=== PATIENT | female | born 1940 | race Caucasian/White ===

== ENCOUNTER 2018-09-18 10:16 | Emergency (ER) | payer MEDICARE, OTHER, SELFPAY ==
[2018-09-18 10:34] VITALS: BP 167/93; PULSE 95; RESP 14; TEMP 36.6; O2SAT 95
[2018-09-18 11:17] LABS: Add Manual Diff / Slide Review NO; Basophils Absolute Auto 0 /uL (0-100); Basophils Percent Auto 0.8 % (0-2); Eosinophils Absolute Auto 100 /uL (0-450); Eosinophils Percent Auto 1.8 % (2-4); Hematocrit 42.4 % (36-46); Lymphocytes Absolute Auto 1700 /uL (1100-4500); Lymphocytes Percent Auto 31.7 % (25-40); Mean Corpuscular Hemoglobin 29.6 PG (26-34); Mean Corpuscular Volume 89.7 fL (80-100); Monocytes Absolute Auto 600 /uL (0-900); Monocytes Percent Auto 11.7 % (3-14); Neutrophils Absolute Auto 2900 /uL (1500-7000); Platelet Count 263 X10^3/uL (150-400); Red Blood Cell Count 4.73 X10^6/uL (4.0-5.2); Red Cell Distribution Width 13.5 % (11.6-14.8); White Blood Cell Count 5.3 X10^3/uL (4.5-11.0)
[2018-09-18 11:23] LABS: Prothrombin Time 11.7 SECONDS (10.1-12.7)
[2018-09-18 11:27] LABS: Alanine Aminotransferase 21 IU/L (9-52); Albumin 4.4 g/dL (3.5-5.0); Albumin Globulin Ratio 1.1 (1.0-2.8); Alkaline Phosphatase 93 U/L (38-126); Aspartate Aminotransferase 23 IU/L (14-36); Bilirubin Total 0.4 mg/dL (0.2-1.3); Blood Urea Nitrogen 21 mg/dL (7-17); Calcium 9.6 mg/dL (8.4-10.2); Carbon Dioxide 25 mmol/L (22-32); Chloride 103 mmol/L (98-107); Estimated Glomerular Filt Rate 53.3 mL/min (>60); Glucose 93 mg/dL (80-110); HEMOLYSIS < 15 (0-50); Potassium 3.9 mmol/L (3.4-5.1); Sodium 138 mmol/L (137-145); Total Protein 8.4 g/dL (6.3-8.2)
[2018-09-18 11:30] VITALS: BP 151/86; PULSE 90; RESP 18; O2SAT 97
--- NOTE | 2018-09-18 12:49 | ED_ITS ---
HPI - GI Bleed General Chief complaint: GI Bleed Stated complaint: Rectal bleeding Time Seen by Provider: 09/18/18 12:02 Source: patient Mode of arrival: ambulatory Limitations: no limitations History of Present Illness HPI Narrative: This an 78-year-old female comes to emergency department with complaint of bright red blood with a bowel movement at 3:00 a.m. today patient states she got up to have a bowel movement, when she wiped she noticed there was blood on the toilet paper and she also noticed it in the toilet itself. She states there was enough she could see the stool she only had the 1 episode she has not had any further today. She has not had any further bowel movements today either. She states it was a little bit of dried blood on the depends that she wears afterwards, she noted this when she went to urinate later today. She denies any lightheadedness, no chest pain, shortness of breath. She states that sometimes she has a little bit of abdominal discomfort nothing new or different. No nausea, no vomiting no other diarrhea or constipation. She had a normal bowel movement today. She does have a known prolapsed rectum she is supposed to see 1 of the surgeons on the 27 of September for this. She thought they were hemorrhoids but when she saw his physician they told her it was a prolapsed rectum. Related Data Home Medications Medication Instructions Recorded Confirmed CHOLECALCIFEROL (VITAMIN D3) 2,000 units Q DAY #0 06/24/10 (Vitamin D3) Previous Rx's Medication Instructions Recorded tamsulosin [Flomax] 0.4 mg PO QDAY 7 Days #0 cap 06/06/16 Allergies Allergy/AdvReac Type Severity Reaction Status Date / Time azithromycin Allergy Mild RASH Unverified 08/19/17 13:09 levofloxacin Allergy Mild RASH Unverified 08/19/17 13:09 Sulfa (Sulfonamide Allergy Mild RASH Unverified 08/19/17 13:09 Antibiotics) adhesive AdvReac Mild RASH FROM Unverified 08/19/17 13:09 CLOTH TAPE Review of Systems Review of Systems ROS Unobtainable: All systems reviewed & are unremarkable except as noted in HPI and below Constitutional Denies chills, Denies fever(s), Denies lethargy and Denies weakness Cardiovascular Denies chest pain, Denies chest pain at rest, Denies rapid heart rate, Denies dyspnea, Denies dyspnea on exertion and Denies orthopnea Respiratory Denies chest congestion, Denies dyspnea and Denies dyspnea on exertion Gastrointestinal Gastrointestinal: Denies abdominal pain, Denies melena, Reports hematochezia, Denies change in bowel habits, Denies tenesmus, Denies change in stool character, Denies constipation, Denies diarrhea, Denies nausea, Denies vomiting and Reports other (known rectal prolapse) Genitourinary Denies hematuria, Denies urinary frequency, Denies flank pain, Denies urinary incontinence and Denies urinary urgency Neurologic Denies weakness [facility] Medical History (Updated 09/18/18 @ 12:49 by Monika Mosley DO) Hypertension (Chronic) Social History Smoking Status: Former smoker Social History Smoking Status: Former smoker Exam Narrative Exam Narrative: GENERAL: Alert and oriented x three, well-nourished, well- appearing elderly female in no acute distress. HEENT: Head normocephalic, atraumatic, EOMI, pupils reactive, face symmetric, moist mucous membranes NECK: Supple, full range of motion CARDIOVASCULAR: Regular rate and rhythm without murmurs, rubs or gallops. RESPIRATORY: Breath sounds equal bilaterally, no wheezes rales or rhonchi. ABDOMEN: Soft, nontender. Normoactive bowel sounds all 4 quadrants. No guarding or rebound, rigidity, no mass, on rectal exam patient does have a slightly prolapsed rectum. I am also able to palpate some internal hemorrhoids. Patient has some dried blood on her depends as well as in the rectal area. Stool occult is positive. There is small amount of bright red blood on my finger, there is no melanotic blood. : No CVA tenderness EXTREMITIES No edema. Neurovascularly intact. Patient has decreased use of her lower extremities and requires assistance for rolling. She normally spends her time in a wheelchair. NEUROLOGICAL: Cranial nerves II through XII grossly intact. Moving all extremities SKIN: Warm, dry, no petechiae, no rashes or lesions. Initial Vital Signs Initial Vital Signs: Vital Signs Temperature 97.9 F 09/18/18 10:34 Pulse Rate 95 H 09/18/18 10:34 Respiratory Rate 14 09/18/18 10:34 Blood Pressure 167/93 H 05/11/19 10:34 Pulse Oximetry 95 05/11/19 10:34 Course Orders Ordered: ED Orders 09/18/18 10:50 CBC [Complete Blood Count AUTO DIFF] Stat CMP [Comprehensive Metabolic Panel] Stat PT [Prothrombin Time INR] Stat Vital Signs - 8 hr 09/18/18 11:30 09/18/18 13:00 Pulse Rate 90 89 Respiratory Rate 18 20 Blood Pressure [Left Arm] 151/86 H 157/83 H Pulse Oximetry 97 96 MDM - GI Bleed Lab Data Result diagrams: 09/18/18 10:50 09/18/18 10:50 Lab Results 09/18/18 09/18/18 09/18/18 Range/Units 10:50 10:50 10:50 WBC 5.3 (4.5-11.0) X10^3/uL RBC 4.73 (4.0-5.2) X10^6/uL Hgb 14.0 (12.0-16.0) g/dL Hct 42.4 (36-46) % MCV 89.7 (80-100) fL MCH 29.6 (26-34) PG MCHC 33.0 (30-36) % RDW 13.5 (11.6-14.8) % Plt Count 263 (150-400) X10^3/uL Neut % (Auto) 54.0 (50-75) % Lymph % (Auto) 31.7 (25-40) % [place] % (Auto) 11.7 (3-14) % Eos % (Auto) 1.8 L (2-4) % Baso % (Auto) 0.8 (0-2) % Neut # (Auto) 2900 (8349-2243) /uL Lymph # (Auto) 1700 (2011-4209) /uL [place] # (Auto) 600 (0-900) /uL Eos # (Auto) 100 (0-450) /uL Baso # (Auto) 0 (0-100) /uL PT 11.7 (10.1-12.7) SECONDS INR 1.0 (0.9-1.3) Sodium 138 (137-145) mmol/L Potassium 3.9 (3.4-5.1) mmol/L Chloride 103 (98-107) mmol/L Carbon Dioxide 25 (22-32) mmol/L BUN 21 H (7-17) mg/dL Creatinine 1.00 (0.52-1.04) mg/dL Estimated GFR 53.3 L (>60) mL/min BUN/Creatinine Ratio 21.0 (6-22) Glucose 93 (80-110) mg/dL Calcium 9.6 (8.4-10.2) mg/dL Total Bilirubin 0.4 (0.2-1.3) mg/dL AST 23 (14-36) IU/L ALT 21 (9-52) IU/L Alkaline Phosphatase 93 (38-126) U/L Total Protein 8.4 H (6.3-8.2) g/dL Albumin 4.4 (3.5-5.0) g/dL Globulin 4.0 (1.7-4.1) g/dL Albumin/Globulin Ratio 1.1 (1.0-2.8) MDM Narrative Medical decision making narrative: Discussed with patient vitals, labs do not show any acute changes she has had 1 episode of bright red blood in her stool. She has follow-up on the with General surgery for prolapsed rectum and discussed having them evaluate her for colonoscopy as well. We did discuss that if she has worsening or recurrent symptoms she needs sooner followup warnings to return immediately to the ER. She feels comfortable with this plan she does not have any other generalized symptoms at this time. Discharge Plan Departure Patient Disposition: Home Clinical Impression: Rectal bleeding Discharge Date/Time: 09/18/18 13:10 Interventions: ED Discharge Assessment Last Done: 09/18/18 13:10 Instructions: DI for Rectal Bleeding Activity Restrictions/Additional Instructions: Call Thursday morning to notify the surgeons on about his rectal bleeding to see if they can move up your appointment or schedule a colonoscopy for further chaim luation. May continue her medications as prescribed. Do not start or add any blood thinners until you are seen. Return to the emergency department for new or worsening symptoms, if your having increasing frequency of rectal bleeding having large clots, have lightheadedness, passing out, new chest pain, shortness of breath, no abdominal pain, black stools or other new or concerning symptoms. Prescriptions: No Action CHOLECALCIFEROL (VITAMIN D3) (Vitamin D3) 2,000 units Q DAY Qty: 0 RF: 0 tamsulosin [Flomax] 0.4 MG capsule,extended release 24hr 0.4 mg PO QDAY 7 Days Qty: 0 RF: 0 Referrals: Titus Carcamo DO [Primary Care Provider] -
[2018-09-18 13:00] VITALS: BP 157/83; PULSE 89; RESP 20; O2SAT 96
== END 2018-09-18 13:10 | disposition home or self-care (01) ==
PROVIDERS: Emergency Provider Emergency Medicine; PCP Family Medicine
DX: K62.5 Hemorrhage of anus and rectum (principal)
CPT/HCPCS: 36591; 80053; 85025; 85610; 99282; 99283

== ENCOUNTER 2019-03-13 01:19 | Emergency (ER) | payer MEDICARE, OTHER, SELFPAY ==
--- NOTE | 2019-03-13 01:20 | ED.LOWEXIN ---
HPI - Extremity Injury (Lower) General Chief Complaint: Extremity Injury, Lower Stated Complaint: Rolled ankle Time Seen by Provider: 03/13/19 01:20 PST Source: patient Mode of arrival: EMS Limitations: no limitations History of Present Illness HPI Narrative: 78-year-old female with a history of MS. Was standing at her sink earlier this evening when she twisted and fell twisting her right ankle. She was unable to move afterwards. Has deformity of the right ankle. Was brought in by EMS. Reports minimal pain. Does have some swelling to right lower extremity this is not new for her. She does have a wheelchair at home that she uses most of the time. No other injuries reported from the event. Related Data Home Medications Medication Instructions Recorded Confirmed cholecalciferol (vitamin D3) 1,000 1,000 unit PO DAILY 10/25/18 10/25/18 unit capsule lisinopril 5 mg tablet 5 mg PO DAILY 10/25/18 10/25/18 omeprazole 10 mg capsule,delayed 10 mg PO DAILY 10/25/18 10/25/18 release oxybutynin chloride 5 mg tablet 5 mg PO DAILY 10/25/18 10/25/18 Allergies Allergy/AdvReac Type Severity Reaction Status Date / Time azithromycin Allergy Mild RASH Unverified 10/25/18 15:33 levofloxacin Allergy Mild RASH Unverified 10/25/18 15:33 Sulfa (Sulfonamide Allergy Mild RASH Unverified 10/25/18 15:33 Antibiotics) adhesive AdvReac Mild RASH FROM Unverified 10/25/18 15:33 CLOTH TAPE Review of Systems Constitutional Constitutional: Denies fever(s) and Denies headache(s) ENT Ears, Nose, Mouth, and Throat: Denies headache(s) Musculoskeletal Comments: Right ankle deformity Integumentary/Breasts Skin/Breast: Denies lesions and Denies rash Neurologic Neurologic: Denies headache(s) Comments: No change in neurologic status Hematologic/Lymphatic Hematologic/Lymphatic: Denies easy bleeding and Denies easy bruising Patient History Medical History Hypertension (Chronic) Multiple sclerosis (Chronic) Social History occupational status: previously employed Smoking Status: Former smoker alcohol intake frequency: 0-2 drinks per day Substance Use Type: does not use Exam Initial Vital Signs Initial Vital Signs: Vital Signs Temperature 98.1 F 03/13/19 01:24 PST Pulse Rate 122 H 03/13/19 01:24 PST Respiratory Rate 22 03/13/19 01:24 PST Blood Pressure 151/92 H 03/13/19 01:24 PST Pulse Oximetry 99 03/13/19 01:24 PST Const General: cooperative and comfortable Orientation: alert, awake and oriented x3 HENMT Head: normal to inspection and normocephalic Cardio Pulses: dorsalis pedis present on the right Skin Lesions: no lesions Rashes: no rashes Wounds: no wounds Neuro General: alert, awake and oriented x3 Cognition: normal cognition Speech: speech normal Extrem Other: No proximal fibular tenderness. Does have deformity to the right ankle. Psych Appearance: grossly normal and well kempt Procedures Orthopedic Joint Reduction Joint #1: Time Out Performed: Yes Side: right Joint Reduction Location: ankle Analgesia: none Post-reduction neuro exam: intact and no change Post-reduction vascular: intact and no change Post Reduction X-Ray Obtained: Yes Post Reduction X-Ray Results: reduced Splint Applied: Yes Patient Tolerated Procedure: Well and No complications Orthopedic Splinting/Casting Injury #1: Side: right Lower Extremity Injury Location: ankle Lower Extremity Immobilizer: posterior splint and stirrup splint Other Orthopedic Equipment: other (Home wheelchair) Post splinting neuro exam: intact Post splinting vascular exam: intact Placed by: Provider Course Orders Ordered: ED Orders 03/13/19 01:24 XR ankle RT min 3V Stat 03/13/19 02:14 XR ankle RT 2V Stat Vital Signs Vital signs: Vital Signs - 8 hr 03/13/19 01:24 PST 03/13/19 02:30 Temperature 98.1 F Pulse Rate 122 H 114 H Respiratory Rate 22 16 Blood Pressure 151/92 H Blood Pressure [Left Arm] 135/102 H Pulse Oximetry 99 96 MDM - Extremity Injury (Lower) Imaging Data Ankle x-ray: Attestation: I personally reviewed and interpreted this imaging study as follows: My impression: Fracture dislocation of distal fibula and medial malleolus MDM Narrative Medical decision making narrative: Patient is at baseline neurologic status. Patient does have a distal fibula and tibia fracture with dislocation. Has good dorsalis pedis pulses and brisk capillary refill. She does have swelling to her right foot but this is not new. She does have MS. Initial attempt a reduction was not sufficient. Subsequent attempts were able to put the ankle back into an acceptable reduction. I did discuss the case with with Orthopedics who viewed the x-rays and agreed that it was an acceptable position. Patient was able to tolerate this reduction without any sedation. I do suspect this is secondary to her MS and neurologic issues. She was given care instructions and return precautions with regard to the splint. She does have a wheelchair at home. Informed her that she needs to be nonweightbearing. She is going to be unable to use crutches. She was given follow-up instructions Orthopedics. She expressed understanding and agreement plan. Discharge Plan Departure Patient Disposition: Home Clinical Impression: Ankle fracture, bimalleolar, closed Qualifiers: Encounter type: initial encounter Laterality: right Qualified Code(s): S82.841A - Displaced bimalleolar fracture of right lower leg, initial encounter for closed fracture Instructions: DI for Ankle Fracture, How to Take Care of Your Splint Activity Restrictions/Additional Instructions: The splint needs to stay on in stay clean and stay dry. No weight-bearing on her right leg. You need to be in your wheelchair. On Thursday contact your primary provider. Also contact the [facility] group at [phone]. I did discuss the case with Dr Quinones who is the orthopedic doctor and whose clinical be expecting your call. Return to the emergency department for any new or worsening symptoms Prescriptions: No Action lisinopril 5 mg tablet 5 mg PO DAILY RF: 0 oxybutynin chloride 5 mg tablet 5 mg PO DAILY RF: 0 cholecalciferol (vitamin D3) 1,000 unit capsule 1,000 unit PO DAILY RF: 0 omeprazole 10 mg capsule,delayed release(DR/EC) 10 mg PO DAILY RF: 0 Referrals: Titus Carcamo DO [Primary Care Provider] -
[2019-03-13 01:24] VITALS: BP 151/92; PULSE 122; RESP 22; TEMP 36.7; O2SAT 99; BMI 27.1
--- NOTE | 2019-03-13 01:24 | DI.RAD.S_ITS ---
PROCEDURE: XR ANKLE RT MIN 3V INDICATIONS: fall with deformity TECHNIQUE: 4 views of the ankle were acquired. COMPARISON: [facility], , XR ANKLE RT 2V, 03/13/2019, 2:30. FINDINGS: Bones: A complex trimalleolar right ankle fracture is identified with prominent lateral displacement of the distal fracture fragments. An obliquely oriented and mildly comminuted distal fibula fracture is identified with intra-articular extension. There is lateral displacement and angulation of the distal fracture fragments by at least 1.5 cm. There also is a oblique fracture are evident involving the medial malleolus with 2.5 cm of lateral displacement of the smaller fracture fragment. There appears to be a vertically oriented fracture involving the posterior aspect of the lateral malleolus. Widening of the distal tibiofibular syndesmosis is evident with disruption of the ankle mortise. No suspicious osseous lesions or additional fractures are identified. Soft tissues: There likely is a tibiotalar joint effusion. Soft tissue swelling about the ankle is present. IMPRESSION: Trimalleolar right ankle fracture with disruption of the ankle mortise and syndesmosis. Dictated by: Brendan Fabian M.D. on 03/13/2019 at 7:51 Approved by: Brendan Fabian M.D. on 03/13/2019 at 7:53
--- NOTE | 2019-03-13 02:14 | DI.RAD.S_ITS ---
PROCEDURE: XR ANKLE RT 2V INDICATIONS: post reduction TECHNIQUE: 3 views of the ankle were acquired. COMPARISON: [facility], , XR ANKLE RT MIN 3V, 03/13/2019, 1:35. FINDINGS: Bones: There is been significant interval improvement in the alignment of the complex trimaleolar right ankle fracture. The fracture fragments are near-anatomic. There continues to be widening of the distal tibiofibular syndesmosis. No fractures are identified. An overlying cast/splint results in suboptimal evaluation of the underlying structures. Soft tissues: Joint effusion probably is present. There is soft tissue swelling about the ankle. IMPRESSION: Improved alignment of the trimaleolar right ankle fracture, status post closed reduction. Dictated by: Brendan Fabian M.D. on 03/13/2019 at 7:36 Approved by: Brendan Fabian M.D. on 03/13/2019 at 7:38
--- NOTE | 2019-03-13 02:21 | PC.NURSE ---
4 inch posterior and 4 inch stirrup orthoglass splint applied by Dr Abdullahi with the assistance of this nurse. patient reported tolerable pain during reduction.
[2019-03-13 02:30] VITALS: BP 135/102; PULSE 114; RESP 16; O2SAT 96
--- NOTE | 2019-03-13 03:26 | PC.NURSE ---
assisted provider in reducing right ankle in the xray room.
[2019-03-13 04:43] VITALS: BP 165/96; PULSE 108; RESP 18; O2SAT 99
== END 2019-03-13 04:46 | disposition home or self-care (01) ==
PROVIDERS: Emergency Provider Emergency Medicine; PCP Family Medicine
DX: S82.841A Displaced bimalleolar fracture of right lower leg, initial encounter for closed fracture (principal); W18.30XA Fall on same level, unspecified, initial encounter
CPT/HCPCS: 27818; 73600; 73610; 99282; 99283

== ENCOUNTER 2019-04-07 15:50 | Emergency (ER) | payer MEDICARE, OTHER, SELFPAY ==
[2019-04-07 16:16] VITALS: BP 158/83; PULSE 106; RESP 18; TEMP 35.6; O2SAT 98
[2019-04-07 16:24] LABS: Bilirubin Urine UA NEGATIVE (NEGATIVE); Color Urine UA YELLOW; Glucose Urine UA NEGATIVE (Negative); Ketones Urine UA NEGATIVE (NEGATIVE); Leukocyte Esterase Urine UA 1+ (NEGATIVE); Nitrite Urine UA NEGATIVE (Negative); Occult Blood Urine UA 1+ (Negative); Protein Urine UA NEGATIVE (Negative); Specific Gravity Urine UA <=1.005 (1.000-1.035); Urobilinogen Urine UA 0.2 E.U./dL (0.2)
[2019-04-07 16:30] LABS: Appearance Urine UA Slightly Cloudy
[2019-04-07 16:31] LABS: Amorphous Sediment Urine 1+; Bacteria Urine Moderate (10-30); Culture Indicated Urine Specimen Cultured; Mucus Urine 1+ (Negative); RBC Urine 0-1/HPF (0-5/HPF); Squamous Epithelial Cell Urine 1-5 /HPF (0-5/HPF); WBC Urine 10-30/HPF (0-5/HPF)
--- NOTE | 2019-04-07 16:31 | ED_ITS ---
HPI - Female Genitourinary General Chief complaint: Urogenital-Female Stated complaint: possible UTI Time Seen by Provider: 04/07/19 15:55 Source: patient Mode of arrival: Wheelchair Limitations: no limitations History of Present Illness HPI Narrative: Patient comes emergency department complaining of dysuria for the last 3 days. She states that she has not had any nausea or vomiting, but has had little bit of right-sided back pain. She states that she has not had any fevers or chills. She has a history of urinary tract infections previously. Patient denies any chest symptoms. No hematuria. No lightheadedness. She states the dysuria has beginning progressively worse. No other complaints at this time. Related Data Home Medications Medication Instructions Recorded Confirmed cholecalciferol (vitamin D3) 1,000 1,000 unit PO DAILY 10/25/18 10/25/18 unit capsule lisinopril 5 mg tablet 5 mg PO DAILY 10/25/18 10/25/18 omeprazole 10 mg capsule,delayed 10 mg PO DAILY 10/25/18 10/25/18 release oxybutynin chloride 5 mg tablet 5 mg PO DAILY 10/25/18 10/25/18 Previous Rx's Medication Instructions Recorded nitrofurantoin monohyd/m-cryst 100 mg PO Q12H 7 Days #14 cap 04/07/19 [Macrobid] Allergies Allergy/AdvReac Type Severity Reaction Status Date / Time azithromycin Allergy Mild RASH Verified 04/07/19 17:09 levofloxacin Allergy Mild RASH Verified 04/07/19 17:10 Sulfa (Sulfonamide Allergy Mild RASH Verified 04/07/19 17:10 Antibiotics) adhesive AdvReac Mild RASH FROM Verified 04/07/19 17:10 CLOTH TAPE Review of Systems Constitutional Constitutional: Denies chills, Denies fatigue, Denies fever(s), Denies frequent falls, Denies lethargy and Denies weakness Eyes Eyes: Denies change in vision, Denies eye discharge, Denies irritation and Denies loss of vision ENT Ears, Nose, Mouth, and Throat: Denies change in voice, Denies dizziness, Denies neck pain, Denies sore throat and Denies throat swelling Cardiovascular Cardiovascular: Denies chest pain, Denies irregular heart rhythm, Denies lightheadedness, Denies palpitations, Denies dyspnea, Denies dyspnea on exertion and Denies orthopnea Respiratory Respiratory: Denies cough, Denies dyspnea, Denies dyspnea on exertion and Denies wheezing Gastrointestinal Gastrointestinal: Denies abdominal pain, Denies change in bowel habits, Denies diarrhea, Denies nausea and Denies vomiting Genitourinary Genitourinary: Denies hematuria, Reports dysuria, Denies flank pain, Denies urinary incontinence and Denies urinary urgency Comments: Dysuria Musculoskeletal Musculoskeletal: Denies back pain, Denies muscle weakness, Denies neck pain, Denies numbness and Denies tingling Integumentary/Breasts Skin/Breast: Denies pruritus, Denies erythema, Denies rash and Denies wounds Neurologic Neurologic: Denies behavioral changes, Denies confusion, Denies dizziness, Denies frequent falls, Denies loss of vision, Denies numbness, Denies tingling and Denies weakness Psychiatric Psychiatric: Denies anxiety, Denies behavioral changes, Denies confusion, Denies depression, Denies homicidal ideation and Denies suicidal ideation Endocrine Endocrine: Denies fatigue, Denies flushing and Denies palpitations Hematologic/Lymphatic Hematologic/Lymphatic: Denies easy bruising Allergic/Immunologic Allergic/Immunologic: Denies urticaria, Denies throat swelling and Denies wheezing Patient History Medical History Hypertension (Chronic) Multiple sclerosis (Chronic) Surgical History H/O: hysterectomy (Resolved) Hx of appendectomy (Resolved) alcohol intake frequency: 0-2 drinks per day Substance Use Type: does not use Exam Initial Vital Signs Initial Vital Signs: Vital Signs Temperature 96.1 F L 04/07/19 16:16 Pulse Rate 106 H 04/07/19 16:16 Respiratory Rate 18 04/07/19 16:16 Blood Pressure 158/83 H 04/07/19 16:16 Pulse Oximetry 98 04/07/19 16:16 Const General: cooperative and well developed Nutritional Appearance: well nourished Orientation: alert, awake, oriented x3 and not confused [facility] Head: normocephalic and atraumatic Ears: external ears normal Nose: external nose normal and No nasal discharge Face and sinus: face symmetric and No dry mucous membranes Mouth: oral mucosae normal and moist mucous membranes Teeth and gingiva: dentition normal Eyes General: appearance normal, both eyes and all related structures Eyelids: eyelids normal Conjunctivae: conjunctivae normal Sclera: sclerae normal Pupils: PERRL EOM: EOM intact bilaterally Neck Neck: normal visual inspection, trachea midline, No lymphadenopathy, No midline deformity and No JVD Lymphatic: No lymphedema Chest Chest: normal inspection of the chest Resp Effort & Inspection: normal respiratory effort, able to speak in complete sentences, no respiratory distress and no use of accessory muscles Auscultation: clear to auscultation bilaterally, no rales, no rhonchi and no wheezes Cardio Rate: regular rate Rhythm: regular rhythm Heart Sounds: no click, no gallops, no murmurs and no rubs Pulses: normal peripheral pulses GI Inspection: non-distended Palpation: soft, no hepatosplenomegaly, No guarding, No pulsatile mass and No tender Auscultation: normal bowel sounds Back/Spine/Pelvis Back: No CVA tenderness Cervical Spine: cervical ROM normal and No pain with cervical ROM Thoracic/Lumbar Spine: thoracic and lumbar spine normal to inspection Skin General: no rashes or lesions noted, No jaundice and No petechiae Neuro General: alert, oriented x3, gait normal and no focal motor deficits Speech: speech normal Extrem General: full ROM, no clubbing, cyanosis or edema, no pedal edema and no calf tenderness Psych Appearance: well kempt Mental Status: mental status grossly normal Attitude: cooperative Thought Content: normal and suicidality Judgment: judgment good Course Course Course Narrative: Patient was worked up with urinalysis in the emergency department, and found to have a urinary tract infection. She was treated with antibiotics for this. She was otherwise stable and well-appearing, and I did not feel her symptoms were consistent with sepsis. As such, further workup was not indicated. We have discussed home management the symptoms, as well as the usual indications for return. Orders Ordered: Discontinued Medications Nitrofurantoin Macrocrystals (Macrobid 100 Mg Capsule) 100 mg PO NOW ONE Stop: 04/07/19 17:01 Last Admin: 04/07/19 17:11 Dose: 100 mg Documented by: CVANCE Vital Signs Vital signs: Vital Signs - 8 hr 04/07/19 16:16 Temperature 96.1 F L Pulse Rate 106 H Respiratory Rate 18 Blood Pressure 158/83 H Pulse Oximetry 98 MDM - Female Genitourinary Medical Records Attestation: I reviewed the patient's medical records. Lab Data Attestation: I reviewed the patient's lab results. Labs: Lab Results 04/07/19 Range/Units 16:10 Urine Color Yellow Urine Appearance Slightly cloudy Urine pH 5.0 (4.5-8.0) Ur Specific [place] <=1.005 (1.000-1.035) Urine Protein Negative (Negative) Urine Glucose (UA) Negative (Negative) g/dL Urine Ketones Negative (NEGATIVE) Urine Occult Blood 1+ H (Negative) Urine Nitrate Negative (Negative) Urine Bilirubin Negative (NEGATIVE) Urine Urobilinogen 0.2 (0.2) E.U./dL Ur Leukocyte Esterase 1+ H (NEGATIVE) Urine RBC 0-1/hpf (0-5/HPF) Urine WBC 10-30/hpf H (0-5/HPF) Ur Squamous Epith Cells 1-5 /hpf (0-5/HPF) Amorphous Sediment 1+ Urine Bacteria Moderate (10-30) H (None) Urine Mucus 1+ H (Negative) Ur Culture Indicated? Specimen cultured Discharge Plan Departure Patient Disposition: Home Clinical Impression: UTI (urinary tract infection) Qualifiers: Urinary tract infection type: acute cystitis Hematuria presence: without hematuria Qualified Code(s): N30.00 - Acute cystitis without hematuria Discharge Date/Time: 04/07/19 17:35 Instructions: DI for Urinary Tract Infection (UTI) Activity Restrictions/Additional Instructions: Your urinalysis, not surprisingly, is positive for infection. You have been started on antibiotics for this in the emergency department tonight. As such, your next dose will be due tomorrow morning. Please take the course of antibiotics every day, as directed, until finished. If you develop fever at any time, or if you develop worsening symptoms despite having been on antibiotics for 2-3 days, please return to the emergency department for further evaluation. Prescriptions: New nitrofurantoin monohyd/m-cryst [Macrobid] 100 mg capsule 100 mg PO Q12H 7 Days Qty: 14 RF: 0 No Action lisinopril 5 mg tablet 5 mg PO DAILY RF: 0 oxybutynin chloride 5 mg tablet 5 mg PO DAILY RF: 0 cholecalciferol (vitamin D3) 1,000 unit capsule 1,000 unit PO DAILY RF: 0 omeprazole 10 mg capsule,delayed release(DR/EC) 10 mg PO DAILY RF: 0 Referrals: Titus Carcamo DO [Primary Care Provider] -
[2019-04-07] MEDS: NITROFURANTOIN ER 100 MG CAPSULE PO (17:11)
[2019-04-07 17:18] VITALS: BP 136/85; PULSE 92; RESP 23; O2SAT 96
== END 2019-04-07 17:35 | disposition home or self-care (01) ==
PROVIDERS: Emergency Provider Emergency Medicine; PCP Family Medicine
DX: N30.00 Acute cystitis without hematuria (principal)
CPT/HCPCS: 81001; 87077; 87086; 87186; 99283

== ENCOUNTER 2019-06-01 20:49 | Emergency (ER) | payer OTHER, SELFPAY ==
[2019-06-01 20:57] VITALS: BP 177/96; PULSE 118; RESP 22; TEMP 36.6; O2SAT 96
[2019-06-01 21:23] LABS: Add Manual Diff / Slide Review NO; Basophils Absolute Auto 100 /uL (0-100); Basophils Percent Auto 0.8 % (0-2); Eosinophils Absolute Auto 0 /uL (0-450); Eosinophils Percent Auto 0.2 % (2-4); Hematocrit 38.8 % (36-46); Hemoglobin 12.8 g/dL (12.0-16.0); Lymphocytes Absolute Auto 1300 /uL (1100-4500); Lymphocytes Percent Auto 10.2 % (25-40); Mean Corpuscular HGB Conc 33.1 % (30-36); Mean Corpuscular Hemoglobin 28.5 PG (26-34); Mean Corpuscular Volume 86.1 fL (80-100); Monocytes Absolute Auto 900 /uL (0-900); Monocytes Percent Auto 7.3 % (3-14); Neutrophils Absolute Auto 10600 /uL (1500-7000); Neutrophils Percent Auto 81.5 % (50-75); Platelet Count 304 X10^3/uL (150-400); Red Blood Cell Count 4.51 X10^6/uL (4.0-5.2); Red Cell Distribution Width 15.1 % (11.6-14.8)
[2019-06-01 21:29] LABS: INR 1.1 (0.9-1.3); Prothrombin Time 12.9 SECONDS (10.1-12.7)
[2019-06-01 21:32] LABS: PTT Partial Thromboplastin Tim 26 SECONDS (26.4-36.2)
[2019-06-01 21:35] LABS: Alanine Aminotransferase 11 IU/L (<35); Albumin 4.4 g/dL (3.5-5.0); Albumin Globulin Ratio 1.1 (1.0-2.8); Alkaline Phosphatase 110 U/L (38-126); Aspartate Aminotransferase 25 IU/L (14-36); BUN Creatinine Ratio 18.2 (6-22); Bilirubin Total 0.5 mg/dL (0.2-1.3); Blood Urea Nitrogen 20 mg/dL (7-17); Calcium 9.6 mg/dL (8.4-10.2); Carbon Dioxide 26 mmol/L (22-32); Chloride 102 mmol/L (98-107); Estimated Glomerular Filt Rate 47.8 mL/min (>60); Globulin 4.1 g/dL (1.7-4.1); Glucose 110 mg/dL (80-110); HEMOLYSIS < 15 (0-50); Lipase 114 U/L (23-300); Potassium 3.8 mmol/L (3.4-5.1); Sodium 139 mmol/L (137-145); Total Protein 8.5 g/dL (6.3-8.2)
--- NOTE | 2019-06-01 22:48 | ED.ABDPAIN ---
HPI - Abdominal Pain General Chief Complaint: Abdominal Pain Stated Complaint: something wrong with stomach Time Seen by Provider: 06/01/19 22:08 Source: patient Mode of arrival: Wheelchair Limitations: no limitations History of Present Illness HPI narrative: 78-year-old woman with a history of multiple sclerosis hypertension and previous kidney stones presents with abdominal pain. It began acutely in the middle of the afternoon today. Is not associated with nausea, vomiting, diarrhea, fever, hematuria. There is nothing that makes it worse and nothing makes it better. She describes it as moderate, deep and achy, and worse in the right lower quadrant. She had a bowel movement yesterday and does continue to pass flatus today. Related Data Home Medications Medication Instructions Recorded Confirmed cholecalciferol (vitamin D3) 1,000 1,000 unit PO DAILY 10/25/18 10/25/18 unit capsule lisinopril 5 mg tablet 5 mg PO DAILY 10/25/18 10/25/18 omeprazole 10 mg capsule,delayed 10 mg PO DAILY 10/25/18 10/25/18 release oxybutynin chloride 5 mg tablet 5 mg PO DAILY 10/25/18 10/25/18 Previous Rx's Medication Instructions Recorded hydrocodone-acetaminophen 1 tab PO Q6H PRN #10 tab 06/02/19 tamsulosin 0.4 mg PO DAILY #30 cap 06/02/19 Allergies Allergy/AdvReac Type Severity Reaction Status Date / Time azithromycin Allergy Mild RASH Verified 04/07/19 17:09 levofloxacin Allergy Mild RASH Verified 04/07/19 17:10 Sulfa (Sulfonamide Allergy Mild RASH Verified 04/07/19 17:10 Antibiotics) adhesive AdvReac Mild RASH FROM Verified 04/07/19 17:10 CLOTH TAPE Review of Systems Review of Systems Narrative: All systems reviewed and are unremarkable except as noted in HPI and below Patient History Medical History Hypertension (Chronic) Multiple sclerosis (Chronic) Surgical History H/O: hysterectomy (Resolved) Hx of appendectomy (Resolved) Social History occupational status: previously employed Smoking Status: Former smoker Smoking Status: Former smoker alcohol intake frequency: 0-2 drinks per day Substance Use Type: does not use Exam Narrative Exam Narrative: General: Healthy appearing, in mild distress distress. Able to give a complete and coherent history. Well-nourished well-developed HEENT: Moist mucous membranes, normal sclera with reactive pupils, Neck: No JVD, supple Respiratory: Lungs are clear to auscultation, no wheezing no rales no rhonchi. Full and symmetrical air movement Cardiac: Regular rate and rhythm no murmurs no bruits Abdomen: Soft, mildly distended, tender in the right lower quadrant without rebound or guarding good bowel tones, no flank pain Skin: Warm and dry, no rashes Neurologic: Grossly neurologically intact with no obvious asymmetries or abnormalities Extremities: No trauma, well perfused Psych: Cooperative, appropriate insight and affect Initial Vital Signs Initial Vital Signs: Vital Signs Temperature 97.8 F 06/01/19 20:57 Pulse Rate 118 H 06/01/19 20:57 Respiratory Rate 22 06/01/19 20:57 Blood Pressure 177/96 H 06/01/19 20:57 Pulse Oximetry 96 06/01/19 20:57 Course Orders Ordered: ED Orders 06/01/19 21:10 Complete Blood Count AUTO DIFF Stat Comprehensive Metabolic Panel Stat Lipase Stat Partial Thromboplastin Time Stat Prothrombin Time INR Stat 06/01/19 21:14 EKG-12 Lead Stat 06/01/19 22:57 CT abdomen pelvis w con Stat Discontinued Medications Sodium Chloride (Normal Saline 0.9%) 1,000 mls @ 1,000 mls/hr IV BOLUS ONE Stop: 06/01/19 23:57 Last Infusion: 06/02/19 01:17 Dose: 0 mls/hr Documented by: Admin: 06/01/19 23:30 Dose: 1,000 mls/hr Documented by: SHAWN Ketorolac Tromethamine (Toradol) 15 mg IV NOW ONE Stop: 06/02/19 02:06 Ondansetron HCl (Zofran) 4 mg IV NOW ONE Stop: 06/01/19 23:46 Last Admin: 06/01/19 23:50 Dose: 4 mg Documented by: SHAWN Tamsulosin HCl (Flomax) 0.4 mg PO NOW ONE Stop: 06/02/19 02:06 Vital Signs Vital signs: Vital Signs - 8 hr 06/01/19 20:57 06/02/19 01:00 06/02/19 01:30 Temperature 97.8 F Pulse Rate 118 H 98 H 100 H Respiratory Rate 22 18 18 Blood Pressure 177/96 H Blood Pressure [Right Arm] 167/111 H 160/79 H Pulse Oximetry 96 94 95 MDM - Abdominal Pain Differential Diagnosis Differential diagnosis: Likely abdominal pain, acute appendicitis, calculus of kidney, constipation, diverticulitis and small bowel obstruction Medical Records Attestation: I reviewed the patient's medical records. Lab Data Attestation: I reviewed the patient's lab results. Result diagrams: 06/01/19 21:10 06/01/19 21:10 Labs: Lab Results 06/01/19 06/01/19 06/01/19 Range/Units 21:10 21:10 21:10 WBC 13.0 H (4.5-11.0) X10^3/uL RBC 4.51 (4.0-5.2) X10^6/uL Hgb 12.8 (12.0-16.0) g/dL Hct 38.8 (36-46) % MCV 86.1 (80-100) fL MCH 28.5 (26-34) PG MCHC 33.1 (30-36) % RDW 15.1 H (11.6-14.8) % Plt Count 304 (150-400) X10^3/uL Neut % (Auto) 81.5 H (50-75) % Lymph % (Auto) 10.2 L (25-40) % Hunt % (Auto) 7.3 (3-14) % Eos % (Auto) 0.2 L (2-4) % Baso % (Auto) 0.8 (0-2) % Neut # (Auto) 60564 H (6006-1508) /uL Lymph # (Auto) 1300 (1359-0209) /uL Hunt # (Auto) 900 (0-900) /uL Eos # (Auto) 0 (0-450) /uL Baso # (Auto) 100 (0-100) /uL PT 12.9 H (10.1-12.7) SECONDS INR 1.1 (0.9-1.3) APTT 26 L (26.4-36.2) SECONDS Sodium 139 (137-145) mmol/L Potassium 3.8 (3.4-5.1) mmol/L Chloride 102 (98-107) mmol/L Carbon Dioxide 26 (22-32) mmol/L BUN 20 H (7-17) mg/dL Creatinine 1.10 H (0.52-1.04) mg/dL Estimated GFR 47.8 L (>60) mL/min BUN/Creatinine Ratio 18.2 (6-22) Glucose 110 (80-110) mg/dL Calcium 9.6 (8.4-10.2) mg/dL Total Bilirubin 0.5 (0.2-1.3) mg/dL AST 25 (14-36) IU/L ALT 11 (<35) IU/L Alkaline Phosphatase 110 (38-126) U/L Total Protein 8.5 H (6.3-8.2) g/dL Albumin 4.4 (3.5-5.0) g/dL Globulin 4.1 (1.7-4.1) g/dL Albumin/Globulin Ratio 1.1 (1.0-2.8) Lipase 114 (23-300) U/L ECG Data Attestation: I personally reviewed and interpreted this ECG as follows: Interpretation: Normal sinus rhythm at a rate of 102. Normal axis, no acute ST T-wave changes, no ischemia MDM Narrative Medical decision making narrative: 78-year-old woman presents with acute onset of abdominal pain. Mildly elevated white count. CT scan reveals obstructing right ureteral stone. She has required no pain medication and only a single dose of nausea medication. There is no evidence of other surgical abdomen concerns or sepsis. Renal function is appropriate and she is able to void without difficulty. She is safe for home discharge. She has seen Dr. Wiley previously for chronic UTIs and renal stones. Will refer her back to him in his [place] office. Will provide a small prescription of narcotics along with instructions to avoid constipation for the pain and start her on Flomax. All questions are answered. Discharge Plan Departure Patient Disposition: Home Clinical Impression: Ureterolithiasis Instructions: DI for Kidney Stones Activity Restrictions/Additional Instructions: Thank you for coming in today Your pain is caused by a kidney stone on the right side. It is rather large. 1.1 x 0.3 x 0.3 cm in size. He is blocking your right kidney however your kidney function remains normal at this time. You are safe for home discharge. You will need to take Flomax/tamsulosin 0.4 mg daily until directed to stop by the urologist or you pass the stone. I am also going to give you some Vicodin, a narcotic pain pill, to help with the pain. This will cause constipation. When you pick up man this prescription I would also recommend picking up some dried Tums and having a handful of dried fruit every time you take a narcotic pain medication I do need you to follow-up with your urologist. You had mentioned that you had previously seen Dr. Wiley. Please call his office and let them know that you have a kidney stone, were seen in the emergency department and need to be further treated. Please return to the emergency room for increasing pain that is not controlled with pain medication, fever or inability to urinate. I hope you feel better soon Prescriptions: New hydrocodone-acetaminophen 5-300 mg tablet 1 tab PO Q6H PRN (Reason: pain) Qty: 10 RF: 0 tamsulosin 0.4 mg capsule 0.4 mg PO DAILY Qty: 30 RF: 0 No Action lisinopril 5 mg tablet 5 mg PO DAILY RF: 0 oxybutynin chloride 5 mg tablet 5 mg PO DAILY RF: 0 cholecalciferol (vitamin D3) 1,000 unit capsule 1,000 unit PO DAILY RF: 0 omeprazole 10 mg capsule,delayed release(DR/EC) 10 mg PO DAILY RF: 0 Referrals: Chicho Wiley MD [Non-Staff] - Titus Carcamo DO [Primary Care Provider] -
--- NOTE | 2019-06-01 22:57 | DI.CT.S_ITS ---
PROCEDURE: CT ABDOMEN PELVIS W CON INDICATIONS: acute abdominal pain, mild leukocytosis TECHNIQUE: After the administration of intravenous contrast, 5 mm thick sections acquired from the diaphragm to the symphysis. 5 mm coronal and sagittal reformats were acquired. For radiation dose reduction, the following was used: automated exposure control, adjustment of mA and/or kV according to patient size. COMPARISON: [facility], CT, ABDOMEN/PELVIS WITH CONTRAST, 07/22/2014, 15:37. FINDINGS: Image quality: Excellent. ABDOMEN: Lung bases: Coarse interstitial markings at the lung bases. 2 partially imaged groundglass right middle lobe lung nodules, stable. Heart size is normal. Large lateral hernia. There is fluid in visible distal esophagus. Solid organs: Liver is normal in size and enhancement. Gallbladder is normal. Biliary system is non dilated. Pancreas enhances normally. Spleen is normal in size and enhancement. No adrenal nodules. There is mild enlargement of the left kidney with moderate left hydronephrosis and dteb-tc-lowsnpin perinephric inflammation. There is left hydroureter to the level of the distal ureter where a large coarse calcification is causing obstruction and measures approximately 1.0 x 0.5 cm. There are coarse bilateral lower pole intrarenal calcifications, the largest in the left lower pole measures about 1.2 x 0.6 cm. The largest in the right kidney is in the lower pole measuring about 7 mm. Peritoneum and bowel: Bowel loops demonstrate normal wall thickness and caliber. Surgical changes of prior appendectomy. No free fluid or air. Nodes and vessels: No retroperitoneal or mesenteric adenopathy by size criteria. Aorta and inferior vena cava are normal in size. The moderate aortic calcification. Miscellaneous: There is thickening of the right lower rectus muscle with heterogeneous internal attenuation and mild underlying fat stranding. PELVIS: Genitourinary: The urinary bladder contour is irregular without focal wall thickening the uterus is surgically absent. Miscellaneous: No inguinal hernias or adenopathy. Bones: Bones are diffusely demineralized. No suspicious bony lesions. No vertebral body compression fractures. IMPRESSION: 1. There is an obstructing left distal ureteral stone causing hydroureteronephrosis and perinephric inflammation. 2. Bilateral nonobstructing lower pole intrarenal calcifications. 3. There is thickening of the lower right rectus muscle with internal attenuation suggestive of an organizing hematoma. Infection may also be present. Correlate with any recent trauma or site of abdominal pain. 4. Irregular urinary bladder contour suggestive of chronic bladder distention. 5. Large hiatal hernia which is increased since the prior study. There is also fluid in the esophagus suggesting reflux. 6. Acute findings mentioned on preliminary report. Additional findings called to the office of the patient's primary care physician at 8:30 AM. Dictated by: Rosemary Munoz M.D. on 06/02/2019 at 8:14 Approved by: Rosemary Munoz M.D. on 06/02/2019 at 8:36
[2019-06-01] MEDS: SODIUM CHLORIDE 0.9% 1,000 ML 1000 ML IV (23:30)
[2019-06-01] MEDS: ONDANSETRON 4 MG/2 ML INJ IV (23:50)
[2019-06-02 01:00] VITALS: BP 167/111; PULSE 98; RESP 18; O2SAT 94
[2019-06-02 01:30] VITALS: BP 160/79; PULSE 100; RESP 18; O2SAT 95
[2019-06-02] MEDS: TAMSULOSIN 0.4 MG CAPSULE PO (02:05)
[2019-06-02] MEDS: KETOROLAC 60 MG/2 ML VIAL 15 MG IV (02:05)
--- NOTE | 2019-06-02 02:35 | PC.NURSE ---
PT awaiting DC until to returns to transport her home. RN and BUSINESS SUPPORT MANAGER in room to reposition pt and provide incontinent care.
--- NOTE | 2019-06-02 04:15 | PC.NURSE ---
Pt became nauseated and tachycardic HR 140 while awaiting to sample room supervisor for DC, Dr notified and pt received Zofran and Dilaudid.
[2019-06-02] MEDS: HYDROMORPHONE 0.5 MG INJ IV (04:23)
[2019-06-02] MEDS: ONDANSETRON 4 MG/2 ML INJ IV (04:26)
[2019-06-02 05:15] VITALS: BP 103/41; PULSE 111; RESP 14; O2SAT 92
--- NOTE | 2019-06-02 06:20 | PC.NURSE ---
PT states feeling better and is ready to go home. Dr. james.
== END 2019-06-02 06:35 | disposition home or self-care (01) ==
PROVIDERS: Emergency Provider Emergency Medicine; PCP Family Medicine
DX: N20.1 Calculus of ureter (principal); Z87.442 Personal history of urinary calculi; I10 Essential (primary) hypertension; D72.829 Elevated white blood cell count, unspecified; R10.9 Unspecified abdominal pain
CPT/HCPCS: 36415; 74177; 80053; 83690; 85025; 85610; 85730; 93005; 93010; 96361; 96374; 96375; 96376; 99285; J1170; J1885; J2405; Q9967

== ENCOUNTER 2019-06-03 21:26 | Inpatient (IN) | payer OTHER, SELFPAY ==
[2019-06-03 21:10] VITALS: BP 110/81; PULSE 111; RESP 19; TEMP 37.4; O2SAT 100; BMI 35.2
[2019-06-03 22:21] VITALS: BP 97/65; PULSE 92; RESP 23; O2SAT 97
[2019-06-03 22:29] LABS: Add Manual Diff / Slide Review NO; Basophils Absolute Auto 0 /uL (0-100); Basophils Percent Auto 0.3 % (0-2); Eosinophils Absolute Auto 0 /uL (0-450); Hematocrit 31.7 % (36-46); Hemoglobin 10.6 g/dL (12.0-16.0); Lymphocytes Absolute Auto 300 /uL (1100-4500); Lymphocytes Percent Auto 2.2 % (25-40); Mean Corpuscular HGB Conc 33.5 % (30-36); Mean Corpuscular Hemoglobin 28.5 PG (26-34); Mean Corpuscular Volume 84.9 fL (80-100); Monocytes Absolute Auto 1200 /uL (0-900); Monocytes Percent Auto 7.9 % (3-14); Neutrophils Absolute Auto 13900 /uL (1500-7000); Neutrophils Percent Auto 89.6 % (50-75); Platelet Count 181 X10^3/uL (150-400); Red Blood Cell Count 3.73 X10^6/uL (4.0-5.2); Red Cell Distribution Width 15.1 % (11.6-14.8); White Blood Cell Count 15.6 X10^3/uL (4.5-11.0)
[2019-06-03 22:30] VITALS: BP 113/67; PULSE 98; RESP 25; O2SAT 99
--- NOTE | 2019-06-03 22:31 | ED_ITS ---
HPI - Weakness General Chief complaint: Weakness Stated complaint: weakness x4days Time Seen by Provider: 06/03/19 21:32 Source: patient and EMS Mode of arrival: EMS Limitations: no limitations History of Present Illness HPI Narrative: 78-year-old female who was seen here in the emergency department 2-3 days ago with abdominal pain. Was sent home with a diagnosis of a left- sided ureteral calculus. She has had kidney stones in the past. There was no signs of kidney failure. Her symptoms were tolerated. She was not vomiting. Was sent home with symptomatic treatment instructed to follow up with her primary doctor and also her urologist. She states that the day after she was discharged she started to not feel very well. She states that she was no longer having any abdominal pain so she did not take any of the pain medication. She states she felt very weak and fatigued. She does have a history of MS. Spends most of her time sitting in a wheelchair. She does have a neighbor who provides much of her care. Initially was reported that earlier today EMS was called to the house for a lift assist. Was reported that she refused to be transported to the ER. This evening she started to feel weak again. She called her daughter who told her to call 911 to bring her to the emergency department. Related Data Home Medications Medication Instructions Recorded Confirmed cholecalciferol (vitamin D3) 1,000 1,000 unit PO DAILY 10/25/18 10/25/18 unit capsule lisinopril 5 mg tablet 5 mg PO DAILY 10/25/18 10/25/18 omeprazole 10 mg capsule,delayed 10 mg PO DAILY 10/25/18 10/25/18 release oxybutynin chloride 5 mg tablet 5 mg PO DAILY 10/25/18 10/25/18 Previous Rx's Medication Instructions Recorded hydrocodone-acetaminophen 1 tab PO Q6H PRN #10 tab 06/02/19 tamsulosin 0.4 mg PO DAILY #30 cap 06/02/19 Allergies Allergy/AdvReac Type Severity Reaction Status Date / Time azithromycin Allergy Mild RASH Verified 04/07/19 17:09 levofloxacin Allergy Mild RASH Verified 04/07/19 17:10 Sulfa (Sulfonamide Allergy Mild RASH Verified 04/07/19 17:10 Antibiotics) adhesive AdvReac Mild RASH FROM Verified 04/07/19 17:10 CLOTH TAPE Review of Systems Constitutional Constitutional: Reports fatigue, Reports frequent falls and Reports weakness Cardiovascular Cardiovascular: Denies chest pain, Denies palpitations and Denies dyspnea Respiratory Respiratory: Denies dyspnea Gastrointestinal Gastrointestinal: Denies abdominal pain, Denies nausea and Denies vomiting Genitourinary Comments: She states she did not think that she urinated after she was discharged from the hospital. She states that this evening she had a very large urination. Musculoskeletal Musculoskeletal: Denies myalgias and Denies arthralgias Integumentary/Breasts Skin/Breast: Denies rash Neurologic Neurologic: Reports frequent falls and Reports weakness Comments: No change from baseline lower extremity weakness secondary to MS Endocrine Endocrine: Reports fatigue and Denies palpitations Hematologic/Lymphatic Hematologic/Lymphatic: Denies easy bleeding and Denies easy bruising Patient History Medical History Hypertension (Chronic) Multiple sclerosis (Chronic) Social History occupational status: previously employed Smoking Status: Former smoker Smoking Status: Former smoker alcohol intake frequency: 0-2 drinks per day Substance Use Type: does not use Exam Initial Vital Signs Initial Vital Signs: Vital Signs Temperature 99.3 F 06/03/19 21:10 Pulse Rate 111 H 06/03/19 21:10 Respiratory Rate 19 06/03/19 21:10 Blood Pressure 110/81 06/03/19 21:10 Pulse Oximetry 100 06/03/19 21:10 Const General: cooperative and comfortable Limitations: mental status not altered HENME Head: normal to inspection and normocephalic Resp Effort & Inspection: normal respiratory effort Auscultation: clear to auscultation bilaterally Cardio Rate: tachycardic Rhythm: regular rhythm Pulses: radial pulses present GI Inspection: non-distended Palpation: soft, No firm and No tender Back/Spine/Pelvis Cervical Spine: No cervical spinal tenderness Thoracic/Lumbar Spine: No thoracic spinal tenderness Other: Patient has a linear abrasion on her right flank/posterior axillary line most likely from the fall earlier today. No crepitus over this area. No pain with palpation. Skin Other: Multiple bruises. Abrasion right posterior axillary line. Patient has a 3 cm x 3 cm decubitus ulcer on the right upper buttocks. Non blanchable. Does have blackening of the center. Also has other areas of bruising the buttocks consistent with prolonged sitting. Neuro General: alert, awake and oriented x3 Cognition: normal cognition Speech: speech normal Extrem General: normal to inspection, capillary refill normal and edema Other: Bilateral lower extremity edema. Patient states this is not new Psych Appearance: grossly normal and well kempt Scores GCS [place] coma scale eye opening: Spontaneous [place] coma scale verbal response: Orientated [place] coma scale motor response: Obey commands [place] coma scale total score: 15 Course Orders Ordered: ED Orders 06/03/19 21:54 EKG-12 Lead Stat 06/03/19 22:20 Complete Blood Count AUTO DIFF Stat Comprehensive Metabolic Panel Stat Lactate (Lactic Acid) Stat Lipase Stat Procalcitonin Stat Troponin I Stat 06/03/19 23:05 CT kidney ureter bladder (KUB) Stat 06/04/19 00:12 Urinalysis and Microscopic Stat Urine Culture Stat 06/04/19 01:13 Partial Thromboplastin Time Stat Prothrombin Time INR Stat Troponin & CK Cardiac Panel Stat 06/04/19 02:35 Blood Culture Stat Sodium Chloride (Normal Saline 0.9%) 1,000 mls @ 150 mls/hr IV CONT IKER Last Infusion: 06/04/19 02:23 Dose: 0 mls/hr Documented by: Infusion: 06/04/19 01:00 Dose: 1,000 mls/hr Documented by: Admin: 06/04/19 00:14 Dose: 150 mls/hr Documented by: MENDEZ Sodium Chloride (Normal Saline 0.9%) 2,449.41 mls @ 816.47 mls/hr 30 ml/kg infuse over 3 hr (2449.41 ml) IV NOW ONE Stop: 06/04/19 05:21 Vancomycin HCl (Vancomycin) 1,000 mg in 200 mls @ 200 mls/hr IV NOW ONE Stop: 06/04/19 03:22 Discontinued Medications Aspirin (Aspirin Chew) 324 mg PO NOW ONE Stop: 06/03/19 23:09 Last Admin: 06/03/19 23:31 Dose: 324 mg Documented by: MENDEZ Ceftriaxone Sodium/Dextrose (Rocephin) 1 gm in 50 mls @ 100 mls/hr IV NOW ONE Stop: 06/03/19 23:37 Last Infusion: 06/04/19 00:14 Dose: 0 mls/hr Documented by: Admin: 06/03/19 23:30 Dose: 100 mls/hr Documented by: MENDEZ Sodium Chloride (Normal Saline 0.9%) 1,000 mls @ 1,000 mls/hr IV BOLUS ONE Stop: 06/04/19 03:10 Last Admin: 06/04/19 02:14 Dose: 1,000 mls/hr Documented by: MENDEZ Vital Signs Vital signs: Vital Signs - 8 hr 06/03/19 21:10 06/03/19 22:21 06/03/19 22:30 Temperature 99.3 F Pulse Rate 111 H 92 H 98 H Respiratory Rate 19 23 25 H Blood Pressure 110/81 Blood Pressure [Right Arm] 97/65 113/67 Pulse Oximetry 100 97 99 06/03/19 23:00 06/03/19 23:30 06/04/19 00:00 Temperature Pulse Rate 89 86 86 Respiratory Rate 19 22 23 Blood Pressure Blood Pressure [Right Arm] 111/64 108/55 L 112/57 L Pulse Oximetry 97 95 96 06/04/19 01:00 06/04/19 01:05 06/04/19 01:10 Temperature Pulse Rate 70 70 76 Respiratory Rate 20 20 21 Blood Pressure Blood Pressure [Right Arm] 79/41 L 78/46 L 88/47 L Pulse Oximetry 06/04/19 01:15 06/04/19 01:20 06/04/19 01:30 Temperature Pulse Rate 81 75 79 Respiratory Rate 23 20 20 Blood Pressure Blood Pressure [Right Arm] 101/48 L 88/55 L 95/50 L Pulse Oximetry 06/04/19 01:40 06/04/19 01:50 06/04/19 02:09 Temperature Pulse Rate 83 74 66 Respiratory Rate 20 18 17 Blood Pressure Blood Pressure [Right Arm] 100/47 L 91/49 L 79/35 L Pulse Oximetry 96 97 06/04/19 02:21 Temperature Pulse Rate 63 Respiratory Rate 18 Blood Pressure Blood Pressure [Right Arm] 78/39 L Pulse Oximetry 95 MDM - Weakness Medical Records Attestation: I reviewed the patient's medical records. Lab Data Attestation: I reviewed the patient's lab results. Result diagrams: 06/03/19 22:20 06/03/19 22:20 Labs: Lab Results 06/03/19 06/03/19 06/03/19 Range/Units 22:20 22:20 22:20 WBC 15.6 H (4.5-11.0) X10^3/uL RBC 3.73 L (4.0-5.2) X10^6/uL Hgb 10.6 L (12.0-16.0) g/dL Hct 31.7 L (36-46) % MCV 84.9 (80-100) fL MCH 28.5 (26-34) PG MCHC 33.5 (30-36) % RDW 15.1 H (11.6-14.8) % Plt Count 181 (150-400) X10^3/uL Neut % (Auto) 89.6 H (50-75) % Lymph % (Auto) 2.2 L (25-40) % [place] % (Auto) 7.9 (3-14) % Eos % (Auto) 0.0 L (2-4) % Baso % (Auto) 0.3 (0-2) % Neut # (Auto) 95154 H (4886-9238) /uL Lymph # (Auto) 300 L (0172-6595) /uL [place] # (Auto) 1200 H (0-900) /uL Eos # (Auto) 0 (0-450) /uL Baso # (Auto) 0 (0-100) /uL PT (10.1-12.7) SECONDS INR (0.9-1.3) APTT (26.4-36.2) SECONDS Sodium 129 L D (137-145) mmol/L Potassium 3.8 (3.4-5.1) mmol/L Chloride 94 L (98-107) mmol/L Carbon Dioxide 22 (22-32) mmol/L BUN 29 H (7-17) mg/dL Creatinine 1.50 H (0.52-1.04) mg/dL Estimated GFR 33.4 L (>60) mL/min BUN/Creatinine Ratio 19.3 (6-22) Glucose 92 (80-110) mg/dL Lactate (0.7-2.1) mmol/L Calcium 8.7 (8.4-10.2) mg/dL Total Bilirubin 0.7 (0.2-1.3) mg/dL AST 56 H (14-36) IU/L ALT 16 (<35) IU/L Alkaline Phosphatase 79 (38-126) U/L Total Creatine Kinase (30-135) U/L CK-MB (CK-2) (<2.37) ng/mL CK-MB (CK-2) Rel Index (1.5-5.0) % Troponin I 0.043 H (0.01-0.034) ng/mL Total Protein 7.0 (6.3-8.2) g/dL Albumin 3.5 (3.5-5.0) g/dL Globulin 3.5 (1.7-4.1) g/dL Albumin/Globulin Ratio 1.0 (1.0-2.8) Lipase 17 L D (23-300) U/L Procalcitonin (<0.5) ng/mL Urine Color Urine Appearance Urine pH (4.5-8.0) Ur Specific [place] (1.000-1.035) Urine Protein (Negative) Urine Glucose (UA) (Negative) g/dL Urine Ketones (NEGATIVE) Urine Occult Blood (Negative) Urine Nitrate (Negative) Urine Bilirubin (NEGATIVE) Urine Urobilinogen (0.2) E.U./dL Ur Leukocyte Esterase (NEGATIVE) Urine RBC (0-5/HPF) Urine WBC (0-5/HPF) Urine Bacteria (None) Ur Culture Indicated? 06/03/19 06/03/19 06/04/19 Range/Units 22:20 22:20 00:12 WBC (4.5-11.0) X10^3/uL RBC (4.0-5.2) X10^6/uL Hgb (12.0-16.0) g/dL Hct (36-46) % MCV (80-100) fL MCH (26-34) PG MCHC (30-36) % RDW (11.6-14.8) % Plt Count (150-400) X10^3/uL Neut % (Auto) (50-75) % Lymph % (Auto) (25-40) % [place] % (Auto) (3-14) % Eos % (Auto) (2-4) % Baso % (Auto) (0-2) % Neut # (Auto) (8561-8205) /uL Lymph # (Auto) (0708-0092) /uL [place] # (Auto) (0-900) /uL Eos # (Auto) (0-450) /uL Baso # (Auto) (0-100) /uL PT (10.1-12.7) SECONDS INR (0.9-1.3) APTT (26.4-36.2) SECONDS Sodium (137-145) mmol/L Potassium (3.4-5.1) mmol/L Chloride (98-107) mmol/L Carbon Dioxide (22-32) mmol/L BUN (7-17) mg/dL Creatinine (0.52-1.04) mg/dL Estimated GFR (>60) mL/min BUN/Creatinine Ratio (6-22) Glucose (80-110) mg/dL Lactate 1.2 (0.7-2.1) mmol/L Calcium (8.4-10.2) mg/dL Total Bilirubin (0.2-1.3) mg/dL AST (14-36) IU/L ALT (<35) IU/L Alkaline Phosphatase (38-126) U/L Total Creatine Kinase (30-135) U/L CK-MB (CK-2) (<2.37) ng/mL CK-MB (CK-2) Rel Index (1.5-5.0) % Troponin I (0.01-0.034) ng/mL Total Protein (6.3-8.2) g/dL Albumin (3.5-5.0) g/dL Globulin (1.7-4.1) g/dL Albumin/Globulin Ratio (1.0-2.8) Lipase (23-300) U/L Procalcitonin 38.81 H (<0.5) ng/mL Urine Color Yellow Urine Appearance Slightly cloudy Urine pH 5.0 (4.5-8.0) Ur Specific [place] 1.015 (1.000-1.035) Urine Protein Trace H (Negative) Urine Glucose (UA) Negative (Negative) g/dL Urine Ketones Negative (NEGATIVE) Urine Occult Blood 3+ H (Negative) Urine Nitrate Negative (Negative) Urine Bilirubin Negative (NEGATIVE) Urine Urobilinogen 0.2 (0.2) E.U./dL Ur Leukocyte Esterase 2+ H (NEGATIVE) Urine RBC None seen (0-5/HPF) Urine WBC 5-10/hpf H (0-5/HPF) Urine Bacteria Many (>30) H (None) Ur Culture Indicated? Specimen cultured 06/04/19 06/04/19 Range/Units 01:13 01:13 WBC (4.5-11.0) X10^3/uL RBC (4.0-5.2) X10^6/uL Hgb (12.0-16.0) g/dL Hct (36-46) % MCV (80-100) fL MCH (26-34) PG MCHC (30-36) % RDW (11.6-14.8) % Plt Count (150-400) X10^3/uL Neut % (Auto) (50-75) % Lymph % (Auto) (25-40) % [place] % (Auto) (3-14) % Eos % (Auto) (2-4) % Baso % (Auto) (0-2) % Neut # (Auto) (5848-8640) /uL Lymph # (Auto) (6021-2070) /uL [place] # (Auto) (0-900) /uL Eos # (Auto) (0-450) /uL Baso # (Auto) (0-100) /uL PT 14.6 H (10.1-12.7) SECONDS INR 1.3 (0.9-1.3) APTT 25 L (26.4-36.2) SECONDS Sodium (137-145) mmol/L Potassium (3.4-5.1) mmol/L Chloride (98-107) mmol/L Carbon Dioxide (22-32) mmol/L BUN (7-17) mg/dL Creatinine (0.52-1.04) mg/dL Estimated GFR (>60) mL/min BUN/Creatinine Ratio (6-22) Glucose (80-110) mg/dL Lactate (0.7-2.1) mmol/L Calcium (8.4-10.2) mg/dL Total Bilirubin (0.2-1.3) mg/dL AST (14-36) IU/L ALT (<35) IU/L Alkaline Phosphatase (38-126) U/L Total Creatine Kinase 847 H (30-135) U/L CK-MB (CK-2) 9.18 H (<2.37) ng/mL CK-MB (CK-2) Rel Index 1.1 L (1.5-5.0) % Troponin I 0.035 H (0.01-0.034) ng/mL Total Protein (6.3-8.2) g/dL Albumin (3.5-5.0) g/dL Globulin (1.7-4.1) g/dL Albumin/Globulin Ratio (1.0-2.8) Lipase (23-300) U/L Procalcitonin (<0.5) ng/mL Urine Color Urine Appearance Urine pH (4.5-8.0) Ur Specific [place] (1.000-1.035) Urine Protein (Negative) Urine Glucose (UA) (Negative) g/dL Urine Ketones (NEGATIVE) Urine Occult Blood (Negative) Urine Nitrate (Negative) Urine Bilirubin (NEGATIVE) Urine Urobilinogen (0.2) E.U./dL Ur Leukocyte Esterase (NEGATIVE) Urine RBC (0-5/HPF) Urine WBC (0-5/HPF) Urine Bacteria (None) Ur Culture Indicated? Imaging Data CT scan - abdomen/pelvis: Radiologist Impression: Mild to moderate left hydro nephrosis and hydroureter. Etiology for this is not visualized. No definite stone within the course of the left ureter. Mild right hydronephrosis and hydroureter. Trabecular 80 urinary bladder. ECG Data Attestation: I personally reviewed and interpreted this ECG as follows: Prior ECG tracings: not available for review Interpretation: Sinus rhythm Ventricular rate 97 Left axis deviation Normal QRS Normal QTC Nonspecific ST T wave changes MDM Narrative Medical decision making narrative: Patient has a higher leukocytosis today with a left shift. Lactate unremarkable. Elevated procalcitonin. Urinalysis concern for a urinary tract infection. She was given antibiotics. CT scan does not show any left-sided ureteral stone. She does have urine with contrast in her bladder most likely from CT scan a couple days ago. Bladder scan shows gre ater than 800 cc of urine in her bladder. I do suspect that she is having overflow incontinence. A Shukla catheter was placed with return of greater than 800 cc of urine. Patient was afebrile. Was fluid resuscitated with 30 cc/kilos. Has had blood pressure MAP of 60-70's. Patient was also given vancomycin secondary to the decubitus ulcers. Eighty have low suspicion that these of the source of her infection however because of her blood pressures I felt the need for coverage for any Gram-positive. Patient is alert and oriented. initial troponin was slightly elevated however repeat was less. Low suspicion for ACS. Does appear the patient did fall today. She does have abrasions on her right flank. They are not tender to palpation. she is not on anticoagulation. Discussed the case with night nurse practitioner who will admit for further evaluation treatment. Discussed the need for admission with the patient for continued IV antibiotics. She expressed understanding and agreement. Discharge Plan Departure Patient Disposition: Admitted As Inpatient Clinical Impression: Acute UTI, Urinary retention, Abrasion of skin Decubitus skin ulcer Qualifiers: Pressure injury location: buttock Pressure injury stage: unstageable Laterality: right Qualified Code(s): L89.310 - Pressure ulcer of right buttock, unstageable Admit Date/Time: 06/04/19 02:41 Admit Provider: Richard David
[2019-06-03 22:38] LABS: Lactate (Lactic Acid) 1.2 mmol/L (0.7-2.1)
[2019-06-03 22:39] LABS: Alanine Aminotransferase 16 IU/L (<35); Albumin 3.5 g/dL (3.5-5.0); Alkaline Phosphatase 79 U/L (38-126); Aspartate Aminotransferase 56 IU/L (14-36); BUN Creatinine Ratio 19.3 (6-22); Bilirubin Total 0.7 mg/dL (0.2-1.3); Blood Urea Nitrogen 29 mg/dL (7-17); Calcium 8.7 mg/dL (8.4-10.2); Carbon Dioxide 22 mmol/L (22-32); Chloride 94 mmol/L (98-107); Estimated Glomerular Filt Rate 33.4 mL/min (>60); Globulin 3.5 g/dL (1.7-4.1); Glucose 92 mg/dL (80-110); HEMOLYSIS < 15 (0-50); Potassium 3.8 mmol/L (3.4-5.1); Sodium 129 mmol/L (137-145)
[2019-06-03 22:43] LABS: Lipase 17 U/L (23-300)
[2019-06-03 22:56] LABS: Troponin I 0.043 ng/mL (0.01-0.034)
[2019-06-03 23:00] VITALS: BP 111/64; PULSE 89; RESP 19; O2SAT 97
[2019-06-03 23:03] LABS: Procalcitonin 38.81 ng/mL (<0.5)
--- NOTE | 2019-06-03 23:05 | DI.CT.S_ITS ---
PROCEDURE: CT KIDNEY URETER BLADDER (KUB) INDICATIONS: known L ureteral stone now with no pain but signs of pyelo TECHNIQUE: Noncontrast 5 mm thick sections acquired from the diaphragms to the symphysis. 5 mm thick coronal and sagittal reformats were then performed. For radiation dose reduction, the following was used: automated exposure control, adjustment of mA and/or kV according to patient size. COMPARISON: [facility], CT, CT ABDOMEN PELVIS W CON, 06/01/2019, 22:57. [facility], CT, ABDOMEN/PELVIS WITH CONTRAST, 07/22/2014, 15:37. [facility], CT, ABDOMEN/PELVIS WITH CONTRAST, 07/09/2009, 12:02. FINDINGS: Image quality: Diagnostic. Lung bases: Lung bases are clear. Heart size is normal. Coronary atherosclerosis is incidentally noted. Urinary system: Persistent bilateral nephrograms (left greater than right) are present, suggestive of renal failure, which may be acute on chronic. A focal area of decreased enhancement involving the cortex and medullary portion of the superior left kidney is identified (image 34, series 5). The previously noted distal left ureteral calculi appear to have passed in the interim and are now located within the urinary bladder. There is persistent moderate left-sided hydronephrosis and severe left-sided hydroureter with perinephric edema present bilaterally. Multiple bilateral nonobstructing renal calculi are evident. No definite right ureteral calculi are appreciated. The urinary bladder is distended. There is extensive heterogeneity of the wall of the urinary bladder without definite thickening. Multiple bladder diverticuli are probably present. The urinary bladder calculi are noted (image 66, series 3). Other solid organs: Layering high attenuation material within the gallbladder is evident, which was not appreciated on the previous examination, which is suggestive of millicuries excretion of contrast through the gallbladder, particularly given the persistent nephrograms of both kidneys. No definite liver lesions are evident. The spleen is unremarkable. The adrenals and pancreas are unchanged. Peritoneum and bowel: There is a moderate-sized hiatal hernia. The small bowel loops are nondilated. A normal amount of stool seen throughout the colon. Scattered colonic diverticulosis is evident without surrounding inflammation. No free fluid or loculated fluid collections are evident within the abdomen. There is no free air. Nodes and vessels: No retroperitoneal or mesenteric adenopathy by size criteria. Aorta and inferior vena cava are normal in caliber. Prominent aortic atherosclerosis is present. Other pelvic soft tissues: No free pelvic fluid. No inguinal hernias or adenopathy. Scattered phleboliths are seen within the pelvis. The uterus is surgically absent. The ovaries are not seen and may have also been surgically excised. Bones: No suspicious bony lesions. No vertebral body compression fractures. Levoconvex curvature of the lumbar spine is present. The bone mineralization is decreased. Moderate degenerative changes of the lumbar spine are age appropriate. IMPRESSION: 1. Previously seen distal left ureteral calculi have passed in the interim and are now located within the urinary bladder. 2. Moderate to severe left sided hydronephrosis and hydroureter may be less prominent on the current study. 3. Persistent nephrograms (left more than right) with associated vicarious excretion of contrast into the gallbladder is suggestive of acute renal failure. Clinical correlation is recommended. Decreased enhancement involving the superior aspect of the left kidney may represent focal infection versus infarction. 4. Prominent distention of the urinary bladder most likely is related to a neurogenic bladder or chronic bladder outlet obstruction. Please correlate clinically. Additional findings: -Nonobstructing bilateral renal calculi. -Distal colonic diverticulosis. -Moderate-sized hiatal hernia. Note: Discrepant findings from [facility] preliminary report and the final report were discussed with Dr. Diana at 0904 hours (PST) on 06/04/19. Dictated by: Brendan Fabian M.D. on 06/04/2019 at 7:50 Approved by: Brendan Fabian M.D. on 06/04/2019 at 8:05
[2019-06-03 23:30] VITALS: BP 108/55; PULSE 86; RESP 22; O2SAT 95
[2019-06-03] MEDS: CEFTRIAXONE 1 GM/50 ML FROZ.PIGGY IV (23:30)
[2019-06-03] MEDS: ASPIRIN 81 MG CHEW TAB 324 MG PO (23:31)
[2019-06-04] VITALS (24 sets, daily range): BP systolic 78–131; BP diastolic 35–80; PULSE 63–86; RESP 15–28; TEMP 36.2–36.9; O2SAT 93–98; BMI 27.3
[2019-06-04] MEDS: SODIUM CHLORIDE 0.9% 1,000 ML 150 ML IV (00:14)
[2019-06-04 00:25] LABS: RBC Urine None Seen (0-5/HPF)
[2019-06-04 00:27] LABS: Bilirubin Urine UA NEGATIVE (NEGATIVE); Color Urine UA YELLOW; Glucose Urine UA NEGATIVE (Negative); Ketones Urine UA NEGATIVE (NEGATIVE); Leukocyte Esterase Urine UA 2+ (NEGATIVE); Nitrite Urine UA NEGATIVE (Negative); Occult Blood Urine UA 3+ (Negative); Protein Urine UA TRACE (Negative); Specific Gravity Urine UA 1.015 (1.000-1.035); Urobilinogen Urine UA 0.2 E.U./dL (0.2)
[2019-06-04 00:38] LABS: Appearance Urine UA Slightly Cloudy; Bacteria Urine Many (>30); Culture Indicated Urine Specimen Cultured; WBC Urine 5-10/HPF (0-5/HPF)
[2019-06-04 01:33] LABS: INR 1.3 (0.9-1.3); Prothrombin Time 14.6 SECONDS (10.1-12.7)
[2019-06-04 01:36] LABS: PTT Partial Thromboplastin Tim 25 SECONDS (26.4-36.2)
[2019-06-04 01:37] LABS: Creatine Kinase 847 U/L (30-135)
[2019-06-04 01:50] LABS: Troponin I 0.035 ng/mL (0.01-0.034)
[2019-06-04 01:52] LABS: CKMB % Relative Index 1.1 % (1.5-5.0); Creatine Kinase MB 9.18 ng/mL (<2.37)
[2019-06-04] MEDS: SODIUM CHLORIDE 0.9% 1,000 ML 1000 ML IV (02:14)
--- NOTE | 2019-06-04 02:42 | PC.NURSE ---
cultures x 2 drawn by juan stanford
--- NOTE | 2019-06-04 03:13 | PC.NURSE ---
pts neighbor Hitesh called stating that he will be the pt's ride home. Cellphone #: [phone]
[2019-06-04] MEDS: VANCOMYCIN 1,000 MG/200 ML PIGGYBACK 200 MG IV (03:23)
[2019-06-04] MEDS: SODIUM CHLORIDE 0.9% 2,449.41 ML 816.47 ML IV (03:23)
--- NOTE | 2019-06-04 05:17 | PC.ADMIT ---
[id number] Admission Note: The patient,Olivia Castillo,78 y/o, was given written information regarding hospital policies, unit procedures and contact persons. Patient's smoking status: Former smoker. Vital Signs - 8 hr 06/03/19 22:21 06/03/19 22:30 06/03/19 23:00 Temperature Pulse Rate 92 H 98 H 89 Respiratory Rate 23 25 H 19 Blood Pressure Blood Pressure [Right Arm] 97/65 113/67 111/64 Pulse Oximetry 97 99 97 06/03/19 23:30 06/04/19 00:00 06/04/19 01:00 Temperature Pulse Rate 86 86 70 Respiratory Rate 22 23 20 Blood Pressure Blood Pressure [Right Arm] 108/55 L 112/57 L 79/41 L Pulse Oximetry 95 96 06/04/19 01:05 06/04/19 01:10 06/04/19 01:15 Temperature Pulse Rate 70 76 81 Respiratory Rate 20 21 23 Blood Pressure Blood Pressure [Right Arm] 78/46 L 88/47 L 101/48 L Pulse Oximetry 06/04/19 01:20 06/04/19 01:30 06/04/19 01:40 Temperature Pulse Rate 75 79 83 Respiratory Rate 20 20 20 Blood Pressure Blood Pressure [Right Arm] 88/55 L 95/50 L 100/47 L Pulse Oximetry 06/04/19 01:50 06/04/19 02:09 06/04/19 02:21 Temperature Pulse Rate 74 66 63 Respiratory Rate 18 17 18 Blood Pressure Blood Pressure [Right Arm] 91/49 L 79/35 L 78/39 L Pulse Oximetry 96 97 95 06/04/19 02:53 06/04/19 03:38 06/04/19 03:50 Temperature 97.2 F L Pulse Rate 64 65 85 Respiratory Rate 17 18 22 Blood Pressure 131/77 Blood Pressure [Right Arm] 87/41 L 90/46 L Pulse Oximetry 96 98 06/04/19 04:15 06/04/19 04:45 06/04/19 05:13 Temperature Pulse Rate 80 80 73 Respiratory Rate 20 20 20 Blood Pressure 125/59 L 118/64 123/63 Blood Pressure [Right Arm] Pulse Oximetry 97 96 97 Patient arrived to ICU room 228 via stretcher. Slider board used to transfer to bed. Patient with history of MS, wheelchair bound at baseline. A/O X 3 in NAD. BP stable upon admission 131/77, HR 70-80's SR, afebrile. Denies pain. Per report patient called EMS to her home X 2 during the day for weakness and a fall. Patient does not remember falling but has abrasions and bruising to right flank/axilla and left axilla. She also has a chronic wound to her upper right buttocks (unstageable) as well as dark purple discoloration to her buttocks (suspected deep tissue injury) and a black skin ulcer to her right ankle. Shukla patent with 500 mL output thus far. Oriented to room, call light and plan of care. Awaiting provider to assess and input orders.
--- NOTE | 2019-06-04 08:12 | P.HP_ITS ---
History of Present Illness History of Present Illness Date Patient Seen: 06/04/19 Time Patient Seen: 07:30 Chief complaint: weakness x4days Narrative: Patient is 78-year-old female with history of multiple sclerosis, hypertension, recurrent urolithiasis presents to ED with complaints of weakness and abdominal pain. She was last seen in ED on June 01, 2019 with complaints of abdominal pain and found to have a large 1 cm distal left ureteral obstructing stone. Her pain was managed in ED and patient discharged home to follow-up with her urologist Dr. Chicho Wiley. In interim she has felt weaker and has worsening abdominal pain. Initially normotensive but became hypotensive in ED with blood pressure dropping to 78/39. EKG sinus rhythm without ischemia. Labs showed elevated WBC 15 K with left shift, elevated procalcitonin 38, elevated creatinine 1.5 versus previous 1.1, low sodium 129, abnormal urinalysis consistent with sepsis due to urinary source. Repeat CT mild to moderate left hydronephrosis and hydroureter, previous stone not seen in ureter, also mild right hydronephrosis and hydroureter, trabecular urinary bladder. Patient was fluid resuscitated with total 2500 cc normal saline and started on Rocephin and vancomycin. She was noted to have a right buttock decubitus ulcer not obviously infected but vancomycin given due to patient's sepsis. Also she had urinary retention and Shukla catheter placed with 800 cc urine output from catheter. Patient's vitals improved in ED and she was admitted to inpatient service for further management of sepsis. Patient History Family & Social History Social History: household members none Prior Living Arrangements House Safety & Behavioral: Feels Safe in Current Yes Environment Suicidal Ideation Description None Tobacco & Substance use: Smoking Status Former smoker alcohol intake frequency holiday/special occasion Substance Use Type does not use Meds Home Medications and Allergies Home Medications Medication Instructions Recorded Confirmed Type cholecalciferol (vitamin D3) 1,000 1,000 unit PO DAILY 10/25/18 06/04/19 History unit capsule lisinopril 5 mg tablet 5 mg PO DAILY 10/25/18 06/04/19 History omeprazole 10 mg capsule,delayed 10 mg PO DAILY 10/25/18 06/04/19 History release oxybutynin chloride 5 mg tablet 5 mg PO DAILY 10/25/18 06/04/19 History citalopram 20 mg PO DAILY 06/04/19 06/04/19 History Allergies Allergy/AdvReac Type Severity Reaction Status Date / Time azithromycin Allergy Mild RASH Verified 04/07/19 17:09 levofloxacin Allergy Mild RASH Verified 04/07/19 17:10 Sulfa (Sulfonamide Allergy Mild RASH Verified 04/07/19 17:10 Antibiotics) adhesive AdvReac Mild RASH FROM Verified 04/07/19 17:10 CLOTH TAPE Review of Systems Review of Systems ROS Unobtainable: All systems reviewed & are unremarkable except as noted in HPI and below Exam Vital Signs (past 8 hours): - 06/04/19 01:00 06/04/19 01:05 06/04/19 01:10 Temperature Pulse Rate 70 70 76 Respiratory Rate 20 20 21 Blood Pressure Blood Pressure [Right Arm] 79/41 L 78/46 L 88/47 L Pulse Oximetry 06/04/19 01:15 06/04/19 01:20 06/04/19 01:30 Temperature Pulse Rate 81 75 79 Respiratory Rate 23 20 20 Blood Pressure Blood Pressure [Right Arm] 101/48 L 88/55 L 95/50 L Pulse Oximetry 06/04/19 01:40 06/04/19 01:50 06/04/19 02:09 Temperature Pulse Rate 83 74 66 Respiratory Rate 20 18 17 Blood Pressure Blood Pressure [Right Arm] 100/47 L 91/49 L 79/35 L Pulse Oximetry 96 97 06/04/19 02:21 06/04/19 02:53 06/04/19 03:38 Temperature Pulse Rate 63 64 65 Respiratory Rate 18 17 18 Blood Pressure Blood Pressure [Right Arm] 78/39 L 87/41 L 90/46 L Pulse Oximetry 95 96 06/04/19 03:50 06/04/19 04:15 06/04/19 04:45 Temperature 97.2 F L Pulse Rate 85 80 80 Respiratory Rate 22 20 20 Blood Pressure 131/77 125/59 L 118/64 Blood Pressure [Right Arm] Pulse Oximetry 98 97 96 06/04/19 05:13 06/04/19 06:28 06/04/19 06:45 Temperature Pulse Rate 73 74 Respiratory Rate 20 Blood Pressure 123/63 115/58 L Blood Pressure [Right Arm] Pulse Oximetry 97 97 06/04/19 08:00 Temperature 97.3 F L Pulse Rate 83 Respiratory Rate 28 H Blood Pressure 124/74 Blood Pressure [Right Arm] Pulse Oximetry Oxygen Delivery Method Room Air Oxygen Flow Rate 97 Narrative Exam Narrative: GENERAL: Patient is seen after fluid resuscitation and IV antibiotic in the ED. She is alert, oriented and in no acute distress. HEAD: Atraumatic. Normocephalic. EYES: Pupils equal, round and reactive. Extraocular motions intact. No scleral icterus. OROPHARYNX: moist mucosa NECK: Trachea midline. No JVD or lymphadenopathy. CARDIOVASCULAR: Regular rate and rhythm without murmurs, gallops, or rubs. RESPIRATORY: Clear to auscultation bilaterally. GASTROINTESTINAL: Abdomen nondistended, soft, non-tender. No hepato- splenomegaly, or palpable masses. EXTREMITIES: No pitting edema. NEUROLOGICAL: No dysarthria, bilateral lower extremity paresis SKIN: There is bruising on the right flank up to the axilla, there is a decubitus ulcer on the inner right buttock cheek, likely stage II, with ov erlying white eschar, no significant surrounding erythema, not malodorous Objective Labs Result Diagrams: 06/03/19 22:20 06/03/19 22:20 Labs: Laboratory Results - last 24 hr 06/03/19 06/03/19 06/03/19 22:20 22:20 22:20 WBC 15.6 H RBC 3.73 L Hgb 10.6 L Hct 31.7 L MCV 84.9 MCH 28.5 MCHC 33.5 RDW 15.1 H Plt Count 181 Neut % (Auto) 89.6 H Lymph % (Auto) 2.2 L [place] % (Auto) 7.9 Eos % (Auto) 0.0 L Baso % (Auto) 0.3 Neut # (Auto) 10144 H Lymph # (Auto) 300 L [place] # (Auto) 1200 H Eos # (Auto) 0 Baso # (Auto) 0 PT INR APTT Sodium 129 L D Potassium 3.8 Chloride 94 L Carbon Dioxide 22 BUN 29 H Creatinine 1.50 H Estimated GFR 33.4 L BUN/Creatinine Ratio 19.3 Glucose 92 Lactate Calcium 8.7 Total Bilirubin 0.7 AST 56 H ALT 16 Alkaline Phosphatase 79 Total Creatine Kinase CK-MB (CK-2) CK-MB (CK-2) Rel Index Troponin I 0.043 H Total Protein 7.0 Albumin 3.5 Globulin 3.5 Albumin/Globulin Ratio 1.0 Lipase 17 L D Procalcitonin Urine Color Urine Appearance Urine pH Ur Specific [place] Urine Protein Urine Glucose (UA) Urine Ketones Urine Occult Blood Urine Nitrate Urine Bilirubin Urine Urobilinogen Ur Leukocyte Esterase Urine RBC Urine WBC Urine Bacteria Ur Culture Indicated? Nasal Screen MRSA (PCR) 06/03/19 06/03/19 06/04/19 22:20 22:20 00:12 WBC RBC Hgb Hct MCV MCH MCHC RDW Plt Count Neut % (Auto) Lymph % (Auto) [place] % (Auto) Eos % (Auto) Baso % (Auto) Neut # (Auto) Lymph # (Auto) [place] # (Auto) Eos # (Auto) Baso # (Auto) PT INR APTT Sodium Potassium Chloride Carbon Dioxide BUN Creatinine Estimated GFR BUN/Creatinine Ratio Glucose Lactate 1.2 Calcium Total Bilirubin AST ALT Alkaline Phosphatase Total Creatine Kinase CK-MB (CK-2) CK-MB (CK-2) Rel Index Troponin I Total Protein Albumin Globulin Albumin/Globulin Ratio Lipase Procalcitonin 38.81 H Urine Color Yellow Urine Appearance Slightly cloudy Urine pH 5.0 Ur Specific [place] 1.015 Urine Protein Trace H Urine Glucose (UA) Negative Urine Ketones Negative Urine Occult Blood 3+ H Urine Nitrate Negative Urine Bilirubin Negative Urine Urobilinogen 0.2 Ur Leukocyte Esterase 2+ H Urine RBC None seen Urine WBC 5-10/hpf H Urine Bacteria Many (>30) H Ur Culture Indicated? Specimen cultured Nasal Screen MRSA (PCR) 06/04/19 06/04/19 06/04/19 01:13 01:13 04:30 WBC RBC Hgb Hct MCV MCH MCHC RDW Plt Count Neut % (Auto) Lymph % (Auto) [place] % (Auto) Eos % (Auto) Baso % (Auto) Neut # (Auto) Lymph # (Auto) [place] # (Auto) Eos # (Auto) Baso # (Auto) PT 14.6 H INR 1.3 APTT 25 L Sodium Potassium Chloride Carbon Dioxide BUN Creatinine Estimated GFR BUN/Creatinine Ratio Glucose Lactate Calcium Total Bilirubin AST ALT Alkaline Phosphatase Total Creatine Kinase 847 H CK-MB (CK-2) 9.18 H CK-MB (CK-2) Rel Index 1.1 L Troponin I 0.035 H Total Protein Albumin Globulin Albumin/Globulin Ratio Lipase Procalcitonin Urine Color Urine Appearance Urine pH Ur Specific [place] Urine Protein Urine Glucose (UA) Urine Ketones Urine Occult Blood Urine Nitrate Urine Bilirubin Urine Urobilinogen Ur Leukocyte Esterase Urine RBC Urine WBC Urine Bacteria Ur Culture Indicated? Nasal Screen MRSA (PCR) Negative for mrsa Assessment & Plan Assessment & Plan narrative: This is an 78-year-old female with history of multiple sclerosis, kidney stones presents with sepsis due to urinary retention and obstructive uropathy secondary to left urolithiasis. 1. Sepsis, present on admission -patient with severe hypertension, elevated WBC and procalcitonin consistent with sepsis, lactic acid was normal -patient has obvious source of infection due to obstructive uropathy, acute urinary retention, urinalysis consistent with UTI; her decubitus ulcer does not appear infected, no clinical signs of pneumonia -stabilized with IV fluid resuscitation and antibiotics in the ED -continue Rocephin 1 g IV q.day -follow-up on urine and blood cultures -recheck CBC in a.m. 2. Left urolithiasis with obstructive uropathy and acute urinary retention, present on admission -CT on ER visit 06/01/2019 showed a 1 cm distal left ureteral stone, on current CT 06/03/2019 there is no appearance of stone suggesting it has passed into the bladder -Shukla catheter placed in the ED due to 800 cc urinary retention suggesting stone obstructing the bladder outlet -maintain Shukla catheter until patient sees her urologist, Dr. Chicho Wiley, at outpatient follow-up 3. Acute kidney injury, present on admission -etiology pre renal due to sepsis -admit creatinine 1.5 versus 1.1 on 06/01/2019 -should correct with volume resuscitation already provided in the ED -holding lisinopril given for BP control -recheck labs in a.m. 4. Acute hyponatremia, present on admission -admit sodium 129, likely pre renal due to sepsis -volume resuscitated -follow-up on labs in a.m. 5. Elevated CPK, present on admission -CK 847 with low MB percentage consistent with sepsis and immobility -addressed with fluid resuscitation -initial troponin 0.043 and trending down does not appear due to cardiac etiology 6. Multiple sclerosis -patient is wheelchair-bound, neighbor checks in on her daily, but patient states able to manage own ADLs, has daughter in [place] and son in [place] 7. Decubitus ulcer, unstageable, right buttock -ulcer is mainly healed over and does not appear obviously infected -apply adhesive dressing, shift position in bed q.2 hours Patient admitted to inpatient service for treatment of sepsis secondary to u rinary obstruction. Quality VTE Deep Vein Thrombosis/Pulmonary Embolism Present on Admission: No
[2019-06-04] MEDS: CHOLECALCIFEROL (VITAMIN D3) 1,000 UNIT TABLET 1000 UNIT PO (09:57)
[2019-06-04] MEDS: CITALOPRAM 20 MG TABLET PO (09:57)
[2019-06-04] MEDS: CEFTRIAXONE 1 GM/50 ML FROZ.PIGGY IV (19:50)
[2019-06-04 20:28] LABS: Add Manual Diff / Slide Review NO; Basophils Absolute Auto 0 /uL (0-100); Basophils Percent Auto 0.5 % (0-2); Eosinophils Absolute Auto 100 /uL (0-450); Hemoglobin 9.4 g/dL (12.0-16.0); Lymphocytes Absolute Auto 800 /uL (1100-4500); Lymphocytes Percent Auto 11.3 % (25-40); Mean Corpuscular HGB Conc 33.6 % (30-36); Mean Corpuscular Hemoglobin 28.7 PG (26-34); Mean Corpuscular Volume 85.4 fL (80-100); Monocytes Absolute Auto 700 /uL (0-900); Monocytes Percent Auto 9.7 % (3-14); Neutrophils Absolute Auto 5700 /uL (1500-7000); Neutrophils Percent Auto 77.5 % (50-75); Platelet Count 162 X10^3/uL (150-400); Red Blood Cell Count 3.28 X10^6/uL (4.0-5.2); Red Cell Distribution Width 15.1 % (11.6-14.8); White Blood Cell Count 7.4 X10^3/uL (4.5-11.0)
[2019-06-04 20:39] LABS: Alanine Aminotransferase 17 IU/L (<35); Albumin 2.9 g/dL (3.5-5.0); Albumin Globulin Ratio 0.9 (1.0-2.8); Alkaline Phosphatase 85 U/L (38-126); Aspartate Aminotransferase 47 IU/L (14-36); BUN Creatinine Ratio 24.5 (6-22); Bilirubin Total 0.2 mg/dL (0.2-1.3); Blood Urea Nitrogen 27 mg/dL (7-17); Calcium 8.7 mg/dL (8.4-10.2); Carbon Dioxide 24 mmol/L (22-32); Chloride 102 mmol/L (98-107); Estimated Glomerular Filt Rate 47.8 mL/min (>60); Globulin 3.4 g/dL (1.7-4.1); Glucose 99 mg/dL (80-110); HEMOLYSIS < 15 (0-50); Potassium 3.9 mmol/L (3.4-5.1); Sodium 134 mmol/L (137-145); Total Protein 6.3 g/dL (6.3-8.2)
--- NOTE | 2019-06-04 22:01 | PC.NURSE ---
2200- Patient blood culture result called to Jose CARMONA No order rec.
[2019-06-04 22:25] LABS: Enterococcus species Detected (Not Detect); Listeria monocytogenes Not Detected (Not Detect); Staphylococcus species Not Detected (Not Detect); Vancomycin-rest genes A/B Not Detected (Not Detect)
[2019-06-04 22:26] LABS: Acinetobacter baumannii Not Detected (Not Detect); Candida albicans Not Detected (Not Detect); Candida glabrata Not Detected (Not Detect); Candida krusei Not Detected (Not Detect); Candida parapsilosis Not Detected (Not Detect); Candida tropicalis Not Detected (Not Detect); E. coli Not Detected (Not Detect); Enterobacter cloacae complex Not Detected (Not Detect); Enterobacteriaceae species Not Detected (Not Detect); Haemophilus influenzae Not Detected (Not Detect); Neisseria meningitidis Not Detected (Not Detect); Proteus species Not Detected (Not Detect); Pseudomonas aeruginosa Not Detected (Not Detect); Serratia marcescens Not Detected (Not Detect); Streptococcus agalactiae (Gr B Not Detected (Not Detect); Streptococcus pneumonia Not Detected (Not Detect); Streptococcus pyogenes (Gr A) Not Detected (Not Detect); Streptococcus species Not Detected (Not Detect)
[2019-06-05] VITALS (7 sets, daily range): BP systolic 119–156; BP diastolic 58–80; PULSE 69–90; RESP 16–23; TEMP 36.4–36.9; O2SAT 95–98
[2019-06-05] MEDS: VANCOMYCIN 750 MG/150 ML FROZ.PIGGY 150 MG IV (04:18)
[2019-06-05 05:02] LABS: Add Manual Diff / Slide Review NO; Basophils Absolute Auto 0 /uL (0-100); Basophils Percent Auto 0.4 % (0-2); Eosinophils Absolute Auto 100 /uL (0-450); Eosinophils Percent Auto 1.1 % (2-4); Hematocrit 28.6 % (36-46); Hemoglobin 9.6 g/dL (12.0-16.0); Lymphocytes Absolute Auto 1200 /uL (1100-4500); Lymphocytes Percent Auto 15.2 % (25-40); Mean Corpuscular HGB Conc 33.7 % (30-36); Mean Corpuscular Hemoglobin 28.6 PG (26-34); Mean Corpuscular Volume 84.9 fL (80-100); Monocytes Absolute Auto 900 /uL (0-900); Neutrophils Absolute Auto 5700 /uL (1500-7000); Neutrophils Percent Auto 72.3 % (50-75); Platelet Count 181 X10^3/uL (150-400); Red Blood Cell Count 3.36 X10^6/uL (4.0-5.2); Red Cell Distribution Width 15.2 % (11.6-14.8); White Blood Cell Count 7.9 X10^3/uL (4.5-11.0)
[2019-06-05 05:12] LABS: Blood Urea Nitrogen 27 mg/dL (7-17); Carbon Dioxide 26 mmol/L (22-32); Chloride 103 mmol/L (98-107); Estimated Glomerular Filt Rate 53.3 mL/min (>60); Glucose 113 mg/dL (80-110); HEMOLYSIS < 15 (0-50); Potassium 3.7 mmol/L (3.4-5.1); Sodium 135 mmol/L (137-145)
[2019-06-05] MEDS: ENOXAPARIN 30 MG/0.3 ML SYRINGE SUBCUT (08:45)
[2019-06-05] MEDS: CITALOPRAM 20 MG TABLET PO (08:45)
[2019-06-05] MEDS: CHOLECALCIFEROL (VITAMIN D3) 1,000 UNIT TABLET 1000 UNIT PO (08:45)
--- NOTE | 2019-06-05 08:48 | P.PN_ITS ---
Subjective Subjective Date Patient Seen: 06/05/19 Interval history: This is an 78-year-old female with history of multiple sclerosis, kidney stones presents with sepsis due to urinary retention and obstructive uropathy secondary to left urolithiasis. She is feeling much better overall with correction of hypotension and appropriate IV antibiotics. Blood culture growing Gram-positive cocci and serology PCR positive for Enterococcus. She is on vancomycin and Rocephin pending final identification and sensitivities. She denies abdominal pain at this time. Exam Vital Signs (past 8 hours): - 06/05/19 05:01 06/05/19 08:00 Temperature 98.2 F 98.0 F Pulse Rate 83 75 Respiratory Rate 18 23 Blood Pressure 119/58 L 139/68 Pulse Oximetry 96 95 Oxygen Delivery Method Room Air Oxygen Flow Rate 0 Narrative Exam Narrative: GENERAL: Patient is in no acute distress HEENT: Head normocephalic, atraumatic. Mucous membranes moist. CHEST: Clear to auscultation bilaterally. CARDIAC: Regular rate and rhythm. ABDOMEN: Nondistended, soft, nontender. Shukla catheter in place. EXTREMITIES: no edema. NEUROLOGICAL: Alert, appears well oriented, pleasant, no focal findings SKIN: Warm, dry, no petechiae, no rash Objective Labs Result Diagrams: 06/05/19 04:44 06/05/19 04:44 Labs: Laboratory Results - last 24 hr 06/04/19 06/04/19 06/04/19 02:35 20:20 20:20 WBC 7.4 D RBC 3.28 L Hgb 9.4 L Hct 28.0 L MCV 85.4 MCH 28.7 MCHC 33.6 RDW 15.1 H Plt Count 162 Neut % (Auto) 77.5 H Lymph % (Auto) 11.3 L [place] % (Auto) 9.7 Eos % (Auto) 1.0 L Baso % (Auto) 0.5 Neut # (Auto) 5700 Lymph # (Auto) 800 L [place] # (Auto) 700 Eos # (Auto) 100 Baso # (Auto) 0 Sodium 134 L Potassium 3.9 Chloride 102 Carbon Dioxide 24 BUN 27 H Creatinine 1.10 H Estimated GFR 47.8 L BUN/Creatinine Ratio 24.5 H Glucose 99 Calcium 8.7 Total Bilirubin 0.2 AST 47 H ALT 17 Alkaline Phosphatase 85 Total Protein 6.3 Albumin 2.9 L Globulin 3.4 Albumin/Globulin Ratio 0.9 L A. baumannii (PCR) Not detected Sherrill albicans (PCR) Not detected C. glabrata (PCR) Not detected C. krusei (PCR) Not detected C. parapsilosis (PCR) Not detected C. tropicalis (PCR) Not detected Enterobacteriac sp PCR Not detected E. cloacae complex PCR Not detected Enterococcus sp PCR Detected H E. coli (PCR) Not detected H. influenzae (PCR) Not detected Klebsiella oxytoca PCR Not detected Klebsiella pneumoniae Not detected List. monocytogenes PCR Not detected N. meningitidis (PCR) Not detected Proteus species (PCR) Not detected Serratia marcescens PCR Not detected Staphylococcus sp PCR Not detected Staph aureus (PCR) Not detected mecA-Methicil Res Gene Not Reportable Streptococcus sp PCR Not detected Group A Strep (PCR) Not detected Strep agalactiae (PCR) Not detected Strep pneumoniae (PCR) Not detected P. aeruginosa (PCR) Not detected Jennifer/B-Vanco Res Genes Not detected KPC-Carbap Res Gene PCR Not Reportable 06/05/19 06/05/19 04:44 04:44 WBC 7.9 RBC 3.36 L Hgb 9.6 L Hct 28.6 L MCV 84.9 MCH 28.6 MCHC 33.7 RDW 15.2 H Plt Count 181 Neut % (Auto) 72.3 Lymph % (Auto) 15.2 L [place] % (Auto) 11.0 Eos % (Auto) 1.1 L Baso % (Auto) 0.4 Neut # (Auto) 5700 Lymph # (Auto) 1200 [place] # (Auto) 900 Eos # (Auto) 100 Baso # (Auto) 0 Sodium 135 L Potassium 3.7 Chloride 103 Carbon Dioxide 26 BUN 27 H Creatinine 1.00 Estimated GFR 53.3 L BUN/Creatinine Ratio 27.0 H Glucose 113 H Calcium 9.0 Total Bilirubin AST ALT Alkaline Phosphatase Total Protein Albumin Globulin Albumin/Globulin Ratio A. baumannii (PCR) Sherrill albicans (PCR) C. glabrata (PCR) C. krusei (PCR) C. parapsilosis (PCR) C. tropicalis (PCR) Enterobacteriac sp PCR E. cloacae complex PCR Enterococcus sp PCR E. coli (PCR) H. influenzae (PCR) Klebsiella oxytoca PCR Klebsiella pneumoniae List. monocytogenes PCR N. meningitidis (PCR) Proteus species (PCR) Serratia marcescens PCR Staphylococcus sp PCR Staph aureus (PCR) mecA-Methicil Res Gene Streptococcus sp PCR Group A Strep (PCR) Strep agalactiae (PCR) Strep pneumoniae (PCR) P. aeruginosa (PCR) Jennifer/B-Vanco Res Genes KPC-Carbap Res Gene PCR Assessment & Plan Assessment & Plan narrative: This is an 78-year-old female with history of multiple sclerosis, kidney stones presents with sepsis due to urinary retention and obstructive uropathy secondary to left urolithiasis. 1. Sepsis, Enterococcus bacteremia, likely urinary source, present on admission -improving course with BP normalizing and WBC trending down -patient admitted with severe hypotension, elevated WBC and procalcitonin consistent with sepsis, lactic acid was normal -patient has obvious source of infection due to obstructive uropathy, acute urinary retention, urinalysis consistent with UTI; her decubitus ulcer does not appear infected, no clinical signs of pneumonia -blood culture positive for GPC, serology positive for Enterococcus -urine culture negative -continue vancomycin and Rocephin 1 g IV q.day, can switch antibiotics to IV ampicillin or oral Augmentin if Enterococcus species has favorable sensitivity 2. Left urolithiasis with obstructive uropathy and acute urinary retention, present on admission -CT on ER visit 06/01/2019 showed a 1 cm distal left ureteral stone, on current CT 06/03/2019 there is no appearance of stone suggesting it has passed into the bladder -Shukla catheter placed in the ED due to 800 cc urinary retention suggesting stone obstructing the bladder outlet -maintain Shukla catheter until patient sees her urologist, Dr. Chicho Wiley, at outpatient follow-up -patient may need outpatient cystoscopy to assess for retained stone in her bladder 3. Acute kidney injury, present on admission -etiology pre renal due to sepsis -admit creatinine 1.5 versus improving to 1.00 on 06/05/2019 -holding lisinopril given for BP control 4. Acute hyponatremia, present on admission -resolve, last sodium 135 -admit sodium 129, likely pre renal due to sepsis -volume resuscitated, now off IV fluids 5. Elevated CPK, present on admission -CK 847 with low MB percentage consistent with sepsis and immobility -addressed with fluid resuscitation -initial troponin 0.043 and trending down does not appear due to cardiac etiology 6. Multiple sclerosis -patient is wheelchair-bound, neighbor checks in on her daily, but patient states able to manage own ADLs, has daughter in [place] and son in [place] 7. Decubitus ulcer, unstageable, right buttock -ulcer is mainly healed over and does not appear obviously infected -apply adhesive dressing, shift position in bed q.2 hours Patient with improving course and likely can be discharged on oral antibiotic in next 24 hours once blood cultures sensitivities are back. She will need to go home with Shukla catheter until sees her urologist, Dr. Chicho Wiley. Quality VTE Deep Vein Thrombosis/Pulmonary Embolism Present on Admission: No
--- NOTE | 2019-06-05 12:37 | PC.NURSE ---
Addendum entered by Radha Juárez R.N. 06/05/19 15:47: Pt tolerated being up in chair well. No pain reported. Original Note: AM shift Pt is A/o x4, cooperative with all care. Able to use lift to assist Pt OOB to chair for meal. PT/OT ordered. Pt denies Pain, and we are offloading pressure to protect healing skin to coccyx . RA 96% CTA
--- NOTE | 2019-06-05 15:37 | PT.IIE ---
Current Diagnoses Sepsis, unspecified organism (06/04/19) Surgical History (Last Reviewed 06/02/19 @ 02:13 by Bambi Fontana MD) H/O: hysterectomy (Resolved) Hx of appendectomy (Resolved) Medical History (Last Reviewed 06/04/19 @ 08:13 by Ramin Rosas MD) Acute UTI (Acute) Hypertension (Chronic) Multiple sclerosis (Chronic) Ureterolithiasis (Acute) Physical Therapy Inpatient Evaluation/Re-Eval M1 PT/OT-IP Prior Functional Status Start: 06/05/19 13:48 Freq: NEEDED Status: Active Protocol: Document 06/05/19 14:59 AW (Rec: 06/05/19 15:37 AW [id number]) Medical Review Prior Functional Status Medical History Reviewed Yes Communication WNL Mobility and Gait Pt has MS and uses a manual wheelchair for mobility at baseline which she propels with B UE's. She reports limited standing tolerance with ability to pull herself up to standing at a sink for short periods of time. She describes transferring using a 180 degree squat pivot technique. She has two left recliners and she sleeps in one of them. Activities of Daily Living and IADL's Pt reports independence with dressing and toileting. She no longer showers as she has been having trouble getting in and out; she gives herself sponge baths. Pt manages her own medications. Her neighbor, Hitesh, assists with mail, shopping, and other errands. Prior Functional Level (Other details) Pt was standing at the sink on 03/13/19 when she rolled her right ankle with resultant distal tib fib fracture. The fracture was reduced in the ED and she was non-weightbearing on the RLE for an unknown amount of time. She reports a 1-month stay at [facility] but she is back at home now. Social History Household Members none Living Arrangements House Number of Floors (Floors) One Floor Number of Stairs To Enter/Railing? ramped entry Home Environment Standard Height Toilet Home Equipment Straight Cane,Manual Wheelchair,Enterprise Systems Manager,Lift Recliner,Grab Bars Near Toilet Additional Social History Comment Pt's neighbor, Hitesh, assists the pt frequently. She also has a daugher in [facility] and a son in [place] who visit less than weekly. M2 PT-IP Current Condition Start: 06/05/19 13:48 Freq: NEEDED Status: Active Protocol: Document 06/05/19 14:59 AW (Rec: 06/05/19 15:37 AW [id number]) Physical Therapy Current Condition Current Condition Evaluation Date 06/05/19 Treatment Diagnosis obstructive uropathy, MS, impaired mobility Weight Bearing Status Weight Bearing Status Full Weight Bearing M3 PT-IP Subjective Start: 06/05/19 13:48 Freq: NEEDED Status: Active Protocol: Document 06/05/19 14:59 AW (Rec: 06/05/19 15:37 AW [id number]) Subjective Physical Therapy Visit Type Type Initial Evaluation Visit Start Time 14:04 Visit Stop Time 14:50 Total Visit Minutes 46 Physical Therapy Visit Comments Patient Comments Pt willing to work with PT Patient Goals Pt hopes to go homeat discharge Therapy Pain Assessment Pain When Pain Assessed During Mobility Pain Present Pain Present Denied Pain M4 PT-IP Mobility and Gait Start: 06/05/19 13:48 Freq: NEEDED Status: Active Protocol: Document 06/05/19 14:59 AW (Rec: 06/05/19 15:37 AW [id number]) PT-Transfer Assessment Transfers Transfer Destination Chair,Wheelchair Transfer Technique Squat Pivot Transfer Ability Level of Assist Total Assistance,1 Person Assistance Comments Mobility Comments Pt had been hoyered over to the chair prior to PT arrival. She was willing to attempt 180-degree squat pivot transfer to wheelchair as she does at home, but a suitable wheelchair could not be found. Pt was then willing to attempt a 90-degree squat pivot transfer to her left side. Due to LE tone, pt needed assist to place her feet underneath her. PT blocked her knees and completed total assist squat pivot transfer to wheelchair with the arm removed to assist with clearance. Pt was able to sit up in the wheelchair but required CGA to min A x 1 at all times due to poor trunk control. PT then transferred the patient back to the recliner chair via total assist squat pivot transfer. Pt was repositioned and reclined in the chair with call light and table within reach. Gait Assessment Comments Gait Comments Unable at baseline Stair Climbing Assessment Comments Stair Climbing Comments Unable at baseline. Pt has ramped entry. PT-Balance Assessment Sitting Balance and Reactions Static Sitting Balance Ability Poor Dynamic Sitting Balance Ability Poor M5 PT-IP Objective Assessments Start: 06/05/19 13:48 Freq: NEEDED Status: Active Protocol: Document 06/05/19 14:59 AW (Rec: 06/05/19 15:37 AW [id number]) Orientation Orientation/Cognition Level of Alertness Alert Orientation Name,Day of Week,Place, Situation Language Function Ability No Deficits Noted Safety Awareness Decreased Safety Awareness Memory Description No Deficits Noted Comments Pt lacks insight into how her safety at home is affected by her mobility limitations. Gross Range of Motion Upper Extremity ROM Assessment Within Functional Limits Lower Extremity ROM Assessment Bilaterally Impaired Impairments Pt unable to actively flex knees or dorsiflex Strength Upper Extremity Strength Assessment Bilaterally Impaired Shoulder 3+/5 Elbow 3+/5 Hand 4-/5 Lower Extremity Strength Assessment Bilaterally Impaired Hip 3-/5 Ankle L 2/5; R 0/5 Coordination Assessment Gross Coordination Gross Coordination WNL Sensation Assessment Sensation Gross Sensation Right UE Impaired,Left LE Impaired Light Touch Impaired Comments Sensation Comments Impaired/dull light touch sensation in stocking and glove distribution Muscle Tone Muscle Tone WNL No Muscle Tone Location Bilateral Lower Extremity Type of Tone Rigidity,Extensor Severity of Tone Severe Manifistation of Tone Fluctuation Comments Muscle Tone Comments Pt with B LE extensor tone, limited active knee flexion, bilateral plantar flexor contracture. M6 PT-IP Treatment Start: 06/05/19 13:48 Freq: NEEDED Status: Active Protocol: Document 06/05/19 14:59 AW (Rec: 06/05/19 15:37 AW [id number]) Physical Therapy Treatment Education Education Provided Precautions,Safety M7 PT-IP Assessment and Plan Start: 06/05/19 13:48 Freq: NEEDED Status: Active Protocol: Document 06/05/19 14:59 AW (Rec: 06/05/19 15:37 AW [id number]) PT Summary Assessment and Plan Potential Rehabilitation Potential Fair Status of Condition at Evaluation Stable Summary Impairments ROM,Strength,Balance,Sensation ,Tone,Bed Mobility,Transfers, Gait Assessment Summary Olivia is an 78 yo woman with history of MS and recent distal tib-fib fracture who was seen for PT evaluation in the acute care setting after being admitted with obstructive uropathy. Apparently, she was non- weightbearing on the R LE after her ankle fracture which was reduced in the ED but is cleared for weightbearing now (although this therapist does not have access to ortho records for verification). She reports she spent ~[address] [facility] but it is unclear whether she went to SNF prior to that stay. She has returned to her home where she is assisted by a neighbor , Hitesh. Pt reports before her ankle fracture, she was able to pull up to standing for brief periods at a sink, but otherwise mobilized with a wheelchair and transferred independently with a 180- degree squat pivot technique. On evaluation, pt exhibited poor trunk control/seated balance, B LE extensor tone, B plantar flexor contractures, and severely decreased B LE strength. She required total assist to transfer from bedside chair to wheelchair and back. Olivia will require SNF rehab in order to be able to consider safe return to home. She and her family may also need to consider long- term care options depending on progress in subacute rehab. If pt progresses quickly and is able to transfer herself safely, she would benefit from home health therapy to increase her independence and safety in her home. PT will continue to assess. Goals Bed Mobility Goal Standby Assistance Transfer Goal Contact Guard Assistance Days to Meet Goals 10 Frequency of Treatment Frequency Of Treatment Once a Day Treatment Plan Physical Therapy Treatment Plan Bed Mobility Training,Transfer Training,Gait Training, Therapeutic Exercise,Balance Retraining,Discharge Planning, Neuromuscular Re-ed, Coordination Retraining,Manual Therapy Other Recommendations and Next Treatment transfers Focus Recommendations To Nursing Amount of Assist Needed Mechanical Lift Discharge Recommendations PT Discharge Recommendations SNF Rehab Other Discharge Recommendations SNF vs home with 01/12 and Transportation Needs at Discharge Wheelchair/Cabulance
--- NOTE | 2019-06-05 16:08 | CM.DANOTE ---
Discharge Planning/Care Management DCP: assessment: case received, EMR reviewed. Discussed in Team Rounds. Met now with pt and introduced self and role. Pt is an 78 year old female who admitted to care of hospitalist team yesterday morning. She is w/c bound at baseline and carries dx of Multiple Sclerosis. PCP: Titus Carcamo Payer: Medicare and for Life Admission status: INPT: confirmed by UR RN Micheline. Does live by herself and reports helpful neighbor provides some support. PT recommending snf and pt agreeable to same. SNF choice list: discussed: decision: [facility]: referral: to [facility]: in review. Pt reports last time she was at [facility] was with a fx ankle and OBS status. She says she had to go to [facility] for a month before she was able to return home . It cost me a fortune and I never even got any rehab.. Dr. Rosas is updated and agrees snf setting prior to home is a good plan. Pt will d/c on guzman catherter. Unclear if antibiotics will be IV or oral. P: snf at d/c. [facility] is reviewing/acceptance is anticipated. CM Discharge Assessment Start: 06/05/19 16:05 Freq: Status: Active Protocol: Document 06/05/19 16:06 ITV (Rec: 06/05/19 16:08 ITV [id number]) Discharge Planning Assessment Advance Directives? Yes History Provided By Patient,Medical Record Has Patient been admitted in last 30 No days? Prior Living Arrangements House Household Members none Independent with ADL's manages: is disabled with MS Is patient alert and oriented? Yes DME Already Rented / Owned Wheelchair Medicare Choice List Provided Yes Has Agency SNF been contacted Yes Whiteboard Updated in Patient Room with Yes name and ext. # of Liquid Compounder Review Status In Process
[2019-06-05] MEDS: CEFTRIAXONE 1 GM/50 ML FROZ.PIGGY IV (20:10)
[2019-06-05] MEDS: DOCUSATE 100 MG CAPSULE PO (21:15)
[2019-06-05] MEDS: POLYETHYLENE GLYCOL 3350 17 GM POWD.PACK PO (21:15)
[2019-06-05] MEDS: VANCOMYCIN 1,000 MG/200 ML PIGGYBACK 200 MG IV (22:04)
[2019-06-06] VITALS (8 sets, daily range): BP systolic 144–172; BP diastolic 68–81; PULSE 76–91; RESP 16–20; TEMP 36.6–37.4; O2SAT 94–97
--- NOTE | 2019-06-06 05:30 | PC.NURSE ---
NOC Note: Pt with BP of 171/72, this is a systolic increase of about 20. Notified [facility], he stated to monitor with regularly scheduled VS check and he will look into patients medications. Currently no medication being given for BP.
[2019-06-06 09:07] LABS: BUN Creatinine Ratio 28.9 (6-22); Blood Urea Nitrogen 26 mg/dL (7-17); Calcium 9.3 mg/dL (8.4-10.2); Carbon Dioxide 27 mmol/L (22-32); Chloride 102 mmol/L (98-107); Estimated Glomerular Filt Rate > 60.0 mL/min (>60); Glucose 97 mg/dL (80-110); HEMOLYSIS < 15 (0-50); Magnesium 1.5 mg/dL (1.6-2.3); Potassium 3.9 mmol/L (3.4-5.1); Sodium 138 mmol/L (137-145)
[2019-06-06 09:10] LABS: Creatine Kinase 84 U/L (30-135)
[2019-06-06 09:22] LABS: Procalcitonin 21.74 ng/mL (<0.5)
[2019-06-06] MEDS: SODIUM CHLORIDE 0.9% FLUSH 10 ML IV (09:39)
[2019-06-06] MEDS: LISINOPRIL 5 MG TABLET PO (09:39)
[2019-06-06] MEDS: CITALOPRAM 20 MG TABLET PO (09:40)
[2019-06-06] MEDS: ENOXAPARIN 30 MG/0.3 ML SYRINGE SUBCUT (09:40)
[2019-06-06] MEDS: ACETAMINOPHEN 325 MG TABLET 650 MG PO (09:40)
[2019-06-06] MEDS: DOCUSATE 100 MG CAPSULE PO ×2 (09:41→21:53)
[2019-06-06] MEDS: CHOLECALCIFEROL (VITAMIN D3) 1,000 UNIT TABLET 1000 UNIT PO (09:41)
--- NOTE | 2019-06-06 11:21 | OT.IP.EVAL ---
Current Diagnoses Sepsis, unspecified organism (06/04/19) Past Medical History (Last Reviewed 06/04/19 @ 08:13 by Ramin Rosas MD) Acute UTI (Acute) Hypertension (Chronic) Multiple sclerosis (Chronic) Ureterolithiasis (Acute) Surgical History (Last Reviewed 06/02/19 @ 02:13 by Bambi Fontana MD) H/O: hysterectomy (Resolved) Hx of appendectomy (Resolved) Occupational Therapy Inpatient Evaluation/Re-Eval M1 PT/OT-IP Prior Functional Status Start: 06/06/19 12:37 Freq: NEEDED Status: Active Protocol: Document 06/06/19 10:45 [facility] (Rec: 06/06/19 13:00 [facility] [id number]) Medical Review Prior Functional Status Medical History Reviewed Yes Communication WNL Mobility and Gait Per PT eval:Pt has MS and uses a manual wheelchair for mobility at baseline which she propels with B UE's. She reports limited standing tolerance with ability to pull herself up to standing at a sink for short periods of time . She describes transferring using a 180 degree squat pivot technique. She has two lift recliners and she sleeps in one of them. Pt told OT that she has her neighbor assist to help get her out of the lift recliner in the morning and back into the left recliner at night. Activities of Daily Living and IADL's Pt reports independence with dressing and toileting. She no longer showers as she has been having trouble getting in and out; she gives herself sponge baths. Pt manages her own medications. Her neighbor, Hitesh, assists with mail, shopping, and other errands. Pt states she is able to self propel her wc close to the toilet and slide over to the toilet to use it. Then in order to get her pants up all the way stands with her chin braced on the sink with a towel so she is able to stand and has free use of her hands to pull up her pants. In the kitchen, she braces her elbow on the sink so that she can wash the dishes while briefly standing. Prior Functional Level (Other details) Pt was standing at the sink on 03/13/19 when she rolled her right ankle with resultant distal tib fib fracture. The fracture was reduced in the ED and she was non-weightbearing on the RLE for an unknown amount of time. She reports a 1-month stay at [facility] but she is back at home now. Social History Household Members none Living Arrangements House Number of Floors (Floors) One Floor Number of Stairs To Enter/Railing? ramped entry Home Environment Standard Height Toilet Home Equipment Straight Cane,Manual Wheelchair,Child Nutrition Assistant,Lift Recliner,Grab Bars Near Toilet Additional Social History Comment Pt's neighbor, Hitesh, assists the pt frequently. She also has a daughter in [facility] and a son in [place] who visit less than weekly. Pt did tell OT that she has below the knee braces for both feet but states they no longer fit her. M2 OT-IP Current Condition Start: 06/06/19 12:37 Freq: Status: Active Protocol: Document 06/06/19 10:45 [facility] (Rec: 06/06/19 13:00 [facility] [id number]) Occupational Therapy Current Condition Current Condition Evaluation Date 06/06/19 Treatment Diagnosis Sepsis due to urinary retention and obstructive uropathy Diagnosis Onset Date 06/05/19 M3 OT- IP Subjective and Pain Start: 06/06/19 12:37 Freq: Status: Active Protocol: Document 06/06/19 10:45 [facility] (Rec: 06/06/19 13:00 [facility] [id number]) OT- Subjective Occupational Therapy Visit Type Type Initial Evaluation Visit Start Time 10:45 Visit Stop Time 11:21 Total Visit Minutes 36 Occupational Therapy Visit Comments Patient Comments Pt agreeable to try to get up but very specific to details as how she wants to get up. PT and OT present due to pt needing extensive assist for bed mobility needs. Patient/Caregiver Goals Pt wanting to go home. OT Pain Assessment Pain When Pain Assessed After Treatment Pain Present Pain Present Pain Reported Location Head Intensity 9 Scale Used Numeric (1 - 10) M4 OT- IP ADL's Start: 06/06/19 12:37 Freq: Status: Active Protocol: Document 06/06/19 10:45 [facility] (Rec: 06/06/19 13:00 [facility] [id number]) OT [id number] Comments OT Self-Feeding Comments Not at meal time. OT ADL-Oral Care Comments Oral Care Comments No opportunity. OT ADL-Dressing General Eval Lower Body Dressing Ability Total Assistance Comments OT Dressing Comments Pt total assist for all LB dressing needs at this time as pt not able to assist to more her legs. Per pt at home hold onto her knee socks to assist to move her legs. OT ADL-Toileting General Evaluation Toileting Ability Total Assistance Areas Needing Assistance Empty Catheter or Colostomy Comments OT Toileting Comments Shukla in place. OT ADL-Bathing Comments OT Bathing Comments Not performed. M5 OT- IP IADL's Start: 06/06/19 12:37 Freq: Status: Active Protocol: Document 06/06/19 10:45 [facility] (Rec: 06/06/19 13:00 [facility] [id number]) OT-Instrumental Activities of Daily Living Home Safety Awareness Home Safety Comments At this time pt would be dependent for someone to assist her to do all IADL needs in addition to assist with ADl needs. M6 OT- IP Functional Cognition Start: 06/06/19 12:37 Freq: Status: Active Protocol: Document 06/06/19 10:45 [facility] (Rec: 06/06/19 13:00 [facility] [id number]) Cognitive Factors Limiting Selfcare Function Cognitive Ability Level of Alertness Alert Patient Orientation Name,Place,Situation Attention Span Ability Capable of Focused Attention, Capable of Sustained Attention Ability to Follow Commands Able to Follow One Step Commands Memory Description Short Term Impaired Safety Awareness Underestimates Need for Assistance Problem Solving Ability Unable to Identify Errors, Needs Assist to Identify Solutions Cognitive Comments Cognitive Assessment Comments Pt insistent that she is able to stand at home better due to having carpet at home versus use of non skid socks here in the hospital. Pt needing MODA for sitting balance and still convinced that she would be able to stand. However at the end of the session as having a failed attempt to stand via MAX A X2, pt now realizes that she is not strong enough to stand. Pt also focused that her neighbor would be able to assist her along other friends . Re-explained to the pt that she is not even able to sit up on her own and currently too great of care for her neighbors to assist her at home. OT- Vision and Hearing OT- Hearing Assessment OT- Hearing Assessment WFL OT- Vision Assessment Visual Acuity Glasses For Reading M7 OT- IP Mobility and Balance Start: 06/06/19 12:37 Freq: Status: Active Protocol: Document 06/06/19 10:45 [facility] (Rec: 06/06/19 13:00 [facility] [id number]) OT- Bed Mobility Assessment Supine to Sit Supine to Sit Assist Total Assistance,2 Person Assistance,Head of Bed Elevated,Bedrails Scooting Scooting to Edge of Bed Total Assistance,2 Person Assistance OT-Transfer Assessment Comments Mobility Comments Attempted to stand MAX AX2 and unable to stand at this time as her legs were giving away. Dependent for bed mobility. MODA for sitting balance. OT- Balance Assessment Sitting Balance and Reactions Static Sitting Balance Ability Poor Dynamic Sitting Balance Ability Poor Standing Balance and Reactions Static Standing Balance Ability Poor Dynamic Standing Balance Ability Poor M8 OT- IP Objective Assessments Start: 06/06/19 12:37 Freq: Status: Active Protocol: Document 06/06/19 10:45 [facility] (Rec: 06/06/19 13:00 [facility] [id number]) OT Gross Range of Motion Upper Extremity Range of Motion Assessment Within Functional Limits OT Strength Comments Strength Comments BUE 4/5 M9 OT- IP Assessment and Plan Start: 06/06/19 12:37 Freq: Status: Active Protocol: Document 06/06/19 10:45 [facility] (Rec: 06/06/19 13:00 [facility] [id number]) OT Summary Assessment and Plan Potential Rehabilitation Potential Fair Analytic Complexity at Evaluation Moderate Summary OT Impairments Pain,Strength,Balance, Functional Cognition, Functional Mobility,Grooming, Dressing,Toileting,Bathing, Toilet Transfers,Shower Transfers,Activity Tolerance Progress Towards Goals Slow Progress due to Pain,Slow Progress due to Medical Issues,Slow Progress due to Activity Tolerance,Slow Progress due to Cognition Assessment Summary Pt MOD complexity due to now needing extensive assist for ADl's, use of jackson lift for transfers, and poor sitting and standing balance and far from baseline. Pt will benefit from skilled rehab to help work on trunk control, balance, overall strengthening and endurance so able to get back to doing her own ADl and functional mobility needs. Goals Grooming Goal Minimal Assistance Dressing Goal Moderate Assistance Toileting Goal Moderate Assistance Bathing Goal Moderate Assistance Toilet Transfer Goal Minimal Assistance Patient/Caregiver Education Goal Demonstrate Energy Conservation and Pacing OT-Other Goals Pt sponge bath prior. Days to Meet Goals 15 Frequency of Treatment Frequency Of Treatment Once a Day Treatment Plan OT Treatment Plan ADL Training,Functional Cognition Training,Functional Mobility,Therapeutic Exercises ,Patient/Family Education, Discharge Planning Other Treatment Recommendations and Next Show pt BUE theraband exercises Treatment Focus Discharge Recommendations OT Discharge Recommendations SNF Rehab
--- NOTE | 2019-06-06 11:37 | PT.IPTN ---
Addendum entered and electronically signed by Laura Caro PT 06/06/19 11:40: BP 175/81 HR 73 SpO2 97% after treatment Original Note: Current Diagnoses Sepsis, unspecified organism (06/04/19) Physical Therapy Treatment Note M2 PT-IP Current Condition Start: 06/05/19 13:48 Freq: NEEDED Status: Active Protocol: Document 06/05/19 14:59 AW (Rec: 06/05/19 15:37 AW [id number]) Physical Therapy Current Condition Current Condition Evaluation Date 06/05/19 Treatment Diagnosis obstructive uropathy, MS, impaired mobility Weight Bearing Status Weight Bearing Status Full Weight Bearing M3 PT-IP Subjective Start: 06/05/19 13:48 Freq: NEEDED Status: Active Protocol: Document 06/06/19 11:21 AW (Rec: 06/06/19 11:37 AW [id number]) Subjective Physical Therapy Visit Type Type Treatment Note Visit Start Time 10:54 Visit Stop Time 11:18 Total Visit Minutes 24 Notes Co-treat with PT Number of BEEF TAGGER Visits 0 Physical Therapy Visit Comments Patient Comments Pt willing to work with PT M4 PT-IP Mobility and Gait Start: 06/05/19 13:48 Freq: NEEDED Status: Active Protocol: Document 06/06/19 11:21 AW (Rec: 06/06/19 11:37 AW [id number]) PT-Bed Mobility Assessment Supine to Sit Supine to Sit Maximum Assistance,2 Person Assistance,Head of Bed Elevated,Bedrails Sit to Supine Sit to Supine Total Assistance,2 Person Assistance Scooting Scooting to Edge of Bed Maximum Assistance Scooting Up and Down in Bed Dependent PT-Transfer Assessment Comments Mobility Comments Pt was reclined in bed upon therapist arrival. She stated she would be able to transfer at home, so OT/PT set up the room with dycem on the floor and wheelchair facing EOB. Pt required max A x 2 for supine to sit and max A to scoot toward EOB. Pt had poor trunk control and listed to the left side, requiring min A at all time in order to maintain flexed posture at EOB. Pt reached for the wheelchair arms and attempted to pull herself forward to get weight on her feet, but was unable, requiring assist from OT/PT to block knees and prevent slide onto the floor. Pt acknowledged she would be unable to transfer. She was dependent for transfer back to supine and for scooting up in the bed. She was repositioned in the bed and reported 8.5/ 10 headache which was relayed to nursing. M5 PT-IP Objective Assessments Start: 06/05/19 13:48 Freq: NEEDED Status: Active Protocol: Document 06/05/19 14:59 AW (Rec: 06/05/19 15:37 AW [id number]) Orientation Orientation/Cognition Level of Alertness Alert Orientation Name,Day of Week,Place, Situation Language Function Ability No Deficits Noted Safety Awareness Decreased Safety Awareness Memory Description No Deficits Noted Comments Pt lacks insight into how her safety at home is affected by her mobility limitations. Gross Range of Motion Upper Extremity ROM Assessment Within Functional Limits Lower Extremity ROM Assessment Bilaterally Impaired Impairments Pt unable to actively flex knees or dorsiflex Strength Upper Extremity Strength Assessment Bilaterally Impaired Shoulder 3+/5 Elbow 3+/5 Hand 4-/5 Lower Extremity Strength Assessment Bilaterally Impaired Hip 3-/5 Ankle L 2/5; R 0/5 Coordination Assessment Gross Coordination Gross Coordination WNL Sensation Assessment Sensation Gross Sensation Right UE Impaired,Left LE Impaired Light Touch Impaired Comments Sensation Comments Impaired/dull light touch sensation in stocking and glove distribution Muscle Tone Muscle Tone WNL No Muscle Tone Location Bilateral Lower Extremity Type of Tone Rigidity,Extensor Severity of Tone Severe Manifistation of Tone Fluctuation Comments Muscle Tone Comments Pt with B LE extensor tone, limited active knee flexion, bilateral plantar flexor contracture. M6 PT-IP Treatment Start: 06/05/19 13:48 Freq: NEEDED Status: Active Protocol: Document 06/06/19 11:21 AW (Rec: 06/06/19 11:37 AW [id number]) Physical Therapy Treatment Education Education Provided Precautions,Safety Other Treatments Other Treatment Performed Continued to discuss discharge planning with pt, reinforcing that SNF should be considered due to lack of safety at home . M7 PT-IP Assessment and Plan Start: 06/05/19 13:48 Freq: NEEDED Status: Active Protocol: Document 06/06/19 11:21 AW (Rec: 06/06/19 11:37 AW [id number]) PT Summary Assessment and Plan Summary Impairments ROM,Strength,Balance,Sensation ,Tone,Bed Mobility,Transfers, Gait Progress Towards Goals Slow Progress due to Medical Issues,Slow Progress due to Activity Tolerance Assessment Summary Olivia notes she has AFO's at home but has not been able to use them since her ankle fracture due to swelling. She states they are probably 10 years old. She was dependent and max assist x 2 for bed mobility and was unable to transfer to wheelchair which was set up as she would at home. It would be unsafe for her to return to home at current level of function and does require SNF rehab Goals Bed Mobility Goal Standby Assistance Transfer Goal Contact Guard Assistance Days to Meet Goals 10 Frequency of Treatment Frequency Of Treatment Once a Day Treatment Plan Physical Therapy Treatment Plan Bed Mobility Training,Transfer Training,Gait Training, Therapeutic Exercise,Balance Retraining,Discharge Planning, Neuromuscular Re-ed, Coordination Retraining,Manual Therapy Other Recommendations and Next Treatment transfers Focus Recommendations To Nursing Amount of Assist Needed Mechanical Lift Discharge Recommendations PT Discharge Recommendations SNF Rehab Equipment Needed for Home Before defer to subacute rehab Discharge Transportation Needs at Discharge Wheelchair/Cabulance
--- NOTE | 2019-06-06 11:41 | CM.DPC ---
DCP Cont: Was able to meet with patient. Pleasant. Discussed with her going to skilled rehab. Patient stated she just doesn't want to go to any facility in [place]. Patient mentioned that she had been at [facility] for a short amount of time when she broke her ankle, and she didn't get any kind of therapy. Mentioned to patient that she will be eligible to go to assisted tomorrow, since she is Medicare. Patient is glad that she is going to [facility]. Confirmed with [facility] earlier this morning that they do have beds available, referral was already sent. Will call her again to confirm discharge for tomorrow. Will complete PASSR. Patient confirmed that she does have a daughter in [facility], as well as a son in [place]. She stated that at home, she does not take showers, but sponge bathes. Her neighbor friend, Hitesh, takes her to her doctor's appointments and does her shopping. P: DCP to continue to follow. Will complete PASSR, and call [facility] today to confirm discharge for tomorrow. Bianca Hernandez RN/Superintendent Of [employer]
--- NOTE | 2019-06-06 12:41 | P.PN_ITS ---
Subjective Subjective Date Patient Seen: 06/06/19 Interval history: Olivia Castillo is an 78-year-old female with a past medical history significant for multiple sclerosis, hypertension, and recurrent urolithiasis who presented to ED with complaints of weakness and abdominal pain. The patient is resting in bed comfortably. She endorses headache and acute on chronic constipation. She has no other complaints and denies shortness of breath, chest pain, abdominal pain, nausea, vomiting, fever, chills, dysuria, diarrhea or constipation. She is voiding without difficulty. She has not had a bowel movement in approximately 6 days and a bowel regimen has been implemented. Plan to givebisacodyl suppository and mineral oil enema today. Exam Vital Signs (past 8 hours): - 06/06/19 05:13 06/06/19 08:00 06/06/19 11:24 Temperature 98.8 F 98.2 F Pulse Rate 91 H 80 Respiratory Rate 20 17 Blood Pressure 172/72 H 156/72 H Pulse Oximetry 96 97 95 06/06/19 12:07 Temperature 98.5 F Pulse Rate 76 Respiratory Rate 16 Blood Pressure 144/68 H Pulse Oximetry 97 Oxygen Delivery Method Room Air Oxygen Flow Rate 0 Narrative Exam Narrative: General: Elderly female lying in bed and in no acute distress, well-developed, well-nourished, appropriately interactive. HEENT: Normocephalic, atraumatic. External ears without defect. Pupils equal, round, and reactive to light and accommodation. Anicteric sclerae, moist conjunctivae, and no lid lag. Neck: Supple with full range of motion.No lymphadenopathy or thyromegaly. Cardiovascular: Regular rate and rhythm without murmurs, rubs, or gallops appreciated Pulmonary: Clear to auscultation bilaterally without crackles, wheezes, or rhonchi. Normal respiratory effort with no use of accessory muscles. Abdomen: Soft, bowel sounds present, nontender, nondistended. No hepatosplenomegaly or masses appreciated. Extremities: No clubbing, cyanosis, or edema. Skin: Normal temperature, turgor, and texture; no rash, ulcers, or subcutaneous nodules appreciated. Neurological: Cranial nerves grossly intact. Psychiatric: Normal mood and affect. Appears alert and oriented to person, place, and time. Mild cognitive impairment versus mild dementia with short-term memory recall deficit. Objective Labs Result Diagrams: 06/05/19 04:44 06/06/19 08:21 Labs: Laboratory Results - last 24 hr 06/04/19 06/06/19 06/06/19 02:35 08:21 08:21 Sodium 138 Potassium 3.9 Chloride 102 Carbon Dioxide 27 BUN 26 H Creatinine 0.90 Estimated GFR > 60.0 BUN/Creatinine Ratio 28.9 H Glucose 97 Calcium 9.3 Magnesium 1.5 L Total Creatine Kinase Procalcitonin 21.74 H A. baumannii (PCR) Not detected Sherrill albicans (PCR) Not detected C. glabrata (PCR) Not detected C. krusei (PCR) Not detected C. parapsilosis (PCR) Not detected C. tropicalis (PCR) Not detected Enterobacteriac sp PCR Not detected E. cloacae complex PCR Not detected Enterococcus sp PCR Detected H E. coli (PCR) Not detected H. influenzae (PCR) Not detected Klebsiella oxytoca PCR Not detected Klebsiella pneumoniae Not detected List. monocytogenes PCR Not detected N. meningitidis (PCR) Not detected Proteus species (PCR) Not detected Serratia marcescens PCR Not detected Staphylococcus sp PCR Not detected Staph aureus (PCR) Not detected Streptococcus sp PCR Not detected Group A Strep (PCR) Not detected Strep agalactiae (PCR) Not detected Strep pneumoniae (PCR) Not detected P. aeruginosa (PCR) Not detected Jennifer/B-Vanco Res Genes Not detected 06/06/19 08:21 Sodium Potassium Chloride Carbon Dioxide BUN Creatinine Estimated GFR BUN/Creatinine Ratio Glucose Calcium Magnesium Total Creatine Kinase 84 D Procalcitonin A. baumannii (PCR) Sherrill albicans (PCR) C. glabrata (PCR) C. krusei (PCR) C. parapsilosis (PCR) C. tropicalis (PCR) Enterobacteriac sp PCR E. cloacae complex PCR Enterococcus sp PCR E. coli (PCR) H. influenzae (PCR) Klebsiella oxytoca PCR Klebsiella pneumoniae List. monocytogenes PCR N. meningitidis (PCR) Proteus species (PCR) Serratia marcescens PCR Staphylococcus sp PCR Staph aureus (PCR) Streptococcus sp PCR Group A Strep (PCR) Strep agalactiae (PCR) Strep pneumoniae (PCR) P. aeruginosa (PCR) Jennifer/B-Vanco Res Genes Assessment & Plan Assessment & Plan narrative: Olivia Castillo is an 78-year-old female with a past medical history significant for multiple sclerosis, hypertension, and recurrent urolithiasis who presented to ED with complaints of weakness and abdominal pain. 1. Acute sepsis, present on admission. Resolved. -Patient presented with severe hypotension, leukocytosis and elevated procalcitonin with end-organ dysfunction BRENDA and source UTI. Her decubitus ulcer does not appear infected, no clinical signs of pneumonia -Early goal-directed therapy met including: IV fluid resuscitation and broad- spectrum antibiotics. 2. Acute Enterococcus faecalis bacteremia and UTI, secondary to left urolithiasis with obstructive uropathy and urinary retention, present on admission. Active. -CT on ER visit 06/01/2019 showed a 1 cm distal left ureteral stone, on current CT 06/03/2019 there is no appearance of stone suggesting it has passed into the bladder. -Shukla catheter placed in the ED due to 800 cc urinary retention suggesting stone obstructing the bladder outlet. -Initial WBC 15.6 and procalcitonin 38.81. WBC now normalized. Procalcitonin 21.74. Continue to trend procalcitonin daily. -Blood and urine culture grew Enterobacter faecalis sensitive to IV antibiotics only including vancomycin. -Switched vancomycin with dosing per pharmacist to amoxicillin 500 mg every 8 hours. -Plan to continue Shukla catheter until patient is a will to follow-up outpatient with her urologist, Dr. Chicho Wiley. Patient may need outpatient cystoscopy to assess for retained stone in her bladder 3. Acute kidney injury, present on admission. Resolved. -Secondary to sepsis and UTI. -Initial creatinine 1.5. Baseline creatinine 0.8-1.0. Creatinine now normal at 0.90. -Continue to avoid nephrotoxic agents. Held lisinopril initially due to BRENDA and restarted once resolved. -Continue to monitor renal function periodically. 4. Acute hyponatremia, present on admission. Resolved. -Likely secondary to prerenal azotemia from dehydration and sepsis. -Initial sodium 129. Continued IV fluid until adequately hydrated then disconti nued. Sodium level now normal at 138. 5. Acute mild rhabdomyolysis, present on admission. Resolved. -Initial CK 847 with low MB percentage consistent with sepsis and immobility. Initial troponin 0.043 and trending down does not appear due to cardiac etiology. -Continued IV fluid until adequately hydrated then discontinued. -Total creatinine kinase normal at 84. 6. Multiple sclerosis, chronic, present on admission. Stable. -Patient is wheelchair-bound and has her neighbors who check in on her daily, but she reports she is able to manage her own ADLs. Patient has a daughter in [place] and son in [place]. -Continue physical and occupational therapy evaluation treatment. 7. Decubitus ulcer, unstageable, right buttock, chronic, present on admission. Stable -Ulcer is mainly healed over and does not appear obviously infected. -Continue to apply adhesive dressing and reposition every 2 hours. Disposition: Patient likely discharge to group home facility tomorrow for continued rehabilitation. She will need to go with Shukla catheter until sees her urologist, Dr. Chicho Wiley. Quality VTE Deep Vein Thrombosis/Pulmonary Embolism Present on Admission: No
--- NOTE | 2019-06-06 14:07 | DIET.PN ---
Dietary Progress Note Assessment: Mrs Castillo is an 78-year-old female with PMHx of multiple sclerosis, hypertension who presented to ED with complaints of weakness and abdominal pain. Her BP was 78/39 on admission. She was eating lunch during our assessment. She reports no appetite and drinking a lot of water x 4 days related to kidney stones. She states she now has improved appetite and denies shortness of breath, chest pain, abdominal pain, nausea, vomiting, diarrhea or constipation. Per reports she has not had a bowel movement in approximately 6 days. She admits she generally only eats 1 meal per day and tends to snack on granola bars and rits crackers during the day. HT: 157.48cm WT: 65kg UBW: does not know BMI: 26.2 (overweight) Labs: PT: 14.6 H GFR: 47.8, 53.3, >60 AST: 47 ALT: 17 TCK: 847 MNA: 11 Norman: 14 Nutrition Diagnosis: Inadequate energy intake r/t decreased ability to consume sufficient energy aeb pt reports estimated intake < EER, lack of interest in foods x 4 days, abdominal pain. Interventions: 1. Discussed heart healthy eating including a balanced diet with whole grains, fruits and vegetables, and lean protein sources. 2. Recommended heart-healthy unsaturated fats. Limit saturated fats, trans fats, and cholesterol intake. Eat more plant-based or vegetarian meals using beans and soy foods for protein. 3. Eat whole, unprocessed foods to limit the amount of sodium (salt). 4. Limit refined carbohydrates especially sugar, sweets and sugar-sweetened beverages. 5. Try to eat 3-4 small meals per day to supply adequate nutrition and decrease snacking on sugary/salty items. Diet Order: Heart Healthy EER: [id number] suze @ 25-30 suze/kg 78-95g @ 1.2-1.5g/kg Monitoring/Evaluations: weight, PO's, labs, ONS if PO's <70%.
[2019-06-06] MEDS: MAGNESIUM CHLORIDE 64 MG TABLET 128 MG PO (14:18)
[2019-06-06] MEDS: AMOXICILLIN 250 MG CAPSULE 500 MG PO ×2 (14:18→21:53)
[2019-06-06] MEDS: BISACODYL 10 MG SUPP PR (14:22)
--- NOTE | 2019-06-06 14:29 | CM.DPC ---
DCP Cont: Ariadna from [facility] called and stated that after reviewing patient's chart, she is noted to have [employer] Medicare Advantage. Asked patient about this, and patient indicated: I thought that I cancelled it late in April. Patient does not have their insurance card. Ariadna from [facility] stated that she is currently active under [employer], and this was confirmed. [facility] is not in their network, and patient would have to pay approximately 50% of stay. Called [facility] and [facility]. Polly at [facility] stated that they are contracted with them. Went ahead and send referral. Cheyenne at [facility] is also contracted with them as well, and sent clinical information to them as well. Spoke to Shakira, admission counselor, and gave her update. Patient was admitted here after hours, and it was noted that she was straight Medicare. Encouraged patient to look at list of facilities in [facility]. She had spoken to her daughter, Torey, and stated, none of these facilities are any good. Called and spoke to patient's son, Roberto. He stated, she was supposed to cancel [employer]. He asked if there was anyone here that could help her do this. Let him know that she or family would need to assist her. He gave this director case management daughter, Torey's phone number. Her number is: [phone]. Roberto stated that she and himself are POA. Spoke to Torey. Gave her update regarding her insurance. She, also, stated that she thought that her mom cancelled her insurance. Let her know that she may need family to assist her in doing this, if she wishes to have just Medicare. Daughter stated she did not her mom to go to [facility] or [facility], but maybe [facility]. Daughter will be going by the facility today to see it. Left Cheyenne in admissions a message to hole on to referral and go ahead and initiate auth. Ariadna at [facility] was also going to call Devin about a one time contract as well. Encouraged daughter to call this director case management back after touring facility. Gave her this director case management's phone number. P: DCP to continue to follow. Insurance profile has been updated. Plan is for [facility] pending authorization, or [facility], but patient will have to pay for some of her stay there. Ariadna will update this director case management on cost, and what she is able to find out. Bianca Hernandez RN/Automobile Technician
--- NOTE | 2019-06-06 14:55 | PC.NURSE ---
pt c/o headache earlier in shift- medicated with acetaminophen - with no further complaints- She is unable to bear her weight even with assistance to transfer to w/c or bsc- attempted x 2 or 3 times with PT/OT and additional staff- will need mechanical lift. given po colace and prune juice as well as suppository this shift- enema ordered for later this pm is she does not move her bowels, as it has been approx 5 days without bm- disposition is for snf at discharge - probably tomorrow
--- NOTE | 2019-06-06 18:59 | PC.NURSE ---
Evening Shift Note: Pt initially ricardoaud
--- NOTE | 2019-06-06 19:00 | PC.NURSE ---
Evening Shift Note: Pt with VSS. A and O x3. Pt denies pain, nausea or other discomfort at this time. Pt initially requesting commode. Pt overhead lifted to commode, (suppository given on dayshi). Pt with very small BM, mucous and small pellets. Pt requested manual dis-impaction, order received and attempted to dis-impact. Pt did not have any stool in rectal vault. Pt helped back to bed, backside dark red and blanchable after sitting upright on commode. Pt refuses turn at 1830, discussed need to protect skin, quan. decubitis ulcer on L buttock. Pt is currently on R side, offloading pressure from ulcer.
[2019-06-07] VITALS (8 sets, daily range): BP systolic 124–155; BP diastolic 60–82; PULSE 80–96; RESP 15–18; TEMP 36–36.9; O2SAT 95–99
[2019-06-07 05:14] LABS: Magnesium 1.6 mg/dL (1.6-2.3)
[2019-06-07 05:42] LABS: Procalcitonin 12.79 ng/mL (<0.5)
--- NOTE | 2019-06-07 06:27 | PC.NURSE ---
NOC Note: Pt denies pain. Shukla cath patent draining clear yellow urine. Resistant to Q2 hours turning. BTx4, no stool this shift.
[2019-06-07] MEDS: ACETAMINOPHEN 325 MG TABLET 650 MG PO (08:20)
[2019-06-07] MEDS: CHOLECALCIFEROL (VITAMIN D3) 1,000 UNIT TABLET 1000 UNIT PO (08:21)
[2019-06-07] MEDS: CITALOPRAM 20 MG TABLET PO (08:21)
[2019-06-07] MEDS: LISINOPRIL 5 MG TABLET PO (08:21)
[2019-06-07] MEDS: DOCUSATE 100 MG CAPSULE PO ×2 (08:21→22:01)
[2019-06-07] MEDS: AMOXICILLIN 250 MG CAPSULE 500 MG PO ×3 (08:22→22:01)
[2019-06-07] MEDS: MAGNESIUM CITRATE 300 ML SOLUTION 150 ML PO (09:39)
[2019-06-07] MEDS: ENOXAPARIN 40 MG/0.4 ML SYRINGE SUBCUT (09:42)
--- NOTE | 2019-06-07 10:01 | PT.IPTN ---
Current Diagnoses Sepsis, unspecified organism (06/04/19) Physical Therapy Treatment Note M2 PT-IP Current Condition Start: 06/05/19 13:48 Freq: NEEDED Status: Active Protocol: Document 06/05/19 14:59 AW (Rec: 06/05/19 15:37 AW [id number]) Physical Therapy Current Condition Current Condition Evaluation Date 06/05/19 Treatment Diagnosis obstructive uropathy, MS, impaired mobility Weight Bearing Status Weight Bearing Status Full Weight Bearing M3 PT-IP Subjective Start: 06/05/19 13:48 Freq: NEEDED Status: Active Protocol: Document 06/07/19 10:01 AB (Rec: 06/07/19 12:59 AB [id number]) Subjective Physical Therapy Visit Type Type Treatment Note Visit Start Time 10:01 Visit Stop Time 10:49 Total Visit Minutes 48 Number of FIRE PREVENTION INSPECTOR Visits 0 Physical Therapy Visit Comments Patient Comments pt agreed to get up M4 PT-IP Mobility and Gait Start: 06/05/19 13:48 Freq: NEEDED Status: Active Protocol: Document 06/07/19 10:01 AB (Rec: 06/07/19 12:59 AB [id number]) PT-Bed Mobility Assessment Supine to Sit Supine to Sit Maximum Assistance,Total Assistance,2 Person Assistance ,Head of Bed Elevated,Bedrails Scooting Scooting to Edge of Bed Dependent PT-Transfer Assessment Sit to and From Stand Sit to and from Stand Maximum Assistance,2 Person Assistance,Use of Upper Extremities Equipment Transfer Assistive Device None,Gait Belt,Front Wheeled Walker Orthotic/Prosthetic Devices or Brace: No Transfers Transfer Destination Chair,Toilet Transfer Technique Stand Pivot Transfer Ability Level of Assist Maximum Assistance,Total Assistance,2 Person Assistance ,Use of Upper Extremities Comments Mobility Comments pt completed supine to sit with HOB elevated max x 2 to total A x 2 and max cues. required max A to sit on EOB but able to maintain after repositionining CGA to min A and cues. completed squat pivot transfer max A x 2 and max cues bed to bedside commode. pt tends to sit midway through transfer and requires max A to position on bedside commode. pt completed sit to stand from bedside commode max A x 2 and max cues . requires max A x 2 to maintain standing using FWW for support. pt unable to fully stand upright. pt sat back on commode. completed sit to stand again max A x 2 and max cues and assisted with pivot transfer to the chair max A x 2 to total A x 2 and max cues. pt able to assit with sit to stand but unable to assist with pivoting and requires total A x 2. positioned pt on chair. Call light and table placed within reach. M5 PT-IP Objective Assessments Start: 06/05/19 13:48 Freq: NEEDED Status: Active Protocol: Document 06/05/19 14:59 AW (Rec: 06/05/19 15:37 AW [id number]) Orientation Orientation/Cognition Level of Alertness Alert Orientation Name,Day of Week,Place, Situation Language Function Ability No Deficits Noted Safety Awareness Decreased Safety Awareness Memory Description No Deficits Noted Comments Pt lacks insight into how her safety at home is affected by her mobility limitations. Gross Range of Motion Upper Extremity ROM Assessment Within Functional Limits Lower Extremity ROM Assessment Bilaterally Impaired Impairments Pt unable to actively flex knees or dorsiflex Strength Upper Extremity Strength Assessment Bilaterally Impaired Shoulder 3+/5 Elbow 3+/5 Hand 4-/5 Lower Extremity Strength Assessment Bilaterally Impaired Hip 3-/5 Ankle L 2/5; R 0/5 Coordination Assessment Gross Coordination Gross Coordination WNL Sensation Assessment Sensation Gross Sensation Right UE Impaired,Left LE Impaired Light Touch Impaired Comments Sensation Comments Impaired/dull light touch sensation in stocking and glove distribution Muscle Tone Muscle Tone WNL No Muscle Tone Location Bilateral Lower Extremity Type of Tone Rigidity,Extensor Severity of Tone Severe Manifistation of Tone Fluctuation Comments Muscle Tone Comments Pt with B LE extensor tone, limited active knee flexion, bilateral plantar flexor contracture. M6 PT-IP Treatment Start: 06/05/19 13:48 Freq: NEEDED Status: Active Protocol: Document 06/06/19 11:21 AW (Rec: 06/06/19 11:37 AW [id number]) Physical Therapy Treatment Education Education Provided Precautions,Safety Other Treatments Other Treatment Performed Continued to discuss discharge planning with pt, reinforcing that SNF should be considered due to lack of safety at home . M7 PT-IP Assessment and Plan Start: 06/05/19 13:48 Freq: NEEDED Status: Active Protocol: Document 06/07/19 10:01 AB (Rec: 06/07/19 12:59 AB [id number]) PT Summary Assessment and Plan Potential Rehabilitation Potential Fair Summary Impairments Pain,ROM,Strength,Balance, Coordination,Sensation,Tone, Cognition,Bed Mobility, Transfers,Gait,Activity Tolerance Progress Towards Goals Slow Progress due to Medical Issues,Slow Progress due to Activity Tolerance Assessment Summary pt requires max A x 2 to total A x 2 with all tasks and will require SNF rehab to improve strength and functional independence. Goals Bed Mobility Goal Moderate Assistance Transfer Goal Moderate Assistance Days to Meet Goals 10 Frequency of Treatment Frequency Of Treatment Once a Day Treatment Plan Physical Therapy Treatment Plan Bed Mobility Training,Transfer Training,Gait Training, Therapeutic Exercise,Balance Retraining,Post Op Education, Discharge Planning,Hot or Cold Pack,Neuromuscular Re-ed, Coordination Retraining,Manual Therapy Recommendations To Nursing Amount of Assist Needed Mechanical Lift Discharge Recommendations PT Discharge Recommendations SNF Rehab Transportation Needs at Discharge Wheelchair/Cabulance
--- NOTE | 2019-06-07 11:03 | OT.IP.TRT ---
Current Diagnoses Sepsis, unspecified organism (06/04/19) Occupational Therapy Treatment Note M2 OT-IP Current Condition Start: 06/06/19 12:37 Freq: Status: Active Protocol: Document 06/06/19 10:45 [facility] (Rec: 06/06/19 13:00 [facility] [id number]) Occupational Therapy Current Condition Current Condition Evaluation Date 06/06/19 Treatment Diagnosis Sepsis due to urinart retention and obstructive uropathy Diagnosis Onset Date 06/05/19 M3 OT- IP Subjective and Pain Start: 06/06/19 12:37 Freq: Status: Active Protocol: Document 06/07/19 12:55 [facility] (Rec: 06/07/19 13:20 [facility] [id number]) OT- Subjective Occupational Therapy Visit Type Type Treatment Note Visit Start Time 10:11 Visit Stop Time 11:03 Total Visit Minutes 52 Occupational Therapy Visit Comments Patient Comments Pt willing to get up with OT/ PT and wanting to try to use the BSC. Patient/Caregiver Goals Pt realizing too weak to go home and would benefit form going to skilled rehab first prior to going home. OT Pain Assessment Pain When Pain Assessed At Rest Pain Present Pain Present Pain Reported Location Head Intensity 6 Scale Used Numeric (1 - 10) M4 OT- IP ADL's Start: 06/06/19 12:37 Freq: Status: Active Protocol: Document 06/07/19 12:55 [facility] (Rec: 06/07/19 13:20 [facility] [id number]) OT [id number] Comments OT Self-Feeding Comments Not at meal time. OT ADL-Grooming General Evaluation Grooming Ability Independent Areas Needing Assistance Retrieving/Set-up of Grooming Items OT ADL-Oral Care General Eval Oral Care Ability Independent OT ADL-Dressing General Eval Lower Body Dressing Ability Total Assistance Areas Needing Assistance Underpants/Brief,Socks OT ADL-Toileting General Evaluation Toileting Ability Total Assistance Areas Needing Assistance Manage Clothing,Perform Perineal Hygiene Comments OT Toileting Comments MAX A X2 to stand to FWW while assist from nursing to hygiene needs. Dependent for brief management. OT ADL-Bathing Comments OT Bathing Comments Not performed. M5 OT- IP IADL's Start: 06/06/19 12:37 Freq: Status: Active Protocol: Document 06/06/19 10:45 [facility] (Rec: 06/06/19 13:00 [facility] [id number]) OT-Instrumental Activities of Daily Living Home Safety Awareness Home Safety Comments At this time pt would be dependent for someone to assist her to do all IADL needs in addition to assist with ADl needs. M6 OT- IP Functional Cognition Start: 06/06/19 12:37 Freq: Status: Active Protocol: Document 06/07/19 12:55 [facility] (Rec: 06/07/19 13:20 [facility] [id number]) Cognitive Factors Limiting Selfcare Function Cognitive Ability Level of Alertness Alert Patient Orientation Name,Place,Situation Attention Span Ability Capable of Focused Attention, Capable of Sustained Attention Ability to Follow Commands Able to Follow One Step Commands Memory Description Short Term Impaired Safety Awareness Underestimates Need for Assistance Problem Solving Ability Unable to Identify Errors, Needs Assist to Identify Solutions Cognitive Comments Cognitive Assessment Comments Today, pt able to follow directions better today and more realistic that she will not be able to care for herself at home. M7 OT- IP Mobility and Balance Start: 06/06/19 12:37 Freq: Status: Active Protocol: Document 06/07/19 12:55 [facility] (Rec: 06/07/19 13:20 [facility] [email or web address]) OT- Bed Mobility Assessment Supine to Sit Supine to Sit Assist Maximum Assistance,Total Assistance,2 Person Assistance ,Head of Bed Elevated,Bedrails OT-Transfer Assessment Sit to and From Stand Sit to and from Stand Maximum Assistance,2 Person Assistance Transfers Transfer Ability Maximum Assistance,2 Person Assistance Technique Transfer Destination Bed,Bedside Commode Transfer Technique Stand Step Pivot Comments Mobility Comments MAX x2 to Total assist x 2 to help get from supine to the edge of the bed, dependent for LB and pt able to assist a little with arms to help sit upright. Sit to stand MAX A X2 and able to squat/stand to get to BSC . Pt's left knee tends to buckle. Transfer from BSC to chair MAX A x2 and needing assist to guide hips to the recliner. Pt's knees buckling and very unsafe for transfers and best for nursing to use of jackson lift for all transfer needs. OT- Balance Assessment Sitting Balance and Reactions Static Sitting Balance Ability Fair Dynamic Sitting Balance Ability Poor Standing Balance and Reactions Static Standing Balance Ability Poor Dynamic Standing Balance Ability Poor M8 OT- IP Objective Assessments Start: 06/06/19 12:37 Freq: Status: Active Protocol: Document 06/06/19 10:45 [facility] (Rec: 06/06/19 13:00 [facility] [email or web address]) OT Gross Range of Motion Upper Extremity Range of Motion Assessment Within Functional Limits OT Strength Comments Strength Comments BUE 4/5 M9 OT- IP Assessment and Plan Start: 06/06/19 12:37 Freq: Status: Active Protocol: Document 06/07/19 12:55 [facility] (Rec: 06/07/19 13:20 [facility] [email or web address]) OT Summary Assessment and Plan Potential Rehabilitation Potential Fair Analytic Complexity at Evaluation Moderate Summary OT Impairments Pain,Strength,Balance, Functional Cognition, Functional Mobility,Grooming, Dressing,Toileting,Bathing, Toilet Transfers,Shower Transfers,Activity Tolerance Progress Towards Goals Slow Progress due to Pain,Slow Progress due to Medical Issues,Slow Progress due to Activity Tolerance,Slow Progress due to Cognition Assessment Summary Pt able to transfer with therapists today however far from being able to do so on her own . Pt will benefit from skilled rehab prior to going home. Goals Grooming Goal Minimal Assistance Dressing Goal Moderate Assistance Toileting Goal Moderate Assistance Bathing Goal Moderate Assistance Toilet Transfer Goal Minimal Assistance Patient/Caregiver Education Goal Demonstrate Energy Conservation and Pacing OT-Other Goals Pt sponge bath prior. Days to Meet Goals 14 Frequency of Treatment Frequency Of Treatment Once a Day Treatment Plan OT Treatment Plan ADL Training,Functional Cognition Training,Functional Mobility,Therapeutic Exercises ,Patient/Family Education, Discharge Planning Discharge Recommendations OT Discharge Recommendations SNF Rehab
--- NOTE | 2019-06-07 12:54 | CM.DPC ---
Addendum entered by Bianca Hernandez R.N. 06/07/19 15:41: Updated daughter, Torey, that [employer] authorization is pending. Just found out that authorization for [facility] was obtained, but can't accept today due to transportation. They can pick her up at 11:00 approximately. Updated patient, she is aware. Patient may have avoidable day. Dr. Rosas was already updated that she may need to stay another day. Patient also, has not had a BM as of yet. Plan is for discharge tomorrow to [facility]. Original Note: DCP Cont: Have been in contact with Cheyenne at [facility]. Patient's daughter is requesting [facility]. Cheyenne has been working with [employer] on authorization. Have spoken to her twice to see if patient has been authorized. Had left a message with Ariadna at [employer] this morning to ask her to cancel authorization with [employer]. Cheyenne from [facility] called back. Stated that she spoke to [facility], and they could not yet approve since someone else was attempting to get patient authorized. Called and spoke to Ariadna at [employer]. She stated that she will call [facility] to cancel her authorization. She also mentioned that if patient was going to go there, she would have had to pay 50% of rate, since a one time network agreement would have had to be made. Cheyenne is going to check back with [facility], but is thinking that authorization may not happen today. Will call Cheyenne again just to confirm that she can't get authorization until tomorrow. P: DCP to continue to follow and will call Cheyenne at [facility] later today. Plan is for [facility]. Bianca Hernandez RN/Financial Engineer
--- NOTE | 2019-06-07 13:32 | PM.PN.1 ---
Subjective Subjective Date Patient Seen: 06/07/19 Interval history: This is an 78-year-old female with history of multiple sclerosis, kidney stones presents with enterococcal sepsis due to urinary retention and obstructive uropathy secondary to left urolithiasis. She has responded well with therapy. She denies abdominal pain at this time. She is complaining of a posterior headache and stiff neck since this morning. Exam Vital Signs (past 8 hours): - 06/07/19 07:03 06/07/19 08:00 06/07/19 08:21 Temperature 98.4 F 98.4 F Pulse Rate 80 81 Respiratory Rate 16 15 Blood Pressure 152/75 H 151/73 H 151/73 H Pulse Oximetry 97 95 06/07/19 12:10 Temperature 98.2 F Pulse Rate 90 Respiratory Rate 15 Blood Pressure 137/82 Pulse Oximetry 98 Oxygen Delivery Method Room Air Oxygen Flow Rate 0 Narrative Exam Narrative: GENERAL: Patient appears in mild distress due to a headache HEENT: Head normocephalic, atraumatic. Mucous membranes moist. CHEST: Clear to auscultation bilaterally. CARDIAC: Regular rate and rhythm. ABDOMEN: Nondistended, soft, nontender. Shukla catheter in place. EXTREMITIES: no edema. NEUROLOGICAL: Alert, appears well oriented, pleasant, no focal findings SKIN: Warm, dry, no petechiae, no rash Objective Labs Result Diagrams: 06/05/19 04:44 06/06/19 08:21 Labs: Laboratory Results - last 24 hr 06/07/19 06/07/19 04:48 04:48 Magnesium 1.6 Procalcitonin 12.79 H Assessment & Plan Assessment & Plan narrative: This is an 78-year-old female with history of multiple sclerosis, kidney stones presents with enterococcal sepsis due to urinary retention and obstructive uropathy secondary to left urolithiasis. She has responded well with therapy. She denies abdominal pain at this time. She is complaining of a posterior headache and stiff neck since this morning. 1. Acute sepsis, present on admission. Resolved. -Patient presented with severe hypotension, leukocytosis and elevated procalcitonin with end-organ dysfunction BRENDA and source UTI. Her decubitus ulcer does not appear infected, no clinical signs of pneumonia -Early goal-directed therapy met including: IV fluid resuscitation and broad-spectrum antibiotics. 2. Acute Enterococcus faecalis bacteremia and UTI, secondary to left urolithiasis with obstructive uropathy and urinary retention, present on admission. Active. -afebrile with resolving infection -CT on ER visit 06/01/2019 showed a 1 cm distal left ureteral stone, on current CT 06/03/2019 there is no appearance of stone suggesting it has passed into the bladder. -Shukla catheter placed in the ED due to 800 cc urinary retention suggesting stone obstructing the bladder outlet. -Initial WBC 15.6 and procalcitonin 38.81. WBC now normalized. Procalcitonin 21.74. Continue to trend procalcitonin daily. -Blood and urine culture grew Enterobacter faecalis sensitive to IV antibiotics only including vancomycin. -Switched vancomycin with dosing per pharmacist to amoxicillin 500 mg every 8 hours. -Plan to continue Shukla catheter until patient is a will to follow-up outpatient with her urologist, Dr. Chicho Wiley. Patient may need outpatient cystoscopy to assess for retained stone in her bladder 3. Acute kidney injury, present on admission. Resolved. -Secondary to sepsis and UTI. -Initial creatinine 1.5. Baseline creatinine 0.8-1.0. Creatinine now normal at 0.90. -Continue to avoid nephrotoxic agents. Held lisinopril initially due to BRENDA and restarted once resolved. -Continue to monitor renal function periodically. 4. Acute hyponatremia, present on admission. Resolved. -Likely secondary to prerenal azotemia from dehydration and sepsis. -Initial sodium 129. Continued IV fluid until adequately hydrated then discontinued. Sodium level now normal at 138. 5. Acute mild rhabdomyolysis, present on admission. Resolved. -Initial CK 847 with low MB percentage consistent with sepsis and immobility. Initial troponin 0.043 and trending down does not appear due to cardiac etiology. -Continued IV fluid until adequately hydrated then discontinued. -Total creatinine kinase normal at 84. 6. Multiple sclerosis, chronic, present on admission. Stable. -Patient is wheelchair-bound and has her neighbors who check in on her daily, but she reports she is able to manage her own ADLs. Patient has a daughter in [place] and son in [place]. -Continue physical and occupational therapy evaluation treatment. 7. Decubitus ulcer, unstageable, right buttock, chronic, present on admission. Stable -Ulcer is mainly healed over and does not appear obviously infected. -Continue to apply adhesive dressing and reposition every 2 hours. 8. Tension headache, active -apply cold compress as needed Patient with overall improving course and awaiting custodial facility placement for rehab. Quality VTE Deep Vein Thrombosis/Pulmonary Embolism Present on Admission: No
--- NOTE | 2019-06-07 14:54 | PC.NURSE ---
mag citrate given this am with no results as of yet - small mucous expelled on bsc - pt denies pain and displeased with plan for snf discharge- , remains saline locked
[2019-06-08 00:34] VITALS: O2SAT 98
[2019-06-08 04:00] VITALS: BP 123/60; PULSE 87; RESP 16; TEMP 36.4; O2SAT 95
[2019-06-08 08:00] VITALS: BP 144/69; PULSE 88; RESP 20; TEMP 36.6; O2SAT 96
--- NOTE | 2019-06-08 10:11 | CM.DPC ---
DCP Discharge SNF Per MD, pt is medically stable to d/c to SNF today. SW called [facility] admissions and confirmed that they can still accept pt today and will provide transport between [phone]. JESSE updated RN. JESSE called Dtr Chata and left msg with update on d/c time and location (which Dtr was anticipating from yesterday) and left contact info if she has any further questions. TAMANNA Callaway kindly faxing ANGELIQUE, signed med rec, no script needed, d/c summ and orders to [facility] to review. Plan: Patient to d/c to [facility] SNF today via facility van around [phone] for rehab until safe for d/c home. BROOKLYNN Seth
--- NOTE | 2019-06-08 10:14 | OT.IP.TRT ---
Current Diagnoses Sepsis, unspecified organism (06/04/19) Occupational Therapy Treatment Note M2 OT-IP Current Condition Start: 06/06/19 12:37 Freq: Status: Active Protocol: Document 06/06/19 10:45 [facility] (Rec: 06/06/19 13:00 [facility] [id number]) Occupational Therapy Current Condition Current Condition Evaluation Date 06/06/19 Treatment Diagnosis Sepsis due to urinart retention and obstructive uropathy Diagnosis Onset Date 06/05/19 M3 OT- IP Subjective and Pain Start: 06/06/19 12:37 Freq: Status: Active Protocol: Document 06/08/19 10:20 [facility] (Rec: 06/08/19 10:31 [facility] [id number]) OT- Subjective Occupational Therapy Visit Type Type Treatment Note Visit Start Time 09:28 Visit Stop Time 10:14 Total Visit Minutes 46 Occupational Therapy Visit Comments Patient Comments Pt agreeable to do sponge bath . Pt states feel much better from finally having a bowel movement yesterday. Patient/Caregiver Goals Pt ready to go to rehab to get stronger. OT Pain Assessment Pain When Pain Assessed At Rest Pain Present Pain Present Denied Pain M4 OT- IP ADL's Start: 06/06/19 12:37 Freq: Status: Active Protocol: Document 06/08/19 10:20 [facility] (Rec: 06/08/19 10:31 [facility] [id number]) OT [id number] Comments OT Self-Feeding Comments Not at meal time. OT ADL-Dressing General Eval Upper Body Dressing Ability Minimal Assistance Lower Body Dressing Ability Total Assistance Areas Needing Assistance Underpants/Brief,Socks Comments OT Dressing Comments CINTHYA to help get gown on while supine in bed. Assist x2 to assist to get brief on in bed as one person having to assist to hold her leg up due to tone in order to get the brief up while rolling from side to side. OT ADL-Toileting General Evaluation Toileting Ability Total Assistance Areas Needing Assistance Manage Clothing,Perform Perineal Hygiene Comments OT Toileting Comments MAX Ax2 while in bed. OT ADL-Bathing Bathing Type Bathing Type Sponge Bath General Evaluation Bathing Ability Moderate Assistance Areas Needing Assistance Wash/Dry Perineal Area,Wash/ Dry Lower Extremities Comments OT Bathing Comments Pt able to assist to help wash her chest,face, and arms and part of perineal area and top of her legs while in bed. M5 OT- IP IADL's Start: 06/06/19 12:37 Freq: Status: Active Protocol: Document 06/06/19 10:45 [facility] (Rec: 06/06/19 13:00 [facility] [id number]) OT-Instrumental Activities of Daily Living Home Safety Awareness Home Safety Comments At this time pt would be dependent for someone to assist her to do all IADL needs in addition to assist with ADl needs. M6 OT- IP Functional Cognition Start: 06/06/19 12:37 Freq: Status: Active Protocol: Document 06/08/19 10:20 [facility] (Rec: 06/08/19 10:31 [facility] [id number]) Cognitive Factors Limiting Selfcare Function Cognitive Ability Patient Orientation Name,Place,Situation Attention Span Ability Capable of Focused Attention, Capable of Sustained Attention Ability to Follow Commands Able to Follow One Step Commands Memory Description Short Term Impaired Safety Awareness Underestimates Need for Assistance Problem Solving Ability Needs Assist to Identify Solutions Cognitive Comments Cognitive Assessment Comments Spoke to pt about talking to skilled rehab about trying a transfer pole as may be a good option for transfers at home. At the end of the session pt did not recall what she needing to ask the rehab therapists and needing reminders to ask about the transfer pole. Pt able to follow commands for bed mobility and sponge bath. Noted pt hard of hearing therefore at times may not be hearing what is said. Encouraged pt to ask questions especially if she did not hear what is being said. M7 OT- IP Mobility and Balance Start: 06/06/19 12:37 Freq: Status: Active Protocol: Document 06/08/19 10:20 [facility] (Rec: 06/08/19 10:31 [facility] [id number]) OT- Bed Mobility Assessment Rolling Type of Rolling Bilateral Level of Assistance Moderate Assistance,Bedrails OT-Transfer Assessment Comments Mobility Comments Pt able to assist more today for rolling and MODA X 1. Pt quickly tires and needing to have vc to rest . M8 OT- IP Objective Assessments Start: 06/06/19 12:37 Freq: Status: Active Protocol: Document 06/06/19 10:45 [facility] (Rec: 06/06/19 13:00 [facility] [id number]) OT Gross Range of Motion Upper Extremity Range of Motion Assessment Within Functional Limits OT Strength Comments Strength Comments BUE 4/5 M9 OT- IP Assessment and Plan Start: 06/06/19 12:37 Freq: Status: Active Protocol: Document 06/08/19 10:20 [facility] (Rec: 06/08/19 10:31 [facility] [id number]) OT Summary Assessment and Plan Potential Rehabilitation Potential Fair Analytic Complexity at Evaluation Moderate Summary OT Impairments Pain,Strength,Balance, Functional Cognition, Functional Mobility,Grooming, Dressing,Toileting,Bathing, Toilet Transfers,Shower Transfers,Activity Tolerance Progress Towards Goals Progressing Toward Goals,Slow Progress due to Activity Tolerance Assessment Summary Pt going to skilled rehab today. Encouraged pt to ask questions while there especially possibility of trying a transfer pole which may make transfers safer in her home. Frequency of Treatment Frequency Of Treatment Once a Day Treatment Plan OT Treatment Plan ADL Training,Functional Cognition Training,Functional Mobility,Therapeutic Exercises ,Patient/Family Education, Discharge Planning Discharge Recommendations OT Discharge Recommendations [facility] Rehab
[2019-06-08] MEDS: AMOXICILLIN 250 MG CAPSULE 500 MG PO (10:29)
[2019-06-08 10:30] VITALS: BP 144/69; PULSE 94
[2019-06-08] MEDS: CHOLECALCIFEROL (VITAMIN D3) 1,000 UNIT TABLET 1000 UNIT PO (10:30)
[2019-06-08] MEDS: DOCUSATE 100 MG CAPSULE PO (10:30)
[2019-06-08] MEDS: LISINOPRIL 5 MG TABLET PO (10:30)
[2019-06-08] MEDS: CITALOPRAM 20 MG TABLET PO (10:30)
--- NOTE | 2019-06-08 11:12 | CM.DPC ---
DCP Cont: Faxed discharge packet (signed med list, SNF order and PASRR) to Shannon Osman at fax # [phone]. Informed them via fax cover sheet that discharge summary would follow once completed by MD. Fax confirmation scanned in. Cesia Mcintyer, [employer] Room Supervisor
--- NOTE | 2019-06-08 11:43 | PC.NURSE ---
JPT DISCHARGED TO [facility] EXPECTED- USING [facility] TO GET TO WHEEL CHAIR - CALLED REPORT AND ALL QUESTIONS ANSWERED
--- NOTE | 2019-06-08 14:31 | P.DS_ITS ---
History of Present Illness History of Present Illness Chief complaint: weakness x4days Narrative: Patient is 78-year-old female with history of multiple sclerosis, hypertension, recurrent urolithiasis presents to ED with complaints of weakness and abdominal pain. She was last seen in ED on June 01, 2019 with complaints of abdominal pain and found to have a large 1 cm distal left ureteral obstructing stone. Her pain was managed in ED and patient discharged home to follow-up with her urologist Dr. Chicho Wiley. In interim she has felt weaker and has worsening abdominal pain. Initially normotensive but became hypotensive in ED with blood pressure dropping to 78/39. EKG sinus rhythm without ischemia. Labs showed elevated WBC 15 K with left shift, elevated procalcitonin 38, elevated creatinine 1.5 versus previous 1.1, low sodium 129, abnormal urinalysis consistent with sepsis due to urinary source. Repeat CT mild to moderate left hydronephrosis and hydroureter, previous stone not seen in ureter, also mild right hydronephrosis and hydroureter, trabecular urinary bladder. Patient was fluid resuscitated with total 2500 cc normal saline and started on Rocephin and vancomycin. She was noted to have a right buttock decubitus ulcer not obviously infected but vancomycin given due to patient's sepsis. Also she had urinary retention and Guzman catheter placed with 800 cc urine output from catheter. Patient's vitals improved in ED and she was admitted to inpatient service for further management of sepsis. Discharge Providers Provider Date of admission: 06/04/19 02:41 Discharge Date: 06/08/19 Primary care physician: Titsu Carcamo DO Consults: 06/04/19 04:20 Consult to Dietitian, Adult Routine Comment: Reason For Exam: severe decrease in appetitie 06/04/19 05:34 Consult to Wound Care Routine Comment: wound care recommendations Consulting Provider: Rishi- Wound Care 06/05/19 10:35 Consult to Occupational Therapy Evaluate & Treat Comment: Physician Instructions: Evaluate and treat Consult to Physical Therapy Evaluate & Treat Comment: Physician Instructions: Evaluate and Treat Discharge provider: Ramin Rosas MD Summary Hospital Course Discharge Diagnosis: 1. Sepsis 2. Enterococcus faecalis bacteremia and UTI 3. Acute kidney injury 4. Urolithiasis 5. Acute mild rhabdomyolysis 6. Acute hyponatremia 7. Multiple sclerosis with paresis of lower extremities 8. Decubitus ulcer, unstageable, right buttock, chronic 9. Acute urinary retention Hospital Course: This is an 78-year-old female with history of multiple sclerosis, kidney stones presents with enterococcal sepsis due to urinary retention and obstructive uropathy secondary to left urolithiasis. Patient grew Enterococcus faecalis in blood and urine cultures, was initially on vancomycin and Rocephin, and switched to amoxicillin once culture sensitivities were back. Source of infection is likely urinary due to retained stone in the bladder. A Guzman catheter was placed in the ER due to acute urinary retention. Patient is being discharged with Guzman catheter in place until she can see her urologist Dr. Chicho Wiley for follow-up. Her acute renal injury has resolved with creatinine improving from 1.50 down to 0.9. She did have relatively mild CK elevation above 800 with possible mild rhabdomyolysis which has resolved. She was quite constipated but finally had a bowel movement with magnesium citrate on the day prior to discharge. She is not at her baseline with her MS and being transferred to [facility] for longterm rehab. At time of discharge she is feeling much better and eager to start rehab. Status at Discharge Cognitive/behavioral status at discharge: oriented Functional status at discharge: wheelchair bound Overall status at discharge: patient is not back to baseline Time Spent with Patient Time spent: Greater than 30 minutes Exam Vital Signs (past 8 hours): - 06/08/19 08:00 06/08/19 10:30 Temperature 97.8 F Pulse Rate 88 94 H Respiratory Rate 20 Blood Pressure 144/69 H 144/69 H Pulse Oximetry 96 Oxygen Delivery Method Room Air Oxygen Flow Rate 0 Objective Labs Result Diagrams: 06/05/19 04:44 06/06/19 08:21 Discharge Plan Discharge Plan Patient Disposition: SNF Transfer to: [facility] Consult as needed: Dental, Hearing, Mental health, Podiatry and Vision Discharge comment: Patient was treated for enteroccocal sepsis due to kidney stone. She has urinary retention likely due to stone in bladder. She needs appointment with her urologist Dr Chicho Wiley for cystoscopy. Discharge orders & Medications Prescriptions: New acetaminophen 325 mg Tablet 650 mg PO Q6HR PRN (Reason: Fever) Qty: 30 RF: 0 amoxicillin 250 mg Capsule 500 mg PO TID Qty: 30 RF: 0 Continued lisinopril 5 mg tablet 5 mg PO DAILY RF: 0 oxybutynin chloride 5 mg tablet 5 mg PO DAILY RF: 0 cholecalciferol (vitamin D3) 1,000 unit capsule 1,000 unit PO DAILY RF: 0 omeprazole 10 mg capsule,delayed release(DR/EC) 10 mg PO DAILY RF: 0 citalopram 20 mg tablet 20 mg PO DAILY RF: 0 Follow up/Referrals: Titus Carcamo DO [Primary Care Provider] - Discharge Health Status Multidrug resistant organism: No MDRO Diet/Activity/Treatments Diet: Diet as Tolerated and Regular Liquid consistency: Normal/Thin Catheter: 2-way Guzman Catheter comment: Keep guzman catheter until evaluated by urology. Discharge Data Primary Care Provider: Titus Carcamo Discharges patient from system. Discharge Date/Time: 06/08/19 11:00 Quality VTE Deep Vein Thrombosis/Pulmonary Embolism Present on Admission: No
--- NOTE | 2019-06-08 15:26 | CM.DPC ---
DCP Cont: Faxed discharge summary to Shannon Osman at fax # [phone]. Fax confirmation scanned in. Cesia Mcintyre, [facility] Metal Furnace Operator
== END 2019-06-08 11:00 | DRG 872 ==
LOC: ED 06-04 00:48 → AC 06-04 02:41 → ICU 06-04 03:26
PROVIDERS: Internal Medicine; Admitting Provider Nurse Practitioner Gerontology; Emergency Provider Emergency Medicine; PCP Family Medicine; Visit Provider Nurse Practitioner Gerontology
DX: A41.81 Sepsis due to Enterococcus (principal); N17.9 Acute kidney failure, unspecified; N13.6 Pyonephrosis; E87.1 Hypo-osmolality and hyponatremia; M62.82 Rhabdomyolysis; R65.20 Severe sepsis without septic shock; I95.9 Hypotension, unspecified; N20.0 Calculus of kidney; G35 Multiple sclerosis; Z99.3 Dependence on wheelchair; L89.310 Pressure ulcer of right buttock, unstageable; G44.209 Tension-type headache, unspecified, not intractable; Z87.891 Personal history of nicotine dependence
CPT/HCPCS: 36415; 51701; 51798; 74176; 80048; 80053; 81001; 82550; 82553; 83605; 83690; 83735; 84145; 84484; 85025; 85610; 85730; 87040; 87077; 87086; 87150; 87185; 87186; 87205; 87797; 93005; 93010; 96361; 96365; 97162; 97166; 97530; 97535; 99285; J1650; J3370

== ENCOUNTER → 2019-07-07 12:01 | Outpatient (CLI) | payer OTHER, SELFPAY ==
[2019-06-04 03:09] VITALS: BMI 27.3
--- NOTE | 2019-07-07 | DI.US.S_ITS ---
PROCEDURE: US RENAL COMPLETE INDICATIONS: POSSIBLE HYDRONEPHROSIS TECHNIQUE: Real-time scanning was performed of the kidneys and bladder, with image documentation. COMPARISON: [facility], US, RENAL COMPLETE, 11/28/2015, 14:05. FINDINGS: Kidneys: Kidneys are normal in size. Right kidney measures 10.9 cm long; left kidney measures 9.7 cm long. Right renal cortical thickness is 1.3 cm; left renal cortical thickness is 1.4 cm. Renal cortical echotexture is normal. No hydronephrosis or nephrolithiasis. No suspicious solid mass lesions. Bladder: Bladder is decompressed due to an indwelling Shukla catheter. Miscellaneous: No free pelvic fluid. IMPRESSION: Negative examination as above. No hydronephrosis. Dictated by: Kolton Dodd M.D. on 07/07/2019 at 16:56 Approved by: Kolton Dodd M.D. on 07/07/2019 at 16:57
== END ==
PROVIDERS: PCP Family Medicine; Referring Provider Physician Assistant; Visit Provider Physician Assistant
DX: N13.39 Other hydronephrosis (principal)
CPT/HCPCS: 76770; 93975

== ENCOUNTER 2019-08-05 19:44 | Emergency (ER) | payer OTHER, SELFPAY ==
[2019-06-04 03:09] VITALS: BMI 27.3
[2019-08-05 19:56] VITALS: BP 139/65; PULSE 92; RESP 18; TEMP 36.2; O2SAT 99
--- NOTE | 2019-08-05 19:58 | DI.RAD.S_ITS ---
PROCEDURE: XR CHEST 1V INDICATIONS: chest pain TECHNIQUE: One view of the chest was acquired. COMPARISON: [facility], , CHEST 1 VIEW, 04/07/2008, 16:16. FINDINGS: Surgical changes and devices: None. Lungs and pleura: Scattered subsegmental atelectasis and/or scarring. No focal consolidation. No pleural effusions or pneumothorax. Mediastinum: Mediastinal contours appear normal. Heart size is normal. Moderate hiatal hernia Bones and chest wall: No suspicious bony lesions. Overlying soft tissues appear unremarkable. IMPRESSION: Moderate hiatal hernia No acute disease Dictated by: Kolton Dodd M.D. on 08/05/2019 at 20:19 Approved by: Kolton Dodd M.D. on 08/05/2019 at 20:22
--- NOTE | 2019-08-05 19:59 | ED_ITS ---
HPI - Syncope General Chief Complaint: Syncope Stated Complaint: Near syncope Time Seen by Provider: 08/05/19 19:45 Source: patient and EMS Mode of arrival: EMS Limitations: no limitations History of Present Illness HPI narrative: 78-year-old female nonsmoker with history of hypertension and GERD presents by EMS due to a near syncopal episode just prior to arrival. She had been in her normal state of health until she developed some abdominal gurgling and then had a loose stool. She rushed to the bathroom and was having another bowel movement when she felt dizzy and lightheaded. She has full recall and denies syncope. She felt in her normal state of health until this episode and since being transported feels back at her baseline. She denies headache or sore throat. She denies any chest pain, shortness of breath or cough. She has had no fever or chills. She denies any travel or exposure to known ill persons but has had multiple recent hospitalizations for kidney stones and UTI with sepsis. She denies any ongoing symptoms and now feels well. Patient lives at home by herself with her 2 cats MD complaint: felt faint and almost passed out Onset (ago): hour(s) -: second(s) Prodromal symptoms: vision changes and lightheaded Witnessed: no Context: other Injuries sustained associated with event: none Current symptoms: none Treatments prior to arrival: none Related Data Home Medications Medication Instructions Recorded Confirmed cholecalciferol (vitamin D3) 25 1,000 unit PO DAILY 10/25/18 06/04/19 mcg (1,000 unit) capsule lisinopril 5 mg tablet 5 mg PO DAILY 10/25/18 06/04/19 omeprazole 10 mg capsule,delayed 10 mg PO DAILY 10/25/18 06/04/19 release oxybutynin chloride 5 mg tablet 5 mg PO DAILY 10/25/18 06/04/19 citalopram 20 mg PO DAILY 06/04/19 06/04/19 Previous Rx's Medication Instructions Recorded acetaminophen 650 mg PO Q6HR PRN #30 tab 06/08/19 amoxicillin 500 mg PO TID #30 cap 06/08/19 Allergies Allergy/AdvReac Type Severity Reaction Status Date / Time azithromycin Allergy Mild RASH Verified 04/07/19 17:09 levofloxacin Allergy Mild RASH Verified 04/07/19 17:10 Sulfa (Sulfonamide Allergy Mild RASH Verified 04/07/19 17:10 Antibiotics) adhesive AdvReac Mild RASH FROM Verified 04/07/19 17:10 CLOTH TAPE Review of Systems Constitutional Constitutional: Denies chills, Denies fatigue, Denies fever(s), Denies frequent falls, Denies lethargy and Denies weakness Eyes Eyes: Denies change in vision, Denies eye discharge, Denies irritation and Denies loss of vision ENT Ears, Nose, Mouth, and Throat: Denies change in voice, Denies dizziness, Denies neck pain, Denies sore throat and Denies throat swelling Cardiovascular Cardiovascular: Denies chest pain, Reports syncope (Near syncope), Denies irregular heart rhythm, Denies lightheadedness, Denies palpitations, Denies dyspnea, Denies dyspnea on exertion and Denies orthopnea Respiratory Respiratory: Denies cough, Denies dyspnea, Denies dyspnea on exertion and Denies wheezing Gastrointestinal Gastrointestinal: Denies abdominal pain, Denies change in bowel habits, Reports diarrhea, Denies nausea and Denies vomiting Genitourinary Genitourinary: Denies hematuria, Denies flank pain, Denies urinary incontinence and Denies urinary urgency Musculoskeletal Musculoskeletal: Denies back pain, Denies muscle weakness, Denies neck pain, Denies numbness and Denies tingling Integumentary/Breasts Skin/Breast: Denies pruritus, Denies erythema, Denies rash and Denies wounds Neurologic Neurologic: Denies behavioral changes, Denies confusion, Denies dizziness, Reports syncope (Near syncope), Denies frequent falls, Denies loss of vision, Denies numbness, Denies tingling and Denies weakness Psychiatric Psychiatric: Denies anxiety, Denies behavioral changes, Denies confusion, Denies depression, Denies homicidal ideation and Denies suicidal ideation Endocrine Endocrine: Denies fatigue, Denies flushing and Denies palpitations Hematologic/Lymphatic Hematologic/Lymphatic: Denies easy bruising Allergic/Immunologic Allergic/Immunologic: Denies urticaria, Denies throat swelling and Denies wheezing Patient History Medical History Acute UTI (Acute) Hypertension (Chronic) Multiple sclerosis (Chronic) Ureterolithiasis (Inactive) Surgical History H/O: hysterectomy (Resolved) Hx of appendectomy (Resolved) Social History household members: none occupational status: previously employed Smoking Status: Former smoker Smoking Status: Former smoker alcohol intake frequency: holidays/special occasions only Substance Use Type: does not use Exam Narrative Exam Narrative: GENERAL: [78] year old patient appears stated age. Well- nourished, well-developed patient, in mild distress. HEAD: Atraumatic. Normocephalic. EYES: Pupils equal round and reactive. Extraocular motions intact. No scleral icterus. No injection or drainage. ENT: Nose without bleeding, purulent drainage. Throat without erythema, tonsillar hypertrophy or exudate. Airway patent. NECK: Trachea midline. Non tender CARDIOVASCULAR: Regular rate and rhythm without murmurs, gallops, or rubs. RESPIRATORY: Clear to auscultation. Breath sounds equal bilaterally. No wheezes, rales, or rhonchi. GASTROINTESTINAL: Abdomen soft, non-tender, nondistended. EXTREMITIES: No edema or joint tenderness. BACK: Nontender without deformity or crepitance. No flank tenderness. NEURO: AOx3. SKIN: No rash or erythema of visible areas Initial Vital Signs Initial Vital Signs: Vital Signs Temperature 97.1 F L 08/05/19 19:56 Pulse Rate 92 H 08/05/19 19:56 Respiratory Rate 18 08/05/19 19:56 Blood Pressure 139/65 08/05/19 19:56 Pulse Oximetry 99 08/05/19 19:56 Course Orders Ordered: ED Orders 08/05/19 19:58 XR chest 1V Stat EKG-12 Lead Stat 08/05/19 20:25 Complete Blood Count AUTO DIFF Stat Comprehensive Metabolic Panel Stat Lipase Stat Partial Thromboplastin Time Stat Prothrombin Time INR Stat Troponin & CK Cardiac Panel Stat Vital Signs Vital signs: Vital Signs - 8 hr 08/05/19 19:56 08/05/19 21:06 08/05/19 22:16 Temperature 97.1 F L Pulse Rate 92 H 87 Pulse Rate [Orthostatic Lying] 93 H Pulse Rate [Orthostatic Sitting] 102 H Respiratory Rate 18 16 Blood Pressure 139/65 Blood Pressure [Left Arm] 123/74 Blood Pressure [Orthostatic Lying] 112/64 Blood Pressure [Orthostatic Sitting] 122/60 Pulse Oximetry 99 99 MDM - Syncope Lab Data Result diagrams: 08/05/19 20:25 08/05/19 20:25 Labs: Lab Results 08/05/19 08/05/19 08/05/19 Range/Units 20:25 20:25 20:25 WBC 9.1 (4.5-11.0) X10^3/uL RBC 4.67 (4.0-5.2) X10^6/uL Hgb 12.8 (12.0-16.0) g/dL Hct 39.2 (36-46) % MCV 83.9 (80-100) fL MCH 27.4 (26-34) PG MCHC 32.7 (30-36) % RDW 15.4 H (11.6-14.8) % Plt Count 316 (150-400) X10^3/uL Neut % (Auto) 77.9 H (50-75) % Lymph % (Auto) 14.7 L (25-40) % [place] % (Auto) 6.1 (3-14) % Eos % (Auto) 0.7 L (2-4) % Baso % (Auto) 0.6 (0-2) % Neut # (Auto) 7100 H (5855-4261) /uL Lymph # (Auto) 1300 (0359-6600) /uL [place] # (Auto) 600 (0-900) /uL Eos # (Auto) 100 (0-450) /uL Baso # (Auto) 100 (0-100) /uL PT 12.5 (10.1-12.7) SECONDS INR 1.1 (0.9-1.3) APTT 23 L D (26.4-36.2) SECONDS Sodium 141 (137-145) mmol/L Potassium 4.1 (3.4-5.1) mmol/L Chloride 106 (98-107) mmol/L Carbon Dioxide 25 (22-32) mmol/L BUN 22 H (7-17) mg/dL Creatinine 1.02 (0.52-1.04) mg/dL Estimated GFR 52.1 L (>60) mL/min BUN/Creatinine Ratio 21.6 (6-22) Glucose 136 H (80-110) mg/dL Calcium 9.7 (8.4-10.2) mg/dL Total Bilirubin 0.3 (0.2-1.3) mg/dL AST 23 (14-36) IU/L ALT 12 (<35) IU/L Alkaline Phosphatase 109 (38-126) U/L Total Creatine Kinase 52 (30-135) U/L CK-MB (CK-2) TNP CK-MB (CK-2) Rel Index TNP Troponin I < 0.012 (0.01-0.034) ng/mL Total Protein 9.0 H (6.3-8.2) g/dL Albumin 4.6 (3.5-5.0) g/dL Globulin 4.4 H (1.7-4.1) g/dL Albumin/Globulin Ratio 1.0 (1.0-2.8) Lipase 197 (23-300) U/L Discharge Plan Departure Patient Disposition: Home Clinical Impression: Near syncope Discharge Date/Time: 08/05/19 22:30 Instructions: DI for Syncope in Adults (Fainting) Activity Restrictions/Additional Instructions: *You have been diagnosed with [near syncope, likely a consequence of bowel movements] *What to do: *Continue to take medications as directed *Follow up with your primary care provider in 2-3 days, call for an appointment. Let them know you were seen in the Emergency Department and that we ask that you be seen in follow up *Return to ER if you should have any new, worsening or concerning symptoms Prescriptions: No Action lisinopril 5 mg tablet 5 mg PO DAILY RF: 0 oxybutynin chloride 5 mg tablet 5 mg PO DAILY RF: 0 cholecalciferol (vitamin D3) 1,000 unit capsule 1,000 unit PO DAILY RF: 0 omeprazole 10 mg capsule,delayed release(DR/EC) 10 mg PO DAILY RF: 0 citalopram 20 mg tablet 20 mg PO DAILY RF: 0 acetaminophen 325 mg Tablet 650 mg PO Q6HR PRN (Reason: Fever) Qty: 30 RF: 0 amoxicillin 250 mg Capsule 500 mg PO TID Qty: 30 RF: 0 Referrals: Titus Carcamo DO [Primary Care Provider] -
[2019-08-05 20:40] LABS: Add Manual Diff / Slide Review NO; Basophils Absolute Auto 100 /uL (0-100); Basophils Percent Auto 0.6 % (0-2); Eosinophils Absolute Auto 100 /uL (0-450); Eosinophils Percent Auto 0.7 % (2-4); Hematocrit 39.2 % (36-46); Hemoglobin 12.8 g/dL (12.0-16.0); Lymphocytes Absolute Auto 1300 /uL (1100-4500); Lymphocytes Percent Auto 14.7 % (25-40); Mean Corpuscular HGB Conc 32.7 % (30-36); Mean Corpuscular Hemoglobin 27.4 PG (26-34); Mean Corpuscular Volume 83.9 fL (80-100); Monocytes Absolute Auto 600 /uL (0-900); Monocytes Percent Auto 6.1 % (3-14); Neutrophils Absolute Auto 7100 /uL (1500-7000); Neutrophils Percent Auto 77.9 % (50-75); Platelet Count 316 X10^3/uL (150-400); Red Blood Cell Count 4.67 X10^6/uL (4.0-5.2); Red Cell Distribution Width 15.4 % (11.6-14.8); White Blood Cell Count 9.1 X10^3/uL (4.5-11.0)
[2019-08-05 20:41] LABS: INR 1.1 (0.9-1.3); Prothrombin Time 12.5 SECONDS (10.1-12.7)
[2019-08-05 20:43] LABS: PTT Partial Thromboplastin Tim 23 SECONDS (26.4-36.2)
[2019-08-05 20:46] LABS: Alanine Aminotransferase 12 IU/L (<35); Albumin 4.6 g/dL (3.5-5.0); Alkaline Phosphatase 109 U/L (38-126); Aspartate Aminotransferase 23 IU/L (14-36); BUN Creatinine Ratio 21.6 (6-22); Bilirubin Total 0.3 mg/dL (0.2-1.3); Blood Urea Nitrogen 22 mg/dL (7-17); Calcium 9.7 mg/dL (8.4-10.2); Carbon Dioxide 25 mmol/L (22-32); Chloride 106 mmol/L (98-107); Creatine Kinase 52 U/L (30-135); Estimated Glomerular Filt Rate 52.1 mL/min (>60); Globulin 4.4 g/dL (1.7-4.1); Glucose 136 mg/dL (80-110); HEMOLYSIS < 15 (0-50); Lipase 197 U/L (23-300); Potassium 4.1 mmol/L (3.4-5.1); Sodium 141 mmol/L (137-145)
[2019-08-05 20:57] LABS: Troponin I < 0.012 ng/mL (0.01-0.034)
[2019-08-05 21:06] VITALS: BP 112/64; BP 122/60; PULSE 102; PULSE 93
[2019-08-05 22:16] VITALS: BP 123/74; PULSE 87; RESP 16; O2SAT 99
== END 2019-08-05 22:30 | disposition home or self-care (01) ==
PROVIDERS: Emergency Provider Emergency Medicine; PCP Family Medicine
DX: R55 Syncope and collapse (principal); I10 Essential (primary) hypertension; K21.9 Gastro-esophageal reflux disease without esophagitis
CPT/HCPCS: 36415; 71045; 80053; 82550; 83690; 84484; 85025; 85610; 85730; 93005; 99284

== ENCOUNTER 2019-11-04 13:08 | Emergency (ER) | payer OTHER, SELFPAY ==
[2019-06-04 03:09] VITALS: BMI 27.3
[2019-11-04 13:19] VITALS: BP 150/80; PULSE 96; RESP 15; TEMP 36.8; O2SAT 100; BMI 27.3
--- NOTE | 2019-11-04 14:22 | PC.NURSE ---
Pt had a guzman placed at [facility] yeseterday,when changing pts brief the guzman fell out with balloon inflated. Pt incontinent of urine.
[2019-11-04 14:27] LABS: Appearance Urine UA SL CLOUDY; Bilirubin Urine UA NEGATIVE (NEGATIVE); Color Urine UA YELLOW; Glucose Urine UA NEGATIVE (Negative); Ketones Urine UA NEGATIVE (NEGATIVE); Leukocyte Esterase Urine UA 1+ (NEGATIVE); Nitrite Urine UA POSITIVE (Negative); Occult Blood Urine UA 1+ (Negative); Protein Urine UA NEGATIVE (Negative); Urobilinogen Urine UA 0.2 E.U./dL (0.2)
[2019-11-04 14:31] LABS: pH Urine UA 5.5 (4.5-8.0)
--- NOTE | 2019-11-04 14:37 | ED_ITS ---
HPI - Female Genitourinary <LEROY Arnold - Last Filed: 11/04/19 21:12> General Chief complaint: Urogenital-Female Stated complaint: cath installed properly Time Seen by Provider: 11/04/19 13:47 Source: patient Mode of arrival: Wheelchair Limitations: no limitations History of Present Illness HPI Narrative: 79-year-old female with a history of MS, presents emergency department for a catheter placement. Patient states she was seen at [facility] yesterday for a catheter placement. She has had an indwelling catheter since March due to urine leakage from MS. She states she gets a change every month, she was due to have changed. They placed a catheter but patient reported continual urine leaking and incontinence, she states no urine was draining into the catheter bag. She presented to the ED for re-evaluation of the catheter placement. Patient denies any pain, fevers, chest pain, shortness of breath, dizziness, or any other concerns. Related Data Home Medications Medication Instructions Recorded Confirmed cholecalciferol (vitamin D3) 25 1,000 unit PO DAILY 10/25/18 06/04/19 mcg (1,000 unit) capsule lisinopril 5 mg tablet 5 mg PO DAILY 10/25/18 06/04/19 omeprazole 10 mg capsule,delayed 10 mg PO DAILY 10/25/18 06/04/19 release oxybutynin chloride 5 mg tablet 5 mg PO DAILY 10/25/18 06/04/19 citalopram 20 mg PO DAILY 06/04/19 06/04/19 Previous Rx's Medication Instructions Recorded acetaminophen 650 mg PO Q6HR PRN #30 tab 06/08/19 amoxicillin 500 mg PO TID #30 cap 06/08/19 Allergies Allergy/AdvReac Type Severity Reaction Status Date / Time azithromycin Allergy Mild RASH Verified 11/04/19 13:19 levofloxacin Allergy Mild RASH Verified 11/04/19 13:19 Sulfa (Sulfonamide Allergy Mild RASH Verified 11/04/19 13:19 Antibiotics) adhesive AdvReac Mild RASH FROM Verified 11/04/19 13:19 CLOTH TAPE Review of Systems <LEROY Arnold - Last Filed: 11/04/19 21:12> Review of Systems Narrative: REVIEW OF SYSTEMS: GENERAL: Denies fever, chills, malaise, or wt. loss. HENT: No head trauma, sore throat, or dysphagia. EYES: No loss of vision, double vision, eye pain, or irritation. CARDIOVASCULAR: No chest pain. RESPIRATORY: No shortness of breath or cough. GASTROINTESTINAL: No abdominal pain. GENITOURINARY: Complains of urinary incontinence around catheter, see HPI. MUSCULOSKELETAL: No pain, weakness, or trauma. INTEGUMENTARY: No rash, lesions, or pruritus. NEURO: No numbness, tingling. PSYCH: No behavior or mood changes. Patient History <LEROY Arnold - Last Filed: 11/04/19 21:12> Medical History Acute UTI (Acute) Hypertension (Chronic) Multiple sclerosis (Chronic) Ureterolithiasis (Inactive) Surgical History H/O: hysterectomy (Resolved) Hx of appendectomy (Resolved) alcohol intake frequency: holidays/special occasions only Substance Use Type: does not use Exam <LEROY Arnold - Last Filed: 11/04/19 21:12> Initial Vital Signs Initial Vital Signs: Vital Signs Temperature 98.3 F 11/04/19 13:19 Pulse Rate 96 H 11/04/19 13:19 Respiratory Rate 15 11/04/19 13:19 Blood Pressure 150/80 H 11/04/19 13:19 Pulse Oximetry 100 11/04/19 13:19 PHYSICAL EXAMINATION: GENERAL: Well groomed, alert, and cooperative. Answers questions promptly and appropriately. Vital signs noted. HENT: Normocephalic, atraumatic. Hearing intact. Oral mucosa is pink and moist. EYES: Conjunctiva pink, sclera white, no periorbital swelling. CARDIOVASCULAR: Regular. RESPIRATORY: Normal respiratory rate, trachea midline, airway patent. No stridor, nasal flaring or accessory muscle use. GASTROINTESTINAL: Bowel sounds normoactive. Abdomen is soft and non-tender. No organomegaly, no palpable masses. GENITALURINARY: No flank tenderness. Visualized placement of urinary catheter in bladder by nursing. MUSCULOSKELETAL: Increased muscle rigidity due to MS, patient states this is her norm. EXTREMITIES: CMS intact, no pedal edema. SKIN: Warm, dry, soft, appropriate color for ethnicity. No lesions, rashes, or wounds to visualized areas. NEURO: Alert and Oriented X 3. Good coordination. No ataxia, or sensory deficits, or cognitive issues. PSYCH: Appropriate affect and mood. <Bambi Fontana MD - Last Filed: 11/05/19 12:38> Initial Vital Signs Initial Vital Signs: Vital Signs Temperature 98.3 F 11/04/19 13:19 Pulse Rate 96 H 11/04/19 13:19 Respiratory Rate 15 11/04/19 13:19 Blood Pressure 150/80 H 11/04/19 13:19 Pulse Oximetry 100 11/04/19 13:19 Course <LEROY Arnold - Last Filed: 11/04/19 21:12> Orders Ordered: ED Orders 11/04/19 14:17 Urinalysis and Microscopic Stat Urine Culture Stat Vital Signs Vital signs: Vital Signs - 8 hr 11/04/19 13:19 Temperature 98.3 F Pulse Rate 96 H Respiratory Rate 15 Blood Pressure 150/80 H Pulse Oximetry 100 <Bambi Fontana MD - Last Filed: 11/05/19 12:38> Orders Ordered: ED Orders 11/04/19 14:17 Urinalysis and Microscopic Stat Urine Culture Stat Vital Signs Vital signs: Vital Signs - 8 hr 11/04/19 13:19 Temperature 98.3 F Pulse Rate 96 H Respiratory Rate 15 Blood Pressure 150/80 H Pulse Oximetry 100 MDM - Female Genitourinary <LEROY Arnold - Last Filed: 11/04/19 21:12> Medical Records Attestation: I reviewed the patient's medical records. Lab Data Attestation: I reviewed the patient's lab results. Labs: Lab Results 11/04/19 Range/Units 14:17 Urine Color Yellow Urine Appearance Sl cloudy Urine pH 5.5 (4.5-8.0) Ur Specific [place] 1.020 (1.000-1.035) Urine Protein Negative (Negative) Urine Glucose (UA) Negative (Negative) g/dL Urine Ketones Negative (NEGATIVE) Urine Occult Blood 1+ H (Negative) Urine Nitrate Positive H (Negative) Urine Bilirubin Negative (NEGATIVE) Urine Urobilinogen 0.2 (0.2) E.U./dL Ur Leukocyte Esterase 1+ H (NEGATIVE) Urine RBC 1-5/hpf (0-5/HPF) Urine WBC 30-100/hpf H (0-5/HPF) Ur Squamous Epith Cells 1-5 /hpf (0-5/HPF) Urine Bacteria Many (>30) H (None) Ur Culture Indicated? Specimen cultured MDM Narrative Medical decision making narrative: This is 79-year-old female presenting to the emergency department for replacement of a catheter that was placed earlier and there is urine leakage around the catheter. Upon visibly to renee, catheter was not inserted into the bladder. A catheter was inserted into the bladder being nursing, personally visualized this. Urinalysis was sent to culture, no antibiotics were given at this time as patient was not symptomatic. Patient was encouraged to follow up with her primary care provider as scheduled. Agrees to plan of care verbalized understanding. <Bambi Fontana MD - Last Filed: 11/05/19 12:38> Lab Data Labs: Lab Results 11/04/19 Range/Units 14:17 Urine Color Yellow Urine Appearance Sl cloudy Urine pH 5.5 (4.5-8.0) Ur Specific [place] 1.020 (1.000-1.035) Urine Protein Negative (Negative) Urine Glucose (UA) Negative (Negative) g/dL Urine Ketones Negative (NEGATIVE) Urine Occult Blood 1+ H (Negative) Urine Nitrate Positive H (Negative) Urine Bilirubin Negative (NEGATIVE) Urine Urobilinogen 0.2 (0.2) E.U./dL Ur Leukocyte Esterase 1+ H (NEGATIVE) Urine RBC 1-5/hpf (0-5/HPF) Urine WBC 30-100/hpf H (0-5/HPF) Ur Squamous Epith Cells 1-5 /hpf (0-5/HPF) Urine Bacteria Many (>30) H (None) Ur Culture Indicated? Specimen cultured Discharge Plan Departure Patient Disposition: Home Clinical Impression: Urinary catheter insertion/adjustment/removal Discharge Date/Time: 11/04/19 14:43 Activity Restrictions/Additional Instructions: Thank you for entrusting me with your care today. As discussed, a new catheter has been placed. We have sent your urine for culture, if it is positive for bacteria we will call you in start you on antibiotics. Please follow-up with your urologist as scheduled. Return emergency department for any new or worsening symptoms such as fevers, ch ills, decreased in urine in your catheter, abdominal pain, or any other concerns. Prescriptions: No Action lisinopril 5 mg tablet 5 mg PO DAILY RF: 0 oxybutynin chloride 5 mg tablet 5 mg PO DAILY RF: 0 cholecalciferol (vitamin D3) 1,000 unit capsule 1,000 unit PO DAILY RF: 0 omeprazole 10 mg capsule,delayed release(DR/EC) 10 mg PO DAILY RF: 0 citalopram 20 mg tablet 20 mg PO DAILY RF: 0 acetaminophen 325 mg Tablet 650 mg PO Q6HR PRN (Reason: Fever) Qty: 30 RF: 0 amoxicillin 250 mg Capsule 500 mg PO TID Qty: 30 RF: 0 Referrals: Titus Carcamo DO [Primary Care Provider] - <Bambi Fontana MD - Last Filed: 11/05/19 12:38> Cosign ED Attending Cosignature Attestation: I was immediately available in the department for consultation throughout this patient's visit. I agree with documentation as above. Bambi Fontana MD
[2019-11-04 14:43] LABS: Bacteria Urine Many (>30); Culture Indicated Urine Specimen Cultured; RBC Urine 1-5/HPF (0-5/HPF); Squamous Epithelial Cell Urine 1-5 /HPF (0-5/HPF); WBC Urine 30-100/HPF (0-5/HPF)
== END 2019-11-04 14:43 | disposition home or self-care (01) ==
PROVIDERS: Emergency Provider Nurse Practitioner; PCP Family Medicine
DX: Z46.6 Encounter for fitting and adjustment of urinary device (principal)
CPT/HCPCS: 51705; 81001; 87077; 87086; 87186; 99283

== ENCOUNTER 2019-11-19 12:44 | Emergency (ER) | payer OTHER, SELFPAY ==
[2019-06-04 03:09] VITALS: BMI 27.3
[2019-11-19 12:45] VITALS: BP 148/66; PULSE 99; RESP 15; TEMP 36.8; O2SAT 95; BMI 27.9
--- NOTE | 2019-11-19 12:50 | ED_ITS ---
HPI - Female Genitourinary General Chief complaint: Urogenital-Female Stated complaint: Rectal burning Time Seen by Provider: 11/19/19 12:45 Source: patient and EMS Mode of arrival: EMS Limitations: no limitations History of Present Illness HPI Narrative: 79-year-old female former smoker with history of GERD, hypertension, chronic indwelling Shukla catheter presents by EMS for the evaluation of a few days of gradually worsening rectal pain, fullness and burning. She denies any injury. She denies fever, chills, abdominal pain nor nausea or vomiting. She does state that she has firm stools every 2-3 days and does not think she has had any change as of late. She does have a history of hemorrhoids and states she does not know if she currently has hemorrhoids. She denies any dietary or medication change and is otherwise well and free of complaint MD Complaint: other Onset (ago): day(s) Severity: moderate Quality: Burning Duration: constant Relieving factors: other Exacerbating factors: other (sitting hurts more) Patient : No Associated symptoms: denies other symptoms Related Data Home Medications Medication Instructions Recorded Confirmed cholecalciferol (vitamin D3) 25 1,000 unit PO DAILY 10/25/18 06/04/19 mcg (1,000 unit) capsule lisinopril 5 mg tablet 5 mg PO DAILY 10/25/18 06/04/19 omeprazole 10 mg capsule,delayed 10 mg PO DAILY 10/25/18 06/04/19 release oxybutynin chloride 5 mg tablet 5 mg PO DAILY 10/25/18 06/04/19 citalopram 20 mg PO DAILY 06/04/19 06/04/19 Previous Rx's Medication Instructions Recorded acetaminophen 650 mg PO Q6HR PRN #30 tab 06/08/19 amoxicillin 500 mg PO TID #30 cap 06/08/19 Allergies Allergy/AdvReac Type Severity Reaction Status Date / Time azithromycin Allergy Mild RASH Verified 11/19/19 12:49 levofloxacin Allergy Mild RASH Verified 11/19/19 12:49 Sulfa (Sulfonamide Allergy Mild RASH Verified 11/19/19 12:49 Antibiotics) adhesive AdvReac Mild RASH FROM Verified 11/19/19 12:49 CLOTH TAPE Review of Systems Constitutional Constitutional: Denies chills, Denies fatigue, Denies fever(s), Denies frequent falls, Denies lethargy and Denies weakness Eyes Eyes: Denies change in vision, Denies eye discharge, Denies irritation and Denies loss of vision ENT Ears, Nose, Mouth, and Throat: Denies change in voice, Denies dizziness, Denies neck pain, Denies sore throat and Denies throat swelling Cardiovascular Cardiovascular: Denies chest pain, Denies irregular heart rhythm, Denies lightheadedness, Denies palpitations, Denies dyspnea, Denies dyspnea on exertion and Denies orthopnea Respiratory Respiratory: Denies cough, Denies dyspnea, Denies dyspnea on exertion and Denies wheezing Gastrointestinal Gastrointestinal: Denies abdominal pain, Denies change in bowel habits, Denies diarrhea, Denies nausea and Denies vomiting Comments: rectal pain Musculoskeletal Musculoskeletal: Denies neck pain and Denies numbness Integumentary/Breasts Skin/Breast: Denies pruritus, Denies erythema, Denies rash and Denies wounds Neurologic Neurologic: Denies behavioral changes, Denies confusion, Denies dizziness, Denies frequent falls, Denies loss of vision, Denies numbness and Denies weakness Psychiatric Psychiatric: Denies anxiety, Denies behavioral changes, Denies confusion, Denies depression, Denies homicidal ideation and Denies suicidal ideation Endocrine Endocrine: Denies fatigue, Denies flushing and Denies palpitations Hematologic/Lymphatic Hematologic/Lymphatic: Denies easy bruising Allergic/Immunologic Allergic/Immunologic: Denies urticaria, Denies throat swelling and Denies wheezing Patient History Medical History Acute UTI (Acute) Hypertension (Chronic) Multiple sclerosis (Chronic) Ureterolithiasis (Inactive) Surgical History H/O: hysterectomy (Resolved) Hx of appendectomy (Resolved) alcohol intake frequency: holidays/special occasions only Substance Use Type: does not use Exam Narrative Exam Narrative: GENERAL: [79] year old patient appears stated age. Well- nourished, well-developed patient, in mild distress. HEAD: Atraumatic. Normocephalic. EYES: Pupils equal round and reactive. Extraocular motions intact. No scleral icterus. No injection or drainage. ENT: Nose without bleeding, purulent drainage. Throat without erythema, tonsillar hypertrophy or exudate. Airway patent. NECK: Trachea midline. Non tender CARDIOVASCULAR: Regular rate and rhythm without murmurs, gallops, or rubs. RESPIRATORY: Clear to auscultation. Breath sounds equal bilaterally. No wheezes, rales, or rhonchi. GASTROINTESTINAL: Abdomen soft, non-tender, nondistended. Normal bowel sounds RECTAL: hard stool in rectal vault, no hemorrhoids, fissure, or evidence of bleeding. Exam performed with patient permission and female nursing inside sales representative at bedside EXTREMITIES: No edema or joint tenderness. BACK: Nontender without deformity or crepitance. No flank tenderness. NEURO: AOx3. SKIN: No rash or erythema of visible areas Initial Vital Signs Initial Vital Signs: Vital Signs Temperature 98.3 F 11/19/19 12:45 Pulse Rate 99 H 11/19/19 12:45 Respiratory Rate 15 11/19/19 12:45 Blood Pressure 148/66 H 11/19/19 12:45 Pulse Oximetry 95 11/19/19 12:45 Procedures Rectal Disimpaction Time out performed rectal disimpaction: Yes Indication: fecal impaction Procedural Sedation: No Sedation/Analgesia: none Technique: manual disimpaction with gloved finger Result: significant stool output Patient Tolerated Procedure: Well Complications: none Additional Comments: patient feels tremendous relief afterwards Course Vital Signs Vital signs: Vital Signs - 8 hr 11/19/19 12:45 11/19/19 14:30 11/19/19 14:42 Temperature 98.3 F Pulse Rate 99 H 89 Respiratory Rate 15 Blood Pressure 148/66 H 138/58 L Pulse Oximetry 95 96 96 Discharge Plan Departure Patient Disposition: Home Clinical Impression: Fecal impaction in rectum Discharge Date/Time: 11/19/19 15:04 Instructions: DI for Fecal Impaction Activity Restrictions/Additional Instructions: *You have been diagnosed with [rectal pain due to fecal impaction] *What to do: *Take medications as directed *Follow up with your primary care provider in 2-3 days, call for an appointment. Let them know you were seen in the Emergency Department and that we ask that you be seen in follow up *Return to ER if you should have any new, worsening or concerning symptoms Prescriptions: No Action lisinopril 5 mg tablet 5 mg PO DAILY RF: 0 oxybutynin chloride 5 mg tablet 5 mg PO DAILY RF: 0 cholecalciferol (vitamin D3) 1,000 unit capsule 1,000 unit PO DAILY RF: 0 omeprazole 10 mg capsule,delayed release(DR/EC) 10 mg PO DAILY RF: 0 citalopram 20 mg tablet 20 mg PO DAILY RF: 0 acetaminophen 325 mg Tablet 650 mg PO Q6HR PRN (Reason: Fever) Qty: 30 RF: 0 amoxicillin 250 mg Capsule 500 mg PO TID Qty: 30 RF: 0 Referrals: Titus Carcamo DO [Primary Care Provider] -
--- NOTE | 2019-11-19 13:41 | PC.NURSE ---
Disimpaction performed by Dr. Shane with Cande CALDWELL at bedside.
[2019-11-19 14:30] VITALS: BP 138/58; PULSE 89; O2SAT 96
[2019-11-19 14:42] VITALS: O2SAT 96
== END 2019-11-19 15:04 | disposition home or self-care (01) ==
PROVIDERS: Emergency Provider Emergency Medicine; PCP Family Medicine
DX: K56.41 Fecal impaction (principal)
CPT/HCPCS: 99281

== ENCOUNTER 2020-04-06 14:42 | Emergency (ER) | payer OTHER, SELFPAY ==
[2019-06-04 03:09] VITALS: BMI 27.3
[2020-04-06] VITALS (23 sets, daily range): BP systolic 83–183; BP diastolic 47–84; PULSE 87–129; RESP 18–22; TEMP 37.2–39.2; O2SAT 92–97; BMI 27.6
--- NOTE | 2020-04-06 15:13 | DI.RAD.S_ITS ---
PROCEDURE: XR CHEST 1V INDICATIONS: suspected sepsis TECHNIQUE: One view of the chest was acquired. COMPARISON: [facility], CT, CT ANGIO CHEST PE, 06/25/2019, 13:49. [facility], CR, XR CHEST 1 VIEW, 06/25/2019, 9:21. [facility], CR, XR CHEST 1V, 08/05/2019, 20:03. FINDINGS: Surgical changes and devices: None. Lungs and pleura: An incomplete inspiratory result is noted, causing a crowded appearance to the lung markings. No focal infiltrates are seen. No pneumothorax or significant pleural effusions are seen. Mediastinum: The cardiac contours are within normal limits. The aorta demonstrates calcification and tortuosity. Bones and chest wall: No suspicious bony lesions. Age-appropriate bony degenerative changes are seen. Overlying soft tissues appear unremarkable. IMPRESSION: Limited portable chest examination, without a significant cardiopulmonary abnormality identified. No focal infiltrates are seen. If there is clinical concern for a developing pulmonary process, a short-term followup chest series (with PA and lateral views, performed in deep inspiration) is suggested for further evaluation. Dictated by: Venkatesh Moreno M.D. on 04/06/2020 at 14:35 Approved by: Venkatesh Moreno M.D. on 04/06/2020 at 14:36
[2020-04-06 15:23] LABS: Add Manual Diff / Slide Review NO; Basophils Absolute Auto 0 /uL (0-100); Basophils Percent Auto 0.2 % (0-2); Eosinophils Absolute Auto 0 /uL (0-450); Eosinophils Percent Auto 0.1 % (2-4); Hematocrit 39.3 % (36-46); Hemoglobin 13.1 g/dL (12.0-16.0); Lymphocytes Absolute Auto 400 /uL (1100-4500); Lymphocytes Percent Auto 6.1 % (25-40); Mean Corpuscular HGB Conc 33.4 % (30-36); Mean Corpuscular Hemoglobin 30.8 PG (26-34); Mean Corpuscular Volume 92.2 fL (80-100); Monocytes Absolute Auto 0 /uL (0-900); Monocytes Percent Auto 0.5 % (3-14); Neutrophils Absolute Auto 6600 /uL (1500-7000); Neutrophils Percent Auto 93.1 % (50-75); Platelet Count 272 X10^3/uL (150-400); Red Blood Cell Count 4.26 X10^6/uL (4.0-5.2); Red Cell Distribution Width 13.9 % (11.6-14.8)
[2020-04-06] MEDS: SODIUM CHLORIDE 0.9% 1,000 ML 1000 ML IV (15:24)
[2020-04-06 15:28] LABS: INR 1.2 (0.9-1.3); Prothrombin Time 13.3 SECONDS (10.1-12.7)
[2020-04-06 15:30] LABS: PTT Partial Thromboplastin Tim 24 SECONDS (26.4-36.2)
[2020-04-06 15:34] LABS: Alanine Aminotransferase 12 IU/L (<35); Alkaline Phosphatase 92 U/L (38-126); Aspartate Aminotransferase 22 IU/L (14-36); BUN Creatinine Ratio 16.9 (6-22); Bilirubin Total 0.8 mg/dL (0.2-1.3); Blood Urea Nitrogen 26 mg/dL (7-17); Calcium 9.3 mg/dL (8.4-10.2); Carbon Dioxide 28 mmol/L (22-32); Chloride 103 mmol/L (98-107); Estimated Glomerular Filt Rate 32.3 mL/min (>60); Globulin 4.2 g/dL (1.7-4.1); Glucose 92 mg/dL (80-110); HEMOLYSIS < 15 (0-50); Lactate (Lactic Acid) 1.7 mmol/L (0.7-2.1); Lipase 126 U/L (23-300); Potassium 4.5 mmol/L (3.4-5.1); Sodium 139 mmol/L (137-145); Total Protein 8.2 g/dL (6.3-8.2)
--- NOTE | 2020-04-06 15:35 | ED_ITS ---
HPI - Fall <Monika Mosley DO - Last Filed: 04/06/20 20:07> General Chief Complaint: Fall Stated Complaint: Weakness/Fall Time Seen by Provider: 04/06/20 14:58 Source: patient Mode of arrival: EMS Limitations: no limitations History of Present Illness HPI Narrative: This is an 79-year-old female who comes to the emergency department with complaint of weakness, chills and feeling generally unwell. Patient has history of MS and has been increasingly weak but with the ability to stand but not walk easily after a prolonged hospitalization and rehab stay. Patient also has a history of MS but states that she is no longer on medications she had steroids many years ago but nothing currently. She also has a Shukla catheter that is been in place for several months. Patient also has some c hronic weakness in her lower extremities and her upper extremities but describes it as being worse today. She does have a little bit of a she denies any neck pain. She denies any chest pain or shortness of breath patient has had some nausea today. Has had some vomiting. No diarrhea constipation she had a large bowel movement yesterday. She states she cannot really clean her catheter probably as her hands do not work well. Related Data Home Medications Medication Instructions Recorded Confirmed cholecalciferol (vitamin D3) 25 1,000 unit PO DAILY 10/25/18 06/04/19 mcg (1,000 unit) capsule lisinopril 5 mg tablet 5 mg PO DAILY 10/25/18 06/04/19 omeprazole 10 mg capsule,delayed 10 mg PO DAILY 10/25/18 06/04/19 release oxybutynin chloride 5 mg tablet 5 mg PO DAILY 10/25/18 06/04/19 citalopram 20 mg PO DAILY 06/04/19 06/04/19 Previous Rx's Medication Instructions Recorded acetaminophen 650 mg PO Q6HR PRN #30 tab 06/08/19 amoxicillin 500 mg PO TID #30 cap 06/08/19 Allergies Allergy/AdvReac Type Severity Reaction Status Date / Time azithromycin Allergy Mild RASH Verified 11/19/19 12:49 levofloxacin Allergy Mild RASH Verified 11/19/19 12:49 Sulfa (Sulfonamide Allergy Mild RASH Verified 11/19/19 12:49 Antibiotics) adhesive AdvReac Mild RASH FROM Verified 11/19/19 12:49 CLOTH TAPE Review of Systems <Monika Mosley DO - Last Filed: 04/06/20 20:07> Review of Systems ROS Unobtainable: All systems reviewed & are unremarkable except as noted in HPI and below Patient History <Monika Mosley DO - Last Filed: 04/06/20 20:07> Medical History (Updated 04/06/20 @ 18:46 by Monika Mosley DO) Acute UTI Hypertension Multiple sclerosis Ureterolithiasis Surgical History H/O: hysterectomy Hx of appendectomy Social History household members: none occupational status: previously employed Smoking Status: Former smoker Smoking Status: Former smoker alcohol intake frequency: holidays/special occasions only Substance Use Type: does not use Exam <Monika Mosley DO - Last Filed: 04/06/20 20:07> Narrative Exam Narrative: GEN: well nourished, elderly female, alert and oriented x 3, patient appears to be in moderate distress. HEENT: Atraumatic, pupils are equal round reactive to light, extraocular movements are intact, nares are clear, TMs are clear with no fluid, there is no conjunctival pallor. Throat is clear without any exudates, erythema, tonsillar enlargement or uvular deviation, no facial droop appreciated. HEART: Regular rate and rhythm without murmur, clicks, rubs. No carotid bruits, pulses are equal in upper extremities LUNGS:Lungs clear to auscultation, no wheezes, rales, crackles, chest moves symmetrically, no tachypnea accessory muscle use ABD:bowel sounds normal, soft, non-tender, no guarding, rebound, rigidity, no masses noted, no hepatosplenomegaly :No CVA tenderness MSCL: Non-tender, patient is able to lift her right upper extremity but has drift, she has quite a bit of difficulty lifting her left upper extremity off the bed. She also has some difficulty with use of her right hand. Patient does not have movement in her lower extremity at all on examination. NEURO:CN 2-12 intact, sensation normal in upper extremities, unable to test heel-renee, patient unable to perform [id number] with left upper extre mity. Initial Vital Signs Initial Vital Signs: Vital Signs Pulse Rate 125 H 04/06/20 14:49 Blood Pressure 183/84 H 04/06/20 14:49 Pulse Oximetry 97 04/06/20 14:49 <Francesco Shane DO - Last Filed: 04/07/20 02:54> Initial Vital Signs Initial Vital Signs: Vital Signs Pulse Rate 125 H 04/06/20 14:49 Blood Pressure 183/84 H 04/06/20 14:49 Pulse Oximetry 97 04/06/20 14:49 Scores <Monika Mosley DO - Last Filed: 04/06/20 20:07> NIH Stroke Scale Level of Conciousness: Alert, keenly responsive Ask month/age: Answers both questions correctly. Open/close eyes, close hand: Performs both tasks correctly Best gaze horizontal: Normal Visual rosenberg: No visual loss Facial palsy: Normal symetrical movement Left arm drift: Some effort against gravity, cannot maintain, drifts down to bed Right arm drift: Drifts down, not to bed Left leg drift: No effort against gravity Right leg drift: No effort against gravity Limb ataxia: Present in two limbs Sensory on face/arms/legs: Mild to moderate sensory loss, can tell touch Best language: No aphasia, normal Dysarthria: Normal Extinction or inattention: No abnormality Total NIH Stroke scale score: 12 Course <Monika Mosley DO - Last Filed: 04/06/20 20:07> Orders Ordered: ED Orders 04/07/20 02:25 Gram Stain Pos BC Stat Discontinued Medications Acetaminophen (Acetaminophen 325 Mg Tablet) 975 mg PO NOW ONE Stop: 04/06/20 15:27 Last Admin: 04/06/20 15:40 Dose: 975 mg Documented by: MARIELLE Sodium Chloride (Normal Saline 0.9%) 1,000 mls @ 1,000 mls/hr IV BOLUS ONE Stop: 04/06/20 16:12 Last Infusion: 04/06/20 16:39 Dose: 0 mls/hr Documented by: Admin: 04/06/20 15:24 Dose: 1,000 mls/hr Documented by: MARIELLE Ceftriaxone Sodium/Dextrose (Rocephin) 1 gm in 50 mls @ 100 mls/hr IV NOW ONE Stop: 04/06/20 16:34 Last Infusion: 04/06/20 16:54 Dose: 0 mls/hr Documented by: Admin: 04/06/20 16:20 Dose: 100 mls/hr Documented by: MARIELLE Sodium Chloride (Normal Saline 0.9%) 1,434 mls @ 478 mls/hr 30 ml/kg infuse over 3 hr (1434 ml) IV NOW ONE Stop: 04/06/20 19:50 Last Infusion: 04/06/20 17:29 Dose: 0 mls/hr Documented by: Infusion: 04/06/20 17:26 Dose: 0 mls/hr Documented by: Admin: 04/06/20 16:55 Dose: 478 mls/hr Documented by: MARIELLE Meropenem 1,000 mg/ Sodium (Chloride) 100 mls @ 200 mls/hr IV NOW ONE Stop: 04/06/20 17:18 Last Infusion: 04/06/20 18:45 Dose: 0 mls/hr Documented by: Admin: 04/06/20 17:32 Dose: 200 mls/hr Documented by: MARIELLE Sodium Chloride (Normal Saline 0.9%) 1,000 mls @ 150 mls/hr IV CONT IKER Last Admin: 04/06/20 19:09 Dose: 150 mls/hr Documented by: MARIELLE Ondansetron HCl (Ondansetron 4 Mg/2 Ml Inj) 4 mg IV NOW ONE Stop: 04/06/20 15:51 Last Admin: 04/06/20 16:20 Dose: 4 mg Documented by: MARIELLE Ondansetron HCl (Ondansetron 4 Mg/2 Ml Inj) 4 mg IV NOW ONE Stop: 04/06/20 15:51 Last Admin: 04/06/20 16:27 Dose: Not Given Documented by: MARIELLE Reevaluation(s) Reevaluation #1: patient is feeling a little better, her color has improved, HR is 101 on recheck. Still febrile but with improvement of temperature. Updated patient on findings today Time: 17:12 Consultations Consultation #1: Patient accepted by Dr. Branch for UTI with urosepsis. Patient came in with septic criteria, tachycardic febrile she was hypertensive. Imaging is negative, urinalysis is positive for nitrates, she does not have an elevated white count but does have an elevated procalcitonin. Has also decreased with a creatinine 1.5 for her last was 1.02 in July. She does have a chronic indwelling Shukla which is draining and she has a positive procalcitonin 1.18, patient is covid negative. Head Ct ordered as patient had possible CVA symptoms but after further evaluation defer tpa as patient is not appropriate candidate. Time: 17:12 Consultation #2: [facility] has capability. Dr. Martinez and I spoke she refuses and states patient is unassigned and to transfer to [place] if we do not have coverage at this time. We did discuss that this is concerning for an EMTALA violation [facility] is the closest hospital and has the ability and bed space at this time. I did discuss with coordinator and she is going to speak with hospitalist and recontact us. Time: 18:46 Consultation #3: Dr. Gannon accepts as hospitalist for transfer. Patient has urosepsis secondary to obstructive renal stone on the right. She has received IV antibiotics, heart rate has improved her fever has been slowly improving her blood pressure has been slowly decreasing. Patient's mentation has continued to be appropriate. Patient's renal function is slightly decreased, white count is not elevated but her procalcitonin is. Electrolytes are normal range. Patient's troponin is negative. COVID is negative. We did discuss the current situation with Urology and he does accept. Time: 19:59 Vital Signs Vital signs: Vital Signs - 8 hr 04/06/20 19:00 04/06/20 19:15 04/06/20 19:17 Temperature Pulse Rate 91 H 96 H 96 H Respiratory Rate 18 18 19 Blood Pressure 87/51 L 89/50 L 83/49 L Pulse Oximetry 92 93 93 04/06/20 20:25 04/06/20 20:29 04/06/20 20:30 Temperature 98.9 F Pulse Rate 91 H 91 H Respiratory Rate 20 18 Blood Pressure 84/47 L Pulse Oximetry 93 93 04/06/20 20:45 04/06/20 21:00 Temperature Pulse Rate 87 91 H Respiratory Rate 18 18 Blood Pressure 85/47 L 86/48 L Pulse Oximetry 94 95 <Francesco Shane, DO - Last Filed: 04/07/20 02:54> Course Course Narrative: patient received as brief signout, but was taken by EMS to [facility] prior to me performing a detailed history or exam Orders Ordered: ED Orders 04/07/20 02:25 Gram Stain Pos BC Stat Discontinued Medications Acetaminophen (Acetaminophen 325 Mg Tablet) 975 mg PO NOW ONE Stop: 04/06/20 15:27 Last Admin: 04/06/20 15:40 Dose: 975 mg Documented by: MARIELLE Sodium Chloride (Normal Saline 0.9%) 1,000 mls @ 1,000 mls/hr IV BOLUS ONE Stop: 04/06/20 16:12 Last Infusion: 04/06/20 16:39 Dose: 0 mls/hr Documented by: Admin: 04/06/20 15:24 Dose: 1,000 mls/hr Documented by: MARIELLE Ceftriaxone Sodium/Dextrose (Rocephin) 1 gm in 50 mls @ 100 mls/hr IV NOW ONE Stop: 04/06/20 16:34 Last Infusion: 04/06/20 16:54 Dose: 0 mls/hr Documented by: Admin: 04/06/20 16:20 Dose: 100 mls/hr Documented by: MARIELLE Sodium Chloride (Normal Saline 0.9%) 1,434 mls @ 478 mls/hr 30 ml/kg infuse over 3 hr (1434 ml) IV NOW ONE Stop: 04/06/20 19:50 Last Infusion: 04/06/20 17:29 Dose: 0 mls/hr Documented by: Infusion: 04/06/20 17:26 Dose: 0 mls/hr Documented by: Admin: 04/06/20 16:55 Dose: 478 mls/hr Documented by: MARIELLE Meropenem 1,000 mg/ Sodium (Chloride) 100 mls @ 200 mls/hr IV NOW ONE Stop: 04/06/20 17:18 Last Infusion: 04/06/20 18:45 Dose: 0 mls/hr Documented by: Admin: 04/06/20 17:32 Dose: 200 mls/hr Documented by: MARIELLE Sodium Chloride (Normal Saline 0.9%) 1,000 mls @ 150 mls/hr IV CONT IKER Last Admin: 04/06/20 19:09 Dose: 150 mls/hr Documented by: MARIELLE Ondansetron HCl (Ondansetron 4 Mg/2 Ml Inj) 4 mg IV NOW ONE Stop: 04/06/20 15:51 Last Admin: 04/06/20 16:20 Dose: 4 mg Documented by: MARIELLE Ondansetron HCl (Ondansetron 4 Mg/2 Ml Inj) 4 mg IV NOW ONE Stop: 04/06/20 15:51 Last Admin: 04/06/20 16:27 Dose: Not Given Documented by: MARIELLE Vital Signs Vital signs: Vital Signs - 8 hr 04/06/20 19:00 04/06/20 19:15 04/06/20 19:17 Temperature Pulse Rate 91 H 96 H 96 H Respiratory Rate 18 18 19 Blood Pressure 87/51 L 89/50 L 83/49 L Pulse Oximetry 92 93 93 04/06/20 20:25 04/06/20 20:29 04/06/20 20:30 Temperature 98.9 F Pulse Rate 91 H 91 H Respiratory Rate 20 18 Blood Pressure 84/47 L Pulse Oximetry 93 93 04/06/20 20:45 04/06/20 21:00 Temperature Pulse Rate 87 91 H Respiratory Rate 18 18 Blood Pressure 85/47 L 86/48 L Pulse Oximetry 94 95 MDM - Fall <Monika Mosley DO - Last Filed: 04/06/20 20:07> Lab Data Attestation: I reviewed the patient's lab results. Result diagrams: 04/06/20 15:10 04/06/20 15:10 Labs: Lab Results 04/06/20 04/06/20 04/06/20 Range/Units 15:10 15:10 15:10 WBC 7.0 (4.5-11.0) X10^3/uL RBC 4.26 (4.0-5.2) X10^6/uL Hgb 13.1 (12.0-16.0) g/dL Hct 39.3 (36-46) % MCV 92.2 (80-100) fL MCH 30.8 (26-34) PG MCHC 33.4 (30-36) % RDW 13.9 (11.6-14.8) % Plt Count 272 (150-400) X10^3/uL Neut % (Auto) 93.1 H (50-75) % Lymph % (Auto) 6.1 L (25-40) % Noble % (Auto) 0.5 L (3-14) % Eos % (Auto) 0.1 L (2-4) % Baso % (Auto) 0.2 (0-2) % Neut # (Auto) 6600 (5829-9718) /uL Lymph # (Auto) 400 L (3104-4451) /uL Noble # (Auto) 0 (0-900) /uL Eos # (Auto) 0 (0-450) /uL Baso # (Auto) 0 (0-100) /uL PT 13.3 H (10.1-12.7) SECONDS INR 1.2 (0.9-1.3) APTT 24 L (26.4-36.2) SECONDS Sodium (137-145) mmol/L Potassium (3.4-5.1) mmol/L Chloride (98-107) mmol/L Carbon Dioxide (22-32) mmol/L BUN (7-17) mg/dL Creatinine (0.52-1.04) mg/dL Estimated GFR (>60) mL/min BUN/Creatinine Ratio (6-22) Glucose (80-110) mg/dL Lactate (0.7-2.1) mmol/L Calcium (8.4-10.2) mg/dL Total Bilirubin (0.2-1.3) mg/dL AST (14-36) IU/L ALT (<35) IU/L Alkaline Phosphatase (38-126) U/L Total Creatine Kinase (30-135) U/L CK-MB (CK-2) CK-MB (CK-2) Rel Index Troponin I (0.01-0.034) ng/mL Total Protein (6.3-8.2) g/dL Albumin (3.5-5.0) g/dL Globulin (1.7-4.1) g/dL Albumin/Globulin Ratio (1.0-2.8) Lipase (23-300) U/L Procalcitonin 1.18 H (<0.5) ng/mL Urine Color Urine Appearance Urine pH (4.5-8.0) Ur Specific [place] (1.000-1.035) Urine Protein (Negative) Urine Glucose (UA) (Negative) g/dL Urine Ketones (NEGATIVE) Urine Occult Blood (Negative) Urine Nitrate (Negative) Urine Bilirubin (NEGATIVE) Urine Urobilinogen (0.2) E.U./dL Ur Leukocyte Esterase (NEGATIVE) Urine RBC (0-5/HPF) Urine WBC (0-5/HPF) Ur Squamous Epith Cells (0-5/HPF) Amorphous Sediment Urine Bacteria (None) Urine Mucus (Negative) Ur Culture Indicated? COVID-19 PCR (Negative) 04/06/20 04/06/20 04/06/20 Range/Units 15:10 15:10 15:10 WBC (4.5-11.0) X10^3/uL RBC (4.0-5.2) X10^6/uL Hgb (12.0-16.0) g/dL Hct (36-46) % MCV (80-100) fL MCH (26-34) PG MCHC (30-36) % RDW (11.6-14.8) % Plt Count (150-400) X10^3/uL Neut % (Auto) (50-75) % Lymph % (Auto) (25-40) % Noble % (Auto) (3-14) % Eos % (Auto) (2-4) % Baso % (Auto) (0-2) % Neut # (Auto) (9251-7622) /uL Lymph # (Auto) (9711-0187) /uL Noble # (Auto) (0-900) /uL Eos # (Auto) (0-450) /uL Baso # (Auto) (0-100) /uL PT (10.1-12.7) SECONDS INR (0.9-1.3) APTT (26.4-36.2) SECONDS Sodium 139 (137-145) mmol/L Potassium 4.5 (3.4-5.1) mmol/L Chloride 103 (98-107) mmol/L Carbon Dioxide 28 (22-32) mmol/L BUN 26 H (7-17) mg/dL Creatinine 1.54 H (0.52-1.04) mg/dL Estimated GFR 32.3 L (>60) mL/min BUN/Creatinine Ratio 16.9 (6-22) Glucose 92 (80-110) mg/dL Lactate 1.7 (0.7-2.1) mmol/L Calcium 9.3 (8.4-10.2) mg/dL Total Bilirubin 0.8 (0.2-1.3) mg/dL AST 22 (14-36) IU/L ALT 12 (<35) IU/L Alkaline Phosphatase 92 (38-126) U/L Total Creatine Kinase 48 (30-135) U/L CK-MB (CK-2) TNP CK-MB (CK-2) Rel Index TNP Troponin I < 0.012 (0.01-0.034) ng/mL Total Protein 8.2 (6.3-8.2) g/dL Albumin 4.0 (3.5-5.0) g/dL Globulin 4.2 H (1.7-4.1) g/dL Albumin/Globulin Ratio 1.0 (1.0-2.8) Lipase 126 (23-300) U/L Procalcitonin (<0.5) ng/mL Urine Color Urine Appearance Urine pH (4.5-8.0) Ur Specific [place] (1.000-1.035) Urine Protein (Negative) Urine Glucose (UA) (Negative) g/dL Urine Ketones (NEGATIVE) Urine Occult Blood (Negative) Urine Nitrate (Negative) Urine Bilirubin (NEGATIVE) Urine Urobilinogen (0.2) E.U./dL Ur Leukocyte Esterase (NEGATIVE) Urine RBC (0-5/HPF) Urine WBC (0-5/HPF) Ur Squamous Epith Cells (0-5/HPF) Amorphous Sediment Urine Bacteria (None) Urine Mucus (Negative) Ur Culture Indicated? COVID-19 PCR (Negative) 04/06/20 04/06/20 Range/Units 15:45 15:47 WBC (4.5-11.0) X10^3/uL RBC (4.0-5.2) X10^6/uL Hgb (12.0-16.0) g/dL Hct (36-46) % MCV (80-100) fL MCH (26-34) PG MCHC (30-36) % RDW (11.6-14.8) % Plt Count (150-400) X10^3/uL Neut % (Auto) (50-75) % Lymph % (Auto) (25-40) % Noble % (Auto) (3-14) % Eos % (Auto) (2-4) % Baso % (Auto) (0-2) % Neut # (Auto) (2177-8391) /uL Lymph # (Auto) (6334-0186) /uL Noble # (Auto) (0-900) /uL Eos # (Auto) (0-450) /uL Baso # (Auto) (0-100) /uL PT (10.1-12.7) SECONDS INR (0.9-1.3) APTT (26.4-36.2) SECONDS Sodium (137-145) mmol/L Potassium (3.4-5.1) mmol/L Chloride (98-107) mmol/L Carbon Dioxide (22-32) mmol/L BUN (7-17) mg/dL Creatinine (0.52-1.04) mg/dL Estimated GFR (>60) mL/min BUN/Creatinine Ratio (6-22) Glucose (80-110) mg/dL Lactate (0.7-2.1) mmol/L Calcium (8.4-10.2) mg/dL Total Bilirubin (0.2-1.3) mg/dL AST (14-36) IU/L ALT (<35) IU/L Alkaline Phosphatase (38-126) U/L Total Creatine Kinase (30-135) U/L CK-MB (CK-2) CK-MB (CK-2) Rel Index Troponin I (0.01-0.034) ng/mL Total Protein (6.3-8.2) g/dL Albumin (3.5-5.0) g/dL Globulin (1.7-4.1) g/dL Albumin/Globulin Ratio (1.0-2.8) Lipase (23-300) U/L Procalcitonin (<0.5) ng/mL Urine Color Yellow Urine Appearance Sl cloudy Urine pH 6.0 (4.5-8.0) Ur Specific [place] 1.015 (1.000-1.035) Urine Protein Negative (Negative) Urine Glucose (UA) Negative (Negative) g/dL Urine Ketones Negative (NEGATIVE) Urine Occult Blood 1+ H (Negative) Urine Nitrate Positive H (Negative) Urine Bilirubin Negative (NEGATIVE) Urine Urobilinogen 0.2 (0.2) E.U./dL Ur Leukocyte Esterase 3+ H (NEGATIVE) Urine RBC 1-5/hpf (0-5/HPF) Urine WBC 30-100/hpf H (0-5/HPF) Ur Squamous Epith Cells 0-1 /hpf (0-5/HPF) Amorphous Sediment 1+ Urine Bacteria Many (>30) H (None) Urine Mucus 1+ H (Negative) Ur Culture Indicated? Specimen cultured COVID-19 PCR Negative (Negative) Urine Dip Bedside Urine Glucose Negative Bedside Urine Bilirubin - Negative Bedside Urine Ketone - Negative Urine Specific [place] 1.015 Bedside Urine Occult Blood +/- Bedside Urine pH 6.0 Bedside Urine Urobilinogen - Negative Bedside Urine Nitrite + Positive Bedside Urine Leukocytes ++ 125 Esterase Imaging Data Chest x-ray: Radiologist's Impression: Olivia Castillo 79 F [address] [id number] ReportSigned Patient: Olivia Castillo AMR#: [id number]: 1940cct:[id number]/Sex: 79 / FDate of Service: 04/06/20Loc: EDAccession Number: [id number] Procedure: XR chest 1V Ordering Provider: Monika Mosley D.O. PROCEDURE: XR CHEST 1V INDICATIONS: suspected sepsis TECHNIQUE: One view of the chest was acquired. COMPARISON: [facility], CT, CT ANGIO CHEST PE, 06/25/2019, 13:49. [facility], CR, XR CHEST 1 VIEW, 06/25/2019, 9:21. [facility], CR, XR CHEST 1V, 08/05/2019, 20:03. FINDINGS: Surgical changes and devices: None. Lungs and pleura: An incomplete inspiratory result is noted, causing a crowded appearance to the lung markings. No focal infiltrates are seen. No pneumothor ax or significant pleural effusions are seen. Mediastinum: The cardiac contours are within normal limits. The aorta demonstrates calcification and tortuosity. Bones and chest wall: No suspicious bony lesions. Age-appropriate bony degenerative changes are seen. Overlying soft tissues appear unremarkable. IMPRESSION: Limited portable chest examination, without a significant cardiopulmonary abnormality identified. No focal infiltrates are seen. If there is clinical concern for a developing pulmonary process, a short-term followup chest series (with PA and lateral views, performed in deep inspiration) is suggested for further evaluation. Dictated by: Venkatesh Moreno M.D. on 04/06/2020 at 14:35 Approved by: Venkatesh Moreno M.D. on 04/06/2020 at 14:36 CT scan - abdomen/pelvis: Radiologist's Impression: [address] [id number] Scan ReportSigned Patient: Olivia Castillo AMR#: [id number]: 9Acct:[id number]/Sex: 79 / FDate of Service: 04/06/20Loc: [id number] Number: [id number] Procedure: CT abdomen pelvis wo con Ordering Provider: Monika Mosley D.O. PROCEDURE: CT ABDOMEN PELVIS WO CON INDICATIONS: history of obstructive uropathy TECHNIQUE: Noncontrast 5 mm thick sections acquired from the diaphragms to the symphysis. 5 mm coronal and sagittal reformats were then performed. For radiation dose reduction, the following was used: automated exposure control, adjustment of mA and/or kV according to patient size. COMPARISON: [facility], , RENAL COMPLETE, 07/07/2019, 12:09. FINDINGS: Image quality: Excellent. ABDOMEN: Lung bases: Mild basilar reticulation. No pleural effusion. Heart size is normal. Moderate hiatal hernia. Solid organs: Liver is normal in size. Gallbladder is not significantly distended. Possible sludge. Pancreas is normal in contours. Spleen is normal in size. No adrenal nodules. Moderate right hydroureteronephrosis. Suspect obstructing calculus in the distal right ureter measuring 0.4 x 0.7 cm, ( and ). Multiple vascular calcification and phleboliths in this region. Additional nonobstructing kidney stones. Right 0.6 cm and several on the left measuring up to 0.9 cm. Resolved left hydronephrosis. Mild stranding surrounds right kidney. Peritoneum and bowel: No small bowel obstruction. Prominent stool in the rectal vault. No free fluid or air. Nodes and vessels: No retroperitoneal or mesenteric adenopathy by size criter ia. Aorta and inferior vena cava are normal in caliber. Extensive calcified atherosclerotic plaque. Miscellaneous: No ventral hernias. PELVIS: Genitourinary: Bladder is decompressed with Shukla catheter. No definite bladder calculi. Uterus is absent. Miscellaneous: No inguinal hernias or adenopathy. Bones: No suspicious bony lesions. Osteopenia. Scoliosis. Moderate DDD. No vertebral body compression fractures. IMPRESSION: 1. Moderate right hydroureteronephrosis. Suspect obstructing calculus at the distal right ureter measuring 0.4 x 0.7 cm. 2. Several additional nonobstructing kidney stones bilaterally. Dictated by: Sami Lazcano M.D. on 04/06/2020 at 18:14 Approved by: Sami Lazcano M.D. on 04/06/2020 at 18:32 ECG Data Attestation: I personally reviewed and interpreted this ECG as follows: Prior ECG tracings: not available for review Interpretation: Sinus tach, rate of 123, VA 130, QRS is 70 QTC of 469. No ST elevation depression appreciated. Difficult to see P waves in all leads secondary to artifact but does appear to be present in the majority. No prior EKGs for comparison. MDM Narrative Medical decision making narrative: Pleasant 79-year-old female comes to the emergency department with fever, chills as well as increased weakness. Patient did have some concern for possible CVA as she had increased weakness in her upper extremities, head CT was negative, it was difficult to evaluate NIH is she has chronic weakness secondary to debility and also possibly MS. Patient is alert, appropriate no meningeal signs in the department. She does meet septic criteria and has a source with her urine and chronic indwelling Shukla catheter. Patient renal function is slightly worsened, white count is normal but her procalcitonin is elevated and she does have a left shift. No major electrolyte abnormalities. Patient was started on Rocephin initially secondary to sensitivities but after discussion with Dr. sanders and he requests meropenem as well as a CT abdomen pelvis non con as she has had some obstructive uropathy in the past. And changing out her Shukla catheter. Patient CT shows obstructive kidney stone and plan for transfer as we do not have urology coverage at this time. Patient accepted at [facility] by Dr. Gannon. Patient signed out to Dr. Shane while awaiting transfer. <Francesco Shane, - Last Filed: 04/07/20 02:54> Lab Data Labs: Lab Results 04/06/20 04/06/20 04/06/20 Range/Units 15:10 15:10 15:10 WBC 7.0 (4.5-11.0) X10^3/uL RBC 4.26 (4.0-5.2) X10^6/uL Hgb 13.1 (12.0-16.0) g/dL Hct 39.3 (36-46) % MCV 92.2 (80-100) fL MCH 30.8 (26-34) PG MCHC 33.4 (30-36) % RDW 13.9 (11.6-14.8) % Plt Count 272 (150-400) X10^3/uL Neut % (Auto) 93.1 H (50-75) % Lymph % (Auto) 6.1 L (25-40) % Noble % (Auto) 0.5 L (3-14) % Eos % (Auto) 0.1 L (2-4) % Baso % (Auto) 0.2 (0-2) % Neut # (Auto) 6600 (4048-9455) /uL Lymph # (Auto) 400 L (6756-9965) /uL Noble # (Auto) 0 (0-900) /uL Eos # (Auto) 0 (0-450) /uL Baso # (Auto) 0 (0-100) /uL PT 13.3 H (10.1-12.7) SECONDS INR 1.2 (0.9-1.3) APTT 24 L (26.4-36.2) SECONDS Sodium (137-145) mmol/L Potassium (3.4-5.1) mmol/L Chloride (98-107) mmol/L Carbon Dioxide (22-32) mmol/L BUN (7-17) mg/dL Creatinine (0.52-1.04) mg/dL Estimated GFR (>60) mL/min BUN/Creatinine Ratio (6-22) Glucose (80-110) mg/dL Lactate (0.7-2.1) mmol/L Calcium (8.4-10.2) mg/dL Total Bilirubin (0.2-1.3) mg/dL AST (14-36) IU/L ALT (<35) IU/L Alkaline Phosphatase (38-126) U/L Total Creatine Kinase (30-135) U/L CK-MB (CK-2) CK-MB (CK-2) Rel Index Troponin I (0.01-0.034) ng/mL Total Protein (6.3-8.2) g/dL Albumin (3.5-5.0) g/dL Globulin (1.7-4.1) g/dL Albumin/Globulin Ratio (1.0-2.8) Lipase (23-300) U/L Procalcitonin 1.18 H (<0.5) ng/mL Urine Color Urine Appearance Urine pH (4.5-8.0) Ur Specific [place] (1.000-1.035) Urine Protein (Negative) Urine Glucose (UA) (Negative) g/dL Urine Ketones (NEGATIVE) Urine Occult Blood (Negative) Urine Nitrate (Negative) Urine Bilirubin (NEGATIVE) Urine Urobilinogen (0.2) E.U./dL Ur Leukocyte Esterase (NEGATIVE) Urine RBC (0-5/HPF) Urine WBC (0-5/HPF) Ur Squamous Epith Cells (0-5/HPF) Amorphous Sediment Urine Bacteria (None) Urine Mucus (Negative) Ur Culture Indicated? COVID-19 PCR (Negative) 04/06/20 04/06/20 04/06/20 Range/Units 15:10 15:10 15:10 WBC (4.5-11.0) X10^3/uL RBC (4.0-5.2) X10^6/uL Hgb (12.0-16.0) g/dL Hct (36-46) % MCV (80-100) fL MCH (26-34) PG MCHC (30-36) % RDW (11.6-14.8) % Plt Count (150-400) X10^3/uL Neut % (Auto) (50-75) % Lymph % (Auto) (25-40) % [place] % (Auto) (3-14) % Eos % (Auto) (2-4) % Baso % (Auto) (0-2) % Neut # (Auto) (1605-3883) /uL Lymph # (Auto) (2482-1464) /uL Noble # (Auto) (0-900) /uL Eos # (Auto) (0-450) /uL Baso # (Auto) (0-100) /uL PT (10.1-12.7) SECONDS INR (0.9-1.3) APTT (26.4-36.2) SECONDS Sodium 139 (137-145) mmol/L Potassium 4.5 (3.4-5.1) mmol/L Chloride 103 (98-107) mmol/L Carbon Dioxide 28 (22-32) mmol/L BUN 26 H (7-17) mg/dL Creatinine 1.54 H (0.52-1.04) mg/dL Estimated GFR 32.3 L (>60) mL/min BUN/Creatinine Ratio 16.9 (6-22) Glucose 92 (80-110) mg/dL Lactate 1.7 (0.7-2.1) mmol/L Calcium 9.3 (8.4-10.2) mg/dL Total Bilirubin 0.8 (0.2-1.3) mg/dL AST 22 (14-36) IU/L ALT 12 (<35) IU/L Alkaline Phosphatase 92 (38-126) U/L Total Creatine Kinase 48 (30-135) U/L CK-MB (CK-2) TNP CK-MB (CK-2) Rel Index TNP Troponin I < 0.012 (0.01-0.034) ng/mL Total Protein 8.2 (6.3-8.2) g/dL Albumin 4.0 (3.5-5.0) g/dL Globulin 4.2 H (1.7-4.1) g/dL Albumin/Globulin Ratio 1.0 (1.0-2.8) Lipase 126 (23-300) U/L Procalcitonin (<0.5) ng/mL Urine Color Urine Appearance Urine pH (4.5-8.0) Ur Specific [place] (1.000-1.035) Urine Protein (Negative) Urine Glucose (UA) (Negative) g/dL Urine Ketones (NEGATIVE) Urine Occult Blood (Negative) Urine Nitrate (Negative) Urine Bilirubin (NEGATIVE) Urine Urobilinogen (0.2) E.U./dL Ur Leukocyte Esterase (NEGATIVE) Urine RBC (0-5/HPF) Urine WBC (0-5/HPF) Ur Squamous Epith Cells (0-5/HPF) Amorphous Sediment Urine Bacteria (None) Urine Mucus (Negative) Ur Culture Indicated? COVID-19 PCR (Negative) 11/27/20 11/27/20 Range/Units 15:45 15:47 WBC (4.5-11.0) X10^3/uL RBC (4.0-5.2) X10^6/uL Hgb (12.0-16.0) g/dL Hct (36-46) % MCV (80-100) fL MCH (26-34) PG MCHC (30-36) % RDW (11.6-14.8) % Plt Count (150-400) X10^3/uL Neut % (Auto) (50-75) % Lymph % (Auto) (25-40) % [place] % (Auto) (3-14) % Eos % (Auto) (2-4) % Baso % (Auto) (0-2) % Neut # (Auto) (3843-0622) /uL Lymph # (Auto) (6583-9555) /uL Noble # (Auto) (0-900) /uL Eos # (Auto) (0-450) /uL Baso # (Auto) (0-100) /uL PT (10.1-12.7) SECONDS INR (0.9-1.3) APTT (26.4-36.2) SECONDS Sodium (137-145) mmol/L Potassium (3.4-5.1) mmol/L Chloride (98-107) mmol/L Carbon Dioxide (22-32) mmol/L BUN (7-17) mg/dL Creatinine (0.52-1.04) mg/dL Estimated GFR (>60) mL/min BUN/Creatinine Ratio (6-22) Glucose (80-110) mg/dL Lactate (0.7-2.1) mmol/L Calcium (8.4-10.2) mg/dL Total Bilirubin (0.2-1.3) mg/dL AST (14-36) IU/L ALT (<35) IU/L Alkaline Phosphatase (38-126) U/L Total Creatine Kinase (30-135) U/L CK-MB (CK-2) CK-MB (CK-2) Rel Index Troponin I (0.01-0.034) ng/mL Total Protein (6.3-8.2) g/dL Albumin (3.5-5.0) g/dL Globulin (1.7-4.1) g/dL Albumin/Globulin Ratio (1.0-2.8) Lipase (23-300) U/L Procalcitonin (<0.5) ng/mL Urine Color Yellow Urine Appearance Sl cloudy Urine pH 6.0 (4.5-8.0) Ur Specific [place] 1.015 (1.000-1.035) Urine Protein Negative (Negative) Urine Glucose (UA) Negative (Negative) g/dL Urine Ketones Negative (NEGATIVE) Urine Occult Blood 1+ H (Negative) Urine Nitrate Positive H (Negative) Urine Bilirubin Negative (NEGATIVE) Urine Urobilinogen 0.2 (0.2) E.U./dL Ur Leukocyte Esterase 3+ H (NEGATIVE) Urine RBC 1-5/hpf (0-5/HPF) Urine WBC 30-100/hpf H (0-5/HPF) Ur Squamous Epith Cells 0-1 /hpf (0-5/HPF) Amorphous Sediment 1+ Urine Bacteria Many (>30) H (None) Urine Mucus 1+ H (Negative) Ur Culture Indicated? Specimen cultured COVID-19 PCR Negative (Negative) Urine Dip Bedside Urine Glucose Negative Bedside Urine Bilirubin - Negative Bedside Urine Ketone - Negative Urine Specific [place] 1.015 Bedside Urine Occult Blood +/- Bedside Urine pH 6.0 Bedside Urine Urobilinogen - Negative Bedside Urine Nitrite + Positive Bedside Urine Leukocytes ++ 125 Esterase Discharge Plan Departure Patient Disposition: [facility] Clinical Impression: Acute UTI, Sepsis, Hydronephrosis with renal and ureteral calculous obstruction Prescriptions: No Action lisinopril 5 mg tablet 5 mg PO DAILY RF: 0 oxybutynin chloride 5 mg tablet 5 mg PO DAILY RF: 0 cholecalciferol (vitamin D3) 1,000 unit capsule 1,000 unit PO DAILY RF: 0 omeprazole 10 mg capsule,delayed release(DR/EC) 10 mg PO DAILY RF: 0 citalopram 20 mg tablet 20 mg PO DAILY RF: 0 acetaminophen 325 mg Tablet 650 mg PO Q6HR PRN (Reason: Fever) Qty: 30 RF: 0 amoxicillin 250 mg Capsule 500 mg PO TID Qty: 30 RF: 0 Referrals: Titus Carcamo DO [Primary Care Provider] -
[2020-04-06] MEDS: ACETAMINOPHEN 325 MG TABLET 975 MG PO (15:40)
--- NOTE | 2020-04-06 15:50 | DI.CT.S_ITS ---
PROCEDURE: CT STROKE INDICATIONS: weakness, hx MS but new weakness upper extremity, sepsis TECHNIQUE: Noncontrast 4.5 mm thick angled axial sections acquired from the foramen magnum to the vertex, with coronal reformats. For radiation dose reduction, the following was used: automated exposure control, adjustment of mA and/or kV according to patient size. COMPARISON: None. FINDINGS: Image quality: Excellent. CSF spaces: Basal cisterns are patent. No extra-axial fluid collections. The ventricles are symmetric in size and shape. Brain: No intracranial bleeds or masses. There is cerebral volume loss for age, with resultant ventricular and sulcal prominence. There are periventricular and deep white matter chronic small vessel ischemic changes. There is intracranial internal carotid artery atherosclerosis. Skull and face: Calvarium and visualized facial bones appear intact, without suspicious lesions. Sinuses: Visualized sinuses and mastoids are clear. IMPRESSION: No contraindication to tPA administration is found. Findings called to the emergency room physician at 4:14 p.m. Moderate microvascular atherosclerotic change in the deep white matter of each hemisphere. This study fulfills neurological imaging criteria for inclusion or exclusion of acute stroke therapies based on available published neurological guidelines. Dictated by: Harsh Pimentel M.D. on 04/06/2020 at 16:14 Approved by: Harsh Pimentel M.D. on 04/06/2020 at 16:16
[2020-04-06 15:52] LABS: Procalcitonin 1.18 ng/mL (<0.5)
[2020-04-06 16:04] LABS: Creatine Kinase 48 U/L (30-135)
[2020-04-06 16:06] LABS: COVID19 -Nasal RAPID Negative (Negative)
[2020-04-06 16:16] LABS: Troponin I < 0.012 ng/mL (0.01-0.034)
[2020-04-06 16:20] LABS: Appearance Urine UA SL CLOUDY; Bilirubin Urine UA NEGATIVE (NEGATIVE); Color Urine UA YELLOW; Glucose Urine UA NEGATIVE (Negative); Ketones Urine UA NEGATIVE (NEGATIVE); Leukocyte Esterase Urine UA 3+ (NEGATIVE); Nitrite Urine UA POSITIVE (Negative); Occult Blood Urine UA 1+ (Negative); Protein Urine UA NEGATIVE (Negative); Specific Gravity Urine UA 1.015 (1.000-1.035); Urobilinogen Urine UA 0.2 E.U./dL (0.2)
[2020-04-06] MEDS: ONDANSETRON 4 MG/2 ML INJ IV (16:20)
[2020-04-06] MEDS: CEFTRIAXONE 1 GM/50 ML FROZ.PIGGY IV (16:20)
[2020-04-06 16:32] LABS: Amorphous Sediment Urine 1+; Bacteria Urine Many (>30); Culture Indicated Urine Specimen Cultured; Mucus Urine 1+ (Negative); RBC Urine 1-5/HPF (0-5/HPF); Squamous Epithelial Cell Urine 0-1 /HPF (0-5/HPF); WBC Urine 30-100/HPF (0-5/HPF)
[2020-04-06] MEDS: SODIUM CHLORIDE 0.9% 1,434 ML 478 ML IV (16:55)
--- NOTE | 2020-04-06 17:16 | DI.CT.S_ITS ---
PROCEDURE: CT ABDOMEN PELVIS WO CON INDICATIONS: history of obstructive uropathy TECHNIQUE: Noncontrast 5 mm thick sections acquired from the diaphragms to the symphysis. 5 mm coronal and sagittal reformats were then performed. For radiation dose reduction, the following was used: automated exposure control, adjustment of mA and/or kV according to patient size. COMPARISON: [facility], , US RENAL COMPLETE, 07/07/2019, 12:09. FINDINGS: Image quality: Excellent. ABDOMEN: Lung bases: Mild basilar reticulation. No pleural effusion. Heart size is normal. Moderate hiatal hernia. Solid organs: Liver is normal in size. Gallbladder is not significantly distended. Possible sludge. Pancreas is normal in contours. Spleen is normal in size. No adrenal nodules. Moderate right hydroureteronephrosis. Suspect obstructing calculus in the distal right ureter measuring 0.4 x 0.7 cm, ( and ). Multiple vascular calcification and phleboliths in this region. Additional nonobstructing kidney stones. Right 0.6 cm and several on the left measuring up to 0.9 cm. Resolved left hydronephrosis. Mild stranding surrounds right kidney. Peritoneum and bowel: No small bowel obstruction. Prominent stool in the rectal vault. No free fluid or air. Nodes and vessels: No retroperitoneal or mesenteric adenopathy by size criteria. Aorta and inferior vena cava are normal in caliber. Extensive calcified atherosclerotic plaque. Miscellaneous: No ventral hernias. PELVIS: Genitourinary: Bladder is decompressed with Shukla catheter. No definite bladder calculi. Uterus is absent. Miscellaneous: No inguinal hernias or adenopathy. Bones: No suspicious bony lesions. Osteopenia. Scoliosis. Moderate DDD. No vertebral body compression fractures. IMPRESSION: 1. Moderate right hydroureteronephrosis. Suspect obstructing calculus at the distal right ureter measuring 0.4 x 0.7 cm. 2. Several additional nonobstructing kidney stones bilaterally. Dictated by: Sami Lazcano M.D. on 04/06/2020 at 18:14 Approved by: Sami Lazcano M.D. on 04/06/2020 at 18:32
[2020-04-06] MEDS: MEROPENEM 1,000 MG in SODIUM CHLORIDE 0.9% 100 ML 200 ML IV (17:32)
--- NOTE | 2020-04-06 18:58 | PC.NURSE ---
Patient does not report having a fall recently.
[2020-04-06] MEDS: SODIUM CHLORIDE 0.9% 1,000 ML 150 ML IV (19:09)
--- NOTE | 2020-04-06 21:29 | PC.NURSE ---
attempted to call report and was told I would be called back. RN was busy.
[2020-04-07 03:42] LABS: Acinetobacter baumannii Not Detected (Not Detect); Candida albicans Not Detected (Not Detect); Candida glabrata Not Detected (Not Detect); Candida krusei Not Detected (Not Detect); Candida parapsilosis Not Detected (Not Detect); Candida tropicalis Not Detected (Not Detect); E. coli Detected (Not Detect); Enterobacter cloacae complex Not Detected (Not Detect); Enterobacteriaceae species Detected (Not Detect); Enterococcus species Not Detected (Not Detect); Haemophilus influenzae Not Detected (Not Detect); KPC (carbapenem-resist gene) Not Detected (Not Detect); Listeria monocytogenes Not Detected (Not Detect); Neisseria meningitidis Not Detected (Not Detect); Proteus species Not Detected (Not Detect); Pseudomonas aeruginosa Not Detected (Not Detect); Serratia marcescens Not Detected (Not Detect); Staphylococcus species Not Detected (Not Detect); Streptococcus agalactiae (Gr B Not Detected (Not Detect); Streptococcus pneumonia Not Detected (Not Detect); Streptococcus pyogenes (Gr A) Not Detected (Not Detect); Streptococcus species Not Detected (Not Detect)
== END 2020-04-06 21:41 | disposition short-term general hospital (02) ==
LOC: ED 17:19 → AC 18:19 → ICU 18:46 → ED 20:25
PROVIDERS: Emergency Provider Emergency Medicine; PCP Family Medicine; Referring Provider Emergency Medicine
DX: A41.9 Sepsis, unspecified organism (principal); N39.0 Urinary tract infection, site not specified; N13.2 Hydronephrosis with renal and ureteral calculous obstruction
CPT/HCPCS: 36415; 51701; 51705; 70450; 71045; 74176; 80053; 81001; 81003; 82550; 83605; 83690; 84145; 84484; 85025; 85610; 85730; 87040; 87077; 87086; 87150; 87186; 87205; 87635; 93005; 93010; 96361; 96365; 96367; 96375; 99284; J2185; J2405

== ENCOUNTER → 2020-06-28 15:44 | Outpatient (CLI) | payer OTHER, SELFPAY ==
[2019-06-04 03:09] VITALS: BMI 27.3
--- NOTE | 2020-06-28 15:46 | DI.US.S_ITS ---
PROCEDURE: US RENAL COMPLETE INDICATIONS: CALCULUS OF KIDNEY TECHNIQUE: Real-time scanning was performed of the kidneys and bladder, with image documentation. COMPARISON: [facility], CT, CT ABDOMEN PELVIS WO CON, 04/06/2020, 17:27. [facility], US, US RENAL COMPLETE, 07/07/2019, 12:09. FINDINGS: Kidneys: Kidneys are normal in size. Right kidney measures 10.1 cm long; left kidney measures 9.7 cm long. Right renal cortical thickness is 1.7 cm; left renal cortical thickness is 1.4 cm. Renal cortical echotexture is normal. No suspicious solid mass lesions. Potential nonobstructing stones can be seen at the inferior pole of the left kidney. No vanessa hydronephrosis is seen. However, there is mild pelviectasis on the right and trace pelviectasis on the left. Bladder: A Shukla catheter is seen, which decompresses the bladder and limits evaluation. Miscellaneous: No free pelvic fluid. Evaluation is limited, secondary to the patient's inability to fully cooperate with the examination. IMPRESSION: Limited study demonstrating no vanessa hydronephrosis. Potential nonobstructing stones at the inferior pole of the left kidney. Please correlate with known history. If clinically appropriate, please consider follow-up CT for further evaluation. Note: No significant discrepancy from the preliminary report. Dictated by: Venkatesh Moreno M.D. on 06/29/2020 at 9:14 Approved by: Venkatesh Moreno M.D. on 06/29/2020 at 9:17
== END ==
PROVIDERS: PCP Family Medicine; Referring Provider Physician Assistant Medical; Visit Provider Physician Assistant Medical
DX: N20.0 Calculus of kidney (principal)
CPT/HCPCS: 76770

== ENCOUNTER 2020-08-05 13:32 | Emergency (ER) | payer OTHER, SELFPAY ==
[2019-06-04 03:09] VITALS: BMI 27.3
[2020-08-05 13:56] VITALS: BP 160/70; PULSE 68; RESP 19; TEMP 36.8; O2SAT 98
--- NOTE | 2020-08-05 14:38 | ED.ABDPAIN ---
HPI - Abdominal Pain <LEROY Bauer - Last Filed: 08/05/20 19:44> General Chief Complaint: Abdominal Pain Stated Complaint: serious bowel problem Time Seen by Provider: 08/05/20 13:58 Source: patient Mode of arrival: Family Vehicle Limitations: physical limitation History of Present Illness HPI narrative: This is a 79-year-old female, former smoker, who has past medical history significant for MS, urosepsis, GERD, hypertension, depression presents to ED with her caregiver (George) with chief complain of bilateral lower abdominal pain with loose stools. Patient reports last 5 days she has been having very loose stools and has been passing excessive odorous flatulence. Patient denies constipation symptoms but reports had large and hard stools prior to loose stools. Patient had 4 loose stools in last 5 days and describes as very light au color in mucus or slimy consistency. Patient had taken Imodium last week due to loose stools. Patient has rectum discomfort which is burning sensation which increases with sitting on a wheelchair. Patient denies blood in her stools. Patient reports good appetite and has been hydrating well. Patient has indwelling urinary catheter but denies dysuria, fever, chills, nausea or vomiting. Patient denies chest pain, breathing difficulty or near syncope. Patient was hospitalized at [facility] in May for urosepsis and had received IV antibiotic medications. Patient also has renal stent since March to remove kidney stones and has a follow-up appointment with urologist in 4 days. Patient reports still has retaining renal stent. PCP Dr. Barragan. Patient uses a wheelchair for mobility. Related Data Home Medications Medication Instructions Recorded Confirmed cholecalciferol (vitamin D3) 25 1,000 unit PO DAILY 10/25/18 06/04/19 mcg (1,000 unit) capsule lisinopril 5 mg tablet 5 mg PO DAILY 10/25/18 06/04/19 omeprazole 10 mg capsule,delayed 10 mg PO DAILY 10/25/18 06/04/19 release oxybutynin chloride 5 mg tablet 5 mg PO DAILY 10/25/18 06/04/19 citalopram 20 mg PO DAILY 06/04/19 06/04/19 Previous Rx's Medication Instructions Recorded acetaminophen 650 mg PO Q6HR PRN #30 tab 06/08/19 amoxicillin 500 mg PO TID #30 cap 06/08/19 Allergies Allergy/AdvReac Type Severity Reaction Status Date / Time azithromycin Allergy Mild RASH Verified 11/19/19 12:49 levofloxacin Allergy Mild RASH Verified 11/19/19 12:49 Sulfa (Sulfonamide Allergy Mild RASH Verified 11/19/19 12:49 Antibiotics) adhesive AdvReac Mild RASH FROM Verified 11/19/19 12:49 CLOTH TAPE Review of Systems <LEROY Bauer - Last Filed: 08/05/20 19:44> Review of Systems Narrative: General: Denies fever, chills, fatigue, malaise, sweats. HEENT: Denies sinus pain, ear pain, sore throat, difficulty swallowing, dizziness. Respiratory: Denies dyspnea, cough, wheezing, hemoptysis, sputum. Cardiovascular: Denies chest pain, palpitations, orthopnea, edema. Gastrointestinal: See HPI : See HPI Musculoskeletal: See HPI Skin: Denies rash, skin lesions, or other. Neurologic: Denies weakness, headache, numbness, change in speech, confusion, seizures, incoordination. Psychiatric: No concerning psychosocial issues. 12-point review of systems is negative except for those stated above. Patient History <LEROY Bauer - Last Filed: 08/05/20 19:44> Medical History (Updated 08/05/20 @ 18:30 by LEROY Bauer) Acute UTI Hypertension Multiple sclerosis Ureterolithiasis Surgical History H/O: hysterectomy Hx of appendectomy Social History household members: none occupational status: previously employed Smoking Status: Former smoker Smoking Status: Former smoker alcohol intake frequency: holidays/special occasions only Substance Use Type: does not use Exam <ELROY Bauer - Last Filed: 08/05/20 19:44> Narrative Exam Narrative: GEN: Alert, oriented x 3, well appearing and nourished, and in no acute distress. Head: Normal cephalic, atraumatic. No scalp or temporal tenderness, palpable mass or rash. EYES: Pupils are equal, round, and reactive to light and accommodation. Extraocular muscles are intact bilaterally. There is no subconjunctival hemorrhage, exudate and sclera non-icteric. ENT: Hearing grossly intact. Mucous membrane moist, no mucosal lesion. Throat without erythema, tonsillar hypertrophy or exudate. Uvula in midline, airway patent. Neck: Trachea in midline. No JVD, non-tender without lymphadenopathy. No masses or thyroid megaly. Supple, non-tender and no meningeal signs. CARDIAC: Normal regular rate and rhythm without murmurs, gallops, or rubs. No chest wall tenderness. No peripheral edema, cyanosis or pallor. Capillary refill is less than 2 seconds. RESPIRATORY: Lungs are clear to auscultate bilaterally. No cough, wheezes, rales, or rhonchi. No stridor, respiratory distress, increase work of breathing, or accessary muscle used. ABD: Abdomen soft and non-distended. Mild tenderness to palpate in suprapubic/bilateral lower abdomen. No guarding or rebound tenderness to palpate. Bowel sounds are normal in all 4 quadrants. There is no palpable masses or organomegaly. Patient has indwelling urinary catheter which drains light yellow urine. EXT: Bilateral lower extremity rigidity. Bilateral upper extremity without difficulty with flexion and extension. Patient uses wheelchair for mobility SKIN: Warm, dry, normal color for patient. No erythema, lesions or rash over visible areas. BACK: Nontender without deformity or crepitance. No flank tenderness. NEUROLOGICAL: Alert and oriented to place, time and person. Sensation and motor function intact bilaterally. No facial droops, dysphasia. PSYCHIATRIC: Good judgement and reason, without hallucinations, abnormal affect or abnormal behaviors during the examination. Patient is not suicidal. Initial Vital Signs Initial Vital Signs: Vital Signs Temperature 98.3 F 08/05/20 13:56 Pulse Rate 68 08/05/20 13:56 Respiratory Rate 19 08/05/20 13:56 Blood Pressure 160/70 H 08/05/20 13:56 Pulse Oximetry 98 08/05/20 13:56 <Monika Mosley, DO - Last Filed: 08/10/20 01:10> Initial Vital Signs Initial Vital Signs: Vital Signs Temperature 98.3 F 08/05/20 13:56 Pulse Rate 68 08/05/20 13:56 Respiratory Rate 19 08/05/20 13:56 Blood Pressure 160/70 H 08/05/20 13:56 Pulse Oximetry 98 08/05/20 13:56 Scores <[facility] - Last Filed: 08/05/20 19:44> GCS [place] coma scale eye opening: Spontaneous [place] coma scale verbal response: Orientated [place] coma scale motor response: Obey commands [place] coma scale total score: 15 qSOFA Altered Mental Status (GCS <15): No Respiratory rate greater than/equal to 22: No Systolic blood pressure less than or equal to 100: No qSOFA Total: 0 0-1 Not High Risk 1-3 High risk Course <Roney Kar [facility] - Last Filed: 08/05/20 19:44> Orders Ordered: Discontinued Medications Sodium Chloride (Normal Saline 0.9%) 1,000 mls @ 150 mls/hr IV CONT IKER Last Admin: 08/05/20 18:38 Dose: Not Given Documented by: GINO Sodium Chloride (Normal Saline 0.9%) 500 mls @ 1,000 mls/hr IV BOLUS ONE Stop: 08/05/20 17:16 Last Admin: 08/05/20 18:40 Dose: Not Given Documented by: GINO Sodium Chloride (Normal Saline 0.9%) 500 mls @ 1,000 mls/hr IV BOLUS ONE Stop: 08/05/20 19:08 Last Admin: 08/05/20 18:44 Dose: 1,000 mls/hr Documented by: GINO Ketorolac Tromethamine (Ketorolac 60 Mg/2 Ml Vial) 15 mg IV NOW ONE Stop: 08/05/20 16:48 Last Admin: 08/05/20 18:40 Dose: Not Given Documented by: GINO Ketorolac Tromethamine (Ketorolac 60 Mg/2 Ml Vial) 15 mg IV NOW ONE Stop: 08/05/20 18:39 Last Admin: 08/05/20 18:44 Dose: 15 mg Documented by: GINO Vital Signs Vital signs: Vital Signs - 8 hr 08/05/20 13:56 Temperature 98.3 F Pulse Rate 68 Respiratory Rate 19 Blood Pressure 160/70 H Pulse Oximetry 98 <Monika Mosley DO - Last Filed: 08/10/20 01:10> Orders Ordered: Discontinued Medications Sodium Chloride (Normal Saline 0.9%) 1,000 mls @ 150 mls/hr IV CONT IKER Last Admin: 08/05/20 18:38 Dose: Not Given Documented by: GINO Sodium Chloride (Normal Saline 0.9%) 500 mls @ 1,000 mls/hr IV BOLUS ONE Stop: 08/05/20 17:16 Last Admin: 08/05/20 18:40 Dose: Not Given Documented by: GINO Sodium Chloride (Normal Saline 0.9%) 500 mls @ 1,000 mls/hr IV BOLUS ONE Stop: 08/05/20 19:08 Last Admin: 08/05/20 18:44 Dose: 1,000 mls/hr Documented by: GINO Ketorolac Tromethamine (Ketorolac 60 Mg/2 Ml Vial) 15 mg IV NOW ONE Stop: 08/05/20 16:48 Last Admin: 08/05/20 18:40 Dose: Not Given Documented by: GINO Ketorolac Tromethamine (Ketorolac 60 Mg/2 Ml Vial) 15 mg IV NOW ONE Stop: 08/05/20 18:39 Last Admin: 08/05/20 18:44 Dose: 15 mg Documented by: GINO Vital Signs Vital signs: Vital Signs - 8 hr 08/05/20 13:56 Temperature 98.3 F Pulse Rate 68 Respiratory Rate 19 Blood Pressure 160/70 H Pulse Oximetry 98 MDM - Abdominal Pain <Roney LEROY Lakhani - Last Filed: 08/05/20 19:44> Differential Diagnosis Differential diagnosis: Likely abdominal pain, diverticulitis, small bowel obstruction and other (colitis, bladder infection, constipation, C diff, kidney stone) Medical Records Attestation: I reviewed the patient's medical records. Lab Data Attestation: I reviewed the patient's lab results. Result diagrams: 08/05/20 15:18 08/05/20 15:18 Labs: Lab Results 08/05/20 08/05/20 08/05/20 Range/Units 15:18 15:18 15:18 WBC 6.4 (4.5-11.0) X10^3/uL RBC 4.27 (4.0-5.2) X10^6/uL Hgb 12.4 (12.0-16.0) g/dL Hct 37.5 (36-46) % MCV 87.8 (80-100) fL MCH 29.1 (26-34) PG MCHC 33.1 (30-36) % RDW 14.8 (11.6-14.8) % Plt Count 275 (150-400) X10^3/uL Neut % (Auto) 57.7 (50-75) % Lymph % (Auto) 28.7 (25-40) % [place] % (Auto) 10.9 (3-14) % Eos % (Auto) 2.0 (2-4) % Baso % (Auto) 0.7 (0-2) % Neut # (Auto) 3700 (6620-2403) /uL Lymph # (Auto) 1800 (9384-5024) /uL [place] # (Auto) 700 (0-900) /uL Eos # (Auto) 100 (0-450) /uL Baso # (Auto) 0 (0-100) /uL Sodium 137 (137-145) mmol/L Potassium 4.4 (3.4-5.1) mmol/L Chloride 105 (98-107) mmol/L Carbon Dioxide 26 (22-32) mmol/L BUN 27 H (7-17) mg/dL Creatinine 1.04 (0.52-1.04) mg/dL Estimated GFR 50.9 L (>60) mL/min BUN/Creatinine Ratio 26.0 H (6-22) Glucose 95 (80-110) mg/dL Lactate 0.9 (0.7-2.1) mmol/L Calcium 9.4 (8.4-10.2) mg/dL Magnesium (1.6-2.3) mg/dL Total Bilirubin 0.4 (0.2-1.3) mg/dL AST 26 (14-36) IU/L ALT 10 (<35) IU/L Alkaline Phosphatase 73 (38-126) U/L Total Protein 7.3 (6.3-8.2) g/dL Albumin 3.8 (3.5-5.0) g/dL Globulin 3.5 (1.7-4.1) g/dL Albumin/Globulin Ratio 1.1 (1.0-2.8) Lipase 149 (23-300) U/L Urine RBC (0-5/HPF) Urine WBC (0-5/HPF) Amorphous Sediment Urine Bacteria (None) Urine Yeast (None) Ur Culture Indicated? 08/05/20 08/05/20 Range/Units 15:18 18:50 WBC (4.5-11.0) X10^3/uL RBC (4.0-5.2) X10^6/uL Hgb (12.0-16.0) g/dL Hct (36-46) % MCV (80-100) fL MCH (26-34) PG MCHC (30-36) % RDW (11.6-14.8) % Plt Count (150-400) X10^3/uL Neut % (Auto) (50-75) % Lymph % (Auto) (25-40) % [place] % (Auto) (3-14) % Eos % (Auto) (2-4) % Baso % (Auto) (0-2) % Neut # (Auto) (1608-9846) /uL Lymph # (Auto) (7973-3181) /uL [place] # (Auto) (0-900) /uL Eos # (Auto) (0-450) /uL Baso # (Auto) (0-100) /uL Sodium (137-145) mmol/L Potassium (3.4-5.1) mmol/L Chloride (98-107) mmol/L Carbon Dioxide (22-32) mmol/L BUN (7-17) mg/dL Creatinine (0.52-1.04) mg/dL Estimated GFR (>60) mL/min BUN/Creatinine Ratio (6-22) Glucose (80-110) mg/dL Lactate (0.7-2.1) mmol/L Calcium (8.4-10.2) mg/dL Magnesium 1.9 (1.6-2.3) mg/dL Total Bilirubin (0.2-1.3) mg/dL AST (14-36) IU/L ALT (<35) IU/L Alkaline Phosphatase (38-126) U/L Total Protein (6.3-8.2) g/dL Albumin (3.5-5.0) g/dL Globulin (1.7-4.1) g/dL Albumin/Globulin Ratio (1.0-2.8) Lipase (23-300) U/L Urine RBC None seen (0-5/HPF) Urine WBC 10-30/hpf H (0-5/HPF) Amorphous Sediment 1+ Urine Bacteria Many (>30) H (None) Urine Yeast 5-10/hpf H (None) Ur Culture Indicated? Cult not indicated Point of care testing: Urine Dip Bedside Urine Glucose Negative Bedside Urine Bilirubin - Negative Bedside Urine Ketone - Negative Urine Specific [place] 1.015 Bedside Urine Occult Blood - Negative Bedside Urine pH 6 Bedside Urine Protein - Negative Bedside Urine Urobilinogen - Negative Bedside Urine Nitrite - Negative Bedside Urine Leukocytes + [address] scan - abdomen/pelvis: Radiologist's Impression: [address] [id number] Scan ReportSigned Patient: Olivia Castillo AMR#: [id number]: 9Acct:[id number]/Sex: 79 / FDate of Service: 08/05/20Loc: EDAccession Number: [id number] Procedure: CT abdomen pelvis w con Ordering Provider: Roney Lakhani PROCEDURE: CT ABDOMEN PELVIS W CON INDICATIONS: biilateral L>R abd pain, frequent loose stool TECHNIQUE: After the administration of intravenous contrast, 5 mm thick sections acquired from the diaphragm to the symphysis. 5 mm coronal and sagittal reformats were acquired. For radiation dose reduction, the following was used: automated exposure control, adjustment of mA and/or kV according to patient size. COMPARISON: [facility], CT, CT ABDOMEN PELVIS WO CON, 04/06/2020, 17:27. [facility], US, US RENAL COMPLETE, 06/28/2020, 15:56. [facility], CT, CT ABDOMEN PELVIS W CON, 06/01/2019, 22:57. FINDINGS: Image quality: Excellent. ABDOMEN: Lung bases: Lung bases are clear. Heart size is normal. There is a moderate to large hiatal hernia seen. Solid organs: Liver is normal in size and enhancement. Gallbladder wall is not thickened. Biliary system is non dilated. Pancreas enhances normally. Spleen is normal in size and enhancement. Incidental note is made of an accessory splenule along the anterior aspect of the primary spleen. No adrenal nodules. Kidneys demonstrate normal size and enhancement, without hydronephrosis. The previously seen hydronephrosis has resolved. Nonobstructing bilateral renal stones are seen, with the largest stone on the right measuring 3 mm and the largest nonobstructing stone on the left measuring 13 mm. Peritoneum and bowel: Bowel loops demonstrate normal wall thickness and caliber. No free fluid or air. A moderate amount of stool can be seen within the colon. Presumed appendectomy changes are seen. Nodes and vessels: No retroperitoneal or mesenteric adenopathy by size criteria. Aorta and inferior vena cava are normal in size. Atherosclerotic calcification is noted. Miscellaneous: No ventral hernias. PELVIS: Genitourinary: A Guzman catheter decompresses the urinary bladder. This patient is status post hysterectomy. No adnexal masses are seen. Miscellaneous: No inguinal hernias or adenopathy. Bones: No suspicious bony lesions. No vertebral body compression fractures. S-shaped scoliotic curvature is seen. Age-appropriate bony degenerative changes are seen. IMPRESSION: No imaging explanation is found for this patient's presenting symptoms. There is a moderate amount of stool seen within the colon. Please correlate with an underlying history of constipation. Resolved right-sided hydronephrosis. Incidental note is made of: Moderate to large hiatal hernia Accessory splenule Bilateral nonobstructing kidney stones, left larger than right S shaped scoliotic curvature Hysterectomy Guzman catheter Dictated by: Venkatesh Moreno M.D. on 08/05/2020 at 15:40 Approved by: Venkatesh Moreno M.D. on 08/05/2020 at 15:44 MDM Narrative Medical decision making narrative: This is a pleasant 79 year female who has past medical history significant for MS, renal stone and urosepsis with indwelling guzman catheter, previous history of appendectomy presents to ED with chief complain of low abdominal pain with loose stool for last 5 days consisted of 4 stools. Patient reports her stools smells very odorous. Patient had symptoms for constipation prior to this. Patient is afebrile with good appetite. Nontoxic appearing. Patient is afebrile with normal heart rate and respiration. Patient was hospitalized in [facility] in March had received IV antibiotic medication. Stool culture and C diff ordered but it is unlikely since patient had remote IV antibiotic medication infusion and no excessive loose stools. Labs are assuring. No leukocytosis. Normal lactate of 0.9. Chemistry test result indicates dehydration with increased BUN of 27 and BUN/Cr ratio of 26. Chemistry tests, liver function tests were negative. CT test shows no acute findings but moderate amount of stool seen in the colon. There is resolved right-sided hydronephrosis. There are couple of nonobstructive renal stones. Rectal exam done but no stools felt to disimpact. Patient passed gas during rectal exam. Patient advised taking MiraLax next few days help with constipation and stop taking Imodium given patient may have loose stool around the hard stool. Urine test had positive leuks from indwelling catheter and urine culture is pending. Micro urine test with 10-30/hpf of WBC, many bacteria and 5-10 yeast. Will wait for culture result before addressing this with antibacterial medications. Patient reports indwelling catheter get changed monthly. <Monika Mosley, DO - Last Filed: 08/10/20 01:10> Lab Data Labs: Lab Results 08/05/20 08/05/20 08/05/20 Range/Units 15:18 15:18 15:18 WBC 6.4 (4.5-11.0) X10^3/uL RBC 4.27 (4.0-5.2) X10^6/uL Hgb 12.4 (12.0-16.0) g/dL Hct 37.5 (36-46) % MCV 87.8 (80-100) fL MCH 29.1 (26-34) PG MCHC 33.1 (30-36) % RDW 14.8 (11.6-14.8) % Plt Count 275 (150-400) X10^3/uL Neut % (Auto) 57.7 (50-75) % Lymph % (Auto) 28.7 (25-40) % [place] % (Auto) 10.9 (3-14) % Eos % (Auto) 2.0 (2-4) % Baso % (Auto) 0.7 (0-2) % Neut # (Auto) 3700 (5340-9505) /uL Lymph # (Auto) 1800 (7366-1934) /uL [place] # (Auto) 700 (0-900) /uL Eos # (Auto) 100 (0-450) /uL Baso # (Auto) 0 (0-100) /uL Sodium 137 (137-145) mmol/L Potassium 4.4 (3.4-5.1) mmol/L Chloride 105 (98-107) mmol/L Carbon Dioxide 26 (22-32) mmol/L BUN 27 H (7-17) mg/dL Creatinine 1.04 (0.52-1.04) mg/dL Estimated GFR 50.9 L (>60) mL/min BUN/Creatinine Ratio 26.0 H (6-22) Glucose 95 (80-110) mg/dL Lactate 0.9 (0.7-2.1) mmol/L Calcium 9.4 (8.4-10.2) mg/dL Magnesium (1.6-2.3) mg/dL Total Bilirubin 0.4 (0.2-1.3) mg/dL AST 26 (14-36) IU/L ALT 10 (<35) IU/L Alkaline Phosphatase 73 (38-126) U/L Total Protein 7.3 (6.3-8.2) g/dL Albumin 3.8 (3.5-5.0) g/dL Globulin 3.5 (1.7-4.1) g/dL Albumin/Globulin Ratio 1.1 (1.0-2.8) Lipase 149 (23-300) U/L Urine RBC (0-5/HPF) Urine WBC (0-5/HPF) Amorphous Sediment Urine Bacteria (None) Urine Yeast (None) Ur Culture Indicated? 08/05/20 08/05/20 Range/Units 15:18 18:50 WBC (4.5-11.0) X10^3/uL RBC (4.0-5.2) X10^6/uL Hgb (12.0-16.0) g/dL Hct (36-46) % MCV (80-100) fL MCH (26-34) PG MCHC (30-36) % RDW (11.6-14.8) % Plt Count (150-400) X10^3/uL Neut % (Auto) (50-75) % Lymph % (Auto) (25-40) % [place] % (Auto) (3-14) % Eos % (Auto) (2-4) % Baso % (Auto) (0-2) % Neut # (Auto) (7441-1346) /uL Lymph # (Auto) (2369-8177) /uL [place] # (Auto) (0-900) /uL Eos # (Auto) (0-450) /uL Baso # (Auto) (0-100) /uL Sodium (137-145) mmol/L Potassium (3.4-5.1) mmol/L Chloride (98-107) mmol/L Carbon Dioxide (22-32) mmol/L BUN (7-17) mg/dL Creatinine (0.52-1.04) mg/dL Estimated GFR (>60) mL/min BUN/Creatinine Ratio (6-22) Glucose (80-110) mg/dL Lactate (0.7-2.1) mmol/L Calcium (8.4-10.2) mg/dL Magnesium 1.9 (1.6-2.3) mg/dL Total Bilirubin (0.2-1.3) mg/dL AST (14-36) IU/L ALT (<35) IU/L Alkaline Phosphatase (38-126) U/L Total Protein (6.3-8.2) g/dL Albumin (3.5-5.0) g/dL Globulin (1.7-4.1) g/dL Albumin/Globulin Ratio (1.0-2.8) Lipase (23-300) U/L Urine RBC None seen (0-5/HPF) Urine WBC 10-30/hpf H (0-5/HPF) Amorphous Sediment 1+ Urine Bacteria Many (>30) H (None) Urine Yeast 5-10/hpf H (None) Ur Culture Indicated? Cult not indicated Point of care testing: Urine Dip Bedside Urine Glucose Negative Bedside Urine Bilirubin - Negative Bedside Urine Ketone - Negative Urine Specific [place] 1.015 Bedside Urine Occult Blood - Negative Bedside Urine pH 6 Bedside Urine Protein - Negative Bedside Urine Urobilinogen - Negative Bedside Urine Nitrite - Negative Bedside Urine Leukocytes + 70 Esterase Discharge Plan Departure Patient Disposition: Home Clinical Impression: Constipation Qualifiers: Constipation type: unspecified constipation type Qualified Code(s): K59.00 - Constipation, unspecified Abdominal pain Qualifiers: Abdominal location: lower abdomen, unspecified Qualified Code(s): R10.30 - Lower abdominal pain, unspecified Instructions: DI for Abdominal Pain-Adult, DI for Constipation Activity Restrictions/Additional Instructions: You have been diagnosed with [constipation. Her abdominal pain, increase in flatulence, loose stool is likely related to constipation. At times, you may have loose stool around the hard stool with the bowel movements. Labs are assuring. No indications for severe infection. CT test result does not indicate acute findings including bowel obstruction but moderate amount of stool in the colon. There is resolved right-sided hydronephrosis, there is nonobstructing bilateral renal stones measuring 3 mm (R) and 13 mm (L). ]. What to do: *Take your medications as directed. Please incorporate [id number] MiraLax next few days. This will likely help you with constipation. *Follow up with your primary care provider in 2-3 days, call for an appointment. Let them know you were seen in the ED and that we asked you to be seen in follow up. *Return to ED if you have any new, worsening, or concerning symptoms, such as [chest pain, breathing difficulty, unable to tolerate fluids, fever, worsening pain or any acute concerns]. Prescriptions: No Action lisinopril 5 mg tablet 5 mg PO DAILY RF: 0 oxybutynin chloride 5 mg tablet 5 mg PO DAILY RF: 0 cholecalciferol (vitamin D3) 1,000 unit capsule 1,000 unit PO DAILY RF: 0 omeprazole 10 mg capsule,delayed release(DR/EC) 10 mg PO DAILY RF: 0 citalopram 20 mg tablet 20 mg PO DAILY RF: 0 acetaminophen 325 mg Tablet 650 mg PO Q6HR PRN (Reason: Fever) Qty: 30 RF: 0 amoxicillin 250 mg Capsule 500 mg PO TID Qty: 30 RF: 0 Referrals: Titus Carcamo DO [Primary Care Provider] - <Monika Mosley DO - Last Filed: 08/10/20 01:10> Cosign ED Attending Nitza Attestation: I was immediately available in the department for consultation. Documentation has been reviewed.
[2020-08-05 15:27] LABS: Add Manual Diff / Slide Review NO; Basophils Absolute Auto 0 /uL (0-100); Basophils Percent Auto 0.7 % (0-2); Eosinophils Absolute Auto 100 /uL (0-450); Hematocrit 37.5 % (36-46); Hemoglobin 12.4 g/dL (12.0-16.0); Lymphocytes Absolute Auto 1800 /uL (1100-4500); Lymphocytes Percent Auto 28.7 % (25-40); Mean Corpuscular HGB Conc 33.1 % (30-36); Mean Corpuscular Hemoglobin 29.1 PG (26-34); Mean Corpuscular Volume 87.8 fL (80-100); Monocytes Absolute Auto 700 /uL (0-900); Monocytes Percent Auto 10.9 % (3-14); Neutrophils Absolute Auto 3700 /uL (1500-7000); Neutrophils Percent Auto 57.7 % (50-75); Platelet Count 275 X10^3/uL (150-400); Red Blood Cell Count 4.27 X10^6/uL (4.0-5.2); Red Cell Distribution Width 14.8 % (11.6-14.8); White Blood Cell Count 6.4 X10^3/uL (4.5-11.0)
[2020-08-05 15:39] LABS: Alanine Aminotransferase 10 IU/L (<35); Albumin 3.8 g/dL (3.5-5.0); Albumin Globulin Ratio 1.1 (1.0-2.8); Alkaline Phosphatase 73 U/L (38-126); Aspartate Aminotransferase 26 IU/L (14-36); Bilirubin Total 0.4 mg/dL (0.2-1.3); Blood Urea Nitrogen 27 mg/dL (7-17); Calcium 9.4 mg/dL (8.4-10.2); Carbon Dioxide 26 mmol/L (22-32); Chloride 105 mmol/L (98-107); Estimated Glomerular Filt Rate 50.9 mL/min (>60); Globulin 3.5 g/dL (1.7-4.1); Glucose 95 mg/dL (80-110); Lipase 149 U/L (23-300); Potassium 4.4 mmol/L (3.4-5.1); Sodium 137 mmol/L (137-145); Total Protein 7.3 g/dL (6.3-8.2)
[2020-08-05 15:40] LABS: HEMOLYSIS 55 (0-50); Lactate (Lactic Acid) 0.9 mmol/L (0.7-2.1); Magnesium 1.9 mg/dL (1.6-2.3)
--- NOTE | 2020-08-05 15:45 | DI.CT.S_ITS ---
PROCEDURE: CT ABDOMEN PELVIS W CON INDICATIONS: biilateral L>R abd pain, frequent loose stool TECHNIQUE: After the administration of intravenous contrast, 5 mm thick sections acquired from the diaphragm to the symphysis. 5 mm coronal and sagittal reformats were acquired. For radiation dose reduction, the following was used: automated exposure control, adjustment of mA and/or kV according to patient size. COMPARISON: [facility], CT, CT ABDOMEN PELVIS WO CON, 04/06/2020, 17:27. [facility], US, US RENAL COMPLETE, 06/28/2020, 15:56. [facility], CT, CT ABDOMEN PELVIS W CON, 06/01/2019, 22:57. FINDINGS: Image quality: Excellent. ABDOMEN: Lung bases: Lung bases are clear. Heart size is normal. There is a moderate to large hiatal hernia seen. Solid organs: Liver is normal in size and enhancement. Gallbladder wall is not thickened. Biliary system is non dilated. Pancreas enhances normally. Spleen is normal in size and enhancement. Incidental note is made of an accessory splenule along the anterior aspect of the primary spleen. No adrenal nodules. Kidneys demonstrate normal size and enhancement, without hydronephrosis. The previously seen hydronephrosis has resolved. Nonobstructing bilateral renal stones are seen, with the largest stone on the right measuring 3 mm and the largest nonobstructing stone on the left measuring 13 mm. Peritoneum and bowel: Bowel loops demonstrate normal wall thickness and caliber. No free fluid or air. A moderate amount of stool can be seen within the colon. Presumed appendectomy changes are seen. Nodes and vessels: No retroperitoneal or mesenteric adenopathy by size criteria. Aorta and inferior vena cava are normal in size. Atherosclerotic calcification is noted. Miscellaneous: No ventral hernias. PELVIS: Genitourinary: A Shukla catheter decompresses the urinary bladder. This patient is status post hysterectomy. No adnexal masses are seen. Miscellaneous: No inguinal hernias or adenopathy. Bones: No suspicious bony lesions. No vertebral body compression fractures. S-shaped scoliotic curvature is seen. Age-appropriate bony degenerative changes are seen. IMPRESSION: No imaging explanation is found for this patient's presenting symptoms. There is a moderate amount of stool seen within the colon. Please correlate with an underlying history of constipation. Resolved right-sided hydronephrosis. Incidental note is made of: Moderate to large hiatal hernia Accessory splenule Bilateral nonobstructing kidney stones, left larger than right S shaped scoliotic curvature Hysterectomy Shukla catheter Dictated by: Venkatesh Moreno M.D. on 08/05/2020 at 15:40 Approved by: Venkatesh Moreno M.D. on 08/05/2020 at 15:44
[2020-08-05] MEDS: KETOROLAC 60 MG/2 ML VIAL 15 MG IV (18:44)
[2020-08-05] MEDS: SODIUM CHLORIDE 0.9% 500 ML 1000 ML IV (18:44)
[2020-08-05 19:10] LABS: RBC Urine None Seen (0-5/HPF)
[2020-08-05 19:20] LABS: WBC Urine 10-30/HPF (0-5/HPF)
[2020-08-05 19:21] LABS: Amorphous Sediment Urine 1+; Bacteria Urine Many (>30); Culture Indicated Urine Cult Not Indicated
[2020-08-05 20:01] VITALS: BP 152/73; PULSE 82; RESP 22; O2SAT 98
--- NOTE | 2020-08-27 08:47 | PC.NURSE ---
late entry: NS 500 mL bolus complete at 1914 hrs.
== END 2020-08-05 20:00 | disposition home or self-care (01) ==
PROVIDERS: Emergency Provider Nurse Practitioner Family; PCP Family Medicine
DX: R10.30 Lower abdominal pain, unspecified (principal); K59.00 Constipation, unspecified
CPT/HCPCS: 36415; 74177; 80053; 81003; 81015; 83605; 83690; 83735; 85025; 87077; 87086; 87185; 87186; 93005; 96374; 99284; J1885; Q9967

== ENCOUNTER 2020-08-17 18:20 | Emergency (ER) | payer OTHER, SELFPAY ==
[2019-06-04 03:09] VITALS: BMI 27.3
[2020-08-17] VITALS (13 sets, daily range): BP systolic 117–138; BP diastolic 58–94; PULSE 58–83; RESP 18; TEMP 36.4; O2SAT 75–99
--- NOTE | 2020-08-17 19:04 | ED_ITS ---
HPI - Nausea/Vomiting/Diarrhea General Chief complaint: Nausea/Vomiting/Diarrhea Stated complaint: Bowel problems Time Seen by Provider: 08/17/20 18:46 Source: patient and EMS Mode of arrival: EMS Limitations: no limitations History of Present Illness HPI Narrative: This is an 79-year-old who with a past medical history significant for MS, recent urosepsis who was just completed antibiotics, GERD, hypertension and depression who presented with her daughter who did leave prior to my evaluation. Patient was recently on antibiotics for a UTI. She states that about a week and half ago she had significant abdominal pain and was constipated. On Thursday 5 days ago she had a large bowel movement and since then has had improvement in her abdominal discomfort but has continued to have loose but somewhat formed stools. Patient states they seem BLE and mucousy and had a foul odor even prior to the large bowel movement. She has not appreciated any bright red blood or melena. She states she does have hemorrhoids and these have given her significant trouble in terms of pain. She is not sure if this may be the source of odor with her stool. She and her daughter were also concerned about a possible C diff infection with her recent antibiotic use. Patient has not had any fevers or chills. She has not had shakes. She denies chest pain or shortness of breath she denies any abdominal pain. She denies any nausea or vomiting. She denies any current urinary symptoms she does have an indwelling Guzman catheter. Patient lives independently with her cat in [place]. Related Data Home Medications Medication Instructions Recorded Confirmed cholecalciferol (vitamin D3) 25 1,000 unit PO DAILY 10/25/18 06/04/19 mcg (1,000 unit) capsule lisinopril 5 mg tablet 5 mg PO DAILY 10/25/18 06/04/19 omeprazole 10 mg capsule,delayed 10 mg PO DAILY 10/25/18 06/04/19 release oxybutynin chloride 5 mg tablet 5 mg PO DAILY 10/25/18 06/04/19 citalopram 20 mg PO DAILY 06/04/19 06/04/19 Previous Rx's Medication Instructions Recorded acetaminophen 650 mg PO Q6HR PRN #30 tab 06/08/19 amoxicillin 500 mg PO TID #30 cap 06/08/19 Allergies Allergy/AdvReac Type Severity Reaction Status Date / Time azithromycin Allergy Mild RASH Verified 08/17/20 18:27 levofloxacin Allergy Mild RASH Verified 08/17/20 18:27 Sulfa (Sulfonamide Allergy Mild RASH Verified 08/17/20 18:27 Antibiotics) adhesive AdvReac Mild RASH FROM Verified 08/17/20 18:27 CLOTH TAPE Review of Systems Review of Systems ROS Unobtainable: All systems reviewed & are unremarkable except as noted in HPI and below Patient History Medical History (Updated 08/17/20 @ 21:36 by Monika Mosley DO) Acute UTI Hypertension Multiple sclerosis Ureterolithiasis Surgical History H/O: hysterectomy Hx of appendectomy Social History household members: none occupational status: previously employed Smoking Status: Former smoker Smoking Status: Former smoker alcohol intake frequency: holidays/special occasions only Substance Use Type: does not use Exam Narrative Exam Narrative: GENERAL: Alert and oriented x three, well-nourished female in minimal distress HEENT: Head normocephalic, atraumatic, EOMI, pupils reactive, face symmetric, moist mucous membranes NECK: Supple, full range of motion CARDIOVASCULAR: Regular rate and rhythm without murmurs, rubs or gallops. RESPIRATORY: Breath sounds equal bilaterally, no wheezes rales or rhonchi. ABDOMEN: Soft, nontender. Normoactive bowel sounds all 4 quadrants. No guarding or rebound, rigidity, no mass, stool occult is negative. On rectal exam patient does have a small to moderate-sized hemorrhoid that is nontender. No bright red blood or melena appreciated. No mass or large amount of stool noted on digital rectal exam. : No CVA tenderness EXTREMITIES: Normal range of motion, no clubbing or edema. Neurovascularly intact NEUROLOGICAL: Cranial nerves II through XII grossly intact. Moving all extremities SKIN: Warm, dry, no petechiae, no rashes or lesions. Initial Vital Signs Initial Vital Signs: Vital Signs Temperature 97.6 F 08/17/20 18:25 Pulse Rate 70 08/17/20 18:25 Respiratory Rate 18 08/17/20 18:25 Blood Pressure 138/94 H 08/17/20 18:25 Pulse Oximetry 97 08/17/20 18:25 Course Orders Ordered: ED Orders 08/17/20 19:51 Complete Blood Count AUTO DIFF Stat Comprehensive Metabolic Panel Stat Lipase Stat Thyroid Stimulating Hormone Stat 08/17/20 22:50 Urinalysis and Microscopic Stat Urine Culture Stat Discontinued Medications Sodium Chloride (Normal Saline 0.9%) 1,000 mls @ 1,000 mls/hr IV BOLUS ONE Stop: 08/17/20 19:45 Last Infusion: 08/17/20 21:34 Dose: 0 mls/hr Documented by: Admin: 08/17/20 20:05 Dose: 1,000 mls/hr Documented by: JOSE Reevaluation(s) Reevaluation #1: Discussed patients findings with her today. Her labs show no acute abnormalities she is having diarrhea or a foul odor. Patient has been on antibiotics this is a possible cause. She was unable to give a stool sample here. Stool occult was negative. Labs reviewed with patient. UA was sent from guzman catheter, it does show leukocyte esterase but no nitrates. With patient's chronic indwelling Guzman catheter and recent antibiotics and no obvious sign of sepsis or significant infection I would defer treatment until culture is resulted. Patient was given order for C Diff evaluation, hat for toilet and specimen cup. Time: 21:37 Vital Signs Vital signs: Vital Signs - 8 hr 08/17/20 18:25 08/17/20 18:30 08/17/20 18:31 Temperature 97.6 F Pulse Rate 70 67 Respiratory Rate 18 Blood Pressure 138/94 H 138/94 H Pulse Oximetry 97 98 08/17/20 19:00 08/17/20 19:18 08/17/20 19:30 Temperature Pulse Rate 67 75 Respiratory Rate Blood Pressure 128/68 120/59 L Pulse Oximetry 99 75 L 08/17/20 19:32 08/17/20 20:00 08/17/20 20:01 Temperature Pulse Rate 62 65 83 Respiratory Rate Blood Pressure 117/60 Pulse Oximetry 84 L 99 97 08/17/20 20:30 08/17/20 20:31 08/17/20 21:00 Temperature Pulse Rate 73 77 60 Respiratory Rate Blood Pressure 137/65 118/58 L Pulse Oximetry 99 99 99 08/17/20 23:10 Temperature Pulse Rate 58 L Respiratory Rate 18 Blood Pressure 120/62 Pulse Oximetry 97 MDM - Nausea/Vomiting/Diarrhea Lab Data Attestation: I reviewed the patient's lab results. Result diagrams: 08/17/20 19:51 08/17/20 19:51 Labs: Lab Results 08/17/20 08/17/20 08/17/20 Range/Units 19:51 19:51 19:51 WBC 7.5 (4.5-11.0) X10^3/uL RBC 4.23 (4.0-5.2) X10^6/uL Hgb 12.3 (12.0-16.0) g/dL Hct 37.1 (36-46) % MCV 87.7 (80-100) fL MCH 29.1 (26-34) PG MCHC 33.1 (30-36) % RDW 14.4 (11.6-14.8) % Plt Count 277 (150-400) X10^3/uL Neut % (Auto) 57.5 (50-75) % Lymph % (Auto) 27.4 (25-40) % [place] % (Auto) 12.2 (3-14) % Eos % (Auto) 2.3 (2-4) % Baso % (Auto) 0.6 (0-2) % Neut # (Auto) 4300 (1864-5120) /uL Lymph # (Auto) 2100 (3795-8614) /uL [place] # (Auto) 900 (0-900) /uL Eos # (Auto) 200 (0-450) /uL Baso # (Auto) 0 (0-100) /uL Sodium (137-145) mmol/L Potassium (3.4-5.1) mmol/L Chloride (98-107) mmol/L Carbon Dioxide (22-32) mmol/L BUN (7-17) mg/dL Creatinine (0.52-1.04) mg/dL Estimated GFR (>60) mL/min BUN/Creatinine Ratio (6-22) Glucose (80-110) mg/dL Calcium (8.4-10.2) mg/dL Total Bilirubin (0.2-1.3) mg/dL AST (14-36) IU/L ALT (<35) IU/L Alkaline Phosphatase (38-126) U/L Total Protein (6.3-8.2) g/dL Albumin (3.5-5.0) g/dL Globulin (1.7-4.1) g/dL Albumin/Globulin Ratio (1.0-2.8) Lipase 237 (23-300) U/L TSH 2.50 (0.47-4.68) uIU/mL Urine Color Urine Appearance Urine pH (4.5-8.0) Ur Specific [place] (1.000-1.035) Urine Protein (Negative) Urine Glucose (UA) (Negative) g/dL Urine Ketones (NEGATIVE) Urine Occult Blood (Negative) Urine Nitrate (Negative) Urine Bilirubin (NEGATIVE) Urine Urobilinogen (0.2) E.U./dL Ur Leukocyte Esterase (NEGATIVE) Urine RBC (0-5/HPF) Urine WBC (0-5/HPF) Ur Squamous Epith Cells (0-5/HPF) Urine Bacteria (None) Urine Yeast (None) Ur Culture Indicated? 08/17/20 08/17/20 Range/Units 19:51 22:50 WBC (4.5-11.0) X10^3/uL RBC (4.0-5.2) X10^6/uL Hgb (12.0-16.0) g/dL Hct (36-46) % MCV (80-100) fL MCH (26-34) PG MCHC (30-36) % RDW (11.6-14.8) % Plt Count (150-400) X10^3/uL Neut % (Auto) (50-75) % Lymph % (Auto) (25-40) % [place] % (Auto) (3-14) % Eos % (Auto) (2-4) % Baso % (Auto) (0-2) % Neut # (Auto) (1247-1399) /uL Lymph # (Auto) (5578-7998) /uL [place] # (Auto) (0-900) /uL Eos # (Auto) (0-450) /uL Baso # (Auto) (0-100) /uL Sodium 138 (137-145) mmol/L Potassium 3.9 (3.4-5.1) mmol/L Chloride 105 (98-107) mmol/L Carbon Dioxide 28 (22-32) mmol/L BUN 26 H (7-17) mg/dL Creatinine 0.92 (0.52-1.04) mg/dL Estimated GFR 58.6 L (>60) mL/min BUN/Creatinine Ratio 28.3 H (6-22) Glucose 96 (80-110) mg/dL Calcium 9.3 (8.4-10.2) mg/dL Total Bilirubin 0.3 (0.2-1.3) mg/dL AST 20 (14-36) IU/L ALT 9 (<35) IU/L Alkaline Phosphatase 76 (38-126) U/L Total Protein 7.2 (6.3-8.2) g/dL Albumin 3.7 (3.5-5.0) g/dL Globulin 3.5 (1.7-4.1) g/dL Albumin/Globulin Ratio 1.1 (1.0-2.8) Lipase (23-300) U/L TSH (0.47-4.68) uIU/mL Urine Color Yellow Urine Appearance Sl cloudy Urine pH 5.5 (4.5-8.0) Ur Specific [place] 1.020 (1.000-1.035) Urine Protein Negative (Negative) Urine Glucose (UA) Negative (Negative) g/dL Urine Ketones Negative (NEGATIVE) Urine Occult Blood Trace-intact (Negative) Urine Nitrate Negative (Negative) Urine Bilirubin Negative (NEGATIVE) Urine Urobilinogen 0.2 (0.2) E.U./dL Ur Leukocyte Esterase 2+ H (NEGATIVE) Urine RBC None seen (0-5/HPF) Urine WBC 10-30/hpf H (0-5/HPF) Ur Squamous Epith Cells 1-5 /hpf (0-5/HPF) Urine Bacteria Occasional (0-1) D (None) Urine Yeast 5-10/hpf H (None) Ur Culture Indicated? Specimen cultured Urine Dip Bedside Urine Glucose Negative Bedside Urine Bilirubin - Negative Bedside Urine Ketone - Negative Urine Specific [place] 1.015 Bedside Urine Occult Blood +/- Bedside Urine pH 6.0 Bedside Urine Protein - Negative Bedside Urine Urobilinogen - Negative Bedside Urine Nitrite - Negative Bedside Urine Leukocytes ++ 125 Esterase Discharge Plan Departure Patient Disposition: Home Clinical Impression: Diarrhea Instructions: Diarrhea Activity Restrictions/Additional Instructions: Follow up with your physician. Call Thursday morning to see if they can move her appointment to a sooner time. You may continue your medications as prescribed. An order for C. diff stool PCR was included so that you may bring this to the lab as an outpatient. Please return for fevers, lightheadedness or passing out, new abdominal, back or flank pain, black or bloody stools, difficulty with urination or other new or concerning symptoms. Prescriptions: No Action lisinopril 5 mg tablet 5 mg PO DAILY RF: 0 oxybutynin chloride 5 mg tablet 5 mg PO DAILY RF: 0 cholecalciferol (vitamin D3) 1,000 unit capsule 1,000 unit PO DAILY RF: 0 omeprazole 10 mg capsule,delayed release(DR/EC) 10 mg PO DAILY RF: 0 citalopram 20 mg tablet 20 mg PO DAILY RF: 0 acetaminophen 325 mg Tablet 650 mg PO Q6HR PRN (Reason: Fever) Qty: 30 RF: 0 amoxicillin 250 mg Capsule 500 mg PO TID Qty: 30 RF: 0 Referrals: Titus Carcamo DO [Primary Care Provider] -
[2020-08-17 20:01] LABS: Add Manual Diff / Slide Review NO; Basophils Absolute Auto 0 /uL (0-100); Basophils Percent Auto 0.6 % (0-2); Eosinophils Absolute Auto 200 /uL (0-450); Eosinophils Percent Auto 2.3 % (2-4); Hematocrit 37.1 % (36-46); Hemoglobin 12.3 g/dL (12.0-16.0); Lymphocytes Absolute Auto 2100 /uL (1100-4500); Lymphocytes Percent Auto 27.4 % (25-40); Mean Corpuscular HGB Conc 33.1 % (30-36); Mean Corpuscular Hemoglobin 29.1 PG (26-34); Mean Corpuscular Volume 87.7 fL (80-100); Monocytes Absolute Auto 900 /uL (0-900); Monocytes Percent Auto 12.2 % (3-14); Neutrophils Absolute Auto 4300 /uL (1500-7000); Neutrophils Percent Auto 57.5 % (50-75); Platelet Count 277 X10^3/uL (150-400); Red Blood Cell Count 4.23 X10^6/uL (4.0-5.2); Red Cell Distribution Width 14.4 % (11.6-14.8); White Blood Cell Count 7.5 X10^3/uL (4.5-11.0)
[2020-08-17] MEDS: SODIUM CHLORIDE 0.9% 1,000 ML 1000 ML IV (20:05)
[2020-08-17 20:13] LABS: Alanine Aminotransferase 9 IU/L (<35); Albumin 3.7 g/dL (3.5-5.0); Albumin Globulin Ratio 1.1 (1.0-2.8); Alkaline Phosphatase 76 U/L (38-126); Aspartate Aminotransferase 20 IU/L (14-36); BUN Creatinine Ratio 28.3 (6-22); Bilirubin Total 0.3 mg/dL (0.2-1.3); Blood Urea Nitrogen 26 mg/dL (7-17); Calcium 9.3 mg/dL (8.4-10.2); Carbon Dioxide 28 mmol/L (22-32); Chloride 105 mmol/L (98-107); Estimated Glomerular Filt Rate 58.6 mL/min (>60); Globulin 3.5 g/dL (1.7-4.1); Glucose 96 mg/dL (80-110); HEMOLYSIS < 15 (0-50); Lipase 237 U/L (23-300); Potassium 3.9 mmol/L (3.4-5.1); Sodium 138 mmol/L (137-145); Total Protein 7.2 g/dL (6.3-8.2)
[2020-08-17 22:55] LABS: RBC Urine None Seen (0-5/HPF)
[2020-08-17 22:57] LABS: Appearance Urine UA SL CLOUDY; Bilirubin Urine UA NEGATIVE (NEGATIVE); Color Urine UA YELLOW; Glucose Urine UA NEGATIVE (Negative); Ketones Urine UA NEGATIVE (NEGATIVE); Leukocyte Esterase Urine UA 2+ (NEGATIVE); Nitrite Urine UA NEGATIVE (Negative); Occult Blood Urine UA TRACE-INTACT (Negative); Protein Urine UA NEGATIVE (Negative); Urobilinogen Urine UA 0.2 E.U./dL (0.2)
[2020-08-17 23:00] LABS: pH Urine UA 5.5 (4.5-8.0)
[2020-08-17 23:11] LABS: Squamous Epithelial Cell Urine 1-5 /HPF (0-5/HPF); WBC Urine 10-30/HPF (0-5/HPF)
[2020-08-17 23:12] LABS: Bacteria Urine Occasional (0-1); Culture Indicated Urine Specimen Cultured
== END 2020-08-17 23:10 | disposition home or self-care (01) ==
PROVIDERS: Emergency Provider Emergency Medicine; PCP Family Medicine
DX: R19.7 Diarrhea, unspecified (principal)
CPT/HCPCS: 36415; 80053; 81001; 81003; 83690; 84443; 85025; 87077; 87086; 96360; 99283; 99284

== ENCOUNTER 2020-08-28 11:44 | Observation (INO) | payer OTHER, SELFPAY ==
[2019-06-04 03:09] VITALS: BMI 27.3
[2020-08-28 11:34] VITALS: BP 125/68; PULSE 86; RESP 14; TEMP 37.3; O2SAT 95; BMI 28.9
--- NOTE | 2020-08-28 12:07 | PC.NURSE ---
Pt here for rectal pain due to hemorrhoids. No bleeding noted during brief change
--- NOTE | 2020-08-28 13:35 | ED.GENADULT ---
HPI - General Adult General Chief complaint: Urogenital-Female Stated complaint: Back pain from hemorrhoid Time Seen by Provider: 08/28/20 13:02 Source: patient Mode of arrival: EMS Limitations: no limitations History of Present Illness HPI narrative: 80-year-old woman with MS she currently still living independently with home health coming in with recent urinary tract infection and concurrent history of reflux, hypertension and depression presents with which she describes as hemorrhoidal pain. She was seen on August 05 and August 17. She is concerned about diarrhea and a foul odor with quite a bit of mucus in the stool. It looks like Clostridium difficile culture was requested but not actually done. She reports no fevers, no chest pain and no change to her overall MS issues. She feels that there is something that is protruding from her anus that is exquisitely painful. Related Data Home Medications Medication Instructions Recorded Confirmed cholecalciferol (vitamin D3) 25 1,000 unit PO DAILY 10/25/18 06/04/19 mcg (1,000 unit) capsule lisinopril 5 mg tablet 5 mg PO DAILY 10/25/18 06/04/19 omeprazole 10 mg capsule,delayed 10 mg PO DAILY 10/25/18 06/04/19 release oxybutynin chloride 5 mg tablet 5 mg PO DAILY 10/25/18 06/04/19 citalopram 20 mg PO DAILY 06/04/19 06/04/19 Previous Rx's Medication Instructions Recorded acetaminophen 650 mg PO Q6HR PRN #30 tab 06/08/19 amoxicillin 500 mg PO TID #30 cap 06/08/19 Allergies Allergy/AdvReac Type Severity Reaction Status Date / Time azithromycin Allergy Mild RASH Verified 08/28/20 12:02 levofloxacin Allergy Mild RASH Verified 08/28/20 12:02 Sulfa (Sulfonamide Allergy Mild RASH Verified 08/28/20 12:02 Antibiotics) adhesive AdvReac Mild RASH FROM Verified 08/28/20 12:02 CLOTH TAPE Review of Systems Review of Systems Narrative: Remainder of complete review of systems is otherwise unremarkable except for that included in the HPI. Patient History Medical History (Updated 08/28/20 @ 17:37 by Bambi Fontana MD) Acute UTI Hypertension Multiple sclerosis Ureterolithiasis Surgical History H/O: hysterectomy Hx of appendectomy Family History (Updated 08/28/20 @ 19:20 by Alejandro Pitts MD) Father Hypertension Social History household members: none occupational status: previously employed Smoking Status: Former smoker Smoking Status: Former smoker alcohol intake frequency: holidays/special occasions only Substance Use Type: does not use Exam Narrative Exam Narrative: General: Frail and chronically ill appearing, in mild distress with recurrent diarrhea and perianal pain. Able to give a complete and coherent history. HEENT: Moist mucous membranes, normal sclera with reactive pupils, Neck: No JVD, supple Respiratory: Lungs are clear to auscultation, no wheezing no rales no rhonchi. Full and symmetrical air movement Cardiac: Regular rate and rhythm no murmurs no bruits Abdomen: Soft, nontender, good bowel tones, no flank pain Rectal exam: She has no external hemorrhoids appreciated. On the left side there is a fullness extending into the buttock that I am concerned there may be a perirectal abscess that does seem to be the area of significant pain. She has some mild skin breakdown without ulceration over the buttocks and sacrum. Shukla catheter is in place Skin: pale,Warm and dry, no rashes Neurologic: Multiple sclerosis with rigidity/muscle spasticity with no acute focal changes Extremities: No trauma, well perfused Psych: Cooperative, appropriate insight and affect Initial Vital Signs Initial Vital Signs: Vital Signs Temperature 99.2 F 08/28/20 11:34 Pulse Rate 86 08/28/20 11:34 Respiratory Rate 14 08/28/20 11:34 Blood Pressure 125/68 08/28/20 11:34 Pulse Oximetry 95 08/28/20 11:34 Course Orders Ordered: ED Orders 08/28/20 14:18 CT abdomen pelvis w con Stat 08/28/20 14:41 Complete Blood Count AUTO DIFF Stat Comprehensive Metabolic Panel Stat 08/28/20 15:16 GI Panel (Film Array) Stat 08/28/20 17:15 COVID19 - ADMIT ([facility] swab/PCR) Stat Acetaminophen (Acetaminophen 325 Mg Tablet) 650 mg PO Q6HR PRN PRN Reason: Fever/Mild Pain (1-3) Heparin Sodium (Porcine) (Heparin 5,000 Unit/Ml Vial) 5,000 unit SUBCUT BID IKER Sodium Chloride (Normal Saline 0.9%) 1,000 mls @ 125 mls/hr IV CONT IKER Naloxone HCl (Naloxone 0.4 Mg/Ml Vial) 0.2 mg IV Q2MIN PRN PRN Reason: Opiate Reversal Ondansetron HCl (Ondansetron 4 Mg/2 Ml Inj) 4 mg IV Q8HR PRN PRN Reason: Nausea And Vomiting Vancomycin HCl (Vancomycin 125 Mg Capsule) 125 mg PO Q6HR IKER Discontinued Medications Sodium Chloride (Normal Saline 0.9%) 1,000 mls @ 1,000 mls/hr IV BOLUS ONE Stop: 08/28/20 18:13 Last Admin: 08/28/20 17:26 Dose: 1,000 mls/hr Documented by: DULCE Vancomycin HCl (Vancomycin 125 Mg Capsule) 125 mg PO NOW ONE Stop: 08/28/20 17:14 Last Admin: 08/28/20 17:26 Dose: 125 mg Documented by: DULCE Vital Signs Vital signs: Vital Signs - 8 hr 08/28/20 11:34 08/28/20 15:41 Temperature 99.2 F Pulse Rate 86 74 Respiratory Rate 14 16 Blood Pressure 125/68 119/59 L Pulse Oximetry 95 96 Medical Decision Making Medical Records Medical records reviewed: Yes I reviewed the patient's medical records. Lab Data Lab results reviewed: Yes I reviewed the patient's lab results. Result diagrams: 08/28/20 14:41 08/28/20 14:41 Labs: Lab Results 08/28/20 08/28/20 08/28/20 Range/Units 14:41 14:41 15:16 WBC 9.1 (4.5-11.0) X10^3/uL RBC 4.35 (4.0-5.2) X10^6/uL Hgb 12.7 (12.0-16.0) g/dL Hct 38.2 (36-46) % MCV 87.8 (80-100) fL MCH 29.2 (26-34) PG MCHC 33.2 (30-36) % RDW 15.1 H (11.6-14.8) % Plt Count 290 (150-400) X10^3/uL Neut % (Auto) 66.4 (50-75) % Lymph % (Auto) 22.1 L (25-40) % [place] % (Auto) 10.1 (3-14) % Eos % (Auto) 0.8 L (2-4) % Baso % (Auto) 0.6 (0-2) % Neut # (Auto) 6100 (3113-6637) /uL Lymph # (Auto) 2000 (6861-1091) /uL [place] # (Auto) 900 (0-900) /uL Eos # (Auto) 100 (0-450) /uL Baso # (Auto) 100 (0-100) /uL Sodium 137 (137-145) mmol/L Potassium 4.1 (3.4-5.1) mmol/L Chloride 106 (98-107) mmol/L Carbon Dioxide 26 (22-32) mmol/L BUN 21 H (7-17) mg/dL Creatinine 1.01 (0.52-1.04) mg/dL Estimated GFR 52.5 L (>60) mL/min BUN/Creatinine Ratio 20.8 (6-22) Glucose 92 (80-110) mg/dL Calcium 9.1 (8.4-10.2) mg/dL Total Bilirubin 0.3 (0.2-1.3) mg/dL AST 18 (14-36) IU/L ALT 8 (<35) IU/L Alkaline Phosphatase 78 (38-126) U/L Total Protein 6.8 (6.3-8.2) g/dL Albumin 3.4 L (3.5-5.0) g/dL Globulin 3.4 (1.7-4.1) g/dL Albumin/Globulin Ratio 1.0 (1.0-2.8) Stl C. cayetanensis PCR Not detected (Not Detect) Stool Rotavirus (PCR) Not detected (Not Detect) Stool Adenovirus (PCR) Not detected (Not Detect) Stool Astrovirus (PCR) Not detected (Not Detect) Stool Cryptosporidium PCR Not detected (Not Detect) Stl E.coli Shiga Tox PCR Not detected (Not Detect) St Sh/Enteroin Ecoli PCR Not detected (Not Detect) Stool E coli O157 PCR Not Reportable Stl Enterotoxigenic E PCR Not detected (Not Detect) Stool EPEC (PCR) Not detected (Not Detect) Stl E. histolytica PCR Not detected (Not Detect) Stool Giardia Lamblia PCR Not detected (Not Detect) Stool Sapovirus (PCR) Not detected (Not Detect) Stl P. shigelloides PCR Not detected (Not Detect) St Y.enterocolitica PCR Not detected (Not Detect) Stool Vibrio (PCR) Not detected (Not Detect) Stl Vibrio cholerae PCR Not detected (Not Detect) Stl Enteroaggr Ecoli PCR Not detected (Not Detect) Stl Norovirus GI/GII PCR Not detected (Not Detect) Campylobacter (PCR) Not detected (Not Detect) C. difficile Tox (PCR) Detected H (Not Detect) SARS-CoV-2 (PCR) (Negative) Salmonella (PCR) Not detected (Not Detect) 08/28/20 Range/Units 17:15 WBC (4.5-11.0) X10^3/uL RBC (4.0-5.2) X10^6/uL Hgb (12.0-16.0) g/dL Hct (36-46) % MCV (80-100) fL MCH (26-34) PG MCHC (30-36) % RDW (11.6-14.8) % Plt Count (150-400) X10^3/uL Neut % (Auto) (50-75) % Lymph % (Auto) (25-40) % [place] % (Auto) (3-14) % Eos % (Auto) (2-4) % Baso % (Auto) (0-2) % Neut # (Auto) (5606-2708) /uL Lymph # (Auto) (0392-2276) /uL [place] # (Auto) (0-900) /uL Eos # (Auto) (0-450) /uL Baso # (Auto) (0-100) /uL Sodium (137-145) mmol/L Potassium (3.4-5.1) mmol/L Chloride (98-107) mmol/L Carbon Dioxide (22-32) mmol/L BUN (7-17) mg/dL Creatinine (0.52-1.04) mg/dL Estimated GFR (>60) mL/min BUN/Creatinine Ratio (6-22) Glucose (80-110) mg/dL Calcium (8.4-10.2) mg/dL Total Bilirubin (0.2-1.3) mg/dL AST (14-36) IU/L ALT (<35) IU/L Alkaline Phosphatase (38-126) U/L Total Protein (6.3-8.2) g/dL Albumin (3.5-5.0) g/dL Globulin (1.7-4.1) g/dL Albumin/Globulin Ratio (1.0-2.8) Stl C. cayetanensis PCR (Not Detect) Stool Rotavirus (PCR) (Not Detect) Stool Adenovirus (PCR) (Not Detect) Stool Astrovirus (PCR) (Not Detect) Stool Cryptosporidium PCR (Not Detect) Stl E.coli Shiga Tox PCR (Not Detect) St Sh/Enteroin Ecoli PCR (Not Detect) Stool E coli O157 PCR Stl Enterotoxigenic E PCR (Not Detect) Stool EPEC (PCR) (Not Detect) Stl E. histolytica PCR (Not Detect) Stool Giardia Lamblia PCR (Not Detect) Stool Sapovirus (PCR) (Not Detect) Stl P. shigelloides PCR (Not Detect) St Y.enterocolitica PCR (Not Detect) Stool Vibrio (PCR) (Not Detect) Stl Vibrio cholerae PCR (Not Detect) Stl Enteroaggr Ecoli PCR (Not Detect) Stl Norovirus GI/GII PCR (Not Detect) Campylobacter (PCR) (Not Detect) C. difficile Tox (PCR) (Not Detect) SARS-CoV-2 (PCR) Negative (Negative) Salmonella (PCR) (Not Detect) Imaging Data CT scan - abdomen/pelvis: Radiologist's Impression: FINDINGS: Image quality: Excellent. Lung bases: Lung bases are clear. Heart size is normal. There is a large hiatal hernia, unchanged compared to the prior CT. Solid organs: Liver: The liver has no mass or intrahepatic biliary ductal dilatation. The portal vein and hepatic veins are patent. Biliary: The gallbladder has no gallstones, pericholecystic fluid, gallbladder wall thickening, or surrounding inflammatory change. Pancreas: The pancreas has no mass or ductal dilatation. There is no surrounding inflammation. Spleen: Normal size. There are no masses. An accessory splenule is noted. Adrenals: No hypertrophy or nodules. Kidneys: No obstructive calculus or hydronephrosis. There are 3 stones in the renal collecting system inferior pole measuring 6 millimeters, 7 millimeters, and 7 millimeters. Several smaller adjacent stones are also seen. The largest on the left is a conglomerate of smaller stones measuring 13 millimeters. These are unchanged compared to 08/05/2020. No solid mass. No cystic mass. Peritoneum and bowel: Large hiatal hernia. The stomach is otherwise normal. The small bowel has a normal caliber and appearance. The terminal ileum is normal. The large bowel has a normal caliber and appearance. The appendix is not seen. Clips in the right lower quadrant are present, likely prior appendectomy. No free fluid or air. There is no evidence of a perirectal abscess. Wall thickening and mucosal enhancement around the anus and distal rectum are seen, consider proctitis. Nodes and vessels: No retroperitoneal or mesenteric adenopathy by size criteria. The aorta has atherosclerosis with no aneurysmal dilatation. Miscellaneous: No abdominal wall mass or hernia. PELVIS: Genitourinary: The bladder is decompressed with a Shukla. There is a 2 millimeter calcification in the bladder on the left. Multiple calcifications are seen along the course of the left ureter likely adjacent to the ureter, however there is no hydronephrosis to suggest an obstructing stone. The patient is status post hysterectomy. Miscellaneous: No inguinal hernias or adenopathy. Bones: There is leftward curvature of the lumbar spine. IMPRESSION: 1. No perirectal abscess. 2. Wall thickening and edema around the anus and distal rectum, consider proctitis. 3. Large hiatal hernia. 4. Nonobstructing left ureteral stones. Dictated by: Jamaal Allison M.D. on 08/28/2020 at 15:56 MDM Narrative Medical decision making narrative: 80-year-old woman with multiple sclerosis presents complaining of rectal pain concerned about hemorrhoid turns out that her CT scan suggests proctitis and her stool comes back with Clostridium difficile. With increasing pain and increasing stool and her multiple sclerosis she is having difficulty keeping herself clean is developing some bed sores. She is having increasing rectal and low abdominal pain. She is having difficulty eating and staying hydrated. I am going to suggest hospitalization for help with hydration, treatment of her Clostridium difficile related proctitis and help in for venting worsening pressure sores from the chronic diarrhea and diminished mobility secondary to her multiple sclerosis. care is reviewed with Dr Pitts, patient is accepted. Findings and concerns reviewed with patient and she is relieved to be admitted to the hospital Discharge Plan Departure Patient Disposition: Admitted as Observation Clinical Impression: C. difficile colitis Pressure ulcer Qualifiers: Pressure injury location: buttock Pressure injury stage: stage 1 Laterality: unspecified laterality Qualified Code(s): L89.301 - Pressure ulcer of unspecified buttock, stage 1 Admit Date/Time: 08/28/20 17:40 Admit Provider: Alejandro Pitts
--- NOTE | 2020-08-28 14:18 | DI.CT.S_ITS ---
PROCEDURE: CT ABDOMEN PELVIS W CON INDICATIONS: ? perirectal abscess TECHNIQUE: After the administration of oral and intravenous contrast, 5 mm thick sections acquired from the diaphragms to the symphysis. 5 mm thick coronal and sagittal reformats were performed. For radiation dose reduction, the following was used: automated exposure control, adjustment of mA and/or kV according to patient size. COMPARISON: [facility], CT, CT ABDOMEN PELVIS W CON, 08/05/2020, 15:52. FINDINGS: Image quality: Excellent. Lung bases: Lung bases are clear. Heart size is normal. There is a large hiatal hernia, unchanged compared to the prior CT. Solid organs: Liver: The liver has no mass or intrahepatic biliary ductal dilatation. The portal vein and hepatic veins are patent. Biliary: The gallbladder has no gallstones, pericholecystic fluid, gallbladder wall thickening, or surrounding inflammatory change. Pancreas: The pancreas has no mass or ductal dilatation. There is no surrounding inflammation. Spleen: Normal size. There are no masses. An accessory splenule is noted. Adrenals: No hypertrophy or nodules. Kidneys: No obstructive calculus or hydronephrosis. There are 3 stones in the renal collecting system inferior pole measuring 6 millimeters, 7 millimeters, and 7 millimeters. Several smaller adjacent stones are also seen. The largest on the left is a conglomerate of smaller stones measuring 13 millimeters. These are unchanged compared to 08/05/2020. No solid mass. No cystic mass. Peritoneum and bowel: Large hiatal hernia. The stomach is otherwise normal. The small bowel has a normal caliber and appearance. The terminal ileum is normal. The large bowel has a normal caliber and appearance. The appendix is not seen. Clips in the right lower quadrant are present, likely prior appendectomy. No free fluid or air. There is no evidence of a perirectal abscess. Wall thickening and mucosal enhancement around the anus and distal rectum are seen, consider proctitis. Nodes and vessels: No retroperitoneal or mesenteric adenopathy by size criteria. The aorta has atherosclerosis with no aneurysmal dilatation. Miscellaneous: No abdominal wall mass or hernia. PELVIS: Genitourinary: The bladder is decompressed with a Shukla. There is a 2 millimeter calcification in the bladder on the left. Multiple calcifications are seen along the course of the left ureter likely adjacent to the ureter, however there is no hydronephrosis to suggest an obstructing stone. The patient is status post hysterectomy. Miscellaneous: No inguinal hernias or adenopathy. Bones: There is leftward curvature of the lumbar spine. IMPRESSION: 1. No perirectal abscess. 2. Wall thickening and edema around the anus and distal rectum, consider proctitis. 3. Large hiatal hernia. 4. Nonobstructing left ureteral stones. Dictated by: Jamaal Allison M.D. on 08/28/2020 at 15:56 Approved by: Jamaal Allison M.D. on 08/28/2020 at 16:13
[2020-08-28 14:47] LABS: Add Manual Diff / Slide Review NO; Basophils Absolute Auto 100 /uL (0-100); Basophils Percent Auto 0.6 % (0-2); Eosinophils Absolute Auto 100 /uL (0-450); Eosinophils Percent Auto 0.8 % (2-4); Hematocrit 38.2 % (36-46); Hemoglobin 12.7 g/dL (12.0-16.0); Lymphocytes Absolute Auto 2000 /uL (1100-4500); Lymphocytes Percent Auto 22.1 % (25-40); Mean Corpuscular HGB Conc 33.2 % (30-36); Mean Corpuscular Hemoglobin 29.2 PG (26-34); Mean Corpuscular Volume 87.8 fL (80-100); Monocytes Absolute Auto 900 /uL (0-900); Monocytes Percent Auto 10.1 % (3-14); Neutrophils Absolute Auto 6100 /uL (1500-7000); Neutrophils Percent Auto 66.4 % (50-75); Platelet Count 290 X10^3/uL (150-400); Red Blood Cell Count 4.35 X10^6/uL (4.0-5.2); Red Cell Distribution Width 15.1 % (11.6-14.8); White Blood Cell Count 9.1 X10^3/uL (4.5-11.0)
[2020-08-28 15:02] LABS: Alanine Aminotransferase 8 IU/L (<35); Albumin 3.4 g/dL (3.5-5.0); Alkaline Phosphatase 78 U/L (38-126); Aspartate Aminotransferase 18 IU/L (14-36); BUN Creatinine Ratio 20.8 (6-22); Bilirubin Total 0.3 mg/dL (0.2-1.3); Blood Urea Nitrogen 21 mg/dL (7-17); Calcium 9.1 mg/dL (8.4-10.2); Carbon Dioxide 26 mmol/L (22-32); Chloride 106 mmol/L (98-107); Estimated Glomerular Filt Rate 52.5 mL/min (>60); Globulin 3.4 g/dL (1.7-4.1); Glucose 92 mg/dL (80-110); HEMOLYSIS < 15 (0-50); Potassium 4.1 mmol/L (3.4-5.1); Sodium 137 mmol/L (137-145); Total Protein 6.8 g/dL (6.3-8.2)
[2020-08-28 15:41] VITALS: BP 119/59; PULSE 74; RESP 16; O2SAT 96
[2020-08-28 17:02] LABS: Adenovirus F 40/41 Not Detected (Not Detect); Astrovirus Not Detected (Not Detect); Campylobacter Not Detected (Not Detect); Clostridium difficile toxin AB Detected (Not Detect); Cryptosporidium Not Detected (Not Detect); Cyclospora cayetanensis Not Detected (Not Detect); Entamoeba histolytica Not Detected (Not Detect); Enteroaggregative E.coli Not Detected (Not Detect); Enteropathogenic E.coli Not Detected (Not Detect); Enterotoxigenic E.coli It/st Not Detected (Not Detect); Giardia lamblia Not Detected (Not Detect); Norovirus GI/GII Not Detected (Not Detect); Plesiomonsa shigelloides Not Detected (Not Detect); Rotavirus A Not Detected (Not Detect); Salmonella Not Detected (Not Detect); Sapovirus Not Detected (Not Detect); Shiga-like toxin-prod E.coli Not Detected (Not Detect); Shigella/Enteroinvasive E.coli Not Detected (Not Detect); Vibrio Not Detected (Not Detect); Vibrio cholerae Not Detected (Not Detect); Yersinia enterocolitica Not Detected (Not Detect)
[2020-08-28] MEDS: VANCOMYCIN 125 MG CAPSULE PO ×2 (17:26→23:34)
[2020-08-28] MEDS: SODIUM CHLORIDE 0.9% 1,000 ML 1000 ML IV (17:26)
[2020-08-28 18:14] LABS: COVID19 - ADMIT (NP swab/PCR) Negative (Negative)
[2020-08-28 18:20] VITALS: BP 118/72; PULSE 78; RESP 18; TEMP 36.7; O2SAT 98
[2020-08-28 18:37] VITALS: BMI 23.9
--- NOTE | 2020-08-28 18:56 | P.HP_ITS ---
History of Present Illness History of Present Illness Date Patient Seen: 08/28/20 Time Patient Seen: 17:56 Chief complaint: Back pain from hemorrihoid Narrative: Ms. Castillo is an 80W with PMH of MS, bedbound, chronic guzman for urinary incontinence from MS, GERD, HTN who comes in with abdominal pain and diarrhea. She had recently been prescribed a course of antibiotics for a UTI. She notes that she thinks she's had about 2 weeks of diarrhea. She is unsure how many times she's had diarrhea a day, but says it's multiple. She is having yellow liquid stool. She is having periumbilical pain primarily. She has MS, is unable to walk, and has been having issues reaching the toilet in time due to her diarrhea. She lives alone, with a neighbor who provides some help. She came in to the ER found to have normal vital signs. Labs were notable for WBC of 9.1. Creatinine 1.01. C. Diff PCR was positive. The other stool PCR were negative. She was started on oral vancomycin and admitted for further treatment. Patient History Medical History Acute UTI Hypertension Multiple sclerosis Ureterolithiasis Surgical History H/O: hysterectomy Hx of appendectomy Family & Social History Family History Father Hypertension Social History: household members none Prior Living Arrangements House Safety & Behavioral: Feels Safe in Current Yes Environment Been Physically Hurt or No Threatened By a Person Suicidal Ideation Description None Suicide Plan Description No Plan Tobacco & Substance use: Smoking Status Former smoker alcohol intake frequency holiday/special occasion Substance Use Type does not use Meds Home Medications and Allergies Home Medications Medication Instructions Recorded Confirmed Type cholecalciferol (vitamin D3) 25 1,000 unit PO DAILY 10/25/18 06/04/19 History mcg (1,000 unit) capsule lisinopril 5 mg tablet 5 mg PO DAILY 10/25/18 06/04/19 History omeprazole 10 mg capsule,delayed 10 mg PO DAILY 10/25/18 06/04/19 History release oxybutynin chloride 5 mg tablet 5 mg PO DAILY 10/25/18 06/04/19 History citalopram 20 mg PO DAILY 06/04/19 06/04/19 History acetaminophen 650 mg PO Q6HR PRN #30 tab 06/08/19 Rx amoxicillin 500 mg PO TID #30 cap 06/08/19 Rx Allergies Allergy/AdvReac Type Severity Reaction Status Date / Time azithromycin Allergy Mild RASH Verified 08/28/20 12:02 levofloxacin Allergy Mild RASH Verified 08/28/20 12:02 Sulfa (Sulfonamide Allergy Mild RASH Verified 08/28/20 12:02 Antibiotics) adhesive AdvReac Mild RASH FROM Verified 08/28/20 12:02 CLOTH TAPE Review of Systems Review of Systems Narrative: 14 systems reviewed and negative aside from HPI Exam Vital Signs (past 8 hours): - 08/28/20 11:34 08/28/20 15:41 Temperature 99.2 F Pulse Rate 86 74 Respiratory Rate 14 16 Blood Pressure 125/68 119/59 L Pulse Oximetry 95 96 Oxygen Delivery Method Room Air Narrative Exam Narrative: GEN: no acute distress HEENT: moist mucous membranes, PERRL NECK: no JVD, trachea midline CV: regular rate and rhythm with no murmurs ABD: soft, nontender, nondistended, no organomegaly, normal bowel sounds SKIN: no rashes noted NEURO: muscle rigidity, and weakness in lower legs EXT: warm and well perfused, no edema PSYCH: cooperative, pleasant mood Objective Labs Result Diagrams: 08/28/20 14:41 08/28/20 14:41 Labs: Laboratory Results - last 24 hr 08/28/20 08/28/20 08/28/20 14:41 14:41 15:16 WBC 9.1 RBC 4.35 Hgb 12.7 Hct 38.2 MCV 87.8 MCH 29.2 MCHC 33.2 RDW 15.1 H Plt Count 290 Neut % (Auto) 66.4 Lymph % (Auto) 22.1 L [place] % (Auto) 10.1 Eos % (Auto) 0.8 L Baso % (Auto) 0.6 Neut # (Auto) 6100 Lymph # (Auto) 2000 [place] # (Auto) 900 Eos # (Auto) 100 Baso # (Auto) 100 Sodium 137 Potassium 4.1 Chloride 106 Carbon Dioxide 26 BUN 21 H Creatinine 1.01 Estimated GFR 52.5 L BUN/Creatinine Ratio 20.8 Glucose 92 Calcium 9.1 Total Bilirubin 0.3 AST 18 ALT 8 Alkaline Phosphatase 78 Total Protein 6.8 Albumin 3.4 L Globulin 3.4 Albumin/Globulin Ratio 1.0 Stl C. cayetanensis PCR Not detected Stool Rotavirus (PCR) Not detected Stool Adenovirus (PCR) Not detected Stool Astrovirus (PCR) Not detected Stool Cryptosporidium PCR Not detected Stl E.coli Shiga Tox PCR Not detected St Sh/Enteroin Ecoli PCR Not detected Stool E coli O157 PCR Not Reportable Stl Enterotoxigenic E PCR Not detected Stool EPEC (PCR) Not detected Stl E. histolytica PCR Not detected Stool Giardia Lamblia PCR Not detected Stool Sapovirus (PCR) Not detected Stl P. shigelloides PCR Not detected St Y.enterocolitica PCR Not detected Stool Vibrio (PCR) Not detected Stl Vibrio cholerae PCR Not detected Stl Enteroaggr Ecoli PCR Not detected Stl Norovirus GI/GII PCR Not detected Campylobacter (PCR) Not detected C. difficile Tox (PCR) Detected H SARS-CoV-2 (PCR) Salmonella (PCR) Not detected 08/28/20 17:15 WBC RBC Hgb Hct MCV MCH MCHC RDW Plt Count Neut % (Auto) Lymph % (Auto) [place] % (Auto) Eos % (Auto) Baso % (Auto) Neut # (Auto) Lymph # (Auto) [place] # (Auto) Eos # (Auto) Baso # (Auto) Sodium Potassium Chloride Carbon Dioxide BUN Creatinine Estimated GFR BUN/Creatinine Ratio Glucose Calcium Total Bilirubin AST ALT Alkaline Phosphatase Total Protein Albumin Globulin Albumin/Globulin Ratio Stl C. cayetanensis PCR Stool Rotavirus (PCR) Stool Adenovirus (PCR) Stool Astrovirus (PCR) Stool Cryptosporidium PCR Stl E.coli Shiga Tox PCR St Sh/Enteroin Ecoli PCR Stool E coli O157 PCR Stl Enterotoxigenic E PCR Stool EPEC (PCR) Stl E. histolytica PCR Stool Giardia Lamblia PCR Stool Sapovirus (PCR) Stl P. shigelloides PCR St Y.enterocolitica PCR Stool Vibrio (PCR) Stl Vibrio cholerae PCR Stl Enteroaggr Ecoli PCR Stl Norovirus GI/GII PCR Campylobacter (PCR) C. difficile Tox (PCR) SARS-CoV-2 (PCR) Negative Salmonella (PCR) Assessment & Plan Assessment & Plan narrative: Ms. Castillo is an 80W with PMH of MS who comes in with abdominal pain and diarrhea found to have positive C diff. 1. C diff colitis -has been having abdominal pain and diarrhea, can not quantify amount of diarrhea -has recently been on antibiotics, and is also on PPI -started on PO vanco 125mg q6 -monitor patients stool output -continue IVF for now as patient is dehydrated 2. Multiple sclerosis -patient having difficulty care for self due to limited mobility -no acute flare of MS here -may need PT eval 3. Chronic indwelling guzman -due to incontinence from MS -no acute infection currently 4. Hypertension -continue home lisinopril once blood pressure improves 5. Hiatal hernia, GERD -hold PPI for now given risk of c diff associated with use 6. Left ureteral stones -asymptomatic, noted on CT -no acute intervention now IVF: 125cc/hr NS DVT ppx: lovenox sc Diet: clears Code: Full, proxy is friend Hitesh Meza COVID-19 COVID-19 status: Negative Time Spent With Patient Time with patient: 15-24 minutes Quality VTE Deep Vein Thrombosis/Pulmonary Embolism Present on Admission: No MIPS - Admit I confirm the patient?s Advance Care Plan is present, Code status is documented, Surrogate decision maker is in patient?s record [If Yes, STOP here]: Yes
[2020-08-28 20:11] VITALS: BMI 23.9
[2020-08-28] MEDS: HEPARIN 5,000 UNIT/ML VIAL 5000 UNIT SUBCUT (20:38)
[2020-08-28 21:25] VITALS: BP 116/59; PULSE 70; RESP 18; TEMP 36; O2SAT 99
[2020-08-28 23:25] VITALS: BP 120/46; PULSE 74; RESP 18; TEMP 36.1; O2SAT 98
--- NOTE | 2020-08-28 23:25 | PC.NURSE ---
Admit/Evening Shift Note- Patient arrived to room via stretcher from ER.Slider board used to transfer to bed. Patient alert and oriented and able to make needs known to staff. Admit questions done, medications reviewed, physical assessment and skin check completed. Oriented patient to bed and bed controls, room, light, phone, menu, and, call escobar/tv remote. Safety measures in place. Bed alarm activated. Call escobar and phone within reach. will continue to monitor.
[2020-08-28] MEDS: SODIUM CHLORIDE 0.9% 1,000 ML 125 ML IV (23:33)
[2020-08-28 23:42] LABS: Bilirubin Urine UA NEGATIVE (NEGATIVE); Glucose Urine UA NEGATIVE (Negative); Ketones Urine UA NEGATIVE (NEGATIVE); Leukocyte Esterase Urine UA 2+ (NEGATIVE); Nitrite Urine UA NEGATIVE (Negative); Occult Blood Urine UA TRACE-LYSED (Negative); Protein Urine UA NEGATIVE (Negative); Urobilinogen Urine UA 0.2 E.U./dL (0.2)
[2020-08-28 23:53] LABS: Amorphous Sediment Urine 2+; Appearance Urine UA Slightly Cloudy; Bacteria Urine Many (>30); Color Urine UA YELLOW; RBC Urine 1-5/HPF (0-5/HPF); Squamous Epithelial Cell Urine 1-5 /HPF (0-5/HPF)
[2020-08-28 23:54] LABS: WBC Urine 30-100/HPF (0-5/HPF)
[2020-08-29 05:00] VITALS: BP 98/58; PULSE 86; RESP 16; TEMP 36.4; O2SAT 98
[2020-08-29] MEDS: VANCOMYCIN 125 MG CAPSULE PO ×3 (05:26→18:04)
[2020-08-29 06:22] LABS: Hemoglobin 11.1 g/dL (12.0-16.0); Mean Corpuscular HGB Conc 32.8 % (30-36); Mean Corpuscular Hemoglobin 28.9 PG (26-34); Mean Corpuscular Volume 88.2 fL (80-100); Platelet Count 250 X10^3/uL (150-400); Red Blood Cell Count 3.86 X10^6/uL (4.0-5.2); Red Cell Distribution Width 14.9 % (11.6-14.8); White Blood Cell Count 5.4 X10^3/uL (4.5-11.0)
[2020-08-29 06:39] LABS: BUN Creatinine Ratio 17.2 (6-22); Blood Urea Nitrogen 15 mg/dL (7-17); Calcium 8.3 mg/dL (8.4-10.2); Carbon Dioxide 23 mmol/L (22-32); Chloride 108 mmol/L (98-107); Estimated Glomerular Filt Rate > 60.0 mL/min (>60); Glucose 72 mg/dL (80-110); HEMOLYSIS < 15 (0-50); Potassium 3.9 mmol/L (3.4-5.1); Sodium 136 mmol/L (137-145)
[2020-08-29 07:51] VITALS: BP 117/61; PULSE 83; RESP 16; TEMP 36.8; O2SAT 97
[2020-08-29] MEDS: HEPARIN 5,000 UNIT/ML VIAL 5000 UNIT SUBCUT ×2 (07:57→22:03)
[2020-08-29] MEDS: CEFTRIAXONE 1 GM/50 ML FROZ.PIGGY IV (07:58)
[2020-08-29] MEDS: SODIUM CHLORIDE 0.9% 1,000 ML 125 ML IV ×2 (07:58→18:04)
[2020-08-29] MEDS: SODIUM CHLORIDE 0.9% 500 ML 1000 ML IV (08:02)
[2020-08-29 11:18] VITALS: BP 120/65; PULSE 83; RESP 16; TEMP 36.7; O2SAT 97
--- NOTE | 2020-08-29 11:25 | P.PN_ITS ---
Subjective Subjective Date Patient Seen: 08/29/20 Time Patient Seen: 09:25 Interval history: Today she is feeling improved. She is having less abdominal pain, and left frequent diarrhea. She had no nausea or vomiting. Per the nurse she had four loose stools since yesterday night. Exam Vital Signs (past 8 hours): - 08/29/20 05:00 08/29/20 07:51 Temperature 97.6 F 98.3 F Pulse Rate 86 83 Respiratory Rate 16 16 Blood Pressure 98/58 L 117/61 Pulse Oximetry 98 97 Oxygen Delivery Method Room Air Oxygen Flow Rate 0 Narrative Exam Narrative: GEN: no acute distress HEENT: moist mucous membranes, PERRL NECK: no JVD, trachea midline CV: regular rate and rhythm with no murmurs ABD: soft, nontender, nondistended, no organomegaly, normal bowel sounds SKIN: no rashes noted NEURO: muscle rigidity, and weakness in lower legs EXT: warm and well perfused, no edema PSYCH: cooperative, pleasant mood Objective Labs Result Diagrams: 08/29/20 06:11 08/29/20 06:11 Labs: Laboratory Results - last 24 hr 08/28/20 08/28/20 08/28/20 14:41 14:41 15:16 WBC 9.1 RBC 4.35 Hgb 12.7 Hct 38.2 MCV 87.8 MCH 29.2 MCHC 33.2 RDW 15.1 H Plt Count 290 Neut % (Auto) 66.4 Lymph % (Auto) 22.1 L Sheridan % (Auto) 10.1 Eos % (Auto) 0.8 L Baso % (Auto) 0.6 Neut # (Auto) 6100 Lymph # (Auto) 2000 Sheridan # (Auto) 900 Eos # (Auto) 100 Baso # (Auto) 100 Sodium 137 Potassium 4.1 Chloride 106 Carbon Dioxide 26 BUN 21 H Creatinine 1.01 Estimated GFR 52.5 L BUN/Creatinine Ratio 20.8 Glucose 92 Calcium 9.1 Total Bilirubin 0.3 AST 18 ALT 8 Alkaline Phosphatase 78 Total Protein 6.8 Albumin 3.4 L Globulin 3.4 Albumin/Globulin Ratio 1.0 Urine Color Urine Appearance Urine pH Ur Specific Anthony Urine Protein Urine Glucose (UA) Urine Ketones Urine Occult Blood Urine Nitrate Urine Bilirubin Urine Urobilinogen Ur Leukocyte Esterase Urine RBC Urine WBC Ur Squamous Epith Cells Amorphous Sediment Urine Bacteria Urine Yeast Ur Culture Indicated? Stl C. cayetanensis PCR Not detected Stool Rotavirus (PCR) Not detected Stool Adenovirus (PCR) Not detected Stool Astrovirus (PCR) Not detected Stool Cryptosporidium PCR Not detected Stl E.coli Shiga Tox PCR Not detected St Sh/Enteroin Ecoli PCR Not detected Stool E coli O157 PCR Not Reportable Stl Enterotoxigenic E PCR Not detected Stool EPEC (PCR) Not detected Stl E. histolytica PCR Not detected Stool Giardia Lamblia PCR Not detected Stool Sapovirus (PCR) Not detected Stl P. shigelloides PCR Not detected St Y.enterocolitica PCR Not detected Stool Vibrio (PCR) Not detected Stl Vibrio cholerae PCR Not detected Stl Enteroaggr Ecoli PCR Not detected Stl Norovirus GI/GII PCR Not detected Campylobacter (PCR) Not detected C. difficile Tox (PCR) Detected H SARS-CoV-2 (PCR) Salmonella (PCR) Not detected 08/28/20 08/28/20 08/29/20 17:15 23:36 06:11 WBC 5.4 RBC 3.86 L Hgb 11.1 L Hct 34.0 L MCV 88.2 MCH 28.9 MCHC 32.8 RDW 14.9 H Plt Count 250 Neut % (Auto) Lymph % (Auto) Sheridan % (Auto) Eos % (Auto) Baso % (Auto) Neut # (Auto) Lymph # (Auto) Sheridan # (Auto) Eos # (Auto) Baso # (Auto) Sodium Potassium Chloride Carbon Dioxide BUN Creatinine Estimated GFR BUN/Creatinine Ratio Glucose Calcium Total Bilirubin AST ALT Alkaline Phosphatase Total Protein Albumin Globulin Albumin/Globulin Ratio Urine Color Yellow Urine Appearance Slightly cloudy Urine pH 5.0 Ur Specific Anthony 1.020 Urine Protein Negative Urine Glucose (UA) Negative Urine Ketones Negative Urine Occult Blood Trace-lysed Urine Nitrate Negative Urine Bilirubin Negative Urine Urobilinogen 0.2 Ur Leukocyte Esterase 2+ H Urine RBC 1-5/hpf Urine WBC 30-100/hpf H Ur Squamous Epith Cells 1-5 /hpf Amorphous Sediment 2+ Urine Bacteria Many (>30) H Urine Yeast 5-10/hpf H Ur Culture Indicated? Culture not indicate Stl C. cayetanensis PCR Stool Rotavirus (PCR) Stool Adenovirus (PCR) Stool Astrovirus (PCR) Stool Cryptosporidium PCR Stl E.coli Shiga Tox PCR St Sh/Enteroin Ecoli PCR Stool E coli O157 PCR Stl Enterotoxigenic E PCR Stool EPEC (PCR) Stl E. histolytica PCR Stool Giardia Lamblia PCR Stool Sapovirus (PCR) Stl P. shigelloides PCR St Y.enterocolitica PCR Stool Vibrio (PCR) Stl Vibrio cholerae PCR Stl Enteroaggr Ecoli PCR Stl Norovirus GI/GII PCR Campylobacter (PCR) C. difficile Tox (PCR) SARS-CoV-2 (PCR) Negative Salmonella (PCR) 08/29/20 06:11 WBC RBC Hgb Hct MCV MCH MCHC RDW Plt Count Neut % (Auto) Lymph % (Auto) Sheridan % (Auto) Eos % (Auto) Baso % (Auto) Neut # (Auto) Lymph # (Auto) Sheridan # (Auto) Eos # (Auto) Baso # (Auto) Sodium 136 L Potassium 3.9 Chloride 108 H Carbon Dioxide 23 BUN 15 Creatinine 0.87 Estimated GFR > 60.0 BUN/Creatinine Ratio 17.2 Glucose 72 L Calcium 8.3 L Total Bilirubin AST ALT Alkaline Phosphatase Total Protein Albumin Globulin Albumin/Globulin Ratio Urine Color Urine Appearance Urine pH Ur Specific Anthony Urine Protein Urine Glucose (UA) Urine Ketones Urine Occult Blood Urine Nitrate Urine Bilirubin Urine Urobilinogen Ur Leukocyte Esterase Urine RBC Urine WBC Ur Squamous Epith Cells Amorphous Sediment Urine Bacteria Urine Yeast Ur Culture Indicated? Stl C. cayetanensis PCR Stool Rotavirus (PCR) Stool Adenovirus (PCR) Stool Astrovirus (PCR) Stool Cryptosporidium PCR Stl E.coli Shiga Tox PCR St Sh/Enteroin Ecoli PCR Stool E coli O157 PCR Stl Enterotoxigenic E PCR Stool EPEC (PCR) Stl E. histolytica PCR Stool Giardia Lamblia PCR Stool Sapovirus (PCR) Stl P. shigelloides PCR St Y.enterocolitica PCR Stool Vibrio (PCR) Stl Vibrio cholerae PCR Stl Enteroaggr Ecoli PCR Stl Norovirus GI/GII PCR Campylobacter (PCR) C. difficile Tox (PCR) SARS-CoV-2 (PCR) Salmonella (PCR) PFSH Medical History Acute UTI Hypertension Multiple sclerosis Ureterolithiasis Surgical History H/O: hysterectomy Hx of appendectomy Family History Father Hypertension Social History household members: none occupational status: previously employed Smoking Status: Former smoker Assessment & Plan Assessment & Plan narrative: Ms. Castillo is an 80W with PMH of MS who comes in with abdominal pain and diarrhea found to have positive C diff. 1. C diff colitis -has been having abdominal pain and diarrhea, has 4 episodes within last 12 ho urs -has recently been on antibiotics, and is also on PPI -started on PO vanco 125mg q6 -monitor patients stool output -continue IVF for now as patient is dehydrated 2. Multiple sclerosis -patient having difficulty care for self due to limited mobility -no acute flare of MS here -may need PT eval 3. UTI -has positive UA with leuk esterase, WBC, and bacteria -urine culture pending -started ceftriaxone -etiology is chronic indwelling guzman which is not being replaced frequently 3. Chronic indwelling guzman -due to incontinence from MS -will need home health nursing to help replace guzman 4. Hypertension -continue home lisinopril once blood pressure improves 5. Hiatal hernia, GERD -hold PPI for now given risk of c diff associated with use 6. Left ureteral stones -asymptomatic, noted on CT -no acute intervention now IVF: 125cc/hr NS DVT ppx: lovenox sc Diet: clears Code: Full, proxy is friend Hitesh Meza Quality VTE Deep Vein Thrombosis/Pulmonary Embolism Present on Admission: No
[2020-08-29 13:10] LABS: C difficie Toxins A and B, EIA Positive (Negative)
--- NOTE | 2020-08-29 13:32 | CM.DANOTE ---
Patient is an 80 year old female who was admitted on 08/28/20 for Back pain. [facility] and [employer] for insurance and her PCP is Dr. Titus Carcamo. EMR was reviewed. Per , pt with hx of MS and w/c bound at baseline with chronic guzman and admitted for CDiff+. Per RN, pt's stooling has reduced significantly and pt stating herself that she is feeling much better. SW met bedside with pt and explained role and pt very A&Ox3 but a little [place]. Pt confirms that she lives at home in alone in [facility] and is mostly independent with ADL's. Pt does not have any formal caregivers but states her neighbor is very supportive and involved and pt recently gave him her van as she determined she should no longer drive herself and he transports her for appointments and errands now. Pt's DPOA's are her Dtr Chata in [facility] and son Roberto in [place] and pt has another Dtr living in [facility] by [employer]. Pt's family are quite supportive and involved but not around daily. Pt states she gets most of her meals from [employer] delivered but also makes her own breakfast of oatmeal and cooks chicken. Pt also has a hx of HH and last year after a hospital admission she went to [facility] under her [facility] for rehab and felt they staff treated her well and was beneficial. Pt currently feeling much better and does not anticipate that she will need SNF and preference is home when her stooling is manageable. Pt would likely be agreeable to HH if needed but currently feels she likely will not need HH. Plan: SW to follow closely for likely pt d/c back home via neighbor POV and to r/o HH need. SW to follow for any further identified d/c needs. BROOKLYNN Seth Discharge Planning/Care Management CM Discharge Assessment Start: 08/29/20 13:30 Freq: Status: Active Protocol: Document 08/29/20 13:30 BF (Rec: 08/29/20 13:32 BF [id number]) Discharge Planning Assessment Assigned Compression Molding Machine Operator BROOKLYNN Day DPOA/Assigned Designee Name Dtr Chata and son Roberto Contact Information [phone] Advance Directives? Yes History Provided By Patient,Medical Record Has Patient been admitted in last 30 No days? Prior Living Arrangements House Household Members none Type of transporation used prior to Relies on Others admit Comment Neighbor has pt's van and transports her to appointments Independent with ADL's Yes: mostly Is patient alert and oriented? Yes Needs Assistance With Home Chores / Shopping Caregiver for Another No DME Already Rented / Owned Wheelchair Comment Home, rule out HH Barriers to Discharge No Discharge Plan Home Transportation Arrangement Family or neighbor can transport at d/c Referrals Initiated None needed Additional Comment Follow to r/o HH Whiteboard Updated in Patient Room with Yes name and ext. # of Compression Molding Machine Operator Review Status In Process Please Provide Date Initial DC 08/29/20 Assessment Was Performed Next Review Type Continued Stay Review
[2020-08-29 16:13] VITALS: BP 126/81; PULSE 72; RESP 16; TEMP 37.1; O2SAT 100
[2020-08-29 20:32] VITALS: BP 119/67; PULSE 90; RESP 18; TEMP 36.8; O2SAT 100
[2020-08-29] MEDS: ACETAMINOPHEN 325 MG TABLET 650 MG PO (22:24)
[2020-08-29 23:30] VITALS: BP 127/73; PULSE 80; RESP 16; TEMP 36.9; O2SAT 98
[2020-08-30] MEDS: VANCOMYCIN 125 MG CAPSULE PO ×3 (00:30→11:28)
[2020-08-30] MEDS: SODIUM CHLORIDE 0.9% 1,000 ML 125 ML IV (01:41)
[2020-08-30 05:35] VITALS: BP 117/65; PULSE 70; RESP 14; TEMP 36.6; O2SAT 97
[2020-08-30 06:39] LABS: Hematocrit 32.2 % (36-46); Hemoglobin 10.7 g/dL (12.0-16.0); Mean Corpuscular HGB Conc 33.1 % (30-36); Mean Corpuscular Hemoglobin 29.1 PG (26-34); Mean Corpuscular Volume 87.7 fL (80-100); Platelet Count 238 X10^3/uL (150-400); Red Blood Cell Count 3.67 X10^6/uL (4.0-5.2); Red Cell Distribution Width 14.6 % (11.6-14.8)
[2020-08-30] MEDS: CEFTRIAXONE 1 GM/50 ML FROZ.PIGGY IV (06:44)
[2020-08-30 06:48] LABS: BUN Creatinine Ratio 14.6 (6-22); Blood Urea Nitrogen 12 mg/dL (7-17); Calcium 8.1 mg/dL (8.4-10.2); Carbon Dioxide 24 mmol/L (22-32); Chloride 112 mmol/L (98-107); Estimated Glomerular Filt Rate > 60.0 mL/min (>60); Glucose 82 mg/dL (80-110); HEMOLYSIS < 15 (0-50); Sodium 139 mmol/L (137-145)
[2020-08-30 09:00] VITALS: BP 139/73; PULSE 72; RESP 20; TEMP 36; O2SAT 99
--- NOTE | 2020-08-30 12:25 | CM.DPNOTE ---
Faxed referral packet to [facility] on 08/30/20. Received fax confirmation. Neida Saleh CM Asst.
--- NOTE | 2020-08-30 12:29 | CM.DPC ---
DCP: assessment: case received, EMR reviewed and discussed case in Team Rounds. Dr. Pitts stated that pt was being treated for C-diff colitis in the setting of MS, that she has a chronic indwelling guzman catheter and that he was planning to d/c her today. He stated that pt was aware of this already. He is ordering [facility] RN and the d/c order is now in place. Met now with pt and introduced self and role. Pt confirmed that she is aware of the d/c order and has already called her neighbor Hitesh Meza who has her wheelchair van and transports her to any needed appts. He will be here shortly. Discussed HH services. Pt says she did have [facility] for some time until the pandemic closed off that service. She had RN as well as PT/OT and says this was helpful but that at this time she prefers only to have an RN. She agrees that this will be helpful as she recovers from the C-diff and agrees with Dr. Pitts that observation of her skin (some excoriation due to the diarrhea has been noted per the physician) and assist with guzman catheter management until she can return to having this done at the urology clinic is possible. Referral given to Sarah with explanation of these specifics. She accepts the referral. GRACIELA Carrasquillo agrees to fax referral packet to [facility]. Face/Face document is completed now, signed by Dr. Pitts and with PCP confirmed as Titus Carcamo. [facility] RN order/obtained. Home address confirmed. P: home today as noted with [facility] RN. Admission status: OBS: confirmed by ABDULLAHI RN
--- NOTE | 2020-08-30 12:50 | PC.NURSE ---
Pt is dressed and ready for discharge home with Friend Hitesh. IV has been removed. Went over d/c instructions with Pt-discussed d/c meds, time of last dose, reviewed stroke education, encourage fluid intake to prevent constipation or dehydration, reminded Pt that she would need to apply barrier cream to her bottom and discussed follow up. Pt denies further questions and is ready to be discharged in her personal w/c to pov with Friend and all belongings.
--- NOTE | 2020-08-30 18:13 | P.DS_ITS ---
History of Present Illness History of Present Illness Chief complaint: Back pain from hemorrihoid Narrative: Ms. Castillo is an 80W with PMH of MS, bedbound, chronic guzman for urinary incontinence from MS, GERD, HTN who comes in with abdominal pain and diarrhea. She had recently been prescribed a course of antibiotics for a UTI. She notes that she thinks she's had about 2 weeks of diarrhea. She is unsure how many times she's had diarrhea a day, but says it's multiple. She is having yellow liquid stool. She is having periumbilical pain primarily. She has MS, is unable to walk, and has been having issues reaching the toilet in time due to her diarrhea. She lives alone, with a neighbor who provides some help. She came in to the ER found to have normal vital signs. Labs were notable for WBC of 9.1. Creatinine 1.01. C. Diff PCR was positive. The other stool PCR were negative. She was started on oral vancomycin and admitted for further treatment. Discharge Providers Provider Date of admission: 08/28/20 17:40 Discharge Date: 08/30/20 Primary care physician: Titus Carcamo DO Consults: 08/30/20 12:18 Consult to Home Health Routine Comment: [facility] ACCEPTS THE REFERRAL Reason For Exam: OLE[facility]DR RN AT D/C Discharge provider: Alejandro Pitts MD Summary Hospital Course Discharge Diagnosis: 1. C diff colitis/proctitis 2. UTI from chronic indwelling guzman 3. Multiple sclerosis 4. Hypertension 5. Hiatal hernia, GERD 6. Left ureteral stones Hospital Course: Ms. Castillo presented to the hospital with dehydration, rectal pain, diarrhea and was diagnosed with C diff. She initially had 3-4 bowel movements over the first day in the hospital. On day of discharge she had one shar wel movement. She was started on oral vancomycin and had good improvement. In addition it was noted that she had missed a couple appointments for changing her chronic guzman catheter with the urine appearing dirty and infected with positive urinalysis for bacteria and white blood cells. She was started on antibiotics, and had a guzman change here. She was planned for a total of three days of antibiotics for the urine infection and ten days of antibiotics for c diff. She had some mild skin breakdown on her legs and buttocks. She agreed to have home health nurse come to help with evaluation of patient's skin to make sure no further breakdown occurring and to change guzman as needed. She would benefit from additional help as she lives alone and can not walk due to advancing MS. She had incidentally noted left ureteral stones causing no symptoms. The rest of her medical issues were stable in the hospital. Discharge Time 35 minutes Code status: Full Status at Discharge Cognitive/behavioral status at discharge: oriented Functional status at discharge: wheelchair bound Overall status at discharge: patient is back to baseline Time Spent with Patient Time spent: Less than 30 minutes Exam Vital Signs (past 8 hours): Oxygen Delivery Method Room Air Oxygen Flow Rate 0 Narrative Exam Narrative: GEN: no acute distress HEENT: moist mucous membranes, PERRL NECK: no JVD, trachea midline CV: regular rate and rhythm with no murmurs ABD: soft, nontender, nondistended, no organomegaly, normal bowel sounds SKIN: no rashes noted NEURO: muscle rigidity, and weakness in lower legs EXT: warm and well perfused, no edema PSYCH: cooperative, pleasant mood Objective Labs Result Diagrams: 08/30/20 06:18 08/30/20 06:18 Labs: Laboratory Results - last 24 hr 08/30/20 08/30/20 06:18 06:18 WBC 4.0 L RBC 3.67 L Hgb 10.7 L Hct 32.2 L MCV 87.7 MCH 29.1 MCHC 33.1 RDW 14.6 Plt Count 238 Sodium 139 Potassium 4.0 Chloride 112 H Carbon Dioxide 24 BUN 12 Creatinine 0.82 Estimated GFR > 60.0 BUN/Creatinine Ratio 14.6 Glucose 82 Calcium 8.1 L PFSH Medical History Acute UTI Hypertension Multiple sclerosis Ureterolithiasis Surgical History H/O: hysterectomy Hx of appendectomy Family History Father Hypertension Social History household members: none occupational status: previously employed Smoking Status: Former smoker Discharge Plan Discharge Plan Patient Disposition: Home Health Service Provider Discharge Comment: Ms. Castillo was admitted with diarrhea and rectal pain. She had CT that showed possible proctitis. She had positive C. diff in her stool. She has MS and has a chronic guzman that had not been recently changed. She had a urine infection and was started on antibiotics for this. She had good improvement with these antibiotics and was feeling well with normal frequency bowel movements on day of discharge. She will get home health nursing at home to assist in caring for skin wounds and guzman changes. Discharge orders & Medications Prescriptions: New vancomycin 125 mg capsule 125 mg PO QID 9 Days Qty: 36 RF: 0 fosfomycin tromethamine 3 gram packet 1 packet PO Q OTHER DAY 1 Days Qty: 1 RF: 0 Continued cholecalciferol (vitamin D3) 1,000 unit capsule 1,000 unit PO DAILY RF: 0 citalopram 20 mg tablet 20 mg PO DAILY RF: 0 acetaminophen 325 mg Tablet 650 mg PO Q6HR PRN (Reason: Fever) Qty: 30 RF: 0 lisinopril 20 mg tablet 20 mg PO DAILY RF: 0 omeprazole 20 mg capsule,delayed release(DR/EC) 20 mg PO DAILY RF: 0 Follow up/Referrals: Titus Carcamo DO [Primary Care Provider] - Diet/Activity/Treatments Diet: Diet as Tolerated Catheter: 2-way Guzman Visit Report/Discharge Packet Instructions: DI for Urinary Tract Infection (UTI), Vancomycin, Fosfomycin, DI for Clostridioides difficile Infection Discharge Data Primary Care Provider: Titus Carcamo Attending Provider: Alejandro Pitts VTE Deep Vein Thrombosis/Pulmonary Embolism Present on Admission: No
== END 2020-08-30 13:10 | disposition home health service (06) ==
LOC: ED 17:37 → AC 08-29 06:59
PROVIDERS: Nurse Practitioner Family; Admitting Provider Internal Medicine; Emergency Provider Emergency Medicine; PCP Family Medicine; Referring Provider Emergency Medicine; Visit Provider Internal Medicine
DX: A04.72 Enterocolitis due to Clostridium difficile, not specified as recurrent (principal); T83.511A Infection and inflammatory reaction due to indwelling urethral catheter, initial encounter; G35 Multiple sclerosis; Z74.01 Bed confinement status; I10 Essential (primary) hypertension; K21.9 Gastro-esophageal reflux disease without esophagitis; F32.9 Major depressive disorder, single episode, unspecified; R32 Unspecified urinary incontinence; R19.7 Diarrhea, unspecified; K44.9 Diaphragmatic hernia without obstruction or gangrene; Z96.0 Presence of urogenital implants; N20.1 Calculus of ureter; Z20.822 Contact with and (suspected) exposure to COVID-19
CPT/HCPCS: 36415; 74177; 80048; 80053; 81001; 85025; 85027; 87086; 87324; 87507; 87635; 96361; 96365; 96366; 99284; 99285; C9803; G0378; J1644; Q9967

== ENCOUNTER 2020-09-01 13:07 | Emergency (ER) | payer OTHER, SELFPAY ==
[2020-09-01 13:15] VITALS: BP 151/96; PULSE 99; RESP 12; TEMP 36.3; O2SAT 98; BMI 30.2
--- NOTE | 2020-09-01 14:47 | ED.GENADULT ---
HPI - General Adult General Chief complaint: Urogenital-Female Stated complaint: CATHETER HAS SLIPPED OUT Time Seen by Provider: 09/01/20 14:22 Source: patient Mode of arrival: Wheelchair Limitations: no limitations History of Present Illness HPI narrative: Patient is an 80-year-old female. Has a urinary catheter in place and is also on vancomycin for C diff. She reports to emergency department today because she states that she thinks the catheter is no longer in the right position and has been leaking around the area. Prior to my evaluation her catheter that she arrived with was replaced with a new catheter. Appears that the balloon had deflated. She is also concerned about her prescription for vancomycin. She was recently discharged from the hospital. She had received a prescription for vancomycin however the pharmacy only had 2 days worth of it. They stated that she was supposed to receive the remainder of it in the mail by today however she is yet to receive it. She states she feels much better after having the new catheter placed. Related Data Home Medications Medication Instructions Recorded Confirmed cholecalciferol (vitamin D3) 25 1,000 unit PO DAILY 10/25/18 08/29/20 mcg (1,000 unit) capsule citalopram 20 mg PO DAILY 06/04/19 08/29/20 lisinopril 20 mg PO DAILY 08/29/20 08/29/20 omeprazole 20 mg PO DAILY 08/29/20 08/29/20 Previous Rx's Medication Instructions Recorded acetaminophen 650 mg PO Q6HR PRN #30 tab 06/08/19 vancomycin 125 mg PO QID 9 Days #36 cap 08/30/20 vancomycin 125 mg PO QID 7 Days #28 cap 09/01/20 Allergies Allergy/AdvReac Type Severity Reaction Status Date / Time azithromycin Allergy Mild RASH Verified 09/01/20 13:21 levofloxacin Allergy Mild RASH Verified 09/01/20 13:21 Sulfa (Sulfonamide Allergy Mild RASH Verified 09/01/20 13:21 Antibiotics) adhesive AdvReac Mild RASH FROM Verified 09/01/20 13:21 CLOTH TAPE Review of Systems Constitutional Constitutional: Denies headache(s) ENT Ears, Nose, Mouth, and Throat: Denies headache(s) Genitourinary Comments: Shukla catheter problem Musculoskeletal Musculoskeletal: Denies arthralgias and Denies myalgias Integumentary/Breasts Skin/Breast: Denies rash Neurologic Neurologic: Denies behavioral changes and Denies headache(s) Psychiatric Psychiatric: Denies behavioral changes Hematologic/Lymphatic On Anticoagulants: No Allergic/Immunologic Allergic/Immunologic: Denies urticaria Patient History Medical History Acute UTI Hypertension Multiple sclerosis Ureterolithiasis Surgical History H/O: hysterectomy Hx of appendectomy Family History Father Hypertension Social History household members: none occupational status: previously employed Smoking Status: Former smoker Smoking Status: Former smoker alcohol intake frequency: holidays/special occasions only Substance Use Type: does not use Exam Initial Vital Signs Initial Vital Signs: Vital Signs Temperature 97.4 F L 09/01/20 13:15 Pulse Rate 99 H 09/01/20 13:15 Respiratory Rate 12 09/01/20 13:15 Blood Pressure 151/96 H 09/01/20 13:15 Pulse Oximetry 98 09/01/20 13:15 Const General: cooperative and comfortable Limitations: mental status not altered HENMT Head: normal to inspection and normocephalic Resp Effort & Inspection: normal respiratory effort Cardio Rate: regular rate GI Inspection: non-distended Skin Lesions: no lesions Rashes: no rashes Neuro General: patient alert and patient awake Cognition: normal cognition Speech: speech normal Extrem General: normal to inspection Psych Appearance: grossly normal and well kempt Course Vital Signs Vital signs: Vital Signs - 8 hr 09/01/20 13:15 09/01/20 15:10 Temperature 97.4 F L Pulse Rate 99 H 70 Respiratory Rate 12 18 Blood Pressure 151/96 H 156/85 H Pulse Oximetry 98 98 Medical Decision Making MDM Narrative Medical decision making narrative: Her Shukla catheter was replaced and she states she feels much better. She states she is no longer leaking around the area. Because she needs to continue the vancomycin secondary to the diagnosis of C diff I will refill her prescription and she will taken to another pharmacy to complete the course. She was given return precautions and follow-up instructions. She expressed understanding and agreement. Discharge Plan Departure Patient Disposition: Home Clinical Impression: Complication of Shukla catheter Instructions: How to Care for Your Shukla Catheter -- Female Activity Restrictions/Additional Instructions: Be sure to continue to take your antibiotics as directed. Contact your primary provider for a follow-up. Return to the emergency department for any new or worsening symptoms Prescriptions: New vancomycin 125 mg capsule 125 mg PO QID 7 Days Qty: 28 RF: 0 No Action cholecalciferol (vitamin D3) 1,000 unit capsule 1,000 unit PO DAILY RF: 0 citalopram 20 mg tablet 20 mg PO DAILY RF: 0 acetaminophen 325 mg Tablet 650 mg PO Q6HR PRN (Reason: Fever) Qty: 30 RF: 0 lisinopril 20 mg tablet 20 mg PO DAILY RF: 0 omeprazole 20 mg capsule,delayed release(DR/EC) 20 mg PO DAILY RF: 0 vancomycin 125 mg capsule 125 mg PO QID 9 Days Qty: 36 RF: 0 Referrals: Titus Carcamo DO [Primary Care Provider] -
[2020-09-01 15:10] VITALS: BP 156/85; PULSE 70; RESP 18; O2SAT 98
== END 2020-09-01 15:13 | disposition home or self-care (01) ==
PROVIDERS: Emergency Provider Emergency Medicine; PCP Family Medicine
DX: T83.9XXA Unspecified complication of genitourinary prosthetic device, implant and graft, initial encounter (principal)
CPT/HCPCS: 51705; 99283

== ENCOUNTER 2020-09-18 23:25 | Emergency (ER) | payer OTHER, SELFPAY ==
[2020-09-18 23:42] VITALS: BP 131/96; RESP 18; TEMP 36.6; O2SAT 94
[2020-09-19 02:03] VITALS: BP 114/63; PULSE 78; O2SAT 97
--- NOTE | 2020-09-19 02:03 | ED.NAVMDI ---
HPI - Nausea/Vomiting/Diarrhea General Chief complaint: Nausea/Vomiting/Diarrhea Stated complaint: states cdiff is back Time Seen by Provider: 09/19/20 02:03 Source: patient Mode of arrival: Wheelchair Limitations: no limitations History of Present Illness HPI Narrative: 80-year-old woman with a history of multiple sclerosis recently seen with urinary tract infection and Clostridium difficile colitis comes back today with concerns that the C diff has returned. She had her stools get back to fully formed after finishing a 10 day course of oral vancomycin. 2 days ago she noticed that it was looser and beginning to smell different, yesterday she had a number of episodes of very loose stool that she describes as yellow brown mucousy slime. She describes no fevers but has had some chills. Mild abdominal pain but no vomiting. No chest pain or palpitations. Her baseline MS complaints are unchanged. Related Data Home Medications Medication Instructions Recorded Confirmed cholecalciferol (vitamin D3) 25 1,000 unit PO DAILY 10/25/18 08/29/20 mcg (1,000 unit) capsule citalopram 20 mg PO DAILY 06/04/19 08/29/20 lisinopril 20 mg PO DAILY 08/29/20 08/29/20 omeprazole 20 mg PO DAILY 08/29/20 08/29/20 Previous Rx's Medication Instructions Recorded acetaminophen 650 mg PO Q6HR PRN #30 tab 06/08/19 vancomycin [Vancocin] 125 mg PO QID #105 cap 09/19/20 Allergies Allergy/AdvReac Type Severity Reaction Status Date / Time azithromycin Allergy Mild RASH Verified 09/01/20 13:21 levofloxacin Allergy Mild RASH Verified 09/01/20 13:21 Sulfa (Sulfonamide Allergy Mild RASH Verified 09/01/20 13:21 Antibiotics) adhesive AdvReac Mild RASH FROM Verified 09/01/20 13:21 CLOTH TAPE Review of Systems Review of Systems Narrative: Remainder of complete review of systems is otherwise unremarkable except for that included in the HPI. Patient History Medical History Acute UTI Hypertension Multiple sclerosis Recurrent Clostridium difficile diarrhea Ureterolithiasis Surgical History H/O: hysterectomy Hx of appendectomy Family History Father Hypertension Social History household members: none occupational status: previously employed Smoking Status: Former smoker Smoking Status: Former smoker alcohol intake frequency: holidays/special occasions only Substance Use Type: does not use Exam Narrative Exam Narrative: General: Frail-appearing but, in no acute distress. Able to give a complete and coherent history. HEENT: Moist mucous membranes, normal sclera with reactive pupils, Respiratory: Lungs are clear to auscultation, no wheezing no rales no rhonchi. Full and symmetrical air movement Cardiac: Regular rate and rhythm no murmurs no bruits Abdomen: Soft, nontender, good bowel tones, no flank pain Skin: Warm and dry, no rashes. Mild excoriation in the perineal area but no decubitus ulcers forming Neurologic: Multiple sclerosis with atrophic legs and limited mobility Psych: Cooperative, appropriate insight and affect Initial Vital Signs Initial Vital Signs: Vital Signs Temperature 98 F 09/18/20 23:42 Respiratory Rate 18 09/18/20 23:42 Blood Pressure 131/96 H 09/18/20 23:42 Pulse Oximetry 94 09/18/20 23:42 Course Orders Ordered: ED Orders 09/19/20 02:18 GI Panel (Film Array) Stat 09/19/20 03:32 Complete Blood Count AUTO DIFF Stat Comprehensive Metabolic Panel Stat Discontinued Medications Vancomycin HCl (Vancomycin 125 Mg Capsule) 250 mg PO NOW ONE Stop: 09/19/20 03:11 Last Admin: 09/19/20 03:36 Dose: 250 mg Documented by: SUSAN Vital Signs Vital signs: Vital Signs - 8 hr 09/18/20 23:42 09/19/20 02:03 Temperature 98 F Pulse Rate 78 Respiratory Rate 18 Blood Pressure 131/96 H 114/63 Pulse Oximetry 94 97 MDM - Nausea/Vomiting/Diarrhea Medical Records Attestation: I reviewed the patient's medical records. Lab Data Attestation: I reviewed the patient's lab results. Result diagrams: 09/19/20 03:32 09/19/20 03:32 Labs: Lab Results 09/19/20 09/19/20 09/19/20 Range/Units 02:18 03:32 03:32 WBC 12.3 H (4.5-11.0) X10^3/uL RBC 4.28 (4.0-5.2) X10^6/uL Hgb 12.0 (12.0-16.0) g/dL Hct 37.5 (36-46) % MCV 87.6 (80-100) fL MCH 28.0 (26-34) PG MCHC 31.9 (30-36) % RDW 14.5 (11.6-14.8) % Plt Count 324 (150-400) X10^3/uL Neut % (Auto) 72.9 (50-75) % Lymph % (Auto) 13.8 L (25-40) % Esmeralda % (Auto) 12.2 (3-14) % Eos % (Auto) 0.5 L (2-4) % Baso % (Auto) 0.6 (0-2) % Neut # (Auto) 9000 H (2067-9500) /uL Lymph # (Auto) 1700 (7369-0512) /uL Esmeralda # (Auto) 1500 H (0-900) /uL Eos # (Auto) 100 (0-450) /uL Baso # (Auto) 100 (0-100) /uL Sodium 136 L (137-145) mmol/L Potassium 4.2 (3.4-5.1) mmol/L Chloride 105 (98-107) mmol/L Carbon Dioxide 25 (22-32) mmol/L BUN 26 H (7-17) mg/dL Creatinine 0.95 (0.52-1.04) mg/dL Estimated GFR 56.3 L (>60) mL/min BUN/Creatinine Ratio 27.4 H (6-22) Glucose 105 (80-110) mg/dL Calcium 9.4 (8.4-10.2) mg/dL Total Bilirubin 0.3 (0.2-1.3) mg/dL AST 23 (14-36) IU/L ALT 11 (<35) IU/L Alkaline Phosphatase 83 (38-126) U/L Total Protein 6.6 (6.3-8.2) g/dL Albumin 3.5 (3.5-5.0) g/dL Globulin 3.1 (1.7-4.1) g/dL Albumin/Globulin Ratio 1.1 (1.0-2.8) Stl C. cayetanensis PCR Not detected (Not Detect) Stool Rotavirus (PCR) Not detected (Not Detect) Stool Adenovirus (PCR) Not detected (Not Detect) Stool Astrovirus (PCR) Not detected (Not Detect) Stool Cryptosporidium PCR Not detected (Not Detect) Stl E.coli Shiga Tox PCR Not detected (Not Detect) St Sh/Enteroin Ecoli PCR Not detected (Not Detect) Stool E coli O157 PCR Not Reportable Stl Enterotoxigenic E PCR Not detected (Not Detect) Stool EPEC (PCR) Not detected (Not Detect) Stl E. histolytica PCR Not detected (Not Detect) Stool Giardia Lamblia PCR Not detected (Not Detect) Stool Sapovirus (PCR) Not detected (Not Detect) Stl P. shigelloides PCR Not detected (Not Detect) St Y.enterocolitica PCR Not detected (Not Detect) Stool Vibrio (PCR) Not detected (Not Detect) Stl Vibrio cholerae PCR Not detected (Not Detect) Stl Enteroaggr Ecoli PCR Not detected (Not Detect) Stl Norovirus GI/GII PCR Not detected (Not Detect) Campylobacter (PCR) Not detected (Not Detect) C. difficile Tox (PCR) Detected H (Not Detect) Salmonella (PCR) Not detected (Not Detect) Urine Dip Bedside Urine Glucose Negative Bedside Urine Bilirubin - Negative Bedside Urine Ketone - Negative Urine Specific [place] 1.030 Bedside Urine Occult Blood +++ Bedside Urine pH 6 Bedside Urine Protein + 30 Bedside Urine Urobilinogen - Negative Bedside Urine Nitrite - Negative Bedside Urine Leukocytes + 70 Esterase MDM Narrative Medical decision making narrative: 80-year-old woman with recurrent C diff diarrhea without evidence of colitis, sepsis, surgical abdomen or other complications that would require hospitalization. Following up-to-date guidelines for 1st recurrent episode of C diff when initially treated with vancomycin:Vancomycin pulsed-tapered regimen: 125 mg orally 4 times daily for 10 to 14 days, then 125 mg orally twice daily for 7 days, then 125 mg orally once daily for 7 days, then 125 mg orally every 2 or 3 days for 2 to 8 weeks, Initial dose is given in the emergency department with 1 pill to take home. Apparently there was a slight mixup with getting antibiotics for her last infection so she had extra dispensed. Told her that these would be safe for her to take if there is any delays or mix ups with her current prescription. Questions are answered and she is safe for home discharge Discharge Plan Departure Patient Disposition: Home Clinical Impression: C. difficile colitis Instructions: DI for Clostridioides difficile Infection Activity Restrictions/Additional Instructions: You do have recurrent C. Diff diarrhea. Fortunately, you came in early enough that this is not yet developed in to colitis and you do not need to stay in the hospital. Because this is a recurrent infection, you need a longer dose of vancomycin, the medication used the 1st time Vancomycin pulsed-tapered regimen: 125 mg orally 4 times daily for 14 days, then 125 mg orally twice daily for 7 days, then 125 mg orally once daily for 7 days, then 125 mg orally every 2 days for 8 weeks total 105 tablets A prescription for this has been electronically transmitted to [facility] pharmacy for you to bulk picker tomorrow/later today. If you find that you are getting worse, you do need to return to the emergency department Prescriptions: New vancomycin [Vancocin] 125 mg capsule 125 mg PO QID Qty: 105 RF: 0 No Action cholecalciferol (vitamin D3) 1,000 unit capsule 1,000 unit PO DAILY RF: 0 citalopram 20 mg tablet 20 mg PO DAILY RF: 0 acetaminophen 325 mg Tablet 650 mg PO Q6HR PRN (Reason: Fever) Qty: 30 RF: 0 lisinopril 20 mg tablet 20 mg PO DAILY RF: 0 omeprazole 20 mg capsule,delayed release(DR/EC) 20 mg PO DAILY RF: 0 Referrals: Titus Carcamo DO [Primary Care Provider] -
[2020-09-19] MEDS: VANCOMYCIN 125 MG CAPSULE 250 MG PO (03:36)
[2020-09-19 03:47] LABS: Add Manual Diff / Slide Review NO; Basophils Absolute Auto 100 /uL (0-100); Basophils Percent Auto 0.6 % (0-2); Eosinophils Absolute Auto 100 /uL (0-450); Eosinophils Percent Auto 0.5 % (2-4); Hematocrit 37.5 % (36-46); Lymphocytes Absolute Auto 1700 /uL (1100-4500); Lymphocytes Percent Auto 13.8 % (25-40); Mean Corpuscular HGB Conc 31.9 % (30-36); Mean Corpuscular Volume 87.6 fL (80-100); Monocytes Absolute Auto 1500 /uL (0-900); Monocytes Percent Auto 12.2 % (3-14); Neutrophils Absolute Auto 9000 /uL (1500-7000); Neutrophils Percent Auto 72.9 % (50-75); Platelet Count 324 X10^3/uL (150-400); Red Blood Cell Count 4.28 X10^6/uL (4.0-5.2); Red Cell Distribution Width 14.5 % (11.6-14.8); White Blood Cell Count 12.3 X10^3/uL (4.5-11.0)
[2020-09-19 04:08] LABS: Alanine Aminotransferase 11 IU/L (<35); Albumin 3.5 g/dL (3.5-5.0); Albumin Globulin Ratio 1.1 (1.0-2.8); Alkaline Phosphatase 83 U/L (38-126); Aspartate Aminotransferase 23 IU/L (14-36); BUN Creatinine Ratio 27.4 (6-22); Bilirubin Total 0.3 mg/dL (0.2-1.3); Blood Urea Nitrogen 26 mg/dL (7-17); Calcium 9.4 mg/dL (8.4-10.2); Carbon Dioxide 25 mmol/L (22-32); Chloride 105 mmol/L (98-107); Estimated Glomerular Filt Rate 56.3 mL/min (>60); Globulin 3.1 g/dL (1.7-4.1); Glucose 105 mg/dL (80-110); HEMOLYSIS 28 (0-50); Potassium 4.2 mmol/L (3.4-5.1); Sodium 136 mmol/L (137-145); Total Protein 6.6 g/dL (6.3-8.2)
[2020-09-19 04:11] LABS: Campylobacter Not Detected (Not Detect)
[2020-09-19 04:12] LABS: Adenovirus F 40/41 Not Detected (Not Detect); Astrovirus Not Detected (Not Detect); Clostridium difficile toxin AB Detected (Not Detect); Cryptosporidium Not Detected (Not Detect); Cyclospora cayetanensis Not Detected (Not Detect); Entamoeba histolytica Not Detected (Not Detect); Enteroaggregative E.coli Not Detected (Not Detect); Enteropathogenic E.coli Not Detected (Not Detect); Enterotoxigenic E.coli It/st Not Detected (Not Detect); Giardia lamblia Not Detected (Not Detect); Norovirus GI/GII Not Detected (Not Detect); Plesiomonsa shigelloides Not Detected (Not Detect); Rotavirus A Not Detected (Not Detect); Salmonella Not Detected (Not Detect); Sapovirus Not Detected (Not Detect); Shiga-like toxin-prod E.coli Not Detected (Not Detect); Shigella/Enteroinvasive E.coli Not Detected (Not Detect); Vibrio Not Detected (Not Detect); Vibrio cholerae Not Detected (Not Detect); Yersinia enterocolitica Not Detected (Not Detect)
[2020-09-19 06:23] VITALS: BP 91/53; PULSE 86; RESP 20; O2SAT 97
== END 2020-09-19 07:07 | disposition home or self-care (01) ==
PROVIDERS: Emergency Provider Emergency Medicine; PCP Family Medicine
DX: A04.72 Enterocolitis due to Clostridium difficile, not specified as recurrent (principal); R10.9 Unspecified abdominal pain
CPT/HCPCS: 80053; 81003; 85025; 87507; 99283

== ENCOUNTER 2020-10-20 21:28 | Emergency (ER) | payer OTHER, SELFPAY ==
[2020-10-20 21:41] VITALS: BP 148/77; PULSE 82; RESP 19; TEMP 37.1; O2SAT 100; BMI 27.4
--- NOTE | 2020-10-20 21:44 | PC.NURSE ---
16Fr guzman fell out of patient at home. Balloon was intact, had 5cc in it. Pt states has indwelling catheter due to incontinence
--- NOTE | 2020-10-20 22:11 | ED.GENADULT ---
HPI - General Adult General Chief complaint: Urogenital-Female Stated complaint: CATH FELL OUT Time Seen by Provider: 10/20/20 21:41 Source: patient Mode of arrival: Ambulatory Limitations: no limitations History of Present Illness HPI narrative: Patient is an 80-year-old female with a longstanding indwelling Shukla catheter secondary to mobility issues and urinary incontinence. She states that earlier today her urinary catheter fell out. She is unsure as to what happened. [facility] emergency department to have the catheter replaced. Related Data Home Medications Medication Instructions Recorded Confirmed cholecalciferol (vitamin D3) 25 1,000 unit PO DAILY 10/25/18 08/29/20 mcg (1,000 unit) capsule citalopram 20 mg PO DAILY 06/04/19 08/29/20 lisinopril 20 mg PO DAILY 08/29/20 08/29/20 omeprazole 20 mg PO DAILY 08/29/20 08/29/20 Previous Rx's Medication Instructions Recorded acetaminophen 650 mg PO Q6HR PRN #30 tab 06/08/19 vancomycin [Vancocin] 125 mg PO QID #105 cap 09/19/20 Allergies Allergy/AdvReac Type Severity Reaction Status Date / Time azithromycin Allergy Mild RASH Verified 09/01/20 13:21 levofloxacin Allergy Mild RASH Verified 09/01/20 13:21 Sulfa (Sulfonamide Allergy Mild RASH Verified 09/01/20 13:21 Antibiotics) adhesive AdvReac Mild RASH FROM Verified 09/01/20 13:21 CLOTH TAPE Review of Systems Gastrointestinal Gastrointestinal: Denies abdominal pain Genitourinary Comments: Urinary catheter fell out Hematologic/Lymphatic On Anticoagulants: No Patient History Medical History Acute UTI Hypertension Multiple sclerosis Recurrent Clostridium difficile diarrhea Ureterolithiasis Surgical History H/O: hysterectomy Hx of appendectomy Family History Father Hypertension Social History household members: none occupational status: previously employed Smoking Status: Former smoker Smoking Status: Former smoker alcohol intake frequency: holidays/special occasions only Substance Use Type: does not use Exam Initial Vital Signs Initial Vital Signs: Vital Signs Temperature 98.8 F 10/20/20 21:41 Pulse Rate 82 10/20/20 21:41 Respiratory Rate 19 10/20/20 21:41 Blood Pressure 148/77 H 10/20/20 21:41 Pulse Oximetry 100 10/20/20 21:41 Const General: cooperative Limitations: mental status not altered HENMT Head: normal to inspection and normocephalic GI Inspection: non-distended Palpation: soft Neuro General: patient alert, patient awake and patient oriented x3 Cognition: normal cognition Speech: speech normal Extrem General: normal to inspection Psych Appearance: grossly normal and well kempt Course Vital Signs Vital signs: Vital Signs - 8 hr 10/20/20 21:41 10/20/20 22:39 Temperature 98.8 F Pulse Rate 82 79 Respiratory Rate 19 16 Blood Pressure 148/77 H 130/66 Pulse Oximetry 100 99 Medical Decision Making MDM Narrative Medical decision making narrative: Patient has a indwelling urinary catheter secondary to mobility issues and frequent urinary tract infections and urinary incontinence. Her urinary catheter was replaced without incident. Discharge Plan Departure Patient Disposition: Home Clinical Impression: Encounter for Shukla catheter replacement Instructions: How to Care for Your Shukla Catheter -- Female Activity Restrictions/Additional Instructions: I recommend that you contact your primary doctor for follow-up in to discuss the indications for continued need of the Shukla catheter. Return to the emergency department for any new or worsening symptoms Prescriptions: No Action cholecalciferol (vitamin D3) 1,000 unit capsule 1,000 unit PO DAILY RF: 0 citalopram 20 mg tablet 20 mg PO DAILY RF: 0 acetaminophen 325 mg Tablet 650 mg PO Q6HR PRN (Reason: Fever) Qty: 30 RF: 0 lisinopril 20 mg tablet 20 mg PO DAILY RF: 0 omeprazole 20 mg capsule,delayed release(DR/EC) 20 mg PO DAILY RF: 0 vancomycin [Vancocin] 125 mg capsule 125 mg PO QID Qty: 105 RF: 0 Referrals: Titus Carcamo DO [Primary Care Provider] -
[2020-10-20 22:39] VITALS: BP 130/66; PULSE 79; RESP 16; O2SAT 99
== END 2020-10-20 22:40 | disposition home or self-care (01) ==
PROVIDERS: Emergency Provider Emergency Medicine; PCP Family Medicine
DX: T83.098A Other mechanical complication of other urinary catheter, initial encounter (principal)
CPT/HCPCS: 51702; 99283

== ENCOUNTER → 2021-01-25 14:33 | Outpatient (CLI) | payer OTHER, SELFPAY ==
--- NOTE | 2021-01-25 | DI.US.S_ITS ---
PROCEDURE: US RENAL COMPLETE INDICATIONS: Calculus of kidney TECHNIQUE: Real-time scanning was performed of the kidneys and bladder, with image documentation. COMPARISON: [facility], CT, CT ABDOMEN PELVIS W CON, 08/28/2020, 15:40. [facility], US, US RENAL COMPLETE, 06/28/2020, 15:56. FINDINGS: Kidneys: Kidneys are normal in size. Right kidney measures 10.3 cm long; left kidney measures 9.4 cm long. Right renal cortical thickness is 1.4 cm; left renal cortical thickness is 1.3 cm. Renal cortical echotexture is normal. No hydronephrosis or nephrolithiasis. No suspicious solid mass lesions. Multiple left renal cysts, largest measuring 8 mm. Multiple nonobstructing left renal calcifications, largest measuring 1.1 cm. Bladder: Shukla catheter present and urinary bladder decompressed. Miscellaneous: No free pelvic fluid. IMPRESSION: 1. Multiple left renal cyst and nonobstructing left renal calcification; otherwise normal appearance of the kidneys bilaterally. Dictated by: Reyes CARBONE Interpreted: Marcin Griggs MD on 01/25/2021 at 15:14 Approved by: Marcin Griggs M.D. on 01/28/2021 at 10:38
== END ==
PROVIDERS: PCP Family Medicine; Referring Provider Physician Assistant Medical; Visit Provider Physician Assistant Medical
DX: N20.0 Calculus of kidney (principal); N28.1 Cyst of kidney, acquired
CPT/HCPCS: 76770

== ENCOUNTER 2021-01-30 06:04 | Emergency (ER) | payer OTHER, SELFPAY ==
[2021-01-30 06:29] VITALS: BP 141/80; PULSE 77; RESP 16; TEMP 36.4; O2SAT 97; BMI 28.3
--- NOTE | 2021-01-30 06:39 | PC.NURSE ---
Patient thought her catheter had slipped out and had LLQ pain. She said at that point the catheter bag was empty. The EMS unit repositioned her catheter and it started flowing; pain has lessened since then. Possibly the catheter tubing was kinked and once repositioned, began working again.
[2021-01-30 06:40] VITALS: PULSE 85; O2SAT 96
--- NOTE | 2021-01-30 06:46 | ED_ITS ---
HPI - Female Genitourinary General Chief complaint: Urogenital-Female Stated complaint: Catheter came out and now has Abd pain Time Seen by Provider: 01/30/21 06:15 Source: patient and EMS Mode of arrival: EMS Limitations: no limitations History of Present Illness HPI Narrative: Patient is an 80-year-old female with a history of MS Sayra diff, GERD, hypertension, chronic indwelling Shukla catheter presenting Shukla catheter problem. She states catheter has been placed since she broke her ankles. She has a mobility issue. Today she says she thinks her catheter fell out. She woke left lower quadrant pain and felt like the catheter had moved. Currently the bag and tubing are draining she is not incontinent. She actually had a bowel movement. She is otherwise asymptomatic and has no complaints. Related Data Home Medications Medication Instructions Recorded Confirmed cholecalciferol (vitamin D3) 25 1,000 unit PO DAILY 10/25/18 08/29/20 mcg (1,000 unit) capsule citalopram 20 mg tablet 20 mg PO DAILY 06/04/19 08/29/20 lisinopril 20 mg tablet 20 mg PO DAILY 08/29/20 08/29/20 omeprazole 20 mg capsule,delayed 20 mg PO DAILY 08/29/20 08/29/20 release Previous Rx's Medication Instructions Recorded acetaminophen 325 mg tablet 650 mg PO Q6HR PRN #30 tab 06/08/19 vancomycin 125 mg capsule 125 mg PO QID #105 cap 09/19/20 (Vancocin) cephalexin 500 mg capsule 500 mg PO BID 7 Days #14 cap 01/30/21 Allergies Allergy/AdvReac Type Severity Reaction Status Date / Time azithromycin Allergy Mild RASH Verified 09/01/20 13:21 levofloxacin Allergy Mild RASH Verified 09/01/20 13:21 Sulfa (Sulfonamide Allergy Mild RASH Verified 09/01/20 13:21 Antibiotics) adhesive AdvReac Mild RASH FROM Verified 09/01/20 13:21 CLOTH TAPE Review of Systems Review of Systems Narrative: GENERAL: Denies chills,fever HEENT: Denies throat pain RESPIRATORY: Denies dyspnea, cough, wheezing CARDIOVASCULAR: Denies chest pain, palpitations : See HPI GASTROINTESTINAL: Denies nausea, vomiting MUSCULOSKELETAL: Denies extremity pain, injury SKIN: No rash, no laceration, no pruritus NEUROLOGIC: Denies weakness, dizziness, headache, numbness 8 point review of systems is negative except for those stated above and HPI Patient History Medical History Acute UTI Hypertension Multiple sclerosis Recurrent Clostridium difficile diarrhea Ureterolithiasis Surgical History H/O: hysterectomy Hx of appendectomy Family History Father Hypertension alcohol intake frequency: holidays/special occasions only Substance Use Type: does not use Exam Initial Vital Signs Initial Vital Signs: Vital Signs Temperature 97.5 F L 01/30/21 06:29 Pulse Rate 77 01/30/21 06:29 Respiratory Rate 16 01/30/21 06:29 Blood Pressure 141/80 H 01/30/21 06:29 Pulse Oximetry 97 01/30/21 06:29 GENERAL: Alert pleasant well-appearing 80-year-old female HEENT: Head atraumatic,EOMI, pupils reactive, face symmetric, mucous membranes CARDIOVASCULAR: Regular rate and rhythm without murmurs, rubs or gallops. RESPIRATORY: Breath sounds equal bilaterally, no wheezes rales or rhonchi. ABDOMEN: Soft, nontender. Normoactive bowel sounds all 4 quadrants. No guarding or rebound. : Shukla catheter in place draining a bag full urine in tube clear urine EXTREMITIES: Normal range of motion, no clubbing or edema. Neurovascularly intact NEUROLOGICAL: Alert and oriented x3. Moving all extremities SKIN: Warm, dry, no laceration, no petechiae, no rashes or lesions. Course Orders Ordered: ED Orders 01/30/21 06:38 Urinalysis and Microscopic Stat 01/30/21 06:42 Urine Microscopic Stat 01/30/21 06:43 Urine Culture Stat Vital Signs Vital signs: Vital Signs - 8 hr 01/30/21 06:29 Temperature 97.5 F L Pulse Rate 77 Respiratory Rate 16 Blood Pressure 141/80 H Pulse Oximetry 97 MDM - Female Genitourinary Lab Data Labs: Lab Results 01/30/21 Range/Units 06:35 Urine RBC 0-1/hpf (0-5/HPF) Urine WBC 0-1/hpf (0-5/HPF) Ur Squamous Epith Cells 0-1 /hpf (0-5/HPF) Amorphous Sediment 1+ Urine Bacteria Many (>30) H (None) Ur Culture Indicated? Culture not indicate Urine Dip Bedside Urine Glucose Negative Bedside Urine Bilirubin - Negative Bedside Urine Ketone - Negative Urine Specific [place] 1.010 Bedside Urine Occult Blood ++ Bedside Urine pH 7.5 Bedside Urine Protein - Negative Bedside Urine Urobilinogen - Negative Bedside Urine Nitrite + Positive Bedside Urine Leukocytes ++ 125 Esterase MDM Narrative Medical decision making narrative: The patient overall appears well. Urine is positive for leukocytes and nitrates consistently UTI. She has no abdominal p ain fever or chills. She previously had his C diff. Discussed with her starting antibiotics versus waiting for culture and sensitivity. She would rather wait because she just got over C diff and does not want that again. Possible she may also be colonized as well. Prescription is sent to pharmacy but he can wait for further results Discharge Plan Departure Patient Disposition: Home Clinical Impression: UTI (urinary tract infection) due to urinary indwelling Shukla catheter Qualifiers: Indwelling urinary catheter type: indwelling urethral catheter Encounter type: initial encounter Qualified Code(s): T83.511A - Infection and inflammatory reaction due to indwelling urethral catheter, initial encounter Instructions: DI for Urinary Tract Infection (UTI) Activity Restrictions/Additional Instructions: *You have been diagnosed with UTI with Shukla catheter *What to do: At this time will start you on antibiotics. Please follow-up with primary care provider. all antibiotics can cause C.diff, please monitor. *Continue to take medications as directed Keflex 500 mg twice a day for 7 days--> SENT TO [facility] *Follow up with your primary care provider in 2-3 days *Return to ER if you should have the significant diarrhea, abdominal pain, abdominal pain, any new, worsening or concerning symptoms Prescriptions: New cephalexin 500 mg capsule 500 mg PO BID 7 Days Qty: 14 RF: 0 No Action cholecalciferol (vitamin D3) 1,000 unit capsule 1,000 unit PO DAILY RF: 0 citalopram 20 mg tablet 20 mg PO DAILY RF: 0 acetaminophen 325 mg Tablet 650 mg PO Q6HR PRN (Reason: Fever) Qty: 30 RF: 0 lisinopril 20 mg tablet 20 mg PO DAILY RF: 0 omeprazole 20 mg capsule,delayed release(DR/EC) 20 mg PO DAILY RF: 0 vancomycin [Vancocin] 125 mg capsule 125 mg PO QID Qty: 105 RF: 0 Referrals: Scheidt,Judye, DO [Primary Care Provider] -
[2021-01-30 06:59] LABS: Amorphous Sediment Urine 1+; Bacteria Urine Many (>30); RBC Urine 0-1/HPF (0-5/HPF); Squamous Epithelial Cell Urine 0-1 /HPF (0-5/HPF); WBC Urine 0-1/HPF (0-5/HPF)
[2021-01-30 07:00] VITALS: BP 143/93; PULSE 79; RESP 20; O2SAT 95
[2021-01-30 07:30] VITALS: BP 149/81; PULSE 75; O2SAT 96
[2021-01-30 08:00] VITALS: BP 146/79; PULSE 87; O2SAT 97
[2021-01-30 08:30] VITALS: BP 133/77; PULSE 76; O2SAT 95
--- NOTE | 2021-01-30 08:55 | PC.NURSE ---
Pt is totally dependent for positioning, transfers and most ADLs. States she can dress herself if she uses assistive devices. Utilized 2 person assist to lift to w/c. Pt currently lives alone and has home health 2 days / week. Offered to see if there was more assistance available but pt declined. Pt also states she does not want to take antibiotics. Encouraged to f/u with primary care, Dr. Carcamo.
== END 2021-01-30 09:01 | disposition home or self-care (01) ==
PROVIDERS: Emergency Provider Emergency Medicine; PCP Family Medicine
DX: T83.511A Infection and inflammatory reaction due to indwelling urethral catheter, initial encounter (principal)
CPT/HCPCS: 81003; 81015; 87077; 87086; 87186; 99282

== ENCOUNTER 2021-06-05 08:25 | Emergency (ER) | payer OTHER, SELFPAY ==
[2021-06-05] VITALS (13 sets, daily range): BP systolic 123–172; BP diastolic 59–91; PULSE 80–102; RESP 14–19; TEMP 36.6; O2SAT 97–99; BMI 24.1
--- NOTE | 2021-06-05 08:32 | ED_ITS ---
HPI - General Adult General Chief complaint: Chest Pain Stated complaint: urinary incontinence/pelvic discomfort/indwelling Time Seen by Provider: 06/05/21 08:26 Source: patient Mode of arrival: EMS History of Present Illness HPI narrative: Patient is an 80-year-old female. Has a history of MS with significant mobility issues. Has an indwelling Shukla catheter. Has had C diff in the past was brought in by EMS this morning for initially will was described as urinary incontinence and pelvic discomfort. Was also described is potential dislodgement of her urinary catheter. She has had issues with this in the past. She did have a bowel movement in the ambulance EN route here. She states that her pelvic discomfort has improved somewhat but is still ?tender ?she is unsure as to whether not her urinary catheter is working. She was scheduled to have that replaced today. No fevers. She also reports a ?belt like ? pressure cross ed her chest. All of her symptoms started this morning when she woke up. She is also having some shortness of breath but this is not. Related Data Home Medications Medication Instructions Recorded Confirmed cholecalciferol (vitamin D3) 25 1,000 unit PO DAILY 10/25/18 08/29/20 mcg (1,000 unit) capsule citalopram 20 mg tablet 20 mg PO DAILY 06/04/19 08/29/20 lisinopril 20 mg tablet 20 mg PO DAILY 08/29/20 08/29/20 omeprazole 20 mg capsule,delayed 20 mg PO DAILY 08/29/20 08/29/20 release Previous Rx's Medication Instructions Recorded acetaminophen 325 mg tablet 650 mg PO Q6HR PRN #30 tab 06/08/19 vancomycin 125 mg capsule 125 mg PO QID #105 cap 09/19/20 (Vancocin) Allergies Allergy/AdvReac Type Severity Reaction Status Date / Time azithromycin Allergy Mild RASH Verified 09/01/20 13:21 levofloxacin Allergy Mild RASH Verified 09/01/20 13:21 Sulfa (Sulfonamide Allergy Mild RASH Verified 09/01/20 13:21 Antibiotics) adhesive AdvReac Mild RASH FROM Verified 09/01/20 13:21 CLOTH TAPE Review of Systems Constitutional Constitutional: Reports as per HPI and Reports system reviewed and no additional complaints, except as documented Cardiovascular Cardiovascular: Reports as per HPI and Reports system reviewed and no additional complaints, except as documented Respiratory Respiratory: Reports as per HPI and Reports system reviewed and no additional complaints, except as documented Gastrointestinal Gastrointestinal: Reports as per HPI and Reports system reviewed and no additional complaints, except as documented Genitourinary Genitourinary: Reports system reviewed and no additional complaints, except as documented and Reports as per HPI Integumentary/Breasts Skin/Breast: Reports system reviewed and no additional complaints, except as documented Hematologic/Lymphatic On Anticoagulants: No Patient History Medical History Acute UTI Hypertension Multiple sclerosis Recurrent Clostridium difficile diarrhea Ureterolithiasis Surgical History H/O: hysterectomy Hx of appendectomy Family History Father Hypertension Social History household members: none occupational status: previously employed Smoking Status: Former smoker Smoking Status: Former smoker alcohol intake frequency: holidays/special occasions only Substance Use Type: does not use Exam Initial Vital Signs Initial Vital Signs: Vital Signs Temperature 97.8 F 06/05/21 08:17 Pulse Rate 87 06/05/21 08:17 Respiratory Rate 18 06/05/21 08:17 Blood Pressure 172/91 H 06/05/21 08:17 Pulse Oximetry 99 06/05/21 08:17 HENMT Head: normal to inspection and normocephalic Resp Effort & Inspection: normal respiratory effort Auscultation: clear to auscultation bilaterally Cardio Rate: regular rate Rhythm: regular rhythm GI Inspection: normal to inspection Palpation: soft and No tender Other: Soft brown stool. Other: Shukla catheter in place Back/Spine/Pelvis Back: normal to inspection Skin General: no rashes or lesions noted Neuro General: patient alert and patient awake Extrem General: capillary refill normal Psych Appearance: grossly normal Course Orders Ordered: ED Orders 06/05/21 11:00 Troponin I Stat Vital Signs Vital signs: Vital Signs - 8 hr 06/05/21 10:30 06/05/21 11:00 06/05/21 11:30 Pulse Rate 87 80 84 Respiratory Rate 17 16 14 Blood Pressure 150/70 H 124/62 135/67 Pulse Oximetry 99 98 98 06/05/21 12:00 06/05/21 12:30 06/05/21 13:00 Pulse Rate 97 H 102 H 88 Respiratory Rate 18 16 16 Blood Pressure Pulse Oximetry 98 06/05/21 13:05 Pulse Rate 95 H Respiratory Rate 19 Blood Pressure 143/66 H Pulse Oximetry 99 Medical Decision Making Medical Records Medical records reviewed: Yes I reviewed the patient's medical records. Lab Data Lab results reviewed: Yes I reviewed the patient's lab results. Result diagrams: 06/05/21 08:50 06/05/21 08:50 Labs: Lab Results 06/05/21 06/05/21 06/05/21 Range/Units 08:50 08:50 08:50 WBC 6.7 (4.5-11.0) X10^3/uL RBC 4.18 (4.0-5.2) X10^6/uL Hgb 12.1 (12.0-16.0) g/dL Hct 36.6 (36-46) % MCV 87.4 (80-100) fL MCH 29.0 (26-34) PG MCHC 33.1 (30-36) % RDW 14.5 (11.6-14.8) % Plt Count 279 (150-400) X10^3/uL Neut % (Auto) 55.3 (50-75) % Lymph % (Auto) 29.7 (25-40) % [place] % (Auto) 11.7 (3-14) % Eos % (Auto) 2.4 (2-4) % Baso % (Auto) 0.9 (0-2) % Neut # (Auto) 3700 (6539-3434) /uL Lymph # (Auto) 2000 (9707-2197) /uL [place] # (Auto) 800 (0-900) /uL Eos # (Auto) 200 (0-450) /uL Baso # (Auto) 100 (0-100) /uL Sodium 138 (137-145) mmol/L Potassium 4.5 (3.4-5.1) mmol/L Chloride 105 (98-107) mmol/L Carbon Dioxide 27 (22-32) mmol/L BUN 23 H (7-17) mg/dL Creatinine 0.98 (0.52-1.04) mg/dL Estimated GFR 54.3 L (>60) mL/min BUN/Creatinine Ratio 23.5 H (6-22) Glucose 88 (80-110) mg/dL Lactate 2.0 (0.7-2.1) mmol/L Calcium 9.2 (8.4-10.2) mg/dL Total Bilirubin 0.3 (0.2-1.3) mg/dL AST 24 (14-36) IU/L ALT 13 (<35) IU/L Alkaline Phosphatase 86 (38-126) U/L Total Creatine Kinase 59 (30-135) U/L CK-MB (CK-2) TNP CK-MB (CK-2) Rel Index TNP Troponin I 0.029 (0.01-0.034) ng/mL Total Protein 7.7 (6.3-8.2) g/dL Albumin 4.1 (3.5-5.0) g/dL Globulin 3.6 (1.7-4.1) g/dL Albumin/Globulin Ratio 1.1 (1.0-2.8) Lipase 177 (23-300) U/L 06/05/21 Range/Units 11:00 WBC (4.5-11.0) X10^3/uL RBC (4.0-5.2) X10^6/uL Hgb (12.0-16.0) g/dL Hct (36-46) % MCV (80-100) fL MCH (26-34) PG MCHC (30-36) % RDW (11.6-14.8) % Plt Count (150-400) X10^3/uL Neut % (Auto) (50-75) % Lymph % (Auto) (25-40) % [place] % (Auto) (3-14) % Eos % (Auto) (2-4) % Baso % (Auto) (0-2) % Neut # (Auto) (9730-0334) /uL Lymph # (Auto) (0176-3623) /uL [place] # (Auto) (0-900) /uL Eos # (Auto) (0-450) /uL Baso # (Auto) (0-100) /uL Sodium (137-145) mmol/L Potassium (3.4-5.1) mmol/L Chloride (98-107) mmol/L Carbon Dioxide (22-32) mmol/L BUN (7-17) mg/dL Creatinine (0.52-1.04) mg/dL Estimated GFR (>60) mL/min BUN/Creatinine Ratio (6-22) Glucose (80-110) mg/dL Lactate (0.7-2.1) mmol/L Calcium (8.4-10.2) mg/dL Total Bilirubin (0.2-1.3) mg/dL AST (14-36) IU/L ALT (<35) IU/L Alkaline Phosphatase (38-126) U/L Total Creatine Kinase (30-135) U/L CK-MB (CK-2) CK-MB (CK-2) Rel Index Troponin I 0.038 H (0.01-0.034) ng/mL Total Protein (6.3-8.2) g/dL Albumin (3.5-5.0) g/dL Globulin (1.7-4.1) g/dL Albumin/Globulin Ratio (1.0-2.8) Lipase (23-300) U/L Imaging Data Chest x-ray: Radiologist's Impression: [address] [address] XRay Report Signed Patient: Olivia Castillo MR#: [id number] : 1940 Acct:[id number] Age/Sex: 80 / F Date of Service: 06/05/21 Loc: ED Accession Number: [id number] ?? Procedure: XR chest 1V Ordering Provider: George Abdullahi D.O. PROCEDURE:? XR CHEST 1V ? INDICATIONS:? SOB ? TECHNIQUE:? One view of the chest was acquired.? ? COMPARISON:? [facility], , XR CHEST 1V, 04/06/2020, 15:19. ? FINDINGS:? ? Surgical changes and devices:? None.? ? Lungs and pleura:? Lungs are clear.? No pleural effusions or pneumothorax.? ? Mediastinum:? Mediastinal contours appear normal.? Heart size is normal.? ? Bones and chest wall:? No suspicious bony lesions.? Overlying soft tissues appear unremarkable.? ? IMPRESSION:? No evidence acute pulmonary process. ? ? ? Dictated by: Jay Pennington M.D. on 06/05/2021 at 9:39 ? ? Approved by: Jay Pennington M.D. on 06/05/2021 at 9:42? ECG Data Attestation: I personally reviewed and interpreted this ECG as follows: Interpretation: Sinus rhythm Ventricular rate 92 Left axis deviation Normal QRS Normal QTC Nonspecific ST T wave changes MDM Narrative Medical decision making narrative: Patient is alert oriented x3. GCS 15 in my opinion has the capacity make decisions. Not clinically intoxicated. The abdominal discomfort that she gloria bradshaw had this morning seems to have improved greatly. She has a benign abdominal exam. The belt like chest discomfort that she has is not necessarily new today. She states that is been going on for some time now specifically weeks to months. She states that there are periods of time when it is worse than others. She also states that she can move and reproduce the discomfort. Her EKG shows nonspecific changes. Troponin today is elevated but not above the AMI cutoff. Had a discussion with her regarding this. She has never had risk stratification with regard to cardiovascular disease. Had a discussion with her regarding this. We did discuss her elevated troponin. Did discuss my concerns that her chest discomfort are related to this. We did discuss admission to the hospital for further testing, stating for a 3rd troponin and also potential transfer to a facility that has cardiac cath lab manager capability. After this discussion the patient stated that she does not want to be admitted to the hospital. She does not want to stay for a 3rd troponin. She did expressed understanding of risks of this and my concerns about potential cardiac etiology. Will discharge patient home with strict return precautions and instructions to contact her primary doctor for follow-up. She expressed understanding and agreement. Discharge Plan Departure Patient Disposition: Home Clinical Impression: Chest pain, Abdominal pain Instructions: DI for Abdominal Pain-Adult, DI for Chest Pain Activity Restrictions/Additional Instructions: I recommend that you take all of your medications as directed. It is important that you follow-up with your primary doctor for further evaluation of your chest discomfort and please return to the emergency department for any new or worsening symptoms. Prescriptions: No Action cholecalciferol (vitamin D3) 1,000 unit capsule 1,000 unit PO DAILY 0RF citalopram 20 mg tablet 20 mg PO DAILY 0RF acetaminophen 325 mg Tablet 650 mg PO Q6HR PRN (Reason: Fever) Qty: 30 0RF lisinopril 20 mg tablet 20 mg PO DAILY 0RF omeprazole 20 mg capsule,delayed release(DR/EC) 20 mg PO DAILY 0RF vancomycin [Vancocin] 125 mg capsule 125 mg PO QID Qty: 105 0RF Rx Instructions: 125 mg 4 times daily 14 days, 125 mg twice daily 7 days 125 mg once daily 7 days 125 mg every 2 days for 8 weeks Referrals: Titus Carcamo DO [Primary Care Provider] -
--- NOTE | 2021-06-05 08:46 | DI.RAD.S_ITS ---
PROCEDURE: XR CHEST 1V INDICATIONS: SOB TECHNIQUE: One view of the chest was acquired. COMPARISON: [facility], CR, XR CHEST 1V, 04/06/2020, 15:19. FINDINGS: Surgical changes and devices: None. Lungs and pleura: Lungs are clear. No pleural effusions or pneumothorax. Mediastinum: Mediastinal contours appear normal. Heart size is normal. Bones and chest wall: No suspicious bony lesions. Overlying soft tissues appear unremarkable. IMPRESSION: No evidence acute pulmonary process. Dictated by: Jay Pennington M.D. on 06/05/2021 at 9:39 Approved by: Jay Pennington M.D. on 06/05/2021 at 9:42
[2021-06-05 09:03] LABS: Add Manual Diff / Slide Review NO; Basophils Absolute Auto 100 /uL (0-100); Basophils Percent Auto 0.9 % (0-2); Eosinophils Absolute Auto 200 /uL (0-450); Eosinophils Percent Auto 2.4 % (2-4); Hematocrit 36.6 % (36-46); Hemoglobin 12.1 g/dL (12.0-16.0); Lymphocytes Absolute Auto 2000 /uL (1100-4500); Lymphocytes Percent Auto 29.7 % (25-40); Mean Corpuscular HGB Conc 33.1 % (30-36); Mean Corpuscular Volume 87.4 fL (80-100); Monocytes Absolute Auto 800 /uL (0-900); Monocytes Percent Auto 11.7 % (3-14); Neutrophils Absolute Auto 3700 /uL (1500-7000); Neutrophils Percent Auto 55.3 % (50-75); Red Blood Cell Count 4.18 X10^6/uL (4.0-5.2); Red Cell Distribution Width 14.5 % (11.6-14.8); White Blood Cell Count 6.7 X10^3/uL (4.5-11.0)
[2021-06-05 09:06] LABS: Alanine Aminotransferase 13 IU/L (<35); Albumin 4.1 g/dL (3.5-5.0); Albumin Globulin Ratio 1.1 (1.0-2.8); Alkaline Phosphatase 86 U/L (38-126); Aspartate Aminotransferase 24 IU/L (14-36); BUN Creatinine Ratio 23.5 (6-22); Bilirubin Total 0.3 mg/dL (0.2-1.3); Blood Urea Nitrogen 23 mg/dL (7-17); Calcium 9.2 mg/dL (8.4-10.2); Carbon Dioxide 27 mmol/L (22-32); Chloride 105 mmol/L (98-107); Creatine Kinase 59 U/L (30-135); Estimated Glomerular Filt Rate 54.3 mL/min (>60); Globulin 3.6 g/dL (1.7-4.1); Glucose 88 mg/dL (80-110); HEMOLYSIS < 15 (0-50); Lipase 177 U/L (23-300); Potassium 4.5 mmol/L (3.4-5.1); Sodium 138 mmol/L (137-145); Total Protein 7.7 g/dL (6.3-8.2)
[2021-06-05 09:17] LABS: Troponin I 0.029 ng/mL (0.01-0.034)
[2021-06-05 09:28] LABS: Platelet Count 279 X10^3/uL (150-400)
[2021-06-05 11:52] LABS: Troponin I 0.038 ng/mL (0.01-0.034)
== END 2021-06-05 13:30 | disposition home or self-care (01) ==
PROVIDERS: Emergency Provider Emergency Medicine; PCP Family Medicine
DX: R07.9 Chest pain, unspecified (principal); R10.2 Pelvic and perineal pain
CPT/HCPCS: 36415; 71045; 80053; 82550; 83605; 83690; 84484; 85025; 93005; 99284

== ENCOUNTER 2021-06-11 12:11 | Emergency (ER) | payer OTHER, SELFPAY ==
[2021-06-11 12:50] VITALS: BP 115/54; PULSE 81; O2SAT 99
--- NOTE | 2021-06-11 13:07 | ED.GENADULT ---
HPI - General Adult General Chief complaint: Urogenital-Female Stated complaint: Catheter issues chronic Time Seen by Provider: 06/11/21 12:50 Source: patient Mode of arrival: Wheelchair History of Present Illness HPI narrative: Patient is an 80-year-old female who is here for evaluation of her indwelling urinary catheter falling out. She has the indwelling catheter in place secondary to urinary incontinence. She has had issues like this in the past. There is a plan in place for her to follow-up with urology. She is still urinating despite the catheter falling out however she is little control over this process. Related Data Home Medications Medication Instructions Recorded Confirmed cholecalciferol (vitamin D3) 25 1,000 unit PO DAILY 10/25/18 08/29/20 mcg (1,000 unit) capsule citalopram 20 mg tablet 20 mg PO DAILY 06/04/19 08/29/20 lisinopril 20 mg tablet 20 mg PO DAILY 08/29/20 08/29/20 omeprazole 20 mg capsule,delayed 20 mg PO DAILY 08/29/20 08/29/20 release Previous Rx's Medication Instructions Recorded acetaminophen 325 mg tablet 650 mg PO Q6HR PRN #30 tab 06/08/19 vancomycin 125 mg capsule 125 mg PO QID #105 cap 09/19/20 (Vancocin) Allergies Allergy/AdvReac Type Severity Reaction Status Date / Time azithromycin Allergy Mild RASH Verified 06/11/21 12:23 levofloxacin Allergy Mild RASH Verified 06/11/21 12:23 Sulfa (Sulfonamide Allergy Mild RASH Verified 06/11/21 12:23 Antibiotics) adhesive AdvReac Mild RASH FROM Verified 06/11/21 12:23 CLOTH TAPE Review of Systems Constitutional Constitutional: Denies fever(s) Gastrointestinal Gastrointestinal: Denies abdominal pain Genitourinary Genitourinary: Reports system reviewed and no additional complaints, except as documented and Reports as per HPI Patient History Medical History Acute UTI Hypertension Multiple sclerosis Recurrent Clostridium difficile diarrhea Ureterolithiasis Surgical History H/O: hysterectomy Hx of appendectomy Family History Father Hypertension Social History household members: none occupational status: previously employed Smoking Status: Former smoker Smoking Status: Former smoker alcohol intake frequency: holidays/special occasions only Substance Use Type: does not use Exam Initial Vital Signs Initial Vital Signs: Vital Signs Pulse Rate 81 06/11/21 12:50 Blood Pressure 115/54 L 06/11/21 12:50 Pulse Oximetry 99 06/11/21 12:50 HENMT Head: normal to inspection and normocephalic Resp Effort & Inspection: normal respiratory effort Cardio Rate: regular rate GI Inspection: normal to inspection Palpation: soft and No tender Neuro General: patient alert and patient awake Course Vital Signs Vital signs: Vital Signs - 8 hr 06/11/21 12:50 Pulse Rate 81 Blood Pressure 115/54 L Pulse Oximetry 99 Medical Decision Making MDM Narrative Medical decision making narrative: Her urinary catheter was replaced without incident. Will have her continue to follow-up with the plan of see urology. She was given return precautions. She expressed understanding and agreement. Discharge Plan Departure Patient Disposition: Home Clinical Impression: Urinary incontinence, Complication of Shukla catheter Instructions: How to Care for Your Shukla Catheter -- Female Activity Restrictions/Additional Instructions: I do recommend that you keep all of your scheduled medical appointments. Contact your primary doctor for a follow-up and return to the emergency department for any new or worsening symptoms. Prescriptions: No Action cholecalciferol (vitamin D3) 1,000 unit capsule 1,000 unit PO DAILY 0RF citalopram 20 mg tablet 20 mg PO DAILY 0RF acetaminophen 325 mg Tablet 650 mg PO Q6HR PRN (Reason: Fever) Qty: 30 0RF lisinopril 20 mg tablet 20 mg PO DAILY 0RF omeprazole 20 mg capsule,delayed release(DR/EC) 20 mg PO DAILY 0RF vancomycin [Vancocin] 125 mg capsule 125 mg PO QID Qty: 105 0RF Rx Instructions: 125 mg 4 times daily 14 days, 125 mg twice daily 7 days 125 mg once daily 7 days 125 mg every 2 days for 8 weeks Referrals: Titus Carcamo DO [Primary Care Provider] -
== END 2021-06-11 14:18 | disposition home or self-care (01) ==
PROVIDERS: Emergency Provider Emergency Medicine; PCP Family Medicine
DX: T83.021A Displacement of indwelling urethral catheter, initial encounter (principal); R32 Unspecified urinary incontinence
CPT/HCPCS: 51701; 99283

== ENCOUNTER 2021-06-28 16:16 | Observation (INO) | payer OTHER, SELFPAY ==
[2021-06-28] VITALS (15 sets, daily range): BP systolic 110–154; BP diastolic 60–74; PULSE 68–106; RESP 14–24; TEMP 36.1–36.4; O2SAT 95–100; BMI 26.6; BMI 24.9
--- NOTE | 2021-06-28 16:46 | DI.RAD.S_ITS ---
PROCEDURE: XR CHEST 1V INDICATIONS: chest pain TECHNIQUE: One view of the chest was acquired. COMPARISON: [facility], CR, XR CHEST 1V, 06/05/2021, 9:05. FINDINGS: Surgical changes and devices: None. Lungs and pleura: Lungs are clear. No pleural effusions or pneumothorax. Mediastinum: Mediastinal contours appear normal. Heart size is normal. At least moderate aortic atherosclerotic calcifications. Bones and chest wall: No suspicious bony lesions. Overlying soft tissues appear unremarkable. IMPRESSION: No acute cardiopulmonary abnormality. Dictated by: Syed Reyes M.D. on 06/28/2021 at 17:54 Approved by: Syed Reyes M.D. on 06/28/2021 at 17:54
[2021-06-28 17:01] LABS: Add Manual Diff / Slide Review NO; Basophils Absolute Auto 0 /uL (0-100); Basophils Percent Auto 0.5 % (0-2); Eosinophils Absolute Auto 100 /uL (0-450); Eosinophils Percent Auto 0.7 % (2-4); Hematocrit 39.1 % (36-46); Lymphocytes Absolute Auto 1800 /uL (1100-4500); Lymphocytes Percent Auto 20.9 % (25-40); Mean Corpuscular HGB Conc 33.3 % (30-36); Mean Corpuscular Hemoglobin 29.2 PG (26-34); Mean Corpuscular Volume 87.9 fL (80-100); Monocytes Absolute Auto 400 /uL (0-900); Monocytes Percent Auto 4.3 % (3-14); Neutrophils Absolute Auto 6400 /uL (1500-7000); Neutrophils Percent Auto 73.6 % (50-75); Platelet Count 321 X10^3/uL (150-400); Red Blood Cell Count 4.44 X10^6/uL (4.0-5.2); Red Cell Distribution Width 14.8 % (11.6-14.8); White Blood Cell Count 8.7 X10^3/uL (4.5-11.0)
[2021-06-28 17:06] LABS: Appearance Urine UA CLOUDY; Bilirubin Urine UA 1+ (NEGATIVE); Color Urine UA YELLOW; Glucose Urine UA NEGATIVE (Negative); Ketones Urine UA TRACE (NEGATIVE); Leukocyte Esterase Urine UA 2+ (NEGATIVE); Nitrite Urine UA POSITIVE (Negative); Occult Blood Urine UA 2+ (Negative); Protein Urine UA 1+ (Negative); Specific Gravity Urine UA 1.025 (1.000-1.035); Urobilinogen Urine UA 0.2 E.U./dL (0.2)
[2021-06-28 17:10] LABS: Alanine Aminotransferase 13 IU/L (<35); Albumin 4.7 g/dL (3.5-5.0); Albumin Globulin Ratio 1.1 (1.0-2.8); Alkaline Phosphatase 89 U/L (38-126); Aspartate Aminotransferase 25 IU/L (14-36); BUN Creatinine Ratio 26.6 (6-22); Bilirubin Total 0.5 mg/dL (0.2-1.3); Blood Urea Nitrogen 42 mg/dL (7-17); Calcium 9.5 mg/dL (8.4-10.2); Carbon Dioxide 28 mmol/L (22-32); Chloride 103 mmol/L (98-107); Creatine Kinase 60 U/L (30-135); Estimated Glomerular Filt Rate 31.3 mL/min (>60); Globulin 4.1 g/dL (1.7-4.1); Glucose 156 mg/dL (80-110); HEMOLYSIS < 15 (0-50); Lipase 273 U/L (23-300); Magnesium 2.1 mg/dL (1.6-2.3); Potassium 4.2 mmol/L (3.4-5.1); Sodium 140 mmol/L (137-145); Total Protein 8.8 g/dL (6.3-8.2)
[2021-06-28 17:16] LABS: Bacteria Urine Many (>30); Hyaline Casts Urine 5-10/LPF; Ictotest Urine Negative (Negative); RBC Urine 5-10/HPF (0-5/HPF); Renal Epithelial Cells Urine 0-1/HPF (0-1/HPF); Squamous Epithelial Cell Urine 1-5 /HPF (0-5/HPF); Transitional Epi Cells Urine 5-10/HPF (0-5/HPF); WBC Urine 30-100/HPF (0-5/HPF)
[2021-06-28 17:17] LABS: Culture Indicated Urine Specimen Cultured
[2021-06-28 17:20] LABS: Troponin I < 0.012 ng/mL (0.01-0.034)
--- NOTE | 2021-06-28 18:19 | ED.SYNCOPE ---
HPI - Syncope General Chief Complaint: Syncope Stated Complaint: alt mental status Time Seen by Provider: 06/28/21 17:51 Source: patient and EMS Mode of arrival: EMS History of Present Illness HPI narrative: Patient is a 80-year-old female history of MS with chronic indwelling Shukla catheter, Cdiff, HTN, presenting today with a near syncopal episode and weakness. She is wheelchair-bound but is usually able to transfer herself to and from the toilet. However she has a very kind neighbor who helps her into and out of bed. She previously had home health for wounds on the however her wounds have healed and she no longer has home health and she lives by herself. Today she had a diarrhea episode she says she could not get herself knee she was stuck on the toilet for approximately 5 hours. Today she well but she got very dizzy light headed thought she was going to pass out but did not pass out. Overall very weak. She denies any chest pain palpitations nausea vomiting shortness of breath. She has had no further episodes diarrhea. Related Data Home Medications Medication Instructions Recorded Confirmed cholecalciferol (vitamin D3) 25 1,000 unit PO DAILY 10/25/18 06/28/21 mcg (1,000 unit) capsule citalopram 20 mg tablet 20 mg PO DAILY 06/04/19 06/28/21 lisinopril 20 mg tablet 20 mg PO DAILY 08/29/20 06/28/21 omeprazole 20 mg capsule,delayed 20 mg PO DAILY 08/29/20 06/28/21 release Previous Rx's Medication Instructions Recorded acetaminophen 325 mg tablet 650 mg PO Q6HR PRN #30 tab 06/08/19 Allergies Allergy/AdvReac Type Severity Reaction Status Date / Time azithromycin Allergy Mild RASH Verified 06/11/21 12:23 levofloxacin Allergy Mild RASH Verified 06/11/21 12:23 Sulfa (Sulfonamide Allergy Mild RASH Verified 06/11/21 12:23 Antibiotics) ceftriaxone AdvReac Intermediate Swelling Verified 06/28/21 22:46 of Lip/Tongue/Throat adhesive AdvReac Mild RASH FROM Verified 06/11/21 12:23 CLOTH TAPE Review of Systems Review of Systems ROS Unobtainable: All systems reviewed & are unremarkable except as noted in HPI and below Constitutional Constitutional: Reports as per HPI, Denies chills, Denies frequent falls, Denies headache(s) and Reports weakness ENT Ears, Nose, Mouth, and Throat: Denies headache(s) and Denies sore throat Cardiovascular Cardiovascular: Denies chest pain, Denies irregular heart rhythm, Reports lightheadedness and Denies palpitations Respiratory Respiratory: Denies chest congestion and Denies cough Gastrointestinal Gastrointestinal: Reports as per HPI, Denies abdominal pain, Reports diarrhea, Denies nausea and Denies vomiting Genitourinary Genitourinary: Reports as per HPI Musculoskeletal Musculoskeletal: Reports as per HPI Neurologic Neurologic: Denies frequent falls, Denies headache(s) and Reports weakness Endocrine Endocrine: Denies palpitations Patient History Medical History Acute UTI Hypertension Multiple sclerosis Recurrent Clostridium difficile diarrhea Ureterolithiasis Surgical History H/O: hysterectomy Hx of appendectomy Family History Father Hypertension Social History household members: none occupational status: previously employed Smoking Status: Former smoker alcohol intake: current Smoking Status: Former smoker alcohol intake frequency: holidays/special occasions only Substance Use Type: does not use Exam Initial Vital Signs Initial Vital Signs: Vital Signs Pulse Rate 104 H 06/28/21 16:23 Respiratory Rate 15 06/28/21 16:23 Pulse Oximetry 100 06/28/21 16:23 GENERAL: Well-appearing 80-year-old female in [no acute] distress. HEENT: Head atraumatic,EOMI, pupils reactive, face symmetric, [moist] mucous membranes CARDIOVASCULAR: Regular rate and rhythm without murmurs, rubs or gallops. RESPIRATORY: Breath sounds equal bilaterally, no wheezes rales or rhonchi. ABDOMEN: Soft, nontender. Normoactive bowel sounds all 4 quadrants. No guarding or rebound. : Indwelling Shukla EXTREMITIES: Normal range of motion, no clubbing or edema. Neurovascularly intact NEUROLOGICAL: A&O x4 moving extremities SKIN: Warm, dry, no laceration, no petechiae, no rashes or lesions. Course Orders Ordered: ED Orders 06/28/21 18:50 COVID19 -Nasal swab/Pre-Proc Stat 06/28/21 20:14 Education, smoking cessation ONGOING 06/28/21 22:25 Blood Culture Stat 06/29/21 05:00 Basic Metabolic Panel Routine Acetaminophen (Acetaminophen 325 Mg Tablet) 650 mg PO Q6HR PRN PRN Reason: Fever/Mild Pain (1-3) Citalopram Hydrobromide (Citalopram 10 Mg Tablet) 20 mg PO DAILY [facility] Enoxaparin Sodium (Enoxaparin 30 Mg/0.3 Ml Syringe) 30 mg SUBCUT DAILY [facility] Sodium Chloride (Normal Saline 0.9%) 1,000 mls @ 125 mls/hr IV CONT [facility] Last Infusion: 06/28/21 21:00 Dose: 0 mls/hr Documented by: Infusion: 06/28/21 20:56 Dose: 125 mls/hr Documented by: Admin: 06/28/21 18:50 Dose: 125 mls/hr Documented by: MARTELL Sodium Chloride (Normal Saline 0.9%) 1,000 mls @ 100 mls/hr IV CONT [facility] Last Admin: 06/28/21 21:53 Dose: 100 mls/hr Documented by: KEELY Piperacillin Sod/Tazobactam (Sod 3.375 gm/ Sodium Chloride) 100 mls @ 25 mls/hr IV Q8H [facility] Lisinopril (Lisinopril 20 Mg Tablet) 20 mg PO DAILY [facility] Naloxone HCl (Naloxone 0.4 Mg/Ml Vial) 0.2 mg IV Q2MIN PRN PRN Reason: Opiate Reversal Ondansetron HCl (Ondansetron 4 Mg/2 Ml Inj) 4 mg IV Q8HR PRN PRN Reason: Nausea And Vomiting Pantoprazole Sodium (Pantoprazole Dr 20 Mg Tablet) 20 mg PO 0600 [facility] Discontinued Medications Diphenhydramine HCl (Diphenhydramine 50 Mg/Ml Vial) 25 mg IV NOW ONE Stop: 06/28/21 21:12 Last Admin: 06/28/21 21:53 Dose: 25 mg Documented by: KEELY Ceftriaxone Sodium 1,000 mg/ (Sodium Chloride) 100 mls @ 200 mls/hr IV NOW ONE Stop: 06/28/21 18:21 Last Infusion: 06/28/21 19:30 Dose: 0 mls/hr Documented by: Admin: 06/28/21 18:50 Dose: 200 mls/hr Documented by: MARTELL Ceftriaxone Sodium 1,000 mg/ (Sodium Chloride) 100 mls @ 200 mls/hr IV NOW ONE Stop: 06/28/21 20:20 Last Admin: 06/28/21 21:26 Dose: Not Given Documented by: KEELY Ceftriaxone Sodium 1,000 mg/ (Sodium Chloride) 100 mls @ 200 mls/hr IV DAILY IKER Piperacillin Sod/Tazobactam (Sod 4.5 gm/ Sodium Chloride) 100 mls @ 200 mls/hr IV NOW ONE Stop: 06/28/21 22:36 Last Infusion: 06/28/21 23:35 Dose: 0 mls/hr Documented by: Admin: 06/28/21 23:03 Dose: 200 mls/hr Documented by: KEELY Vital Signs Vital signs: Vital Signs - 8 hr 06/28/21 19:00 06/28/21 19:30 06/28/21 20:00 Pulse Rate 74 77 87 Respiratory Rate 22 23 Blood Pressure 126/69 127/66 Pulse Oximetry 100 99 99 MDM - Syncope Lab Data Result diagrams: 06/28/21 16:37 06/28/21 16:37 Labs: Lab Results 06/28/21 06/28/21 06/28/21 Range/Units 16:37 16:37 16:54 WBC 8.7 (4.5-11.0) X10^3/uL RBC 4.44 (4.0-5.2) X10^6/uL Hgb 13.0 (12.0-16.0) g/dL Hct 39.1 (36-46) % MCV 87.9 (80-100) fL MCH 29.2 (26-34) PG MCHC 33.3 (30-36) % RDW 14.8 (11.6-14.8) % Plt Count 321 (150-400) X10^3/uL Neut % (Auto) 73.6 (50-75) % Lymph % (Auto) 20.9 L (25-40) % [place] % (Auto) 4.3 (3-14) % Eos % (Auto) 0.7 L (2-4) % Baso % (Auto) 0.5 (0-2) % Neut # (Auto) 6400 (6937-3999) /uL Lymph # (Auto) 1800 (6344-4729) /uL [place] # (Auto) 400 (0-900) /uL Eos # (Auto) 100 (0-450) /uL Baso # (Auto) 0 (0-100) /uL Sodium 140 (137-145) mmol/L Potassium 4.2 (3.4-5.1) mmol/L Chloride 103 (98-107) mmol/L Carbon Dioxide 28 (22-32) mmol/L BUN 42 H (7-17) mg/dL Creatinine 1.58 H (0.52-1.04) mg/dL Estimated GFR 31.3 L (>60) mL/min BUN/Creatinine Ratio 26.6 H (6-22) Glucose 156 H (80-110) mg/dL Calcium 9.5 (8.4-10.2) mg/dL Magnesium 2.1 (1.6-2.3) mg/dL Total Bilirubin 0.5 (0.2-1.3) mg/dL AST 25 (14-36) IU/L ALT 13 (<35) IU/L Alkaline Phosphatase 89 (38-126) U/L Total Creatine Kinase 60 (30-135) U/L CK-MB (CK-2) TNP CK-MB (CK-2) Rel Index TNP Troponin I < 0.012 (0.01-0.034) ng/mL Total Protein 8.8 H (6.3-8.2) g/dL Albumin 4.7 (3.5-5.0) g/dL Globulin 4.1 (1.7-4.1) g/dL Albumin/Globulin Ratio 1.1 (1.0-2.8) Lipase 273 (23-300) U/L Urine Color Yellow Urine Appearance Cloudy Urine pH 5.0 (4.5-8.0) Ur Specific [place] 1.025 (1.000-1.035) Urine Protein 1+ H (Negative) Urine Glucose (UA) Negative (Negative) g/dL Urine Ketones Trace H (NEGATIVE) Urine Occult Blood 2+ H (Negative) Urine Nitrate Positive H (Negative) Urine Bilirubin 1+ H (NEGATIVE) Ur Bilirubin Confirm Negative (Negative) Urine Urobilinogen 0.2 (0.2) E.U./dL Ur Leukocyte Esterase 2+ H (NEGATIVE) Urine RBC 5-10/hpf H (0-5/HPF) Urine WBC 30-100/hpf H (0-5/HPF) Ur Squamous Epith Cells 1-5 /hpf (0-5/HPF) Ur Transition Epith Cell 5-10/hpf H (0-5/HPF) Ur Renal Epithelial Cell 0-1/hpf (0-1/HPF) Urine Bacteria Many (>30) H (None) Hyaline Casts 5-10/lpf (None) Ur Culture Indicated? Specimen cultured SARS-CoV-2 (PCR) (Negative) 06/28/21 Range/Units 18:50 WBC (4.5-11.0) X10^3/uL RBC (4.0-5.2) X10^6/uL Hgb (12.0-16.0) g/dL Hct (36-46) % MCV (80-100) fL MCH (26-34) PG MCHC (30-36) % RDW (11.6-14.8) % Plt Count (150-400) X10^3/uL Neut % (Auto) (50-75) % Lymph % (Auto) (25-40) % [place] % (Auto) (3-14) % Eos % (Auto) (2-4) % Baso % (Auto) (0-2) % Neut # (Auto) (5418-3795) /uL Lymph # (Auto) (6347-9744) /uL [place] # (Auto) (0-900) /uL Eos # (Auto) (0-450) /uL Baso # (Auto) (0-100) /uL Sodium (137-145) mmol/L Potassium (3.4-5.1) mmol/L Chloride (98-107) mmol/L Carbon Dioxide (22-32) mmol/L BUN (7-17) mg/dL Creatinine (0.52-1.04) mg/dL Estimated GFR (>60) mL/min BUN/Creatinine Ratio (6-22) Glucose (80-110) mg/dL Calcium (8.4-10.2) mg/dL Magnesium (1.6-2.3) mg/dL Total Bilirubin (0.2-1.3) mg/dL AST (14-36) IU/L ALT (<35) IU/L Alkaline Phosphatase (38-126) U/L Total Creatine Kinase (30-135) U/L CK-MB (CK-2) CK-MB (CK-2) Rel Index Troponin I (0.01-0.034) ng/mL Total Protein (6.3-8.2) g/dL Albumin (3.5-5.0) g/dL Globulin (1.7-4.1) g/dL Albumin/Globulin Ratio (1.0-2.8) Lipase (23-300) U/L Urine Color Urine Appearance Urine pH (4.5-8.0) Ur Specific [place] (1.000-1.035) Urine Protein (Negative) Urine Glucose (UA) (Negative) g/dL Urine Ketones (NEGATIVE) Urine Occult Blood (Negative) Urine Nitrate (Negative) Urine Bilirubin (NEGATIVE) Ur Bilirubin Confirm (Negative) Urine Urobilinogen (0.2) E.U./dL Ur Leukocyte Esterase (NEGATIVE) Urine RBC (0-5/HPF) Urine WBC (0-5/HPF) Ur Squamous Epith Cells (0-5/HPF) Ur Transition Epith Cell (0-5/HPF) Ur Renal Epithelial Cell (0-1/HPF) Urine Bacteria (None) Hyaline Casts (None) Ur Culture Indicated? SARS-CoV-2 (PCR) Negative (Negative) Imaging Data Chest x-ray: Radiologist's Impression: PROCEDURE:? XR CHEST 1V ? INDICATIONS:? chest pain ? TECHNIQUE:? One view of the chest was acquired.? ? COMPARISON:? [facility], , XR CHEST 1V, 06/05/2021, 9:05. ? FINDINGS:? ? Surgical changes and devices:? None.? ? Lungs and pleura:? Lungs are clear.? No pleural effusions or pneumothorax.? ? Mediastinum:? Mediastinal contours appear normal.? Heart size is normal.? At least moderate aortic atherosclerotic calcifications. ? Bones and chest wall:? No suspicious bony lesions.? Overlying soft tissues appear unremarkable.? ? IMPRESSION:? No acute cardiopulmonary abnormality. ? ? Dictated by: Syed Reyes M.D. on 06/28/2021 at 17:54 ? ? Approved by: Syed Reyes M.D. on 06/28/2021 at 17:54 ? ECG Data Interpretation: Sinus rhythm low-voltage multiple artifact rate 84 UT interval 142 QRS 70 MDM Narrative Medical decision making narrative: Patient lives alone with MS she was stuck on her toilet for over 5 hours generally weak. She has an obvious UTI without sepsis. She also is found to be slightly dehydrated with acute kidney injury and increasing creatinine. Jose HARPER updated on patient's symptoms test results agrees with observation Discharge Plan Departure Patient Disposition: Admitted as Observation Clinical Impression: Acute UTI Admit Date/Time: 06/28/21 20:19 Admit Provider: Radha Garcia
[2021-06-28] MEDS: cefTRIAXone 1,000 MG in SODIUM CHLORIDE 0.9% 100 ML 200 ML IV (18:50)
[2021-06-28] MEDS: SODIUM CHLORIDE 0.9% 1,000 ML 125 ML IV (18:50)
[2021-06-28 19:52] LABS: COVID19 -Nasal RAPID Negative (Negative)
[2021-06-28] MEDS: diphenhydrAMINE 50 MG/ML VIAL 25 MG IV (21:53)
[2021-06-28] MEDS: SODIUM CHLORIDE 0.9% 1,000 ML 100 ML IV (21:53)
[2021-06-28] MEDS: PIPERACILLIN/TAZO 4.5 GM in SODIUM CHLORIDE 0.9% 100 ML 200 ML IV (23:03)
[2021-06-29 01:00] VITALS: O2SAT 96
--- NOTE | 2021-06-29 03:23 | P.HP_ITS ---
History of Present Illness History of Present Illness Date Patient Seen: 06/28/21 Time Patient Seen: 20:22 Chief complaint: alt mental status Narrative: ?Ms. Castillo is an 80W with PMH of MS, bedbound, chronic guzman for urinary incontinence from MS, GERD, HTN. She is wheelchair-bound but is usually able to transfer herself to and from the toilet.? However she has a very kind neighbor who helps her into and out of bed. Today she had a diarrhea episode lasting sev eral hours and she was unable to get off the commode due to weakness in her legs, dizziness, lightheaded felt like she was going to pass out, and remained on the commode for approximately 5 hours, but did not LOC.? Patient complains of generalized Overall very weakness, nausea starting today, mild chills, changes in vision, slight confusion. The patient notes that in the days previous her urine has been almost clear following Lasix oral dosage at home, but yesterday her urine be began to become dark and foul-smelling, she also notes smelly odorous vaginal discharge. The patient reports that she has received 2 treatments for yeast infection, patient also had a history of C diff 08/2020. Patient chronically has an indwelling Guzman, she denies any dysuria, hematuria, hematemesis, melena, fever or body aches. Patient had a urinary tract infection within the last month that was treated with antibiotics. Denies any chest pain palpitations nausea vomiting shortness of breath.? She has had no further episodes diarrhea. Upon admit to the floor the patient reports that she is feeling much improved, it is observed that the patient's upper lip is quite swollen. After questioning ER nurses the Dung renee apparently started to develop swelling of her upper lift following the 1st dosage of Rocephin in the ED. the patient denies difficulty with breathing swelling of her airway it itching or irritation to the mouth. The swelling is strictly located in the upper lip, and patient is having no difficulty with swallowing or speech. Patient's vitals upon admit temp 96.9?, BP 127/66, HR 77, R 22, O2 saturation 99% on room air. Patient's CBC was within normal limits, patient did demonstrate BRENDA upon admit. Patient's labs last on 06/05/2021 BUN 23, creatinine 0.98, GFR 54.3. Today patient demonstrates a BUN of 42, creatinine of 1.58, glucose 156, and GFR of 31.3, total protein 8.8, lipase is negative, patient's urinalysis was positive for proteins, ketones, blood, nitrates, bilirubin, leuk E, WBC, RBC, bacteria-urine was sent for culture. Patient's chest x-ray demonstrated no acute cardiopulmonary issues. Patient is admitted for UTI resulting in BRENDA likely secondary to chronic Guzman placement due to the patient's progressing multiple sclerosis. Patient's antibiotic was changed from Rocephin, Benadryl 25 mg IV provided, Zosyn. At the time of admit patient was stable and in no distress. Patient History Medical History Acute UTI Hypertension Multiple sclerosis Recurrent Clostridium difficile diarrhea Ureterolithiasis Surgical History H/O: hysterectomy Hx of appendectomy Family & Social History Family History Father Hypertension Mother No problems noted. Social History: household members none Prior Living Arrangements House Safety & Behavioral: Feels Safe in Current Yes Environment Been Physically Hurt or No Threatened By a Person Suicidal Ideation Description None Suicide Plan Description No Plan Tobacco & Substance use: Tobacco type cigarettes Smoking Status Former smoker alcohol intake current alcohol intake frequency holiday/special occasion Substance Use Type does not use Meds Home Medications and Allergies Home Medications Medication Instructions Recorded Confirmed Type cholecalciferol (vitamin D3) 25 1,000 unit PO DAILY 10/25/18 06/28/21 History mcg (1,000 unit) capsule citalopram 20 mg tablet 20 mg PO DAILY 06/04/19 06/28/21 History acetaminophen 325 mg tablet 650 mg PO Q6HR PRN #30 tab 06/08/19 06/28/21 Rx lisinopril 20 mg tablet 20 mg PO DAILY 08/29/20 06/28/21 History omeprazole 20 mg capsule,delayed 20 mg PO DAILY 08/29/20 06/28/21 History release Allergies Allergy/AdvReac Type Severity Reaction Status Date / Time azithromycin Allergy Mild RASH Verified 06/11/21 12:23 levofloxacin Allergy Mild RASH Verified 06/11/21 12:23 Sulfa (Sulfonamide Allergy Mild RASH Verified 06/11/21 12:23 Antibiotics) ceftriaxone AdvReac Intermediate Swelling Verified 06/28/21 22:46 of Lip/Tongue/Throat adhesive AdvReac Mild RASH FROM Verified 06/11/21 12:23 CLOTH TAPE Review of Systems Review of Systems Narrative: All 12 point systems reviewed with the patient and are negative except otherwise documented. Exam Vital Signs (past 8 hours): - 06/28/21 19:30 06/28/21 20:00 06/28/21 20:30 Temperature Pulse Rate 77 87 76 Respiratory Rate 23 14 Blood Pressure 127/66 154/74 H Pulse Oximetry 99 99 100 06/28/21 20:55 06/28/21 21:17 06/28/21 23:20 Temperature 97.6 F 97.6 F Pulse Rate 91 H 91 H 91 H Respiratory Rate 18 18 16 Blood Pressure 149/74 H 149/74 H Pulse Oximetry 99 99 99 Oxygen Delivery Method Room Air Narrative Exam Narrative: General: Patient is a delightful, thin, elderly appearing female, no distress at this time. HEENT: Normocephalic, atraumatic, extraocular muscles intact, oral pharynx is clear and mucous membranes are moist, noted inflammation of the upper lip without involvement of the oral airway Neck is supple and symmetric, trachea is midline, no adenopathy, no thyroid enlargement, nontender, no masses palpated. Negative for JVD Chest: no nasal flaring, retractions, or tachypneic labored Lungs: Auscultation of all lung rosenberg are clear without adventitious sounds, wheezes, rhonchi, or rales. Cardio: regular rate and rhythm without murmur, rubs, or gallops, no carotid bruit, no cardiac pulsations present. Abdomen: Soft nontender, negative for organomegaly, or masses. Bowel sounds are present in all 4 quadrants without guarding or rebound, no CVA tenderness. Musculoskeletal: Muscle strength and tone are a baseline for the patient, no deformity, crepitus, effusions, cyanosis, clubbing or edema present. Patient's right leg has noted deformity at the ankle with a internal rotation, due to poor bone healing after a fx. intact radial and pedal pulses are normal. Skin: Warm dry and intact without rashes, ulcerations or petechiae. Neuro: Alert and orientated x3, sensation groslly to touch intact, no gross deficits noted of cranial nerves. Psych: Patient has a well-kept appearance, appropriate affect, mental status at titude,thought context and judgment are sharp for age. Objective Labs Result Diagrams: 06/28/21 16:37 06/28/21 16:37 Labs: Laboratory Results - last 24 hr 06/28/21 06/28/21 06/28/21 16:37 16:37 16:54 WBC 8.7 RBC 4.44 Hgb 13.0 Hct 39.1 MCV 87.9 MCH 29.2 MCHC 33.3 RDW 14.8 Plt Count 321 Neut % (Auto) 73.6 Lymph % (Auto) 20.9 L [place] % (Auto) 4.3 Eos % (Auto) 0.7 L Baso % (Auto) 0.5 Neut # (Auto) 6400 Lymph # (Auto) 1800 [place] # (Auto) 400 Eos # (Auto) 100 Baso # (Auto) 0 Sodium 140 Potassium 4.2 Chloride 103 Carbon Dioxide 28 BUN 42 H Creatinine 1.58 H Estimated GFR 31.3 L BUN/Creatinine Ratio 26.6 H Glucose 156 H Calcium 9.5 Magnesium 2.1 Total Bilirubin 0.5 AST 25 ALT 13 Alkaline Phosphatase 89 Total Creatine Kinase 60 CK-MB (CK-2) TNP CK-MB (CK-2) Rel Index TNP Troponin I < 0.012 Total Protein 8.8 H Albumin 4.7 Globulin 4.1 Albumin/Globulin Ratio 1.1 Lipase 273 Urine Color Yellow Urine Appearance Cloudy Urine pH 5.0 Ur Specific [place] 1.025 Urine Protein 1+ H Urine Glucose (UA) Negative Urine Ketones Trace H Urine Occult Blood 2+ H Urine Nitrate Positive H Urine Bilirubin 1+ H Ur Bilirubin Confirm Negative Urine Urobilinogen 0.2 Ur Leukocyte Esterase 2+ H Urine RBC 5-10/hpf H Urine WBC 30-100/hpf H Ur Squamous Epith Cells 1-5 /hpf Ur Transition Epith Cell 5-10/hpf H Ur Renal Epithelial Cell 0-1/hpf Urine Bacteria Many (>30) H Hyaline Casts 5-10/lpf Ur Culture Indicated? Specimen cultured SARS-CoV-2 (PCR) 06/28/21 18:50 WBC RBC Hgb Hct MCV MCH MCHC RDW Plt Count Neut % (Auto) Lymph % (Auto) [place] % (Auto) Eos % (Auto) Baso % (Auto) Neut # (Auto) Lymph # (Auto) [place] # (Auto) Eos # (Auto) Baso # (Auto) Sodium Potassium Chloride Carbon Dioxide BUN Creatinine Estimated GFR BUN/Creatinine Ratio Glucose Calcium Magnesium Total Bilirubin AST ALT Alkaline Phosphatase Total Creatine Kinase CK-MB (CK-2) CK-MB (CK-2) Rel Index Troponin I Total Protein Albumin Globulin Albumin/Globulin Ratio Lipase Urine Color Urine Appearance Urine pH Ur Specific [place] Urine Protein Urine Glucose (UA) Urine Ketones Urine Occult Blood Urine Nitrate Urine Bilirubin Ur Bilirubin Confirm Urine Urobilinogen Ur Leukocyte Esterase Urine RBC Urine WBC Ur Squamous Epith Cells Ur Transition Epith Cell Ur Renal Epithelial Cell Urine Bacteria Hyaline Casts Ur Culture Indicated? SARS-CoV-2 (PCR) Negative Assessment & Plan Assessment & Plan narrative: Ms. Castillo is an 80W with PMH of MS who is admitted for UTI, BRENDA secondary to chronic Guzman, due to MS. 1.UTI resulting in BRENDA secondary to chronic Guzman due to multiple sclerosis, acute on chronic, present on admission -labs last on 06/05/2021 BUN 23, creatinine 0.98, GFR 54.3. Today patient demonstrates a BUN of 42, creatinine of 1.58, glucose 156, and GFR of 31.3 -urine culture/blood/vaginal culture, C diff cultures pending -NS at 100 cc/HR -believe patient had an allergic reaction to Rocephin: Rocephin stopped changed to Zosyn and given 25 mg of Benadryl IV -provide antiemetics as needed, and or Imodium if required. -monitor patients stool output. -Monitor urine output -Monitor renal function 2. Multiple sclerosis, chronic, present on admission -patient having difficulty care for self due to limited mobility -no acute flare of MS here -may need PT eval 3. Chronic indwelling guzman, chronic, present on admission -due to incontinence from MS -Acute infection: Zosyn 4. Hypertension, essential, chronic, present on admission -continue lisinopril 5. Hiatal hernia, GERD, with history of Cdiff, chronic, present on admission -hold PPI for now given risk of c diff associated with use, Cdiff PCR pending 6. Left ureteral stones -asymptomatic, noted on CT on 06/05/2021 -no acute intervention now Code Status: Full Surrogate decisionmaker: Neighbor Hitesh BERRY PCR: Negative DVT/VTE prophylaxis: Lovenox and SCDs Disposition estimated length of stay less than 2 midnights. I have utilized all available immediate resources to obtain, update, or review the patient's current medications. I confirmed that the patient's advanced care plan is present, Code status is documented and/or surrogate decision maker is listed in the patient's medical record. Time Spent With Patient Critical Care time: I spent a total of [] minutes of critical care time on this patient's care today; this time is exclusive of procedural time. Quality VTE Deep Vein Thrombosis/Pulmonary Embolism Present on Admission: No
[2021-06-29 04:21] VITALS: PULSE 83; RESP 16; O2SAT 96
[2021-06-29 04:47] VITALS: BP 94/55; PULSE 83; RESP 16; TEMP 36.2; O2SAT 96
[2021-06-29 05:00] VITALS: O2SAT 96
[2021-06-29] MEDS: PANTOPRAZOLE DR 20 MG TABLET PO (05:26)
[2021-06-29 06:17] LABS: BUN Creatinine Ratio 29.9 (6-22); Blood Urea Nitrogen 40 mg/dL (7-17); Calcium 8.8 mg/dL (8.4-10.2); Carbon Dioxide 30 mmol/L (22-32); Chloride 107 mmol/L (98-107); Estimated Glomerular Filt Rate 37.9 mL/min (>60); Glucose 90 mg/dL (80-110); HEMOLYSIS < 15 (0-50); Potassium 4.3 mmol/L (3.4-5.1); Sodium 139 mmol/L (137-145)
[2021-06-29] MEDS: SODIUM CHLORIDE 0.9% 1,000 ML 1000 ML IV (08:26)
[2021-06-29] MEDS: methylPREDNISolone 125 MG/2 ML VIAL 60 MG IV (08:26)
[2021-06-29] MEDS: ENOXAPARIN 30 MG/0.3 ML SYRINGE SUBCUT (08:27)
[2021-06-29] MEDS: CITALOPRAM 10 MG TABLET 20 MG PO (08:27)
[2021-06-29 09:30] VITALS: BP 140/67; PULSE 90; RESP 18; TEMP 36.3; O2SAT 98
[2021-06-29] MEDS: SODIUM CHLORIDE 0.9% 1,000 ML 100 ML IV (09:35)
[2021-06-29] MEDS: AZTREONAM 1 GM in DEXTROSE 5 % IN WATER 50 ML 100 ML IV (09:36)
--- NOTE | 2021-06-29 12:37 | PC.NURSE ---
Patients guzman is patent and putting out yellow urine. Patient denies pain and states that she is tired. She is going to be discharged today around 1400. IV antibiotic in and patient will be heplocked.
[2021-06-29] MEDS: FOSFOMYCIN 3 GM PACKET PO (13:45)
--- NOTE | 2021-06-29 16:03 | CM.IDA ---
Initial DCP Assessment Note Pt is a 80 yo female, resident of [place], arrives w/ alt mental status and found to have a UTI PMH includes MS, bedbound, chronic guzman for urinary incontinence from MS, GERD, HTN PCP: Titus Carcamo Payer: Devin [employer]/ [employer] Reviewed chart, met w/patient, introduced role. Patient lives alone, w/c bound, can self transfer. Patient's friend and neighbor Hitesh assists w/getting her mail, shopping and helping w/errands. Patient has a son, Roberto and dtr Chata, that patient says she sees occasionally Patient states she does not need in home care givers or HH services at this time; patient has arranged for her son to take her home today Plan: home w/son today, No needs expected from DC planning team Joy Church, MATERIAL CLERK
--- NOTE | 2021-06-29 17:40 | PM.DS.1 ---
History of Present Illness History of Present Illness Chief complaint: alt mental status Narrative: Ms. Castillo is an 80W with PMH of MS, bedbound, chronic guzman for urinary incontinence from MS, GERD, HTN. She is wheelchair-bound but is usually able to transfer herself to and from the toilet.? However she has a very kind neighbor who helps her into and out of bed. Today she had a diarrhea episode lasting several hours and she was unable to get off the commode due to weakness in her legs,? dizziness, lightheaded? felt like she was going to pass out, and remained on the commode for approximately 5 hours, but did not LOC.?? Patient complains of generalized Overall very weakness, nausea starting today, mild chills, changes in vision, slight confusion.? The patient notes that in the days previous her urine has been almost clear following Lasix oral dosage at home, but yesterday her urine be began to become dark and foul-smelling, she also notes smelly odorous vaginal discharge.? The patient reports that she has received 2 treatments for yeast infection, patient also had a history of C diff 08/2020.? Patient chronically has an indwelling Guzman, she denies any dysuria, hematuria, hematemesis, melena, fever or body aches.? Patient had a urinary tract infection within the last month that was treated with antibiotics. Denies any chest pain palpitations nausea vomiting shortness of breath.? She has had no further episodes diarrhea. Upon admit to the floor the patient reports that she is feeling much improved, it is observed that the patient's upper lip is quite swollen.? After questioning ER nurses the Dung renee apparently started to develop swelling of her upper lift following the 1st dosage of Rocephin in the ED. the patient denies difficulty with breathing swelling of her airway it itching or irritation to the mouth.? The swelling is strictly located in the upper lip, and patient is having no difficulty with swallowing or speech.? Patient's vitals upon admit temp 96.9?, BP 127/66, HR 77, R 22, O2 saturation 99% on room air.? Patient's CBC was within normal limits, patient did demonstrate BRENDA upon admit.? Patient's labs last on 06/05/2021 BUN 23, creatinine 0.98, GFR 54.3.? Today patient demonstrates a BUN of 42, creatinine of 1.58, glucose 156, and GFR of 31.3, total protein 8.8, lipase is negative, patient's urinalysis was positive for proteins, ketones, blood, nitrates, bilirubin, leuk E, WBC, RBC, bacteria-urine was sent for culture.? Patient's chest x-ray demonstrated no acute cardiopulmonary issues.? Patient is admitted for UTI resulting in BRENDA likely secondary to chronic Guzman placement due to the patient's progressing multiple sclerosis.? Patient's antibiotic was changed from Rocephin, Benadryl 25 mg IV provided, Zosyn.? At the time of admit patient was stable and in no distress. Discharge Providers Provider Date of admission: 06/28/21 20:19 Discharge Date: 06/29/21 Primary care physician: Titus Carcamo DO Discharge provider: Alejandro Pitts MD Summary Hospital Course Discharge Diagnosis: 1. UTI with BRENDA secondary to chronic guzman due to multiple sclerosis 2. Multiple sclerosis 3. Hypertension 4. Possible angioedema due to ceftriaxone 5. Hiatal hernia, GERD Hospital Course: Ms. Castillo came in to the hospital with chills, one episode of diarrhea. She quickly improved in the hospital. Her workup showed a mild BRENDA which improved with fluids and a urinary tract infection, with gram negative bacilli. She has previously had pansensitive infections in the past. She was initially started on ceftriaxone, she developed upper lip swelling. No tongue swelling, throat swelling, hypotension, dizziness, or shortness of breath. She did get benadryl and steroids. Her antibiotics were switched to aztreonam. She was feeling back to her baseline, she was given one dose of fosfomycin and discharged home. Her lisinopril is recommended to be held for three more days due to her BRENDA and then restart. She should follow up with her PCP within one week. Discharge time 32 minutes Exam Vital Signs (past 8 hours): Oxygen Delivery Method Room Air Oxygen Flow Rate 0 Narrative Exam Narrative: General:?no acute distress Lungs:?clear bilaterally Cardio:? regular rate and rhythm without murmur Abdomen:? Soft nontender, negative for organomegaly, or masses. Musculoskeletal:? right leg has noted deformity at the ankle with a internal rotation, chronic Objective Labs Result Diagrams: 06/28/21 16:37 06/29/21 05:19 Labs: Laboratory Results - last 24 hr 06/28/21 06/29/21 18:50 05:19 Sodium 139 Potassium 4.3 Chloride 107 Carbon Dioxide 30 BUN 40 H Creatinine 1.34 H Estimated GFR 37.9 L BUN/Creatinine Ratio 29.9 H Glucose 90 Calcium 8.8 SARS-CoV-2 (PCR) Negative PFSH Medical History Acute UTI Hypertension Multiple sclerosis Recurrent Clostridium difficile diarrhea Ureterolithiasis Surgical History H/O: hysterectomy Hx of appendectomy Family History Father Hypertension Mother No problems noted. Social History household members: none occupational status: previously employed Smoking Status: Former smoker alcohol intake: current Discharge Plan Discharge Plan Patient Disposition: Home Provider Discharge Comment: Ms. Castillo came in with dehydration and a UTI. She improved with IV fluids and antibiotics. She finished her antibiotics here in the hospital. She should hold her lisinopril for 3 days, and then restart as that could have made her dehydration worse. She should follow up with her PCP within one week. Discharge orders & Medications Prescriptions: Continued cholecalciferol (vitamin D3) 1,000 unit capsule 1,000 unit PO DAILY 0RF citalopram 20 mg tablet 20 mg PO DAILY 0RF acetaminophen 325 mg Tablet 650 mg PO Q6HR PRN (Reason: Fever) Qty: 30 0RF omeprazole 20 mg capsule,delayed release(DR/EC) 20 mg PO DAILY 0RF Discontinued lisinopril 20 mg tablet 20 mg PO DAILY 0RF Follow up/Referrals: Titus Carcamo DO [Primary Care Provider] - Diet/Activity/Treatments Diet: Regular Visit Report/Discharge Packet Instructions: Urinary Tract Infection, DI for Urinary Tract Infection (UTI) Discharge Data Primary Care Provider: Titus Carcamo Attending Provider: Radha Garcia VTE Deep Vein Thrombosis/Pulmonary Embolism Present on Admission: No
== END 2021-06-29 13:45 | disposition home or self-care (01) ==
LOC: ED 17:51 → AC 21:45
PROVIDERS: Emergency Medicine; Admitting Provider Nurse Practitioner Family; Emergency Provider Emergency Medicine; PCP Family Medicine; Referring Provider Emergency Medicine; Visit Provider Nurse Practitioner Family
DX: N39.0 Urinary tract infection, site not specified (principal); B96.20 Unspecified Escherichia coli [E. coli] as the cause of diseases classified elsewhere; N17.8 Other acute kidney failure; G35 Multiple sclerosis; I10 Essential (primary) hypertension; R53.1 Weakness; Z99.3 Dependence on wheelchair; K21.9 Gastro-esophageal reflux disease without esophagitis; K46.9 Unspecified abdominal hernia without obstruction or gangrene; Z20.822 Contact with and (suspected) exposure to COVID-19
CPT/HCPCS: 36415; 71045; 80048; 80053; 81001; 82550; 83690; 83735; 84484; 85025; 87040; 87070; 87077; 87086; 87186; 87205; 87635; 93005; 93010; 94760; 96361; 96365; 96366; 96367; 96375; 99284; C9803; G0378; J0696; J1200; J1650; J2543; J2930

== ENCOUNTER 2021-07-02 21:23 | Observation (INO) | payer OTHER, SELFPAY ==
[2021-06-28 21:17] VITALS: BMI 24.9
[2021-07-02] VITALS (7 sets, daily range): BP systolic 113–129; BP diastolic 66–70; PULSE 81–103; RESP 12–24; TEMP 36.3; O2SAT 93–98
--- NOTE | 2021-07-02 21:37 | ED_ITS ---
HPI - Syncope General Chief Complaint: Weakness Stated Complaint: Dizzy, Weakness Time Seen by Provider: 07/02/21 21:25 History of Present Illness HPI narrative: 80F former smoker with PMH of MS, bedbound, chronic guzman for urinary incontinence from MS, GERD, HTN. She is full code. She is wheelchair-bound but is usually able to transfer herself to and from the toilet. She presents today by EMS due to chief complaint of a few near syncopal episodes and perhaps 1 witnessed syncopal episode. She was recently hospitalized due to complications from a UTI was discharged just a few days ago back home. She reports that she was in her normal state of health and had an episode while on the toilet, passing loose stools in which she felt lightheaded and weak. EMS was activated for evaluation and during transport she may have become near syncopal again without any obvious provocation. She is currently not feeling dizzy, weak or lightheaded. She denies any chest pain or shortness of breath. There is report 3 EMS that a friendly neighbor suspects that she may have actually passed out earlier, this details of this episode are unclear. She has a Guzman catheter in place and is actively being treated for UTI. She denies any change in diet. She has had no nausea or vomiting. Related Data Home Medications Medication Instructions Recorded Confirmed cholecalciferol (vitamin D3) 25 1,000 unit PO DAILY 10/25/18 06/28/21 mcg (1,000 unit) capsule citalopram 20 mg tablet 20 mg PO DAILY 06/04/19 06/28/21 omeprazole 20 mg capsule,delayed 20 mg PO DAILY 08/29/20 06/28/21 release Previous Rx's Medication Instructions Recorded acetaminophen 325 mg tablet 650 mg PO Q6HR PRN #30 tab 06/08/19 Allergies Allergy/AdvReac Type Severity Reaction Status Date / Time azithromycin Allergy Mild RASH Verified 07/02/21 21:47 levofloxacin Allergy Mild RASH Verified 07/02/21 21:47 Sulfa (Sulfonamide Allergy Mild RASH Verified 07/02/21 21:47 Antibiotics) ceftriaxone AdvReac Intermediate Swelling Verified 07/02/21 21:47 of Lip/Tongue/Throat adhesive AdvReac Mild RASH FROM Verified 07/02/21 21:47 CLOTH TAPE Review of Systems Review of Systems Narrative: GENERAL: Denies chills, fatigue, malaise, fever, sweats. HEENT: Denies sinus pain, ear pain, sore throat, difficulty swallowing, dizziness. RESPIRATORY: Denies dyspnea, cough, wheezing, hemoptysis, sputum. CARDIOVASCULAR: See HPI GASTROINTESTINAL: Denies nausea, vomiting, abdominal pain, diarrhea, constipation, melena. : Denies dysuria, frequency, incontinence, hematuria, urinary retention. MUSCULOSKELETAL: denies weakness, joint pain, or bony pain SKIN: Denies rash, skin lesions, or other NEUROLOGIC: Denies weakness, headache, numbness, change in speech, confusion, seizures, incoordination. PSYCHIATRIC: No concerning psychosocial issues. 12 point review of systems is negative except for those stated above Patient History Medical History Acute UTI Hypertension Multiple sclerosis Recurrent Clostridium difficile diarrhea Ureterolithiasis Surgical History H/O: hysterectomy Hx of appendectomy Family History Father Hypertension Mother No problems noted. Social History household members: none occupational status: previously employed Smoking Status: Former smoker alcohol intake: current Smoking Status: Former smoker alcohol intake frequency: holidays/special occasions only Substance Use Type: does not use Exam Narrative Exam Narrative: GENERAL: [80 year old patient appears stated age. Well-developed patient, in mild distress. HEAD: Atraumatic. Normocephalic. EYES: Pupils equal round and reactive. Extraocular motions intact. No scleral icterus. No injection or drainage. ENT: Nose without bleeding, purulent drainage. Throat without erythema, tonsillar hypertrophy or exudate. Airway patent. NECK: Trachea midline. Non tender CARDIOVASCULAR: Regular rate and rhythm without murmurs, gallops, or rubs. RESPIRATORY: Clear to auscultation. Breath sounds equal bilaterally. No wheezes, rales, or rhonchi. GASTROINTESTINAL: Abdomen soft, non-tender, nondistended. EXTREMITIES: No edema or joint tenderness. BACK: Nontender without deformity or crepitance. No flank tenderness. NEURO: AOx3. SKIN: No rash or erythema of visible areas Initial Vital Signs Initial Vital Signs: Vital Signs Temperature 97.3 F L 07/02/21 21:23 Pulse Rate 103 H 07/02/21 21:23 Respiratory Rate 20 07/02/21 21:23 Blood Pressure 129/68 07/02/21 21:23 Pulse Oximetry 98 07/02/21 21:23 Course Orders Ordered: ED Orders 07/02/21 21:28 EKG-12 Lead Stat 07/02/21 21:59 Complete Blood Count AUTO DIFF Stat Comprehensive Metabolic Panel Stat D Dimer Stat Magnesium Stat Troponin & CK Cardiac Panel Stat Urinalysis and Microscopic Stat Urine Culture Stat 07/02/21 22:38 CT angio chest PE protocol Stat 07/02/21 23:45 EKG-12 Lead Stat 07/02/21 23:51 COVID19 -Nasal swab/Pre-Proc Stat 07/03/21 00:11 Blood Culture Stat Discontinued Medications Sodium Chloride (Normal Saline 0.9%) 1,000 mls @ 1,000 mls/hr IV BOLUS ONE Stop: 07/02/21 22:24 Last Admin: 07/02/21 21:52 Dose: 1,000 mls/hr Documented by: SHAWN Vital Signs Vital signs: Vital Signs - 8 hr 07/02/21 21:23 07/02/21 21:27 07/02/21 21:30 Temperature 97.3 F L Pulse Rate 103 H 100 H 101 H Respiratory Rate 20 24 Blood Pressure 129/68 120/70 Pulse Oximetry 98 93 98 07/02/21 22:00 Temperature Pulse Rate 96 H Respiratory Rate 21 Blood Pressure 125/66 Pulse Oximetry MDM - Syncope Lab Data Result diagrams: 07/02/21 21:59 07/02/21 21:59 Labs: Lab Results 07/02/21 07/02/21 07/02/21 Range/Units 21:59 21:59 21:59 WBC 11.7 H (4.5-11.0) X10^3/uL RBC 4.47 (4.0-5.2) X10^6/uL Hgb 12.7 (12.0-16.0) g/dL Hct 39.4 (36-46) % MCV 88.2 (80-100) fL MCH 28.4 (26-34) PG MCHC 32.2 (30-36) % RDW 14.9 H (11.6-14.8) % Plt Count 315 (150-400) X10^3/uL Neut % (Auto) 75.7 H (50-75) % Lymph % (Auto) 16.8 L (25-40) % Alexander % (Auto) 6.6 (3-14) % Eos % (Auto) 0.6 L (2-4) % Baso % (Auto) 0.3 (0-2) % Neut # (Auto) 8900 H (1026-2399) /uL Lymph # (Auto) 2000 (5878-1492) /uL Alexander # (Auto) 800 (0-900) /uL Eos # (Auto) 100 (0-450) /uL Baso # (Auto) 0 (0-100) /uL D-Dimer 735 H (<230) ng/mL Sodium 138 (137-145) mmol/L Potassium 4.0 (3.4-5.1) mmol/L Chloride 102 (98-107) mmol/L Carbon Dioxide 30 (22-32) mmol/L BUN 27 H (7-17) mg/dL Creatinine 1.39 H (0.52-1.04) mg/dL Estimated GFR 36.3 L (>60) mL/min BUN/Creatinine Ratio 19.4 (6-22) Glucose 130 H (80-110) mg/dL Calcium 9.8 (8.4-10.2) mg/dL Magnesium 1.8 (1.6-2.3) mg/dL Total Bilirubin 0.5 (0.2-1.3) mg/dL AST 36 (14-36) IU/L ALT 25 (<35) IU/L Alkaline Phosphatase 80 (38-126) U/L Total Creatine Kinase 54 (30-135) U/L CK-MB (CK-2) TNP CK-MB (CK-2) Rel Index TNP Troponin I < 0.012 (0.01-0.034) ng/mL Total Protein 9.1 H (6.3-8.2) g/dL Albumin 4.8 (3.5-5.0) g/dL Globulin 4.3 H (1.7-4.1) g/dL Albumin/Globulin Ratio 1.1 (1.0-2.8) Urine Color Urine Appearance Urine pH (4.5-8.0) Ur Specific [place] (1.000-1.035) Urine Protein (Negative) Urine Glucose (UA) (Negative) g/dL Urine Ketones (NEGATIVE) Urine Occult Blood (Negative) Urine Nitrate (Negative) Urine Bilirubin (NEGATIVE) Urine Urobilinogen (0.2) E.U./dL Ur Leukocyte Esterase (NEGATIVE) Urine RBC (0-5/HPF) Urine WBC (0-5/HPF) Ur Squamous Epith Cells (0-5/HPF) Urine Bacteria (None) Urine Mucus (Negative) Urine Yeast (None) Ur Culture Indicated? SARS-CoV-2 (PCR) (Negative) 07/02/21 07/02/21 Range/Units 21:59 23:51 WBC (4.5-11.0) X10^3/uL RBC (4.0-5.2) X10^6/uL Hgb (12.0-16.0) g/dL Hct (36-46) % MCV (80-100) fL MCH (26-34) PG MCHC (30-36) % RDW (11.6-14.8) % Plt Count (150-400) X10^3/uL Neut % (Auto) (50-75) % Lymph % (Auto) (25-40) % Alexander % (Auto) (3-14) % Eos % (Auto) (2-4) % Baso % (Auto) (0-2) % Neut # (Auto) (2514-7176) /uL Lymph # (Auto) (6750-4979) /uL Alexander # (Auto) (0-900) /uL Eos # (Auto) (0-450) /uL Baso # (Auto) (0-100) /uL D-Dimer (<230) ng/mL Sodium (137-145) mmol/L Potassium (3.4-5.1) mmol/L Chloride (98-107) mmol/L Carbon Dioxide (22-32) mmol/L BUN (7-17) mg/dL Creatinine (0.52-1.04) mg/dL Estimated GFR (>60) mL/min BUN/Creatinine Ratio (6-22) Glucose (80-110) mg/dL Calcium (8.4-10.2) mg/dL Magnesium (1.6-2.3) mg/dL Total Bilirubin (0.2-1.3) mg/dL AST (14-36) IU/L ALT (<35) IU/L Alkaline Phosphatase (38-126) U/L Total Creatine Kinase (30-135) U/L CK-MB (CK-2) CK-MB (CK-2) Rel Index Troponin I (0.01-0.034) ng/mL Total Protein (6.3-8.2) g/dL Albumin (3.5-5.0) g/dL Globulin (1.7-4.1) g/dL Albumin/Globulin Ratio (1.0-2.8) Urine Color Yellow Urine Appearance Clear Urine pH 5.0 (4.5-8.0) Ur Specific [place] 1.015 (1.000-1.035) Urine Protein Negative (Negative) Urine Glucose (UA) Negative (Negative) g/dL Urine Ketones Negative (NEGATIVE) Urine Occult Blood Trace-lysed (Negative) Urine Nitrate Negative (Negative) Urine Bilirubin Negative (NEGATIVE) Urine Urobilinogen 0.2 (0.2) E.U./dL Ur Leukocyte Esterase 1+ H (NEGATIVE) Urine RBC 0-1/hpf (0-5/HPF) Urine WBC 10-30/hpf H (0-5/HPF) Ur Squamous Epith Cells 0-1 /hpf (0-5/HPF) Urine Bacteria Few (2-10) H (None) Urine Mucus 1+ H (Negative) Urine Yeast 0-1/hpf (None) Ur Culture Indicated? Specimen cultured SARS-CoV-2 (PCR) Negative (Negative) Imaging Data CT scan - chest: Radiologist's Impression: [address] [address] [address] Scan Report Signed Patient: Olivia Castillo MR#: [id number] : 1940 Acct:[id number] Age/Sex: 80 / F Date of Service: 07/02/21 Loc: ED Accession Number: [id number] ?? Procedure: CT angio chest PE protocol Ordering Provider: Francesco Shane D.O. PROCEDURE:? CT ANGIO CHEST PE PROTOCOL ? INDICATIONS:? syncope. palpitations, recent admission, tachycardia, critical dimer ? TECHNIQUE:? After the administration of intravenous contrast, 2 mm thick sections acquired from the pulmonary apices to the posterior costophrenic angles.? 3-dimensional maximum intensity projection (MIP) coronal and sagittal reformats were then acquired through the thorax.? For radiation dose reduction, the following was used:? automated exposure control, adjustment of mA and/or kV according to patient size.? ? COMPARISON:? [facility], CT, CT ANGIO CHEST PE, 06/25/2019, 13:49. ? FINDINGS:? Image quality:? Excellent.? ? Pulmonary arteries:? Pulmonary arteries are normal in size, and demonstrate no intraluminal filling defects to suggest central pulmonary embolism.? ? Lungs and pleura:? Pulmonary nodules are as follows: ? 1. Unchanged 4 mm right upper lobe pulmonary nodule, image 122/5. 2. Unchanged 3 mm pulmonary nodule, medial right upper lobe, subjacent to the superior vena cava, current image 83/5.? 3. 4 mm lateral segment right middle lobe pulmonary nodule, current image 142/5. 4. 4 mm pulmonary nodule, right lower lobe, current image 128/5.? ? Lungs are clear.? No pleural effusions or pneumothorax.? Central and peripheral airways are patent.? ? Mediastinum:? Heart size is normal, without pericardial effusion.? At least moderate coronary artery calcifications.? No mediastinal or hilar adenopathy.? Thoracic aorta is normal in caliber and enhancement.? Esophagus is normal in caliber, with moderate hiatal hernia.? ? Bones and chest wall:? No suspicious bony lesions.? Ribs and thoracic spine appear intact throughout.? Thyroid gland is unremarkable.? No axillary or supraclavicular adenopathy.? ? Abdomen:? Visualized upper abdominal solid organs appear normal in the early arterial phase of enhancement.? ? IMPRESSION:? ? 1. No evidence acute pulmonary emboli. ? 2. Stable small pulmonary nodules. ? 3. Moderate hiatal hernia, as before. ? 4. At least moderate coronary artery calcifications.? ? ? Dictated by: Jay Pennington M.D. on 07/02/2021 at 23:15 ? ? Approved by: Jay Pennington M.D. on 07/02/2021 at 23:21 ? MDM Narrative Medical decision making narrative: Daughter GIOVANY Paulino [phone] called, updated Patient is hemodynamically stable and has reassuring labs and multiple EKGs. She had 3 episodes this evening and though the story is unclear at least 1 of her episodes was a near syncopal event witnessed in front of medics without any obvious provocation. Patient is awake and alert and multiple underlying etiologies were considered including dehydration, electrolyte abnormality, anemia, cardiac disturbance and pulmonary embolism. There is no obvious explanation at this point time and patient will require hospitalization for fur ther evaluation stabilization of her condition. Patient and her power of sports attorney understand and agree with the plan. Discharge Plan Departure Patient Disposition: Admitted as Observation Clinical Impression: Syncope Admit Date/Time: 07/03/21 00:13 Admit Provider: Radha Garcia
[2021-07-02] MEDS: SODIUM CHLORIDE 0.9% 1,000 ML 1000 ML IV (21:52)
[2021-07-02 22:16] LABS: Appearance Urine UA CLEAR; Bilirubin Urine UA NEGATIVE (NEGATIVE); Color Urine UA YELLOW; Glucose Urine UA NEGATIVE (Negative); Ketones Urine UA NEGATIVE (NEGATIVE); Leukocyte Esterase Urine UA 1+ (NEGATIVE); Nitrite Urine UA NEGATIVE (Negative); Occult Blood Urine UA TRACE-LYSED (Negative); Protein Urine UA NEGATIVE (Negative); Specific Gravity Urine UA 1.015 (1.000-1.035); Urobilinogen Urine UA 0.2 E.U./dL (0.2)
[2021-07-02 22:19] LABS: Add Manual Diff / Slide Review NO; Basophils Absolute Auto 0 /uL (0-100); Basophils Percent Auto 0.3 % (0-2); Eosinophils Absolute Auto 100 /uL (0-450); Eosinophils Percent Auto 0.6 % (2-4); Hematocrit 39.4 % (36-46); Hemoglobin 12.7 g/dL (12.0-16.0); Lymphocytes Absolute Auto 2000 /uL (1100-4500); Lymphocytes Percent Auto 16.8 % (25-40); Mean Corpuscular HGB Conc 32.2 % (30-36); Mean Corpuscular Hemoglobin 28.4 PG (26-34); Mean Corpuscular Volume 88.2 fL (80-100); Monocytes Absolute Auto 800 /uL (0-900); Monocytes Percent Auto 6.6 % (3-14); Neutrophils Absolute Auto 8900 /uL (1500-7000); Neutrophils Percent Auto 75.7 % (50-75); Platelet Count 315 X10^3/uL (150-400); Red Blood Cell Count 4.47 X10^6/uL (4.0-5.2); Red Cell Distribution Width 14.9 % (11.6-14.8); White Blood Cell Count 11.7 X10^3/uL (4.5-11.0)
[2021-07-02 22:22] LABS: Bacteria Urine Few (2-10); D Dimer 735 ng/mL (<230); Mucus Urine 1+ (Negative); RBC Urine 0-1/HPF (0-5/HPF); Squamous Epithelial Cell Urine 0-1 /HPF (0-5/HPF); WBC Urine 10-30/HPF (0-5/HPF)
[2021-07-02 22:23] LABS: Culture Indicated Urine Specimen Cultured
[2021-07-02 22:24] LABS: Alanine Aminotransferase 25 IU/L (<35); Albumin 4.8 g/dL (3.5-5.0); Albumin Globulin Ratio 1.1 (1.0-2.8); Alkaline Phosphatase 80 U/L (38-126); Aspartate Aminotransferase 36 IU/L (14-36); BUN Creatinine Ratio 19.4 (6-22); Bilirubin Total 0.5 mg/dL (0.2-1.3); Blood Urea Nitrogen 27 mg/dL (7-17); Calcium 9.8 mg/dL (8.4-10.2); Carbon Dioxide 30 mmol/L (22-32); Chloride 102 mmol/L (98-107); Creatine Kinase 54 U/L (30-135); Estimated Glomerular Filt Rate 36.3 mL/min (>60); Globulin 4.3 g/dL (1.7-4.1); Glucose 130 mg/dL (80-110); HEMOLYSIS < 15 (0-50); Magnesium 1.8 mg/dL (1.6-2.3); Sodium 138 mmol/L (137-145); Total Protein 9.1 g/dL (6.3-8.2)
[2021-07-02 22:36] LABS: Troponin I < 0.012 ng/mL (0.01-0.034)
--- NOTE | 2021-07-02 22:38 | DI.CT.S_ITS ---
PROCEDURE: CT ANGIO CHEST PE PROTOCOL INDICATIONS: syncope. palpitations, recent admission, tachycardia, critical dimer TECHNIQUE: After the administration of intravenous contrast, 2 mm thick sections acquired from the pulmonary apices to the posterior costophrenic angles. 3-dimensional maximum intensity projection (MIP) coronal and sagittal reformats were then acquired through the thorax. For radiation dose reduction, the following was used: automated exposure control, adjustment of mA and/or kV according to patient size. COMPARISON: [facility], CT, CT ANGIO CHEST PE, 06/25/2019, 13:49. FINDINGS: Image quality: Excellent. Pulmonary arteries: Pulmonary arteries are normal in size, and demonstrate no intraluminal filling defects to suggest central pulmonary embolism. Lungs and pleura: Pulmonary nodules are as follows: 1. Unchanged 4 mm right upper lobe pulmonary nodule, image 122/5. 2. Unchanged 3 mm pulmonary nodule, medial right upper lobe, subjacent to the superior vena cava, current image 83/5. 3. 4 mm lateral segment right middle lobe pulmonary nodule, current image 142/5. 4. 4 mm pulmonary nodule, right lower lobe, current image 128/5. Lungs are clear. No pleural effusions or pneumothorax. Central and peripheral airways are patent. Mediastinum: Heart size is normal, without pericardial effusion. At least moderate coronary artery calcifications. No mediastinal or hilar adenopathy. Thoracic aorta is normal in caliber and enhancement. Esophagus is normal in caliber, with moderate hiatal hernia. Bones and chest wall: No suspicious bony lesions. Ribs and thoracic spine appear intact throughout. Thyroid gland is unremarkable. No axillary or supraclavicular adenopathy. Abdomen: Visualized upper abdominal solid organs appear normal in the early arterial phase of enhancement. IMPRESSION: 1. No evidence acute pulmonary emboli. 2. Stable small pulmonary nodules. 3. Moderate hiatal hernia, as before. 4. At least moderate coronary artery calcifications. Dictated by: Jay Pennington M.D. on 07/02/2021 at 23:15 Approved by: Jay Pennington M.D. on 07/02/2021 at 23:21
[2021-07-03] VITALS (14 sets, daily range): BP systolic 91–137; BP diastolic 44–65; PULSE 75–101; RESP 14–30; TEMP 35.9–36.8; O2SAT 93–97; BMI 24.7
[2021-07-03 00:12] LABS: COVID19 -Nasal RAPID Negative (Negative)
--- NOTE | 2021-07-03 00:27 | P.HP_ITS ---
History of Present Illness History of Present Illness Date Patient Seen: 07/03/21 Time Patient Seen: 00:24 Chief complaint: Dizzy, Weakness Narrative: ?Ms. Castillo is an 80W with PMH of MS, bedbound, chronic guzman for urinary incontinence from MS, GERD, HTN. She is wheelchair-bound but is usually able to transfer herself to and from the toilet, and has a neighbor who helps her into and out of bed. She presents today by EMS in regards to 2 episodes of syncopal & near syncopal. Paramedics witnessed the 2nd near syncopal episodes. This occurred as the patient was sitting in the back of the ambulance, with no known source of provocation. Patient became pale/wilkerson, unresponsive, diaphoretic, and with no EKG changes. The 1st episode was to of occurred early in the day, witnessed by her neighbor who found her unresponsive. Specific details were unclear. The patient was recently hospitalized on 06/28/2021 OBS for acute UTI with secondary BRENDA and was d/c within 24hrs. Upon discharge patient was advised to hold her lisinopril x3 days, consequently she had restarted her lisinopril this morning.The patient reports today that she was in her normal state of heal th and had an episode while on the toilet, passed loose stool, vomited x1 and felt lightheaded and weak. Upon admit she denies chest pain, shortness of breath, abdominal pain, nausea, further vomiting, diarrhea, dizziness, weakness, lightheadedness, urinary symptoms, fever, body aches, chills, pain with bowel movement, blood in her stool, urine, hematemesis, or any recent illness injury or trauma. OBS Hospitalization 06/28/2021 D/C summary per Dr. Pitts: Ms. Castillo came in to the hospital with chills, one episode of diarrhea. She quickly improved in the hospital. Her workup showed a mild BRENDA which improved with fluids and a urinary tract infection, with gram negative bacilli. She has previously had pansensitive infections in the past. She was initially started on ceftriaxone, she developed upper lip swelling. No tongue swelling, throat swelling, hypotension, dizziness, or shortness of breath. She did get benadryl and steroids. Her antibiotics were switched to aztreonam. She was feeling back to her baseline, she was given one dose of fosfomycin and discharged home. Her lisinopril is recommended to be held for three more days due to her BRENDA and then restart. She should follow up with her PCP within one week. Patient's vitals upon admit temp 97.3?, BP 113/69, HR 97, RR 30, O2 saturation 96% on room air. Patient does have a mildly elevated WBC at 11.7, with a left shift neutrophils 8900, patient had a positive UTI on last admit without elevated white count or left shift. Patient's dimer was elevated even when adjusted for age 733, CTA demonstrated no PE. Patient's renal function is slightly improved from last admit BUN 27, creatinine 1.39, GFR 36.3, glucose 130. 06/28/2021: BUN 42, creatinine 1.58, GFR 31.3. Patient's total protein 9.1 elevated from prior total protein 8.8, patient's urine on this visit is noted to be clear positive Leuk est, WBC, bacteria, and mucus. Patient's urine is sent for culture from ED. Blood cultures are collected. Patient admitted for syncopal and near syncopal episode of unknown etiology, with mild neutrophilic leukocytosis. Patient History Medical History Acute UTI Hypertension Multiple sclerosis Recurrent Clostridium difficile diarrhea Ureterolithiasis Surgical History H/O: hysterectomy Hx of appendectomy Family & Social History Family History Father Hypertension Mother No problems noted. Social History: household members none Safety & Behavioral: Feels Safe in Current Yes Environment Been Physically Hurt or No Threatened By a Person Tobacco & Substance use: Tobacco type cigarettes Smoking Status Former smoker alcohol intake current alcohol intake frequency holiday/special occasion Substance Use Type does not use Meds Home Medications and Allergies Home Medications Medication Instructions Recorded Confirmed Type cholecalciferol (vitamin D3) 25 1,000 unit PO DAILY 10/25/18 06/28/21 History mcg (1,000 unit) capsule citalopram 20 mg tablet 20 mg PO DAILY 06/04/19 06/28/21 History acetaminophen 325 mg tablet 650 mg PO Q6HR PRN #30 tab 06/08/19 06/28/21 Rx omeprazole 20 mg capsule,delayed 20 mg PO DAILY 08/29/20 06/28/21 History release Allergies Allergy/AdvReac Type Severity Reaction Status Date / Time azithromycin Allergy Mild RASH Verified 07/02/21 21:47 levofloxacin Allergy Mild RASH Verified 07/02/21 21:47 Sulfa (Sulfonamide Allergy Mild RASH Verified 07/02/21 21:47 Antibiotics) ceftriaxone AdvReac Intermediate Swelling Verified 07/02/21 21:47 of Lip/Tongue/Throat adhesive AdvReac Mild RASH FROM Verified 07/02/21 21:47 CLOTH TAPE Review of Systems Review of Systems Narrative: All 12 point systems reviewed with the patient and are negative except otherwise documented. Exam Vital Signs (past 8 hours): - 07/02/21 21:23 07/02/21 21:27 07/02/21 21:30 Temperature 97.3 F L Pulse Rate 103 H 100 H 101 H Respiratory Rate 20 24 Blood Pressure 129/68 120/70 Pulse Oximetry 98 93 98 07/02/21 22:00 07/02/21 22:30 07/02/21 23:03 Temperature Pulse Rate 96 H 92 H 95 H Respiratory Rate 21 12 22 Blood Pressure 125/66 113/69 Pulse Oximetry 98 94 07/02/21 23:30 07/03/21 00:00 Temperature Pulse Rate 81 97 H Respiratory Rate 14 30 H Blood Pressure Pulse Oximetry 97 96 Oxygen Delivery Method Room Air Narrative Exam Narrative: General:? Patient is a delightful, thin, elderly appearing female, no distress at this time. HEENT:? Normocephalic, atraumatic, extraocular muscles intact, oral pharynx is clear and mucous membranes are moist. Neck is supple and symmetric, trachea is midline, no adenopathy, no thyroid enlargement, nontender, no masses palpated.? Negative for JVD Chest: ? no nasal flaring, retractions, or tachypneic labored Lungs:? Auscultation of all lung rosenberg are clear without adventitious sounds, wheezes, rhonchi, or rales. Cardio:? regular rate and rhythm without murmur, rubs, or gallops, no carotid bruit, no cardiac pulsations present. Abdomen:? Soft nontender, negative for organomegaly, or masses.? Bowel sounds are present in all 4 quadrants without guarding or rebound, no CVA tenderness. Guzman in place. Musculoskeletal:? Muscle strength and tone are a baseline for the patient, no d eformity, crepitus, effusions, cyanosis, clubbing or edema present.? Patient's right leg has noted deformity at the ankle with a internal rotation, due to poor bone healing after a fx. intact radial and pedal pulses are normal. Skin:? left lower low back area erythemic, open, bleeing, excoriation present Neuro:? Alert and orientated x3, sensation to touch intact, no gross deficits noted of cranial nerves. Psych:? Patient has a well-kept appearance, appropriate affect, mental status attitude,thought context and judgment are sharp for age. Objective Labs Result Diagrams: 07/02/21 21:59 07/02/21 21:59 Labs: Laboratory Results - last 24 hr 07/02/21 07/02/21 02 21:59 21:59 21:59 WBC 11.7 H RBC 4.47 Hgb 12.7 Hct 39.4 MCV 88.2 MCH 28.4 MCHC 32.2 RDW 14.9 H Plt Count 315 Neut % (Auto) 75.7 H Lymph % (Auto) 16.8 L Grayson % (Auto) 6.6 Eos % (Auto) 0.6 L Baso % (Auto) 0.3 Neut # (Auto) 8900 H Lymph # (Auto) 2000 Grayson # (Auto) 800 Eos # (Auto) 100 Baso # (Auto) 0 D-Dimer 735 H Sodium 138 Potassium 4.0 Chloride 102 Carbon Dioxide 30 BUN 27 H Creatinine 1.39 H Estimated GFR 36.3 L BUN/Creatinine Ratio 19.4 Glucose 130 H Calcium 9.8 Magnesium 1.8 Total Bilirubin 0.5 AST 36 ALT 25 Alkaline Phosphatase 80 Total Creatine Kinase 54 CK-MB (CK-2) TNP CK-MB (CK-2) Rel Index TNP Troponin I < 0.012 Total Protein 9.1 H Albumin 4.8 Globulin 4.3 H Albumin/Globulin Ratio 1.1 Urine Color Urine Appearance Urine pH Ur Specific [place] Urine Protein Urine Glucose (UA) Urine Ketones Urine Occult Blood Urine Nitrate Urine Bilirubin Urine Urobilinogen Ur Leukocyte Esterase Urine RBC Urine WBC Ur Squamous Epith Cells Urine Bacteria Urine Mucus Urine Yeast Ur Culture Indicated? SARS-CoV-2 (PCR) 07/02/21 07/02/21 21:59 23:51 WBC RBC Hgb Hct MCV MCH MCHC RDW Plt Count Neut % (Auto) Lymph % (Auto) Grayson % (Auto) Eos % (Auto) Baso % (Auto) Neut # (Auto) Lymph # (Auto) Grayson # (Auto) Eos # (Auto) Baso # (Auto) D-Dimer Sodium Potassium Chloride Carbon Dioxide BUN Creatinine Estimated GFR BUN/Creatinine Ratio Glucose Calcium Magnesium Total Bilirubin AST ALT Alkaline Phosphatase Total Creatine Kinase CK-MB (CK-2) CK-MB (CK-2) Rel Index Troponin I Total Protein Albumin Globulin Albumin/Globulin Ratio Urine Color Yellow Urine Appearance Clear Urine pH 5.0 Ur Specific [place] 1.015 Urine Protein Negative Urine Glucose (UA) Negative Urine Ketones Negative Urine Occult Blood Trace-lysed Urine Nitrate Negative Urine Bilirubin Negative Urine Urobilinogen 0.2 Ur Leukocyte Esterase 1+ H Urine RBC 0-1/hpf Urine WBC 10-30/hpf H Ur Squamous Epith Cells 0-1 /hpf Urine Bacteria Few (2-10) H Urine Mucus 1+ H Urine Yeast 0-1/hpf Ur Culture Indicated? Specimen cultured SARS-CoV-2 (PCR) Negative Assessment & Plan Assessment & Plan narrative: ?Ms. Castillo is an 80W with PMH of MS, bedbound, chronic guzman for urinary incontinence from MS, GERD, HTN. She is wheelchair-bound but is usually able to transfer herself to and from the toilet, and has a neighbor who helps her into and out of bed. Whom is admitted for syncopal/near syncopal episode, neutr ophilic leukocytosis, and BRENDA. Patient is admitted under observation to determine cause of syncope/near syncopal episode. Rule out possible infection, evaluate blood pressure per postural changes, evaluate for hypoglycemia, hydrate to correct for BRENDA, and evaluate medication management. 1. Syncope, witnessed near-syncope, of unknown etiology, in the setting of neutrophilic leukocytosis, and BRENDA, acute, present on admission -near syncopal episode witnessed by paramedics in the ambulance while the patient was on quality assurance monitor body, patient was said to be pale, diaphoretic, without EKG/V/S changes. Patient's labs in the ED appear unchanged if not slightly improved from last admit. -I suspect postural hypotension (sitting) as the pt has been bed bound for many years, secondary to lisinopril, and in addition to vomiting. Also may be stimulated a vagal response in the sitting position. -Patient may require midodrine or Florinef to maintain adequate blood pressure -Orthostatics ordered Q4Hrs while awake. Lying to sitting Only as pt unable to stand. Inital Orthos 124/64 L, 97/62 S -would recommend stopping lisinopril at this time. -A1C to rule out hypoglycemia -WBC 11.7, neut# 8900- Admit 06/28/21 -WBC, neut- both WNL --urine culture/blood/wound ( left lower back area) culture pending -06/05/2021: BUN 23, creatinine 0.98, GFR 54.3.? 06/28/2021: BUN of 42, creatinine of 1.58, glucose 156, and GFR of 31.3 -BRENDA as evideneced by BUN 27, creatinine 1.39, glucose 130, GFR 36.3 in comparison to Last known normal renal function 06/05/2021. -NS 60 cc/HR-for dehydration and BRENDA -On previous admit patient had an allergic reaction to Rocephin: impressive swelling of her upper lip. -monitor patients stool output for diarrhea. -Monitor urine output -Monitor renal function 2. Multiple sclerosis, chronic, present on admission -patient having difficulty care for self due to limited mobility -no acute flare of MS here -may need PT eval 3. Chronic indwelling guzman, chronic, present on admission -due to incontinence from MS -Maintain guzman Qshift 4. Hypertension, essential, chronic, present on admission -continue lisinopril 5. Hiatal hernia, GERD, with history of Cdiff, chronic, present on admission -continue PPI 6. Left ureteral stones, found on previous visit -asymptomatic, noted on CT on 06/05/2021 -no acute intervention now 7. Depression, chronic, present on admission -continue citalopram Code Status: Full Surrogate decisionmaker: Neighbor Hitesh BERRY PCR: Negative DVT/VTE prophylaxis:? Lovenox and SCDs Disposition estimated length of stay less than 2 midnights. I have utilized all available immediate resources to obtain, update, or review the patient's current medications. I confirmed that the patient's advanced care plan is present, Code status is documented and/or surrogate decision maker is listed in the patient's medical record. Time Spent With Patient Critical Care time: I spent a total of [] minutes of critical care time on this patient's care today; this time is exclusive of procedural time. Scores GCS Odin coma scale eye opening: Spontaneous Brionna coma scale verbal response: Orientated Brionna coma scale motor response: Obey commands Odin coma scale total score: 15
[2021-07-03 01:24] LABS: Hemoglobin A1C% w Est Avg Glu 5.6 % (4.0-6.0)
[2021-07-03] MEDS: SODIUM CHLORIDE 0.9% 1,000 ML 60 ML IV (02:04)
[2021-07-03 05:25] LABS: Add Manual Diff / Slide Review NO; Basophils Absolute Auto 0 /uL (0-100); Basophils Percent Auto 0.3 % (0-2); Eosinophils Absolute Auto 0 /uL (0-450); Eosinophils Percent Auto 0.4 % (2-4); Hematocrit 31.7 % (36-46); Hemoglobin 10.4 g/dL (12.0-16.0); Lymphocytes Absolute Auto 2300 /uL (1100-4500); Lymphocytes Percent Auto 28.5 % (25-40); Mean Corpuscular Hemoglobin 29.1 PG (26-34); Mean Corpuscular Volume 88.2 fL (80-100); Monocytes Absolute Auto 700 /uL (0-900); Neutrophils Absolute Auto 5100 /uL (1500-7000); Neutrophils Percent Auto 61.8 % (50-75); Platelet Count 236 X10^3/uL (150-400); Red Blood Cell Count 3.59 X10^6/uL (4.0-5.2); Red Cell Distribution Width 14.9 % (11.6-14.8); White Blood Cell Count 8.2 X10^3/uL (4.5-11.0)
[2021-07-03 05:40] LABS: Alanine Aminotransferase 18 IU/L (<35); Albumin 3.6 g/dL (3.5-5.0); Albumin Globulin Ratio 1.1 (1.0-2.8); Alkaline Phosphatase 63 U/L (38-126); Aspartate Aminotransferase 29 IU/L (14-36); BUN Creatinine Ratio 21.8 (6-22); Bilirubin Total 0.2 mg/dL (0.2-1.3); Blood Urea Nitrogen 26 mg/dL (7-17); Calcium 8.9 mg/dL (8.4-10.2); Carbon Dioxide 30 mmol/L (22-32); Chloride 104 mmol/L (98-107); Estimated Glomerular Filt Rate 43.4 mL/min (>60); Globulin 3.2 g/dL (1.7-4.1); Glucose 101 mg/dL (80-110); HEMOLYSIS < 15 (0-50); Magnesium 1.8 mg/dL (1.6-2.3); Potassium 3.9 mmol/L (3.4-5.1); Sodium 137 mmol/L (137-145); Total Protein 6.8 g/dL (6.3-8.2)
[2021-07-03 05:52] LABS: Troponin I < 0.012 ng/mL (0.01-0.034)
[2021-07-03 06:10] LABS: TSH w/ Reflex to FT4 0.84 uIU/mL (0.47-4.68)
[2021-07-03 06:11] LABS: Cortisol AM (Before 10AM) 5.55 ug/dL (4.46-22.7)
[2021-07-03] MEDS: ENOXAPARIN 30 MG/0.3 ML SYRINGE SUBCUT (08:33)
--- NOTE | 2021-07-03 12:36 | CM.DPNOTE ---
Faxed referral packet per Joy to [facility] and received sravani. Neida Saleh CM Assist.
--- NOTE | 2021-07-03 14:57 | CM.IDA ---
Initial DCP Assessment Note Pt is a 80 yo female, resident of [place], arrives w/ dizziness and weakness, after a syncopal and near syncopal episodes yesterday, unknown etiology, admitted obs. patient recently discharged home from [facility] (06.29.21) after UTI+ PMH includes MS, bedbound, chronic guzman for urinary incontinence from MS, GERD, HTN PCP: Titus Carcamo Payer: Devin PASCU[employer] Reviewed chart, met w/patient, introduced role. Patient lives alone, w/c bound, can self transfer. Patient's friend and neighbor Hitesh assists w/getting her mail, shopping and helping w/errands and, at times, helping to/from w/c . Patient has a son, Roberto and dtr Chata, that patient says she sees occasionally Discussed intermediate accountant care plan and patient admits talking about her plan scares me. Strongly encouraged patient to consider hiring in home caregivers now so that she has the potential to increase care if she no longer can self transfer. Patient also with hx of staying at [facility] for respite and will consider returning for respite vs intermediate accountant care Patient agrees that it is not realistic to rely solely on assistance from her neighbor/friend Hitesh. Patient agreeable to services and requests [facility], as she has used this agency before. Suggested HH RN/OT/LUNCH COUNTER MANAGER/BROOKLYNN and patient agreeable to this. Requested that GRACIELA Carrasquillo fax referral to [facility] and she kindly agreed Plan: Likely return home w/family and friend Hiteshkristen. Strongly encouraged intermediate accountant care planning AMRAIS BROOKLYNN De León Discharge Planning/Care Management CM Discharge Assessment Start: 07/03/21 14:52 Freq: Status: Active Protocol: Document 07/03/21 14:52 MAYUR (Rec: 07/03/21 14:57 MAYUR [id number]) Discharge Planning Assessment Assigned City Supervisor BROOKLYNN Haynes DPOA/Assigned Designee Name doyle Rodriguez Contact Information [phone] Advance Directives? Yes Advance Directives on File No History Provided By Patient,Medical Record Has Patient been admitted in last 30 Yes days? Comment 2.18-06.29.21 Prior Living Arrangements House Household Members none Type of transporation used prior to Relies on Others admit Independent with ADL's Yes Is patient alert and oriented? Yes Needs Assistance With Meal Prep,Home Chores / Shopping Comment Patient has been able to complete ADLs mostly indp because she can self transfer Patient/Family Preference Home with Home Health Barriers to Discharge Yes Comment Patient is a bit fragile at this time but is adamant ( pleasantly so) that she can manage at home w/assist from her friend and neighbor Hitesh Discharge Plan Home Transportation Arrangement Family or neighbor can transport at d/c Referrals Initiated Home Health Additional Comment referral faxed to [facility] per patient's preference SNF/HH Preference [facility] Has Agency SNF been contacted Yes
[2021-07-04 02:30] VITALS: BP 122/59; PULSE 92; RESP 14; TEMP 36.9; O2SAT 96
[2021-07-04 02:41] VITALS: O2SAT 96
[2021-07-04 03:00] VITALS: O2SAT 96
[2021-07-04] MEDS: SODIUM CHLORIDE 0.9% 1,000 ML 60 ML IV (05:54)
[2021-07-04 07:00] VITALS: O2SAT 96
[2021-07-04] MEDS: ENOXAPARIN 30 MG/0.3 ML SYRINGE SUBCUT (09:03)
--- NOTE | 2021-07-04 09:03 | P.DS_ITS ---
History of Present Illness History of Present Illness Date Patient Seen: 07/04/21 Time Patient Seen: 08:55 Chief complaint: Dizzy, Weakness Narrative: Per Radha Garcia, [facility]-: \ Ms. Castillo is an 80W with PMH of MS, bedbound, chronic guzman for urinary incontinence from MS, GERD, HTN. She is wheelchair-bound but is usually able to transfer herself to and from the toilet, and has a neighbor who helps her into and out of bed. She presents today by EMS in regards to 2 episodes of syncopal & near syncopal. Paramedics witnessed the 2nd near syncopal episodes. This occurred as the patient was sitting in the back of the ambulance, with no known source of provocation.? Patient became pale/wilekrson, unresponsive, diaphoretic, and with no EKG changes. The 1st episode was to of occurred early in the day, witnessed by her neighbor who found her unresponsive. Specific details were unclear. The patient was recently hospitalized on 06/28/2021 OBS for acute UTI with secondary BRENDA and was d/c within 24hrs. Upon discharge patient was advised to hold her lisinopril x3 days, consequently she had restarted her lisinopril this morning.The patient reports today that she was in her normal state of health and had an episode while on the toilet, passed loose stool, vomited x1 and felt lightheaded and weak.? Upon admit she denies chest pain, shortness of breath, abdominal pain, nausea, further vomiting, diarrhea, dizziness, weakness, lightheadedness, urinary symptoms, fever, body aches, chills, pain with bowel movement, blood in her stool, urine, hematemesis, or any recent illness injury or trauma. OBS Hospitalization 06/28/2021 D/C summary per Dr. Pitts: Ms. Castillo came in to the hospital with chills, one episode of diarrhea. She quickly improved in the hospital. Her workup showed a mild BRENDA which improved with fluids and a urinary tract infection, with gram negative bacilli. She has previously had pansensitive infections in the past. She was initially started on ceftriaxone, she developed upper lip swelling. No tongue swelling, throat swelling, hypotension, dizziness, or shortness of breath. She did get benadryl and steroi ds. Her antibiotics were switched to aztreonam. She was feeling back to her baseline, she was given one dose of fosfomycin and discharged home. Her lisinopril is recommended to be held for three more days due to her BRENDA and then restart. She should follow up with her PCP within one week. Patient's vitals upon admit temp 97.3?, BP 113/69, HR 97, RR 30, O2 saturation 96% on room air.? Patient does have a mildly elevated WBC at 11.7, with a left shift neutrophils 8900, patient had a positive UTI on last admit without elevated white count or left shift. Patient's dimer was elevated even when adju sted for age 733, CTA demonstrated no PE.? Patient's renal function is slightly improved from last admit BUN 27, creatinine 1.39, GFR 36.3, glucose 130.? 06/28/2021:? BUN 42, creatinine 1.58, GFR 31.3.? Patient's total protein 9.1 elevated from prior total protein 8.8, patient's urine on this visit is noted to be clear positive Leuk est, WBC, bacteria, and mucus.? Patient's urine is sent for culture from ED. Blood cultures are collected.? Patient admitted for syncopal and near syncopal episode of unknown etiology, with mild neutrophilic leukocytosis. Discharge Providers Provider Date of admission: 07/03/21 00:13 Discharge Date: 07/04/21 Primary care physician: Titus Carcamo DO Consults: 07/03/21 12:12 Consult to Home Health Routine Comment: Reason For Exam: Home Health Upon DC Discharge provider: Miguel Angel Rolle DO Summary Hospital Course Discharge Diagnosis: 1. Near syncope, orthostatic hypotension 2. Multiple sclerosis, chronic, present on admission 3. Chronic indwelling guzman, chronic, present on admission 4. Hypertension, essential, chronic, present on admission 5. Hiatal hernia, GERD, with history of Cdiff, chronic, present on admission 6. Left ureteral stones, found on previous visit 7. Depression, chronic, present on admission 8. BRENDA, present on prior admission, improved this admission. Hospital Course: Ms. Castillo is an 80W with PMH of MS, bedbound, chronic guzman for urinary incontinence from MS, GERD, HTN. She is wheelchair-bound but is usually able to transfer herself to and from the toilet, and has a neighbor who helps her into and out of bed. She was admitted with a near syncopal episode. CT angiogram wa s performed in the emergency room which ruled out a PE. Her symptoms slowly improved over the course of admission after holding the patient's lisinopril and a subsequent mild rise in her blood pressure. Was also provided with IV fluid and her BRENDA from her recent admission continue to improve. Her home lisinopril was held upon discharge and I do not recommend restarting. Exam Vital Signs (past 8 hours): - 07/04/21 02:30 07/04/21 02:41 07/04/21 03:00 Temperature 98.5 F Pulse Rate 92 H Respiratory Rate 14 Blood Pressure 122/59 L Pulse Oximetry 96 96 96 Oxygen Delivery Method Room Air Oxygen Flow Rate 0 Narrative Exam Narrative: General:?no acute distress Lungs:?clear bilaterally without wheezes, rhonchi, or rales. Cardio:? regular rate and rhythm without murmur Abdomen:? Soft nontender, negative for organomegaly, or masses. Objective Labs Result Diagrams: 07/03/21 04:53 07/03/21 04:53 [facility] Medical History Acute UTI Hypertension Multiple sclerosis Recurrent Clostridium difficile diarrhea Ureterolithiasis Surgical History H/O: hysterectomy Hx of appendectomy Family History Father Hypertension Mother No problems noted. Social History household members: none occupational status: previously employed Smoking Status: Former smoker alcohol intake: current Discharge Plan Discharge Plan Patient Disposition: Home Provider Discharge Comment: You were admitted to the hospital with dizziness, likely due to low BP. Please completely stop lisinopril. Follow up with your primary care provider as previously scheduled. You can reschedule your outpatient echocardiogram that you missed at [phone]. Discharge orders & Medications Prescriptions: Continued cholecalciferol (vitamin D3) 1,000 unit capsule 1,000 unit PO DAILY 0RF citalopram 20 mg tablet 20 mg PO DAILY 0RF acetaminophen 325 mg Tablet 650 mg PO Q6HR PRN (Reason: Fever) Qty: 30 0RF omeprazole 20 mg capsule,delayed release(DR/EC) 20 mg PO DAILY 0RF Follow up/Referrals: Titus Carcamo DO [Primary Care Provider] - Diet/Activity/Treatments Diet: Diet as Tolerated Activity: As tolerated Discharge Data Primary Care Provider: Titus Carcamo Attending Provider: Radha Garcia VTE Deep Vein Thrombosis/Pulmonary Embolism Present on Admission: No
[2021-07-04 09:25] VITALS: BP 120/56; PULSE 99; RESP 16; TEMP 36.1; O2SAT 97
--- NOTE | 2021-07-04 11:08 | PC.NURSE ---
A&Ox4. VSS. Room air. Denies pain. Good appetite. Patient stated feeling much better today. Shukla cath in place draining yellow urine. Iv removed. Discharge paperwork reviewed. Wheeled off of unit at 1100, neighbor driving home.
--- NOTE | 2021-07-04 16:28 | CM.DPNOTE ---
DC Note Home today w/assist from neighbor Hitesh and family. Updated [facility]. JOVANI Summary needs to be faxed when signed. [place]yenne at [facility] will have someone request this tomorrow Plan: DC home w/assist from friend Hitesh and family if available, [facility] RN/OT/PAIN MEDICINE PHYSICIAN/ANNEALING FURNACE OPERATOR JW
== END 2021-07-04 11:00 | disposition home or self-care (01) ==
LOC: ED 07-03 00:11 → AC 07-03 00:13
PROVIDERS: Admitting Provider Nurse Practitioner Family; Emergency Provider Emergency Medicine; PCP Family Medicine; Visit Provider Nurse Practitioner Family
DX: R55 Syncope and collapse (principal); R42 Dizziness and giddiness; G35 Multiple sclerosis; I10 Essential (primary) hypertension; Z74.01 Bed confinement status; K21.9 Gastro-esophageal reflux disease without esophagitis; N39.0 Urinary tract infection, site not specified; Z99.3 Dependence on wheelchair; N17.9 Acute kidney failure, unspecified; F32.9 Major depressive disorder, single episode, unspecified; Z20.822 Contact with and (suspected) exposure to COVID-19
CPT/HCPCS: 36415; 71275; 80053; 81001; 82533; 82550; 83036; 83735; 84443; 84484; 85025; 85379; 87040; 87070; 87075; 87086; 87205; 87635; 93005; 94760; 96360; 96361; 96372; 99284; C9803; G0378; J1650; Q9967

== ENCOUNTER 2021-07-16 20:34 | Emergency (ER) | payer OTHER, SELFPAY ==
[2021-07-03 00:20] VITALS: BMI 24.7
[2021-07-16 20:43] VITALS: BP 165/94; PULSE 114; RESP 18; TEMP 35.7; O2SAT 98; BMI 28.7
[2021-07-16 23:00] LABS: Bacteria Urine Occasional (0-1); RBC Urine 0-1/HPF (0-5/HPF); Squamous Epithelial Cell Urine 1-5 /HPF (0-5/HPF); WBC Urine 30-100/HPF (0-5/HPF)
[2021-07-16 23:01] LABS: Culture Indicated Urine Specimen Cultured
[2021-07-16 23:03] VITALS: BP 145/80; PULSE 98; RESP 18
--- NOTE | 2021-07-17 06:51 | ED_ITS ---
HPI - Female Genitourinary General Chief complaint: Urogenital-Female Stated complaint: catheter bag came out Time Seen by Provider: 07/16/21 21:45 Source: patient Mode of arrival: Wheelchair History of Present Illness HPI Narrative: 80F former smoker with chronic indwelling catheter presents with the chief complaint of accidental dislodgement of her Shukla catheter just prior to arrival. She states that she was transferring when her leg got caught in the Shukla and pulled the tube out. She denies any pain or bleeding. She is not dizzy nor weak or lightheaded. She is here for help replacing the catheter Related Data Home Medications Medication Instructions Recorded Confirmed cholecalciferol (vitamin D3) 25 1,000 unit PO DAILY 10/25/18 07/03/21 mcg (1,000 unit) capsule citalopram 20 mg tablet 20 mg PO DAILY 06/04/19 07/03/21 omeprazole 20 mg capsule,delayed 20 mg PO DAILY 08/29/20 07/03/21 release Previous Rx's Medication Instructions Recorded acetaminophen 325 mg tablet 650 mg PO Q6HR PRN #30 tab 06/08/19 Allergies Allergy/AdvReac Type Severity Reaction Status Date / Time azithromycin Allergy Mild RASH Verified 07/02/21 21:47 levofloxacin Allergy Mild RASH Verified 07/02/21 21:47 Sulfa (Sulfonamide Allergy Mild RASH Verified 07/02/21 21:47 Antibiotics) ceftriaxone AdvReac Intermediate Swelling Verified 07/02/21 21:47 of Lip/Tongue/Throat adhesive AdvReac Mild RASH FROM Verified 07/02/21 21:47 CLOTH TAPE Review of Systems Review of Systems Narrative: GENERAL: Denies chills, fatigue, malaise, fever, sweats. HEENT: Denies sinus pain, ear pain, sore throat, difficulty swallowing, dizziness. RESPIRATORY: Denies dyspnea, cough, wheezing, hemoptysis, sputum. CARDIOVASCULAR: Denies chest pain, palpitations, orthopnea, edema, GASTROINTESTINAL: Denies nausea, vomiting, abdominal pain, diarrhea, constipation, melena. : Denies dysuria, frequency, incontinence, hematuria, urinary retention. MUSCULOSKELETAL: denies weakness, joint pain, or bony pain SKIN: Denies rash, skin lesions, or other NEUROLOGIC: Denies weakness, headache, numbness, change in speech, confusion, seizures, incoordination. PSYCHIATRIC: No concerning psychosocial issues. 12 point review of systems is negative except for those stated above Patient History Medical History Acute UTI Hypertension Multiple sclerosis Recurrent Clostridium difficile diarrhea Ureterolithiasis Surgical History H/O: hysterectomy Hx of appendectomy Family History Father Hypertension Mother No problems noted. alcohol intake frequency: holidays/special occasions only Substance Use Type: does not use Exam Narrative Exam Narrative: GEN: AOx3 and in mild distress EYES: Pupils are equal, round, and reactive to light and accommodation. Extraoccular muscles are intact bilaterally. There is no subconjunctival hemorrhage or exudate. CHEST: Lungs are clear to auscultation bilaterally and free of wheezes, rales, or rhonchi. Heart rate is regular rhythm, there are no murmurs, clicks, rubs, or gallops. There is no chest wall tenderness. ABD: Abdomen is soft and nontender. There is no guarding or rebound. Bowel sounds are normal in all 4 quadrants. There is no mass or organomegaly. EXT: Full painless ROM of all extremities with no loss of sensation or strength. SKIN: Warm, pink, and dry. No erythema or rash Initial Vital Signs Initial Vital Signs: Vital Signs Temperature 96.2 F L 07/16/21 20:43 Pulse Rate 114 H 07/16/21 20:43 Respiratory Rate 18 07/16/21 20:43 Blood Pressure 165/94 H 07/16/21 20:43 Pulse Oximetry 98 07/16/21 20:43 Course Course Course Narrative: Shukla catheter easily replaced by nursing staff Orders Ordered: ED Orders 07/16/21 22:40 Urine Culture Stat Urine Microscopic Stat Vital Signs Vital signs: Vital Signs - 8 hr 07/16/21 23:03 Pulse Rate 98 H Respiratory Rate 18 Blood Pressure 145/80 H MDM - Female Genitourinary Lab Data Labs: Lab Results 07/16/21 Range/Units 22:40 Urine RBC 0-1/hpf (0-5/HPF) Urine WBC 30-100/hpf H (0-5/HPF) Ur Squamous Epith Cells 1-5 /hpf (0-5/HPF) Urine Bacteria Occasional (0-1) (None) Urine Yeast 1-5/hpf H (None) Ur Culture Indicated? Specimen cultured Urine Dip Bedside Urine Glucose Negative Bedside Urine Bilirubin - Negative Bedside Urine Ketone - Negative Urine Specific [place] 1.030 Bedside Urine Occult Blood + Bedside Urine pH 5.5 Bedside Urine Protein - Negative Bedside Urine Urobilinogen - Negative Bedside Urine Nitrite - Negative Bedside Urine Leukocytes + 70 Esterase Discharge Plan Departure Patient Disposition: Home Clinical Impression: Complication of Shukla catheter Instructions: DI for Urinary Retention in Women Activity Restrictions/Additional Instructions: *You have been diagnosed with [Shukla catheter replacement] *What to do: *Please continue to take your regular medications as directed. [ ] New medication prescriptions sent to your pharmacy: [ ] [ ] New medication written as a paper prescription [x ] No new medications given *Please follow up with your primary care provider in 2-3 days, call for an appointment. Let them know you were seen in the Emergency Department and that we ask that you be seen in follow up. We will electronically transmit a record of today's note if your PCP is in our system * also, as we discussed please reach out to wound care as you had planned for evaluation of your foot *Return to Emergency Department if you should have any new, worsening or concerning symptoms, such as [fever greater than 101 F, shaking chills, worsening pain, persistent vomiting or other bothersome symptoms] Prescriptions: No Action cholecalciferol (vitamin D3) 1,000 unit capsule 1,000 unit PO DAILY 0RF citalopram 20 mg tablet 20 mg PO DAILY 0RF acetaminophen 325 mg Tablet 650 mg PO Q6HR PRN (Reason: Fever) Qty: 30 0RF omeprazole 20 mg capsule,delayed release(DR/EC) 20 mg PO DAILY 0RF Referrals: James Esquivel MD [Physician] - Titus Carcamo DO [Primary Care Provider] -
== END 2021-07-16 23:25 | disposition home or self-care (01) ==
PROVIDERS: Emergency Provider Emergency Medicine; PCP Family Medicine
DX: T83.028A Displacement of other urinary catheter, initial encounter (principal)
CPT/HCPCS: 51702; 81003; 81015; 87077; 87086; 99283

== ENCOUNTER → 2021-07-19 13:45 | Outpatient (CLI) | payer OTHER, SELFPAY ==
[2021-07-03 00:20] VITALS: BMI 24.7
== END ==
PROVIDERS: PCP Family Medicine; Referring Provider Family Medicine; Visit Provider Nurse Practitioner Family
DX: L89.893 Pressure ulcer of other site, stage 3 (principal); L84 Corns and callosities; R60.0 Localized edema; G35 Multiple sclerosis; I10 Essential (primary) hypertension; Z74.09 Other reduced mobility; Z99.3 Dependence on wheelchair
CPT/HCPCS: 11042; 93922; 99204; 99213

== ENCOUNTER → 2021-08-16 13:41 | Outpatient (CLI) | payer OTHER, SELFPAY ==
[2021-07-03 00:20] VITALS: BMI 24.7
== END ==
PROVIDERS: PCP Family Medicine; Referring Provider Family Medicine; Visit Provider Nurse Practitioner Family
DX: L89.893 Pressure ulcer of other site, stage 3 (principal); L84 Corns and callosities; R60.0 Localized edema; G35 Multiple sclerosis; I10 Essential (primary) hypertension; F32.A Depression, unspecified; Z74.09 Other reduced mobility; Z99.3 Dependence on wheelchair
CPT/HCPCS: 11042

== ENCOUNTER → 2021-08-30 14:34 | Outpatient (CLI) | payer OTHER, SELFPAY ==
[2021-07-03 00:20] VITALS: BMI 24.7
== END ==
PROVIDERS: PCP Family Medicine; Referring Provider Family Medicine; Visit Provider Family Medicine
DX: L89.893 Pressure ulcer of other site, stage 3 (principal); G35 Multiple sclerosis; Z74.09 Other reduced mobility
CPT/HCPCS: 11042

== ENCOUNTER → 2021-09-06 13:56 | Outpatient (CLI) | payer OTHER, SELFPAY ==
[2021-07-03 00:20] VITALS: BMI 24.7
== END ==
PROVIDERS: PCP Family Medicine; Referring Provider Family Medicine; Visit Provider Nurse Practitioner Family
DX: L89.893 Pressure ulcer of other site, stage 3 (principal); L84 Corns and callosities; R60.0 Localized edema; G35 Multiple sclerosis; I10 Essential (primary) hypertension; F32.A Depression, unspecified; Z74.09 Other reduced mobility; Z99.3 Dependence on wheelchair; Z86.19 Personal history of other infectious and parasitic diseases
CPT/HCPCS: 11042

== ENCOUNTER → 2021-09-20 13:44 | Outpatient (CLI) | payer OTHER, SELFPAY ==
[2021-07-03 00:20] VITALS: BMI 24.7
== END ==
PROVIDERS: PCP Family Medicine; Referring Provider Family Medicine; Visit Provider Nurse Practitioner Family
DX: L89.893 Pressure ulcer of other site, stage 3 (principal); L84 Corns and callosities; R60.0 Localized edema; G35 Multiple sclerosis; I10 Essential (primary) hypertension; F32.A Depression, unspecified; Z74.09 Other reduced mobility; Z99.3 Dependence on wheelchair; Z86.19 Personal history of other infectious and parasitic diseases
CPT/HCPCS: 11042

== ENCOUNTER 2021-10-03 14:19 | Observation (INO) | payer OTHER, SELFPAY ==
[2021-07-03 00:20] VITALS: BMI 24.7
[2021-10-03] VITALS (9 sets, daily range): BP systolic 129–156; BP diastolic 61–75; PULSE 61–106; RESP 17–21; TEMP 36.6; O2SAT 94–99; BMI 27.1
--- NOTE | 2021-10-03 15:02 | ED_ITS ---
HPI - Nausea/Vomiting/Diarrhea General Chief complaint: Nausea/Vomiting/Diarrhea Stated complaint: C-Diff? Time Seen by Provider: 10/03/21 15:02 Source: patient and EMS Mode of arrival: EMS Limitations: no limitations History of Present Illness HPI Narrative: This is an 81-year-old female comes in with complaint soft, mucousy stools 2-3 times daily patient states that she has had C diff in the past. She does not recall if this is the same. She denies fevers or chills. No nausea or vomiting. She occasionally has abdominal pain but nothing today. No back or flank pain. She has a chronic indwelling Shukla catheter she states the urine has been more concentrated but she has not had a decrease in output. Patient denies any black or blood in her stool. She states that there is quite a bit of odor. She has been treated with oral vancomycin. Related Data Home Medications Medication Instructions Recorded Confirmed cholecalciferol (vitamin D3) 25 1,000 unit PO DAILY 10/25/18 07/03/21 mcg (1,000 unit) capsule citalopram 20 mg tablet 20 mg PO DAILY 06/04/19 07/03/21 omeprazole 20 mg capsule,delayed 20 mg PO DAILY 08/29/20 07/03/21 release Previous Rx's Medication Instructions Recorded acetaminophen 325 mg tablet 650 mg PO Q6HR PRN #30 tab 06/08/19 fidaxomicin 200 mg tablet 200 mg PO BID 10 Days #20 tab 10/03/21 Allergies Allergy/AdvReac Type Severity Reaction Status Date / Time azithromycin Allergy Mild RASH Verified 10/03/21 14:44 levofloxacin Allergy Mild RASH Verified 10/03/21 14:44 Sulfa (Sulfonamide Allergy Mild RASH Verified 10/03/21 14:44 Antibiotics) ceftriaxone AdvReac Intermediate Swelling Verified 10/03/21 14:44 of Lip/Tongue/Throat adhesive AdvReac Mild RASH FROM Verified 10/03/21 14:44 CLOTH TAPE Review of Systems Review of Systems ROS Unobtainable: All systems reviewed & are unremarkable except as noted in HPI and below Patient History Medical History Acute UTI Hypertension Multiple sclerosis Recurrent Clostridium difficile diarrhea Ureterolithiasis Surgical History H/O: hysterectomy Hx of appendectomy Family History Father Hypertension Mother No problems noted. Social History household members: none occupational status: previously employed Smoking Status: Former smoker alcohol intake: current Smoking Status: Former smoker alcohol intake frequency: holidays/special occasions only Substance Use Type: does not use Exam Narrative Exam Narrative: GENERAL: Alert and oriented x three, female in mild distress. HEENT: Head normocephalic, atraumatic, EOMI, pupils reactive, face symmetric, moist mucous membranes NECK: Supple, full range of motion CARDIOVASCULAR: Regular rate and rhythm without murmurs, rubs or gallops. RESPIRATORY: Breath sounds equal bilaterally, no wheezes rales or rhonchi. ABDOMEN: Soft, nontender. Normoactive bowel sounds all 4 quadrants. No guarding or rebound, rigidity, no mass : No CVA tenderness EXTREMITIES: Normal range of motion, no clubbing or edema. Neurovascularly intact NEUROLOGICAL: Cranial nerves II through XII grossly intact. Moving all extremities SKIN: Warm, dry, no petechiae, no rashes or lesions. Initial Vital Signs Initial Vital Signs: Vital Signs Pulse Rate 106 H 10/03/21 14:20 Respiratory Rate 18 10/03/21 14:20 Blood Pressure 150/75 H 10/03/21 14:20 Pulse Oximetry 99 10/03/21 14:20 Course Orders Ordered: ED Orders 10/03/21 14:39 GI Panel (Film Array) Stat 10/03/21 15:35 Complete Blood Count AUTO DIFF Stat Comprehensive Metabolic Panel Stat Lipase Stat Sodium Chloride (Normal Saline 0.9%) 1,000 mls @ 150 mls/hr IV CONT IKER Last Admin: 10/03/21 15:33 Dose: 150 mls/hr Documented by: FUAD Discontinued Medications Fidaxomicin (Fidaxomicin 200 Mg Tablet) 200 mg PO NOW ONE Stop: 10/03/21 18:39 Last Admin: 10/03/21 18:51 Dose: 200 mg Documented by: DENNY Reevaluation(s) Reevaluation #1: Patient updated on recommendations from Infectious Disease. Will give 1st dose here, prescription sent to [facility] at patient's request. Time: 18:44 Consultations Consultation #1: Dr. Eddie Timmons, infectious disease recommends fidaxomicin 200mg BID x 10 days if insurance will cover. If not covered he would recommend vancomycin 125 mg p.o. b.i.d. times 10 days it has been a year since last recurrence and wo uld not start with taper but if patient is having persistent symptoms does need further valve. Time: 18:36 Vital Signs Vital signs: Vital Signs - 8 hr 10/03/21 14:20 10/03/21 14:39 10/03/21 15:00 Pulse Rate 106 H 97 H 83 Respiratory Rate 18 17 Blood Pressure 150/75 H 135/64 Pulse Oximetry 99 94 97 10/03/21 15:30 10/03/21 16:00 10/03/21 16:30 Pulse Rate 85 86 82 Respiratory Rate 20 18 21 Blood Pressure 145/74 H 139/74 152/68 H Pulse Oximetry 99 98 99 10/03/21 17:00 10/03/21 17:30 Pulse Rate 77 81 Respiratory Rate 17 17 Blood Pressure 129/63 130/61 Pulse Oximetry 97 96 MDM - Nausea/Vomiting/Diarrhea Lab Data Result diagrams: 10/03/21 15:35 10/03/21 15:35 Labs: Lab Results 10/03/21 10/03/21 10/03/21 Range/Units 14:39 15:35 15:35 WBC 7.4 (4.5-11.0) X10^3/uL RBC 3.96 L (4.0-5.2) X10^6/uL Hgb 10.2 L (12.0-16.0) g/dL Hct 31.4 L (36-46) % MCV 79.3 L (80-100) fL MCH 25.8 L (26-34) PG MCHC 32.6 (30-36) % RDW 15.9 H (11.6-14.8) % Plt Count 311 (150-400) X10^3/uL Neut % (Auto) 60.4 (50-75) % Lymph % (Auto) 23.6 L (25-40) % [place] % (Auto) 14.2 H (3-14) % Eos % (Auto) 1.4 L (2-4) % Baso % (Auto) 0.4 (0-2) % Neut # (Auto) 4500 (7495-8483) /uL Lymph # (Auto) 1800 (6707-0900) /uL [place] # (Auto) 1100 H (0-900) /uL Eos # (Auto) 100 (0-450) /uL Baso # (Auto) 0 (0-100) /uL Sodium 138 (137-145) mmol/L Potassium 3.7 (3.4-5.1) mmol/L Chloride 104 (98-107) mmol/L Carbon Dioxide 27 (22-32) mmol/L BUN 15 (7-17) mg/dL Creatinine 0.93 (0.52-1.04) mg/dL Estimated GFR > 60 (>60) mL/min BUN/Creatinine Ratio 16.1 (6-22) Glucose 110 (80-110) mg/dL Calcium 8.6 (8.4-10.2) mg/dL Total Bilirubin 0.3 (0.2-1.3) mg/dL AST 21 (14-36) IU/L ALT 11 (<35) IU/L Alkaline Phosphatase 83 (38-126) U/L Total Protein 7.3 (6.3-8.2) g/dL Albumin 3.8 (3.5-5.0) g/dL Globulin 3.5 (1.7-4.1) g/dL Albumin/Globulin Ratio 1.1 (1.0-2.8) Lipase 80 (23-300) U/L Stl C. cayetanensis PCR Not detected (Not Detect) Stool Rotavirus (PCR) Not detected (Not Detect) Stool Adenovirus (PCR) Not detected (Not Detect) Stool Astrovirus (PCR) Not detected (Not Detect) Stool Cryptosporidium PCR Not detected (Not Detect) Stl E.coli Shiga Tox PCR Not detected (Not Detect) St Sh/Enteroin Ecoli PCR Not detected (Not Detect) Stool E coli O157 PCR Not detected (Not Detect) Stl Enterotoxigenic E PCR Not detected (Not Detect) Stool EPEC (PCR) Not detected (Not Detect) Stl E. histolytica PCR Not detected (Not Detect) Stool Giardia Lamblia PCR Not detected (Not Detect) Stool Sapovirus (PCR) Not detected (Not Detect) Stl P. shigelloides PCR Not detected (Not Detect) St Y.enterocolitica PCR Not detected (Not Detect) Stool Vibrio (PCR) Not detected (Not Detect) Stl Vibrio cholerae PCR Not detected (Not Detect) Stl Enteroaggr Ecoli PCR Not detected (Not Detect) Stl Norovirus GI/GII PCR Not detected (Not Detect) Campylobacter (PCR) Not detected (Not Detect) C. difficile Tox (PCR) Detected H (Not Detect) Salmonella (PCR) Not detected (Not Detect) MDM Narrative Medical decision making narrative: This is an 81-year-old female who arrives with complaint of recurrent diarrhea that is very mucousy. Patient had C diff in August of 2020 followed by September of 2020 and has not had any additional testing or episodes since. She was on vancomycin 125 mg p.o. q.i.d. times 10 days followed by a pulsed regimen in September. Patient's labs are reassuring she is nontender on exam with reassuring vitals. Discussed with Infectious Disease they recommend if insurance will cover fidaxomicin 200 mg p.o. b.i.d. times 10 days, if unable to fill this and has been a year since her last recurrent they would recommend vancomycin 125 mg p.o. q.i.d. times 10 days to be treated as a new recurrence. It was noted that she had UTI and was hospitalized in June of 2021 which may have been initiating factor. Patient feels comfortable with this plan. We did discuss that they are having persistent symptoms they may need a longer antibiotic regimen and follow- up with infectious disease. Discharge Plan Departure Patient Disposition: Home Clinical Impression: Clostridium difficile infection Instructions: Antibiotic-associated Colitis -- C difficile Activity Restrictions/Additional Instructions: Follow-up with your physician for recheck, if you have persistent diarrhea you may need to follow-up with infectious disease. I spoke with Infectious Disease, Dr. Eddie Anaya at [facility] They recommend Fidaxomicin 200 mg by mouth twice daily for 10 days. If your insurance will not cover this you can take vancomycin oral. Please have the pharmacy call to adjust the medication if needed. Please return for fevers, new abdominal pain, lightheadedness or passing out, bloody stools, worsening symptoms or other new or concerning symptoms. Prescriptions: New fidaxomicin 200 mg tablet 200 mg PO BID 10 Days Qty: 20 0RF No Action cholecalciferol (vitamin D3) 1,000 unit capsule 1,000 unit PO DAILY 0RF citalopram 20 mg tablet 20 mg PO DAILY 0RF acetaminophen 325 mg Tablet 650 mg PO Q6HR PRN (Reason: Fever) Qty: 30 0RF omeprazole 20 mg capsule,delayed release(DR/EC) 20 mg PO DAILY 0RF Referrals: Eddie aSenz DO [Non-Staff] - Titus Carcamo DO [Primary Care Provider] -
[2021-10-03] MEDS: SODIUM CHLORIDE 0.9% 1,000 ML 150 ML IV (15:33)
[2021-10-03 15:51] LABS: Add Manual Diff / Slide Review NO; Basophils Absolute Auto 0 /uL (0-100); Basophils Percent Auto 0.4 % (0-2); Eosinophils Absolute Auto 100 /uL (0-450); Eosinophils Percent Auto 1.4 % (2-4); Hematocrit 31.4 % (36-46); Hemoglobin 10.2 g/dL (12.0-16.0); Lymphocytes Absolute Auto 1800 /uL (1100-4500); Lymphocytes Percent Auto 23.6 % (25-40); Mean Corpuscular HGB Conc 32.6 % (30-36); Mean Corpuscular Hemoglobin 25.8 PG (26-34); Mean Corpuscular Volume 79.3 fL (80-100); Monocytes Absolute Auto 1100 /uL (0-900); Monocytes Percent Auto 14.2 % (3-14); Neutrophils Absolute Auto 4500 /uL (1500-7000); Neutrophils Percent Auto 60.4 % (50-75); Platelet Count 311 X10^3/uL (150-400); Red Blood Cell Count 3.96 X10^6/uL (4.0-5.2); Red Cell Distribution Width 15.9 % (11.6-14.8); White Blood Cell Count 7.4 X10^3/uL (4.5-11.0)
[2021-10-03 16:00] LABS: Alanine Aminotransferase 11 IU/L (<35); Albumin 3.8 g/dL (3.5-5.0); Albumin Globulin Ratio 1.1 (1.0-2.8); Alkaline Phosphatase 83 U/L (38-126); Aspartate Aminotransferase 21 IU/L (14-36); BUN Creatinine Ratio 16.1 (6-22); Bilirubin Total 0.3 mg/dL (0.2-1.3); Blood Urea Nitrogen 15 mg/dL (7-17); Calcium 8.6 mg/dL (8.4-10.2); Carbon Dioxide 27 mmol/L (22-32); Chloride 104 mmol/L (98-107); Estimated Glomerular Filt Rate > 60 mL/min (>60); Globulin 3.5 g/dL (1.7-4.1); Glucose 110 mg/dL (80-110); HEMOLYSIS < 15 (0-50); Lipase 80 U/L (23-300); Potassium 3.7 mmol/L (3.4-5.1); Sodium 138 mmol/L (137-145); Total Protein 7.3 g/dL (6.3-8.2)
[2021-10-03 17:44] LABS: Campylobacter Not Detected (Not Detect); Clostridium difficile toxin AB Detected (Not Detect)
[2021-10-03 17:45] LABS: Adenovirus F 40/41 Not Detected (Not Detect); Astrovirus Not Detected (Not Detect); Cryptosporidium Not Detected (Not Detect); Cyclospora cayetanensis Not Detected (Not Detect); Entamoeba histolytica Not Detected (Not Detect); Enteroaggregative E.coli Not Detected (Not Detect); Enteropathogenic E.coli Not Detected (Not Detect); Enterotoxigenic E.coli It/st Not Detected (Not Detect); Giardia lamblia Not Detected (Not Detect); Norovirus GI/GII Not Detected (Not Detect); Plesiomonsa shigelloides Not Detected (Not Detect); Rotavirus A Not Detected (Not Detect); Salmonella Not Detected (Not Detect); Sapovirus Not Detected (Not Detect); Shiga-like toxin-prod E.coli Not Detected (Not Detect); Shigella/Enteroinvasive E.coli Not Detected (Not Detect); Vibrio Not Detected (Not Detect); Vibrio cholerae Not Detected (Not Detect); Yersinia enterocolitica Not Detected (Not Detect)
[2021-10-03] MEDS: FIDAXOMICIN 200 MG TABLET PO (18:51)
--- NOTE | 2021-10-03 20:33 | PM.HP.1 ---
History of Present Illness History of Present Illness Date Patient Seen: 10/03/21 Time Patient Seen: 20:34 Chief complaint: C-Diff? Narrative: This is an 81-year-old female with multiple sclerosis, chronic weakness, hypertension and GERD who presents with recurrent C diff colitis. She has had at least 1 prior episode of C diff colitis with unclear timing but perhaps about a year ago. She was treated for a UTI with antibiotics in June. For the last 4 days she has had watery diarrhea without any visible blood and has become progressively weaker. She had a neighbor and visiting nurses who helped her up yesterday but today she was unable to stand, help herself, and the caregivers were not present. On initial evaluation in the ED she is found to be C diff positive and plans were in place for home outpatient Fidoxamicin treatment but she was unable to stand up or wipe herself and so is being admitted for inpatient treatment of her progressively severe weakness related to C diff colitis. At baseline she has caregivers and visiting nurses due to a right foot ulcer and multiple sclerosis weakness. She has had no abdominal pain, nausea, vomiting, bleeding or fevers. Patient History Medical History (Updated 10/03/21 @ 18:35 by Monika Mosley DO) Acute UTI Hypertension Multiple sclerosis Recurrent Clostridium difficile diarrhea Ureterolithiasis Surgical History (Updated 10/03/21 @ 22:53 by Princess Wright MD) H/O: hysterectomy History of tonsillectomy Hx of appendectomy Family & Social History Family History (Updated 10/03/21 @ 22:54 by Princess Wright MD) Father Hypertension Myocardial infarct Mother Cancer Social History: household members none Safety & Behavioral: Feels Safe in Current Yes Environment Been Physically Hurt or No Threatened By a Person Tobacco & Substance use: Tobacco type cigarettes Smoking Status Former smoker alcohol intake current alcohol intake frequency holiday/special occasion Substance Use Type does not use Meds Home Medications and Allergies Home Medications Medication Instructions Recorded Confirmed Type cholecalciferol (vitamin D3) 25 1,000 unit PO DAILY 10/25/18 07/03/21 History mcg (1,000 unit) capsule citalopram 20 mg tablet 20 mg PO DAILY 06/04/19 07/03/21 History acetaminophen 325 mg tablet 650 mg PO Q6HR PRN #30 tab 06/08/19 07/03/21 Rx omeprazole 20 mg capsule,delayed 20 mg PO DAILY 08/29/20 07/03/21 History release fidaxomicin 200 mg tablet 200 mg PO BID 10 Days #20 tab 10/03/21 Rx lisinopril 20 mg tablet 20 mg PO DAILY 10/03/21 10/03/21 History Allergies Allergy/AdvReac Type Severity Reaction Status Date / Time azithromycin Allergy Mild RASH Verified 10/03/21 14:44 levofloxacin Allergy Mild RASH Verified 10/03/21 14:44 Sulfa (Sulfonamide Allergy Mild RASH Verified 10/03/21 14:44 Antibiotics) ceftriaxone AdvReac Intermediate Swelling Verified 10/03/21 14:44 of Lip/Tongue/Throat adhesive AdvReac Mild RASH FROM Verified 10/03/21 14:44 CLOTH TAPE Review of Systems Review of Systems Narrative: She is positive for weakness, diarrhea, difficulty standing Negative for fevers, chills, sweats, abdominal pain, nausea, vomiting, chest pain, shortness a breath, coughing, seizures, bleeding, rashes, dysuria, headache, new allergies. Exam Vital Signs (past 8 hours): - 10/03/21 14:20 10/03/21 14:39 10/03/21 15:00 Pulse Rate 106 H 97 H 83 Respiratory Rate 18 17 Blood Pressure 150/75 H 135/64 Pulse Oximetry 99 94 97 10/03/21 15:30 10/03/21 16:00 10/03/21 16:30 Pulse Rate 85 86 82 Respiratory Rate 20 18 21 Blood Pressure 145/74 H 139/74 152/68 H Pulse Oximetry 99 98 99 10/03/21 17:00 10/03/21 17:30 Pulse Rate 77 81 Respiratory Rate 17 17 Blood Pressure 129/63 130/61 Pulse Oximetry 97 96 Oxygen Delivery Method Room Air Narrative Exam Narrative: She is alert and oriented x3, in moderate distress from severe weakness of ongoing diarrhea Pupils are equally round reactive to light and accommodation Extraocular muscles are intact Sclerae are pink and nonicteric No lymph nodes are felt head, neck, supraclavicular area There is no thyromegaly JVD is less than 6 cm No carotid bruits are heard Heart is regular rate and rhythm without murmur Lungs are clear to auscultation bilaterally Abdomen is soft, bowel sounds positive, nontender, no organomegaly Extremities have no ankle edema Skin has no rash or jaundice Neurological exam: Cranial nerves 2-12 test intact, she is hard of hearing, in the knee motor function is notable for profound weakness of 1/5 in both lower extremities and 2/5 in both upper extremities. Reflexes are symmetrically hypoactive There is no tremor There is a distinctive ?C diff? odor in the room. Objective Labs Result Diagrams: 10/03/21 15:35 10/03/21 15:35 Labs: Laboratory Results - last 24 hr 10/03/21 10/03/21 10/03/21 14:39 15:35 15:35 WBC 7.4 RBC 3.96 L Hgb 10.2 L Hct 31.4 L MCV 79.3 L MCH 25.8 L MCHC 32.6 RDW 15.9 H Plt Count 311 Neut % (Auto) 60.4 Lymph % (Auto) 23.6 L [place] % (Auto) 14.2 H Eos % (Auto) 1.4 L Baso % (Auto) 0.4 Neut # (Auto) 4500 Lymph # (Auto) 1800 [place] # (Auto) 1100 H Eos # (Auto) 100 Baso # (Auto) 0 Sodium 138 Potassium 3.7 Chloride 104 Carbon Dioxide 27 BUN 15 Creatinine 0.93 Estimated GFR > 60 BUN/Creatinine Ratio 16.1 Glucose 110 Calcium 8.6 Total Bilirubin 0.3 AST 21 ALT 11 Alkaline Phosphatase 83 Total Protein 7.3 Albumin 3.8 Globulin 3.5 Albumin/Globulin Ratio 1.1 Lipase 80 Stl C. cayetanensis PCR Not detected Stool Rotavirus (PCR) Not detected Stool Adenovirus (PCR) Not detected Stool Astrovirus (PCR) Not detected Stool Cryptosporidium PCR Not detected Stl E.coli Shiga Tox PCR Not detected St Sh/Enteroin Ecoli PCR Not detected Stool E coli O157 PCR Not detected Stl Enterotoxigenic E PCR Not detected Stool EPEC (PCR) Not detected Stl E. histolytica PCR Not detected Stool Giardia Lamblia PCR Not detected Stool Sapovirus (PCR) Not detected Stl P. shigelloides PCR Not detected St Y.enterocolitica PCR Not detected Stool Vibrio (PCR) Not detected Stl Vibrio cholerae PCR Not detected Stl Enteroaggr Ecoli PCR Not detected Stl Norovirus GI/GII PCR Not detected Campylobacter (PCR) Not detected C. difficile Tox (PCR) Detected H Salmonella (PCR) Not detected Assessment & Plan Assessment & Plan narrative: This is an 81-year-old female with multiple sclerosis, chronic weakness, hypertension and GERD who presents with recurrent C diff colitis. C diff colitis, present on admission. Active. -Dr. Eddie Timmons, infectious disease recommends fidaxomicin 200mg BID x 10 days -hydrate with IV fluid and assess weakness with physical therapy, likely to need placement. Weakness, present on admission. Active. -multifactorial with baseline multiple sclerosis and now worsening C diff diarrhea/fluid losses. Hypertension, present on admission. Active. -continue lisinopril Anemia, present on admission. Active. -hemoglobin 10.2 -follow, so far no signs of overt GI bleeding GERD, present on admission. Chronic. -omeprazole Depression, present on admission. Chronic. -citalopram Her backup decision maker are her daughter Chata Vee, in [place] and her son Roberto Castillo in [facility] for DVT prevention Time Spent With Patient Critical Care time: I spent a total of [] minutes of critical care time on this patient's care today; this time is exclusive of procedural time.
[2021-10-03 20:43] LABS: COVID19 -Nasal RAPID Negative (Negative)
[2021-10-04] MEDS: DEXTROSE 5%-0.9% NS 1,000 ML 100 ML IV ×2 (00:05→16:42)
[2021-10-04 04:16] VITALS: BP 137/65; PULSE 91; RESP 16; TEMP 36.3; O2SAT 98
[2021-10-04 05:32] LABS: Add Manual Diff / Slide Review NO; Basophils Absolute Auto 0 /uL (0-100); Basophils Percent Auto 0.6 % (0-2); Eosinophils Absolute Auto 200 /uL (0-450); Eosinophils Percent Auto 4.7 % (2-4); Lymphocytes Absolute Auto 1900 /uL (1100-4500); Lymphocytes Percent Auto 36.1 % (25-40); Mean Corpuscular HGB Conc 32.3 % (30-36); Mean Corpuscular Hemoglobin 25.7 PG (26-34); Mean Corpuscular Volume 79.4 fL (80-100); Monocytes Absolute Auto 800 /uL (0-900); Monocytes Percent Auto 15.9 % (3-14); Neutrophils Absolute Auto 2300 /uL (1500-7000); Neutrophils Percent Auto 42.7 % (50-75); Platelet Count 290 X10^3/uL (150-400); Red Cell Distribution Width 16.2 % (11.6-14.8); White Blood Cell Count 5.3 X10^3/uL (4.5-11.0)
[2021-10-04 05:37] LABS: BUN Creatinine Ratio 13.3 (6-22); Blood Urea Nitrogen 15 mg/dL (7-17); Calcium 8.4 mg/dL (8.4-10.2); Carbon Dioxide 25 mmol/L (22-32); Chloride 107 mmol/L (98-107); Estimated Glomerular Filt Rate 48 mL/min (>60); Glucose 103 mg/dL (80-110); HEMOLYSIS < 15 (0-50); Potassium 3.7 mmol/L (3.4-5.1); Sodium 139 mmol/L (137-145)
[2021-10-04 08:00] VITALS: BP 133/77; PULSE 90; RESP 16; TEMP 37; O2SAT 95
[2021-10-04] MEDS: CITALOPRAM 10 MG TABLET 20 MG PO (10:32)
[2021-10-04] MEDS: ACETAMINOPHEN 325 MG TABLET 975 MG PO (10:32)
[2021-10-04] MEDS: ENOXAPARIN 40 MG/0.4 ML SYRINGE SUBCUT (10:33)
[2021-10-04] MEDS: FIDAXOMICIN 200 MG TABLET PO ×2 (10:34→20:30)
--- NOTE | 2021-10-04 11:35 | PT.IIE ---
Medical History (Last Reviewed 10/03/21 @ 15:36 by Monika Mosley DO) Acute UTI Hypertension Multiple sclerosis Recurrent Clostridium difficile diarrhea Ureterolithiasis Physical Therapy Inpatient Evaluation/Re-Eval M1 PT/OT-IP Prior Functional Status Start: 10/04/21 12:26 Freq: NEEDED Status: Active Protocol: Document 10/04/21 11:35 AB (Rec: 10/04/21 12:50 AB [id number]) Medical Review Prior Functional Status Medical History Reviewed Yes Communication able to make needs known Mobility and Gait pt stated that her neighbor comes in the morning and uses a jackson lift to transfer her from the bed to her manual w/c and comes back in the evening to transfer her back to bed. pt is w/c bound. pt stated that she is able to squat pivot w/c<>toilet and able to manage hygiene care and dressing needs by herself. Social History Household Members none Living Arrangements House Number of Floors (Floors) One Floor Number of Stairs To Enter/Railing? ramp to enter Home Environment Standard Height Toilet,Tub/ Shower,Ramp Home Equipment Manual Wheelchair,Hand Held Shower,Grab Bars In Shower Additional Social History Comment Sole nurse comes in to manage foot wound M2 PT-IP Current Condition Start: 10/04/21 12:26 Freq: NEEDED Status: Active Protocol: Document 10/04/21 11:35 AB (Rec: 10/04/21 12:50 AB [id number]) Physical Therapy Current Condition Current Condition Evaluation Date 10/04/21 Treatment Diagnosis C-diff colitis; MS; generalized weakness Onset Date 10/03/21 M3 PT-IP Subjective Start: 10/04/21 12:26 Freq: NEEDED Status: Active Protocol: Document 10/04/21 11:35 AB (Rec: 10/04/21 12:50 AB [id number]) Subjective Physical Therapy Visit Type Type Initial Evaluation Visit Start Time 11:35 Visit Stop Time 12:15 Total Visit Minutes 40 Number of SHOVEL OILER Visits 0 M4 PT-IP Mobility and Gait Start: 10/04/21 12:26 Freq: NEEDED Status: Active Protocol: Document 10/04/21 11:35 AB (Rec: 10/04/21 12:50 AB [id number]) PT-Bed Mobility Assessment Supine to Sit Supine to Sit Total Assistance,2 Person Assistance,Head of Bed Elevated,Bedrails Scooting Scooting to Edge of Bed Dependent PT-Transfer Assessment Equipment Transfer Assistive Device None,Gait Belt Transfers Transfer Technique Squat Pivot Transfer Ability Level of Assist Maximum Assistance,Total Assistance,2 Person Assistance Comments Mobility Comments pt required total A for supine to sit. total A for sitting balance. increase BLE extensor tone due to MS L>R. squat pivot transfer with PT in front and NA behind to assist max A x 2 to total A x 2. positioned pt on the chair . call light and table placed within reach. Talked with social media sr strategy manager and stated that pt is familiar to her from previous hospital admissions. informed that pt needs 24/7 assistance and is a total A x 2. informed that pt stated that she transfers by herself at home and from PT 's assessment is not safe to do due to advanced MS. correctional case records supervisor informed that from previous admissions, pt has refused SNF placement. informed correctional case records supervisor that pt is not appropriate for PT and pt should use jackson for transfers and is not safe to transfer by herself. PT-Balance Assessment Sitting Balance and Reactions Static Sitting Balance Ability Poor Dynamic Sitting Balance Ability Poor Standing Balance and Reactions Static Standing Balance Ability Poor Dynamic Standing Balance Ability Poor M5 PT-IP Objective Assessments Start: 10/04/21 12:26 Freq: NEEDED Status: Active Protocol: Document 10/04/21 11:35 AB (Rec: 10/04/21 12:50 AB [email or web address]) Orientation Orientation/Cognition Level of Alertness Alert Orientation Name,Place,Situation Language Function Ability No Deficits Noted Safety Awareness Decreased Safety Awareness Gross Range of Motion Lower Extremity ROM Assessment Bilaterally Impaired Impairments increase extensor tone on BLE limiting testing Strength Comments Strength Comments unable to assess MMT due to extensor tone on BLE Muscle Tone Muscle Tone WNL No Muscle Tone Location Bilateral Lower Extremity Type of Tone Rigidity,Extensor Severity of Tone Severe M6 PT-IP Treatment Start: 10/04/21 12:26 Freq: NEEDED Status: Active Protocol: Document 10/04/21 11:35 AB (Rec: 10/04/21 12:50 AB [email or web address]) Physical Therapy Treatment Education Education Provided Safety M7 PT-IP Assessment and Plan Start: 10/04/21 12:26 Freq: NEEDED Status: Active Protocol: Document 10/04/21 11:35 AB (Rec: 10/04/21 12:50 AB [email or web address]) PT Summary Assessment and Plan Summary Impairments Pain,ROM,Strength,Balance, Coordination,Sensation,Tone, Cognition,Bed Mobility, Transfers,Gait,Activity Tolerance Assessment Summary PT eval completed and pt has been a jackson lift transfer at home but pt stated that she squats pivot transfer by herself at home for toileting needs. Assessed pt and pt requires total A x 2 for all tasks, P- trunk control and is not safe to be transferring by herself at home. Pt is admitted in the hospital for C -diff colitis but has dx of MS and has been requiring assistance at home but pt has been refusing to go to SNF from previous admissions and prefers to go home and tries to manage by herself whether it is safe or not. PT recommending continued use of jackson lift and no further PT intervention indicated at this time. pt will require 24/7 assist at home. Frequency of Treatment Frequency Of Treatment Discharge Precautions Other Precautions falls Recommendations To Nursing Amount of Assist Needed Mechanical Lift Discharge Recommendations PT Discharge Recommendations Home with 24/7 Assist Available,Home Health,SNF Rehab Transportation Needs at Discharge Wheelchair/Cabulance,Stretcher /Ambulance
--- NOTE | 2021-10-04 12:46 | CM.DANOTE ---
Initial Discharge Plan Assessment: Case received, EMR reviewed and met with patient. Introduced self and role. 81 year old female admitted yesterday evening to care of hospitalist team. PCP: Dr Titus Carcamo Payer: [employer] Medicare Advantage, secondary for Life. Patient was admitted with watery diarrhea and diagnosed with C diff. She has multiple sclerosis rendering her unable to ambulate. She is currently receiving wound care by [facility] 3 times per week and [facility] every other week. Patient resides in [place]. Patient's neighbor Hitesh comes in daily morning and evening to get patient out of bed and return to bed via Alejandra lift. (Patient states she can do all the rest of ADLs on her own.) Patient gives permission for us to contact her son Roberto (1st preference) and/or daughter Chata if needed for DC planning purposes. PT saw patient today and states patient at her baseline and no further need for inpatient PT. P: Patient wishes to return home with her previous home arrangement and [facility] 3 times a week for wound care. Will continue to follow. When ready for DC will need a Resumption of Care order for HH. Would recommend adding HH PT for home safety evaluation and ADL management. Fabienne Tovar RN/Mid Wife Discharge Planning/Care Management CM Discharge Assessment Start: 10/04/21 12:31 Freq: Status: Active Protocol: Document 10/04/21 12:34 (Rec: 10/04/21 12:45 [id number]) Discharge Planning Assessment Advance Directives? Yes Advance Directives on File No History Provided By Patient,Medical Record Prior Living Arrangements House Household Members none Type of transporation used prior to Relies on Others admit Independent with ADL's Yes: Neighbor Hitesh gets her up bid with Alejandra lift Is patient alert and oriented? Yes Needs Assistance With Home Chores / Shopping Caregiver for Another No Community Services used prior to Home Health Nurse admission: Comment [facility] D[facility] Already Rented / Owned Wheelchair,Other Comment Patient has been able to complete ADLs mostly indp because she can self transfer. Neighbor Hitesh comes every am and pm to get patient up via Alejandra lift and then return her to bed in the evening. Patient/Family Preference Home with Home Health Comment Patient is adamant about returning home once stable. Discharge Plan Home Transportation Arrangement Family or neighbor can transport at d/c Referrals Initiated Home Health Additional Comment Patient has been receiving [facility] 3 times a week for wound care. If patient plan is home with home health Resumption upon discharge : Has signed face to face form been completed? Whiteboard Updated in Patient Room with Yes name and ext. # of Bottom Liquor Attendant Next Review Type Continued Stay Review
[2021-10-04 14:10] LABS: C difficie Toxins A and B, EIA Positive (Negative)
--- NOTE | 2021-10-04 16:57 | PM.PN.1 ---
Subjective Subjective Interval history: The patient reports continued watery stools, approximately 6-8 episodes per day. She denies there being any form to them, or blood. She denies abd pain, and denies n/v. She reports good PO intake. She states this is her second bout of C. diff. She endorses there being home healthcare RN's that come to her home, and she might have acquired C. diff through them, as she denies recent abx use. Exam Vital Signs (past 8 hours): Oxygen Delivery Method Room Air Const Other: The patient is sitting up in bedside chair upon my entering the room, appears comfortable and in no apparent acute distress Eyes Other: No scleral icterus appreciated Resp Other: Lungs clear to auscultation bilaterally Cardio Other: RRR, with normal S1 and S2 heart sounds, and no extra heart sounds or murmurs appreciated GI Other: Soft, non-distended, non-tender, bowel sounds present Skin Other: No grossly abnormal skin lesions noted Extrem Other: Palpable dorsalis pedis pulses with no peripheral edema appreciated Objective Labs Result Diagrams: 10/04/21 04:45 10/04/21 04:45 Labs: Laboratory Results - last 24 hr 10/03/21 10/03/21 10/03/21 14:39 14:39 19:52 WBC RBC Hgb Hct MCV MCH MCHC RDW Plt Count Neut % (Auto) Lymph % (Auto) [place] % (Auto) Eos % (Auto) Baso % (Auto) Neut # (Auto) Lymph # (Auto) [place] # (Auto) Eos # (Auto) Baso # (Auto) Sodium Potassium Chloride Carbon Dioxide BUN Creatinine Estimated GFR BUN/Creatinine Ratio Glucose Calcium Stl C. cayetanensis PCR Not detected Stool Rotavirus (PCR) Not detected Stool Adenovirus (PCR) Not detected Stool Astrovirus (PCR) Not detected Stool Cryptosporidium PCR Not detected Stl E.coli Shiga Tox PCR Not detected St Sh/Enteroin Ecoli PCR Not detected Stool E coli O157 PCR Not detected Stl Enterotoxigenic E PCR Not detected Stool EPEC (PCR) Not detected Stl E. histolytica PCR Not detected Stool Giardia Lamblia PCR Not detected Stool Sapovirus (PCR) Not detected Stl P. shigelloides PCR Not detected St Y.enterocolitica PCR Not detected Stool Vibrio (PCR) Not detected Stl Vibrio cholerae PCR Not detected Stl Enteroaggr Ecoli PCR Not detected Stl Norovirus GI/GII PCR Not detected Campylobacter (PCR) Not detected C. difficile Tox (PCR) Detected H C. diff Toxin A&B (EIA) Positive A SARS-CoV-2 (PCR) Negative Salmonella (PCR) Not detected 10/04/21 10/04/21 04:45 04:45 WBC 5.3 RBC 3.90 L Hgb 10.0 L Hct 31.0 L MCV 79.4 L MCH 25.7 L MCHC 32.3 RDW 16.2 H Plt Count 290 Neut % (Auto) 42.7 L Lymph % (Auto) 36.1 [place] % (Auto) 15.9 H Eos % (Auto) 4.7 H Baso % (Auto) 0.6 Neut # (Auto) 2300 Lymph # (Auto) 1900 [place] # (Auto) 800 Eos # (Auto) 200 Baso # (Auto) 0 Sodium 139 Potassium 3.7 Chloride 107 Carbon Dioxide 25 BUN 15 Creatinine 1.13 H Estimated GFR 48 L BUN/Creatinine Ratio 13.3 Glucose 103 Calcium 8.4 Stl C. cayetanensis PCR Stool Rotavirus (PCR) Stool Adenovirus (PCR) Stool Astrovirus (PCR) Stool Cryptosporidium PCR Stl E.coli Shiga Tox PCR St Sh/Enteroin Ecoli PCR Stool E coli O157 PCR Stl Enterotoxigenic E PCR Stool EPEC (PCR) Stl E. histolytica PCR Stool Giardia Lamblia PCR Stool Sapovirus (PCR) Stl P. shigelloides PCR St Y.enterocolitica PCR Stool Vibrio (PCR) Stl Vibrio cholerae PCR Stl Enteroaggr Ecoli PCR Stl Norovirus GI/GII PCR Campylobacter (PCR) C. difficile Tox (PCR) C. diff Toxin A&B (EIA) SARS-CoV-2 (PCR) Salmonella (PCR) PFSH Medical History (Updated 10/03/21 @ 18:35 by Monika Mosley DO) Acute UTI Hypertension Multiple sclerosis Recurrent Clostridium difficile diarrhea Ureterolithiasis Surgical History (Updated 10/03/21 @ 22:53 by Princess Wright MD) H/O: hysterectomy History of tonsillectomy Hx of appendectomy Family History (Updated 10/03/21 @ 22:54 by Princess Wright MD) Father Hypertension Myocardial infarct Mother Cancer Social History household members: none occupational status: previously employed Smoking Status: Former smoker alcohol intake: current Assessment & Plan Assessment & Plan narrative: Assessment: 1. C. diff, likely acquired due to interactions with visiting home healthcare workers 2. Hypertension 3. Depression 4. GERD 5. Vitamin D deficiency Plan: 1. Patient has visiting RN's at home, who also go to other patients' houses, and this was likely mode of acquisition. PO fidaxomicin 200 mg bid on-board. 2. Will hold home lisinopril for now, as BP on the lower side. 3. Will continue home citalopram 20 mg daily. 4. Will continue home Prilosec 20 mg daily. 5. Will continue home vitamin D replacement. VTE prophylaxis: Lovenox 40 mg daily Code: Full code I have utilized all available immediate resources to obtain, update, or verify the patient's current medications. Time Spent With Patient Critical Care time: I spent a total of [] minutes of critical care time on this patient's care today; this time is exclusive of procedural time. Quality VTE Deep Vein Thrombosis/Pulmonary Embolism Present on Admission: No MIPS - Admit I confirm the patient?s Advance Care Plan is present, Code status is documented, Surrogate decision maker is in patient?s record [If Yes, STOP here]: Yes
[2021-10-04 19:03] LABS: Appearance Urine UA CLOUDY; Bilirubin Urine UA NEGATIVE (NEGATIVE); Color Urine UA YELLOW; Glucose Urine UA NEGATIVE (Negative); Ketones Urine UA NEGATIVE (NEGATIVE); Leukocyte Esterase Urine UA 3+ (NEGATIVE); Nitrite Urine UA NEGATIVE (Negative); Occult Blood Urine UA TRACE-LYSED (Negative); Protein Urine UA NEGATIVE (Negative); Specific Gravity Urine UA 1.015 (1.000-1.035); Urobilinogen Urine UA 0.2 E.U./dL (0.2)
[2021-10-04 19:10] LABS: Squamous Epithelial Cell Urine 1-5 /HPF (0-5/HPF); WBC Urine 30-100/HPF (0-5/HPF)
[2021-10-04 19:11] LABS: Bacteria Urine Many (>30); RBC Urine None Seen (0-5/HPF)
[2021-10-04 19:14] LABS: Culture Indicated Urine Specimen Cultured
[2021-10-04 20:00] VITALS: BP 147/70; PULSE 90; RESP 16; TEMP 36.6; O2SAT 93
[2021-10-04 20:48] VITALS: O2SAT 96
[2021-10-05 00:22] VITALS: BP 135/68; PULSE 87; RESP 15; TEMP 36.1; O2SAT 96
[2021-10-05 04:47] VITALS: BP 145/81; PULSE 89; RESP 15; TEMP 36.7; O2SAT 95
[2021-10-05 08:38] VITALS: PULSE 86; RESP 18; O2SAT 95
[2021-10-05 08:55] VITALS: BP 145/97; PULSE 97; RESP 16; TEMP 37; O2SAT 94
[2021-10-05] MEDS: FIDAXOMICIN 200 MG TABLET PO ×2 (09:55→20:48)
[2021-10-05] MEDS: CITALOPRAM 10 MG TABLET 20 MG PO (09:55)
[2021-10-05] MEDS: ENOXAPARIN 40 MG/0.4 ML SYRINGE SUBCUT (09:55)
--- NOTE | 2021-10-05 13:45 | PM.PN.1 ---
Subjective Subjective Interval history: The patient continues to endorse voluminous, watery diarrhea. She denies noticing any brown or black color to her stool, or any blood. She is tolerating PO intake well. She endorses abd cramping. Exam Vital Signs (past 8 hours): - 10/05/21 08:38 10/05/21 08:55 Temperature 98.6 F Pulse Rate 86 97 H Respiratory Rate 18 16 Blood Pressure 145/97 H Pulse Oximetry 95 94 Oxygen Delivery Method Room Air Oxygen Flow Rate 0 Narrative Exam Narrative: Const Other: The patient is sitting up in bed upon my entering the room, having completed breakfast, appears comfortable and in no apparent acute distress Eyes Other: No scleral icterus appreciated Resp Other: Lungs clear to auscultation bilaterally Cardio Other: RRR, with normal S1 and S2 heart sounds, and no extra heart sounds or murmurs appreciated GI Other: Soft, non-distended, non-tender, bowel sounds present Skin Other: No grossly abnormal skin lesions noted Extrem Other: Palpable dorsalis pedis pulses with no peripheral edema appreciated Objective Labs Result Diagrams: 10/04/21 04:45 10/04/21 04:45 Labs: Laboratory Results - last 24 hr 10/03/21 10/04/21 14:39 18:40 Urine Color Yellow Urine Appearance Cloudy Urine pH 5.0 Ur Specific [place] 1.015 Urine Protein Negative Urine Glucose (UA) Negative Urine Ketones Negative Urine Occult Blood Trace-lysed Urine Nitrate Negative Urine Bilirubin Negative Urine Urobilinogen 0.2 Ur Leukocyte Esterase 3+ H Urine RBC None seen Urine WBC 30-100/hpf H Ur Squamous Epith Cells 1-5 /hpf Urine Bacteria Many (>30) H Urine Yeast 5-10/hpf H Ur Culture Indicated? Specimen cultured C. diff Toxin A&B (EIA) Positive A [facility] Medical History (Updated 10/03/21 @ 18:35 by Monika Mosley DO) Acute UTI Hypertension Multiple sclerosis Recurrent Clostridium difficile diarrhea Ureterolithiasis Surgical History (Updated 10/03/21 @ 22:53 by Princess Wright MD) H/O: hysterectomy History of tonsillectomy Hx of appendectomy Family History (Updated 10/03/21 @ 22:54 by Princess Wright MD) Father Hypertension Myocardial infarct Mother Cancer Social History household members: none occupational status: previously employed Smoking Status: Former smoker alcohol intake: current Assessment & Plan Assessment & Plan narrative: Assessment: 1. C. diff, likely acquired due to interactions with visiting home healthcare workers 2. Hypertension 3. Depression 4. GERD 5. Vitamin D deficiency Plan: 1. Patient has visiting RN's at home, who also go to other patients' houses, and this was likely mode of acquisition. PO fidaxomicin 200 mg bid on-board. 2. Will hold home lisinopril for now, as BP on the lower side. 3. Will continue home citalopram 20 mg daily. 4. Will continue home Prilosec 20 mg daily. 5. Will continue home vitamin D replacement. VTE prophylaxis: Lovenox 40 mg daily Time Spent With Patient Critical Care time: I spent a total of [] minutes of critical care time on this patient's care today; this time is exclusive of procedural time. Quality VTE Deep Vein Thrombosis/Pulmonary Embolism Present on Admission: No
[2021-10-05] MEDS: ACETAMINOPHEN 325 MG TABLET 975 MG PO (14:40)
[2021-10-05 20:00] VITALS: BP 123/61; PULSE 85; RESP 18; TEMP 37.6; O2SAT 97
[2021-10-05 20:04] VITALS: O2SAT 98
[2021-10-06] VITALS (10 sets, daily range): BP systolic 117–142; BP diastolic 63–96; PULSE 87–106; RESP 16–18; TEMP 35.9–36.7; O2SAT 94–99
[2021-10-06 05:51] LABS: Add Manual Diff / Slide Review NO; Basophils Absolute Auto 0 /uL (0-100); Basophils Percent Auto 0.6 % (0-2); Eosinophils Absolute Auto 300 /uL (0-450); Eosinophils Percent Auto 5.4 % (2-4); Hematocrit 28.1 % (36-46); Hemoglobin 9.2 g/dL (12.0-16.0); Lymphocytes Absolute Auto 2100 /uL (1100-4500); Lymphocytes Percent Auto 39.4 % (25-40); Mean Corpuscular HGB Conc 32.5 % (30-36); Mean Corpuscular Hemoglobin 25.6 PG (26-34); Mean Corpuscular Volume 78.7 fL (80-100); Monocytes Absolute Auto 1000 /uL (0-900); Monocytes Percent Auto 18.2 % (3-14); Neutrophils Absolute Auto 1900 /uL (1500-7000); Neutrophils Percent Auto 36.4 % (50-75); Platelet Count 272 X10^3/uL (150-400); Red Blood Cell Count 3.57 X10^6/uL (4.0-5.2); Red Cell Distribution Width 16.2 % (11.6-14.8); White Blood Cell Count 5.2 X10^3/uL (4.5-11.0)
[2021-10-06 06:06] LABS: BUN Creatinine Ratio 19.8 (6-22); Blood Urea Nitrogen 18 mg/dL (7-17); Calcium 8.3 mg/dL (8.4-10.2); Carbon Dioxide 26 mmol/L (22-32); Chloride 108 mmol/L (98-107); Estimated Glomerular Filt Rate > 60 mL/min (>60); Glucose 98 mg/dL (80-110); HEMOLYSIS < 15 (0-50); Magnesium 1.7 mg/dL (1.6-2.3); Potassium 3.7 mmol/L (3.4-5.1); Sodium 139 mmol/L (137-145)
[2021-10-06] MEDS: CITALOPRAM 10 MG TABLET 20 MG PO (08:22)
[2021-10-06] MEDS: FIDAXOMICIN 200 MG TABLET PO ×2 (08:22→21:35)
[2021-10-06] MEDS: ENOXAPARIN 40 MG/0.4 ML SYRINGE SUBCUT (08:22)
[2021-10-06] MEDS: DEXTROSE 5%-0.9% NS 1,000 ML 100 ML IV (09:45)
--- NOTE | 2021-10-06 13:03 | PC.NURSE ---
Pt is AxOx4, needs jackson lift and max assistance due to MS. VSS, pt denies pain. Pt has chronic guzman and it is draining clear, yellow urine. Pt had BMx2 today. Morning BM was moderate and started getting more formed and brown. Pt also has very little loose BM 10 minutes ago. Pt is eating well. Dressing on R foot and R hip. Pt's son went to the pharmacy to get her prescription. Otherwise, no change. Pt is going to d/c to her home. D/c instructions are given to pt.
--- NOTE | 2021-10-06 13:25 | P.DS_ITS ---
History of Present Illness History of Present Illness Chief complaint: c diff Narrative: 1-year-old female with multiple sclerosis comes in with complaint soft, mucousy stools 2-3 times daily patient states that she has had C diff in the past.? She does not recall if this is the same.? She denies fevers or chills.? No nausea or vomiting.? She occasionally has abdominal pain but nothing today.? No back or flank pain.? She has a chronic indwelling Shukla catheter she states the urine has been more concentrated but she has not had a decrease in output.? Patient denies any black or blood in her stool.? She states that there is quite a bit of odor.? She has been treated with oral vancomycin.? Discharge Providers Provider Date of admission: 10/03/21 20:02 Discharge Date: 10/06/21 Primary care physician: Titus Carcamo DO Consults: 10/03/21 20:51 Consult to Physical Therapy Evaluate & Treat Comment: Physician Instructions: Evaluate and Treat Discharge provider: Ramin Rosas MD Summary Hospital Course Discharge Diagnosis: 1. Acute Clostridium difficile colitis 2. Chronic indwelling Shukla 3. Multiple sclerosis Hospital Course: Patient was started on fidaxomicin for treatment of C diff colitis. She has had improvement in frequency and volume of diarrhea. She is able to maintain fluid intake by mouth. At baseline she is wheelchair bound and also has whole your at home and gets help from neighbor and visiting nurse a few times a week. Status at Discharge Cognitive/behavioral status at discharge: oriented Functional status at discharge: wheelchair bound Overall status at discharge: patient is progressing back to baseline Time Spent with Patient Time spent: Less than 30 minutes Exam Vital Signs (past 8 hours): - 10/06/21 07:49 10/06/21 09:00 10/06/21 09:21 Temperature 96.7 F L 96.7 F L Pulse Rate 95 H 95 H Respiratory Rate 17 17 Blood Pressure 142/79 H 142/79 H Pulse Oximetry 94 96 96 10/06/21 11:50 Temperature 96.7 F L Pulse Rate 88 Respiratory Rate 16 Blood Pressure 139/77 Pulse Oximetry 99 Oxygen Delivery Method Room Air Oxygen Flow Rate 0 Narrative Exam Narrative: General: Alert NAD Lungs: Clear Heart: Regular Abdomen: Soft Extremities: No edema Objective Labs Result Diagrams: 10/06/21 05:10 10/06/21 05:10 Labs: Laboratory Results - last 24 hr 10/06/21 10/06/21 05:10 05:10 WBC 5.2 RBC 3.57 L Hgb 9.2 L Hct 28.1 L MCV 78.7 L MCH 25.6 L MCHC 32.5 RDW 16.2 H Plt Count 272 Neut % (Auto) 36.4 L Lymph % (Auto) 39.4 [place] % (Auto) 18.2 H Eos % (Auto) 5.4 H Baso % (Auto) 0.6 Neut # (Auto) 1900 Lymph # (Auto) 2100 [place] # (Auto) 1000 H Eos # (Auto) 300 Baso # (Auto) 0 Sodium 139 Potassium 3.7 Chloride 108 H Carbon Dioxide 26 BUN 18 H Creatinine 0.91 Estimated GFR > 60 BUN/Creatinine Ratio 19.8 Glucose 98 Calcium 8.3 L Magnesium 1.7 PFSH Medical History (Updated 10/03/21 @ 18:35 by Monika Mosley DO) Acute UTI Hypertension Multiple sclerosis Recurrent Clostridium difficile diarrhea Ureterolithiasis Surgical History (Updated 10/03/21 @ 22:53 by Princess Wright MD) H/O: hysterectomy History of tonsillectomy Hx of appendectomy Family History (Updated 10/03/21 @ 22:54 by Princess Wright MD) Father Hypertension Myocardial infarct Mother Cancer Social History household members: none occupational status: previously employed Smoking Status: Former smoker alcohol intake: current Discharge Plan Discharge Plan Patient Disposition: Home Discharge orders & Medications Prescriptions: New fidaxomicin 200 mg tablet 200 mg PO BID 10 Days Qty: 20 0RF Continued cholecalciferol (vitamin D3) 1,000 unit capsule 1,000 unit PO DAILY 0RF lisinopril 20 mg tablet 20 mg PO DAILY 0RF Label Comments: Take 1 tablet by mouth once a day citalopram 20 mg tablet 20 mg PO DAILY 0RF acetaminophen 325 mg Tablet 650 mg PO Q6HR PRN (Reason: Fever) Qty: 30 0RF omeprazole 20 mg capsule,delayed release(DR/EC) 20 mg PO DAILY 0RF Follow up/Referrals: Eddie Saenz DO [Non-Staff] - Titus Carcamo DO [Primary Care Provider] - Diet/Activity/Treatments Diet: Diet as Tolerated Catheter: 2-way Shukla Catheter comment: chronic catheter Visit Report/Discharge Packet Instructions: Antibiotic-associated Colitis -- C difficile Discharge Data Primary Care Provider: Titus Carcamo VTE Deep Vein Thrombosis/Pulmonary Embolism Present on Admission: No
--- NOTE | 2021-10-06 15:40 | CM.DPNOTE ---
Discharge Planning Note: Patient was scheduled home for discharge today per doctor's orders. As the day has progressed per nurseLa report, she has had increased diarrhea stools and weakness and that patient and son do not want patient to return home due to inability to self manage incontinent diarrhea and frequent transfers to toilet and fearful she will injure herself. Patient has penitentiary multiple sclerosis and although she is wheel chair bound she has been able to manage most of her self care by herself. She lives alone in [facility] and has supportive neighbor Hitesh next door who helps her with jackson transfers in and out of bed twice a day. Patient has been able to self transfer to the toilet but patient and son questioning whether she is strong enough to do self transfers due to weakened state and frequent diarrhea and requesting not to be transferred today. Provided [employer] booklets to patient and son and explained private caregivers for in home assistance. She also receives [facility] three times weekly for wound care and explained that we could order additional services for patient such as NURSING PROGRAM MANAGER, PT/OT, Bath aide which would help her re-establish plan and ability for care. Son asking about staying another day or going to rehab facility to strengthen upper body/transfer abilities, etc. Explained that insurance will not cover inpatient or SNF for merely fpc care. Son expresses understanding. We discussed PT/OT possibility. Spoke with Citlaly, charge nurse regarding challenges. We went into the room together and addressed concerns and plans, and discussed that doctor has written discharge orders and insurance will not pay once that has occurred. We addressed possibility of PT/OT evaluations for safety, ability to transfer, ADL management. Citlaly explained situation and Dr Rosas will write for holding discharge orders and will order PT/OT evaluations. P: Care management will follow up with tomorrow after evaluations and recommendations.
--- NOTE | 2021-10-06 16:29 | CM.DPC ---
Discharge Planning Note: Received call from Swapna at [facility]. Clinicals had been faxed to [place] and VM left. Let Swapna know that discharge is delayed, possibly tomorrow pending PT/OT evals. She receives [facility] for wound care tiw and explained we will need to add TECHNICAL PRODUCER, PT/OT, and bath aide upon discharge. Fabienne Tovar RN/DCP
--- NOTE | 2021-10-06 17:20 | PC.NURSE ---
Pt is AxOx4, w/c bound at baseline, VSS. Pt's d/c delayed to due to her weakness and pt needs assistance with peric-care at home. Pt will be evaluated tomorrow by PT/OT and d/c will be decided. Continue monitor.
[2021-10-07] VITALS (7 sets, daily range): BP systolic 114–144; BP diastolic 60–77; PULSE 84–97; RESP 17–20; TEMP 36.1–36.8; O2SAT 96–100; BMI 25.6
[2021-10-07 06:20] LABS: Add Manual Diff / Slide Review NO; Basophils Absolute Auto 0 /uL (0-100); Basophils Percent Auto 0.8 % (0-2); Eosinophils Absolute Auto 300 /uL (0-450); Eosinophils Percent Auto 5.6 % (2-4); Hematocrit 28.9 % (36-46); Hemoglobin 9.3 g/dL (12.0-16.0); Lymphocytes Absolute Auto 2400 /uL (1100-4500); Lymphocytes Percent Auto 38.6 % (25-40); Mean Corpuscular HGB Conc 32.2 % (30-36); Mean Corpuscular Hemoglobin 25.5 PG (26-34); Monocytes Absolute Auto 1000 /uL (0-900); Monocytes Percent Auto 15.4 % (3-14); Neutrophils Absolute Auto 2500 /uL (1500-7000); Neutrophils Percent Auto 39.6 % (50-75); Platelet Count 287 X10^3/uL (150-400); Red Blood Cell Count 3.66 X10^6/uL (4.0-5.2); Red Cell Distribution Width 16.3 % (11.6-14.8); White Blood Cell Count 6.3 X10^3/uL (4.5-11.0)
[2021-10-07 06:29] LABS: BUN Creatinine Ratio 28.1 (6-22); Blood Urea Nitrogen 27 mg/dL (7-17); Calcium 8.5 mg/dL (8.4-10.2); Carbon Dioxide 29 mmol/L (22-32); Chloride 105 mmol/L (98-107); Estimated Glomerular Filt Rate 59 mL/min (>60); Glucose 102 mg/dL (80-110); HEMOLYSIS < 15 (0-50); Magnesium 1.8 mg/dL (1.6-2.3); Sodium 137 mmol/L (137-145)
[2021-10-07] MEDS: ENOXAPARIN 40 MG/0.4 ML SYRINGE SUBCUT (08:13)
[2021-10-07] MEDS: FIDAXOMICIN 200 MG TABLET PO ×2 (08:13→21:50)
[2021-10-07] MEDS: CITALOPRAM 10 MG TABLET 20 MG PO (08:13)
--- NOTE | 2021-10-07 11:02 | OT.IP.EVAL ---
Current Diagnoses Enterocolitis due to Clostridium difficile, not specified as recurrent (10/03/21) Past Medical History (Last Reviewed 10/03/21 @ 15:36 by Monika Mosley DO) Acute UTI H/O: hysterectomy History of tonsillectomy Hx of appendectomy Hypertension Multiple sclerosis Recurrent Clostridium difficile diarrhea Ureterolithiasis Surgical History (Last Updated 10/03/21 @ 22:53 by Princess Wright MD) H/O: hysterectomy History of tonsillectomy Hx of appendectomy Occupational Therapy Inpatient Evaluation/Re-Eval M1 PT/OT-IP Prior Functional Status Start: 10/04/21 12:26 Freq: NEEDED Status: Active Protocol: Document 10/07/21 11:12 CGR (Rec: 10/07/21 11:48 CGR [id number]) Medical Review Prior Functional Status Medical History Reviewed Yes Communication able to make needs known Mobility and Gait pt stated that her neighbor comes in the morning and uses a jackson lift to transfer her from the bed to her manual w/c and comes back in the evening to transfer her back to bed. pt is w/c bound. Activities of Daily Living and IADL's pt stated that she is able to squat pivot w/c<>toilet and able to manage hygiene care and dressing needs by herself. Pt states she stands for pulling up pants and uses a dressing stick for LB dressing . Pt was able to stand at sink for limited time but does all other activities from seating . Pt makes her own food using the microwave, does her own dishes, laundry and cleaning. Prior Functional Level (Other details) Pt has a w/c van but has been unable to drive since she broke her ankle. Her neighbor drives her van whenever she needs to go out. Social History Household Members none Living Arrangements House Number of Floors (Floors) One Floor Number of Stairs To Enter/Railing? ramp to enter Home Environment Standard Height Toilet,Tub/ Shower,Ramp Home Equipment Manual Wheelchair,Hand Held Shower,Mechanical Lift,Grab Bars In Shower Employment Status Retired Additional Social History Comment Sole LEGGETT nurse comes in to manage foot wound. Pt has a cat and manages most of her daily needs without assist. M1 PT/OT-IP Prior Functional Status Start: 10/07/21 11:12 Freq: NEEDED Status: Active Protocol: Document 10/07/21 11:12 CGR (Rec: 10/07/21 11:48 CGR [id number]) Medical Review Prior Functional Status Medical History Reviewed Yes Communication able to make needs known Mobility and Gait pt stated that her neighbor comes in the morning and uses a jackson lift to transfer her from the bed to her manual w/c and comes back in the evening to transfer her back to bed. pt is w/c bound. Activities of Daily Living and IADL's pt stated that she is able to squat pivot w/c<>toilet and able to manage hygiene care and dressing needs by herself. Pt states she stands for pulling up pants and uses a dressing stick for LB dressing . Pt was able to stand at sink for limited time but does all other activities from seating . Pt makes her own food using the microwave, does her own dishes, laundry and cleaning. Prior Functional Level (Other details) Pt has a w/c van but has been unable to drive since she broke her ankle. Her neighbor drives her van whenever she needs to go out. Social History Household Members none Living Arrangements House Number of Floors (Floors) One Floor Number of Stairs To Enter/Railing? ramp to enter Home Environment Standard Height Toilet,Tub/ Shower,Ramp Home Equipment Manual Wheelchair,Hand Held Shower,Mechanical Lift,Grab Bars In Shower Employment Status Retired Additional Social History Comment Sole nurse comes in to manage foot wound. Pt has a cat and manages most of her daily needs without assist. M2 OT-IP Current Condition Start: 10/07/21 11:12 Freq: Status: Active Protocol: Document 10/07/21 11:12 CGR (Rec: 10/07/21 11:48 R [id number]) Occupational Therapy Current Condition Current Condition Evaluation Date 10/07/21 Treatment Diagnosis recurrent c-diff Diagnosis Onset Date 10/03/21 M3 OT- IP Subjective and Pain Start: 10/07/21 11:12 Freq: Status: Active Protocol: Document 10/07/21 11:12 CGR (Rec: 10/07/21 11:48 R [id number]) OT- Subjective Occupational Therapy Visit Type Type Initial Evaluation Visit Start Time 09:58 Visit Stop Time 11:02 Total Visit Minutes 64 Notes Pt's son present throughout session. OT Pain Assessment Pain When Pain Assessed During Mobility Pain Present Pain Present Pain Reported Location Back Scale Used Pt did not rate Management Techniques Modification of Treatment,Re- positioning M4 OT- IP ADL's Start: 10/07/21 11:12 Freq: Status: Active Protocol: Document 10/07/21 11:12 CGR (Rec: 10/07/21 11:48 CGR [id number]) OT [id number] Comments OT Self-Feeding Comments not meal time OT ADL-Grooming General Evaluation Grooming Ability Standby Assistance Areas Needing Assistance Combing/Brushing Hair,Face Washing Comments OT Grooming Comments seated in w/c at sink OT ADL-Oral Care General Eval Oral Care Ability Minimal Assistance Areas of Assistance Brushing Teeth Comments Oral Care Comments seated in w/c at sink OT ADL-Dressing General Eval Lower Body Dressing Ability Total Assistance Areas Needing Assistance Underpants/Brief,Socks OT ADL-Toileting General Evaluation Toileting Ability Total Assistance Areas Needing Assistance Perform Perineal Hygiene Comments OT Toileting Comments changed minimally soiled brief supine in bed OT ADL-Bathing Comments OT Bathing Comments not performed M5 OT- IP IADL's Start: 10/07/21 11:12 Freq: Status: Active Protocol: Document 10/07/21 11:12 CGR (Rec: 10/07/21 11:48 CGR [id number]) OT-Instrumental Activities of Daily Living Deficits IADL Deficits Identified No Deficits Home Safety Awareness Awareness of Need for Assistance at Home Good Awareness Ability to Problem Solve Emergency Able to Problem Solve Situations Medication Management Medication Management No Deficits Identified Money Management Money Management No Deficits Identified Meal Preparation Meal Preparation No Deficits Identified Safety Manager Safety Manager No Deficits Identified Driving Driving Caregiver Provides Assist M6 OT- IP Functional Cognition Start: 10/07/21 11:12 Freq: Status: Active Protocol: Document 10/07/21 11:12 CGR (Rec: 10/07/21 11:48 CGR [id number]) Cognitive Factors Limiting Selfcare Function Cognitive Ability Level of Alertness Alert Patient Orientation Name,Age,Birthday,Month,Date, Year,Day of Week,Place, Situation Cognitive Comments Cognitive Assessment Comments Pt appears to need increased processing time. OT- Vision and Hearing OT- Hearing Assessment OT- Hearing Assessment Hearing Impaired OT- Vision Assessment Visual Attentiveness WFL Occular Pursuits WFL Visual Convergence WFL Vision Assessment Comments Pt wears bifocals for reading and watching tv M7 OT- IP Mobility and Balance Start: 10/07/21 11:12 Freq: Status: Active Protocol: Document 10/07/21 11:12 CGR (Rec: 10/07/21 11:48 CGR [id number]) OT- Bed Mobility Assessment Rolling Type of Rolling Log Rolling,Roll to Right,Roll to Left Level of Assistance Maximum Assistance Supine to Sit Supine to Sit Assist Total Assistance OT-Transfer Assessment Transfers Transfer Ability Total Assistance Technique Transfer Technique Mechanical Lift Comments Mobility Comments Pt was hoyered to w/c. Discussed transfer to toilet with pt but pt states that she doesn't think she can perform at this time. Pt needed 2 person assist for scooting back in w/c after multiple attmepts by pt to scoot herself back. Pt's core and BLE extension makes transfers and forward fx difficult. OT- Gait Assessment Comments Gait Ability Comments Not performed. Pt is non ambulatory at baseline. OT- Balance Assessment Sitting Balance and Reactions Static Sitting Balance Ability Poor M8 OT- IP Objective Assessments Start: 10/07/21 11:12 Freq: Status: Active Protocol: Document 10/07/21 11:12 CGR (Rec: 10/07/21 11:48 CGR [id number]) OT Gross Range of Motion Upper Extremity Range of Motion Assessment Within Functional Limits OT Strength Upper Extremity Strength Assessment Bilaterally Impaired Shoulder 3+ Elbow 4- Hand 4- OT- Coordination Assessment Upper Extremity Finger to Nose Test Within Functional Limits Finger Tapping Test Within Functional Limits Comments Coordination Comments Pt's coordination is WFL but slower than typical. It does not appear to impact her ability to perform simple self care. OT-Muscle Tone Assessment Muscle Tone WNL No Muscle Tone Location Bilateral Lower Extremity Type of Tone Rigidity,Extensor Comments Muscle Tone Comments L>R, noted extensor tone to the core as well. OT Sensation Assessment Comments Summary Comments Pt states numbness to B hands and indicates that this is her baseline. Edema Edema Absent M9 OT- IP Assessment and Plan Start: 10/07/21 11:12 Freq: Status: Active Protocol: Document 10/07/21 11:12 CGR (Rec: 10/07/21 11:48 CGR [id number]) OT Summary Assessment and Plan Potential Rehabilitation Potential Good Analytic Complexity at Evaluation High Summary OT Impairments Pain,Strength,Balance, Sensation,Tone,Functional Mobility,Grooming,Dressing, Toileting,Bathing,Toilet Transfers,Shower Transfers, Activity Tolerance Progress Towards Goals Slow Progress due to Medical Issues,Slow Progress due to Activity Tolerance Assessment Summary Pt presents as a high complexity evaluation s/p admit for recurrent c-dif with generalized weakness. Pt is highly independent at her baseline despite her MS and would like to eventually return home. Pt initially resistant to SNF but after further discussion pt agrees that she would not be able to care for herself and perform simple transfers as she has been at baseline. Recommend d/ c to SNF. Goals Grooming Goal Independent Dressing Goal Independent Toileting Goal Independent Bathing Goal Independent Toilet Transfer Goal Independent Days to Meet Goals 30 Frequency of Treatment Frequency Of Treatment Once a Day Treatment Plan OT Treatment Plan ADL Training,Functional Mobility,Therapeutic Exercises ,Patient/Family Education, Discharge Planning Other Treatment Recommendations and Next dressing, UE strengthening Treatment Focus Discharge Recommendations OT Discharge Recommendations SNF Rehab Transportation Needs at Discharge Wheelchair/Cabulance
--- NOTE | 2021-10-07 12:40 | CM.DPC ---
Addendum entered by BROOKLYNN Seth 10/07/21 13:42: ADD: Return call from Kaylen at [facility] and she confirms they can accept pt and will initiate [employer] auth once PT note from today available and only issue is pt currently on 10 days of an oral abx that is expensive and [facility] will request carve out from [facility] for abx. JESSE faxed PT note to [facility] to start auth process. SW met bedside with pt and son and updated on [facility] acceptance but awaiting insurance auth. Pt and son agreeable with [facility] at d/c and SW discussed facility van for transport and son plans to take tomorrow (Tu) off to get pt's personal belongings from her home for d/c directly to SNF. SW also discussed if [employer] denies SNF auth, will need back up plan for d/c tomorrow either Private Pay SNF or [facility] or home with Resume Sole LEGGETT RN with adding PT/OT/DIRECTOR CONSUMER. SW discussed tentative cost of [facility] SNF or [facility]. Pt confirms she has a hx of SNF at [facility] a few years ago and also went to [facility] for Respite stay before. Preference is [facility] under her [employer] or home with increased S[facility] and family assist if SNF auth denied but son will be present bedside in the AM around 0830. BF Original Note: DCP Cont: Per MD, pt still quite weak and below baseline and feels pt would benefit from SNF. PT/OT reordered to work with pt today. Per OT, pt was able to participate but definitely below baseline as pt can typically stand to squat pivot independently and not currently able to and OT feels pt could benefit from SNF for strengthening to get back to baseline of mostly independent and pt agreeable although was hopeful for home. Son had been bedside and agreeable with SNF as well. PT for today is still pending. Pt has [employer] MCR and will need auth for SNF. JESSE made referrals to [facility] and [facility] as they are only [place] [facility]F's currently contracted with pt's [employer]. JESSE called [facility] admissions and provided update and faxed OT note from today and PT still pending and [facility] will review and aware pt has [employer]. JESSE called [facility] and had to re-fax to non-efax number for review and they are willing to review. SW printed pt's COVID vax status and pt fully vaccinated with one booster from [facility] website. Plan: SW to follow closely for [facility] and [facility] review to determine if either will accept and start [employer] auth today. PASRR needed if SNF at d/c. BROOKLYNN Seth
--- NOTE | 2021-10-07 13:18 | PC.RNWOUND ---
Patient sitting up in chair in room, right lateral plantar foot (5th MTP) has a 0.8 x 0.6 x 0.3cm ulcer, edges are well-defined and intact, periwound has purple discoloration noted, no exudate is noted to this wound which presently has a dry, pink. hypogranular wound bed. Patient has MS and cannot move lower extremities. Patient says she sees wound clinic every other week for management of this wound. Wound is gently cleansed with saline and dressed with bordered foam dressing for protection. Patient tolerates cares well and denies pain to this wound.
--- NOTE | 2021-10-07 13:36 | PT.IPRE ---
Current Diagnoses Enterocolitis due to Clostridium difficile, not specified as recurrent (10/03/21) Medical History (Last Reviewed 10/03/21 @ 15:36 by Monika Mosley DO) Acute UTI Hypertension Multiple sclerosis Recurrent Clostridium difficile diarrhea Ureterolithiasis Physical Therapy Inpatient Evaluation/Re-Eval M1 PT/OT-IP Prior Functional Status Start: 10/04/21 12:26 Freq: NEEDED Status: Active Protocol: Document 10/07/21 11:12 CGR (Rec: 10/07/21 11:48 CGR [id number]) Medical Review Prior Functional Status Medical History Reviewed Yes Communication able to make needs known Mobility and Gait pt stated that her neighbor comes in the morning and uses a jackson lift to transfer her from the bed to her manual w/c and comes back in the evening to transfer her back to bed. pt is w/c bound. Activities of Daily Living and IADL's pt stated that she is able to squat pivot w/c<>toilet and able to manage hygiene care and dressing needs by herself. Pt states she stands for pulling up pants and uses a dressing stick for LB dressing . Pt was able to stand at sink for limited time but does all other activities from seating . Pt makes her own food using the microwave, does her own dishes, laundry and cleaning. Prior Functional Level (Other details) Pt has a w/c van but has been unable to drive since she broke her ankle. Her neighbor drives her van whenever she needs to go out. Social History Household Members none Living Arrangements House Number of Floors (Floors) One Floor Number of Stairs To Enter/Railing? ramp to enter Home Environment Standard Height Toilet,Tub/ Shower,Ramp Home Equipment Manual Wheelchair,Hand Held Shower,Mechanical Lift,Grab Bars In Shower Employment Status Retired Additional Social History Comment Sole nurse comes in to manage foot wound. Pt has a cat and manages most of her daily needs without assist. M1 PT/OT-IP Prior Functional Status Start: 10/07/21 11:12 Freq: NEEDED Status: Active Protocol: Document 10/07/21 11:12 CGR (Rec: 10/07/21 11:48 CGR [id number]) Medical Review Prior Functional Status Medical History Reviewed Yes Communication able to make needs known Mobility and Gait pt stated that her neighbor comes in the morning and uses a jackson lift to transfer her from the bed to her manual w/c and comes back in the evening to transfer her back to bed. pt is w/c bound. Activities of Daily Living and IADL's pt stated that she is able to squat pivot w/c<>toilet and able to manage hygiene care and dressing needs by herself. Pt states she stands for pulling up pants and uses a dressing stick for LB dressing . Pt was able to stand at sink for limited time but does all other activities from seating . Pt makes her own food using the microwave, does her own dishes, laundry and cleaning. Prior Functional Level (Other details) Pt has a w/c van but has been unable to drive since she broke her ankle. Her neighbor drives her van whenever she needs to go out. Social History Household Members none Living Arrangements House Number of Floors (Floors) One Floor Number of Stairs To Enter/Railing? ramp to enter Home Environment Standard Height Toilet,Tub/ Shower,Ramp Home Equipment Manual Wheelchair,Hand Held Shower,Mechanical Lift,Grab Bars In Shower Employment Status Retired Additional Social History Comment Sole nurse comes in to manage foot wound. Pt has a cat and manages most of her daily needs without assist. M2 PT-IP Current Condition Start: 10/04/21 12:26 Freq: NEEDED Status: Active Protocol: Document 10/07/21 13:01 AMB (Rec: 10/07/21 13:34 AMB [id number]) Physical Therapy Current Condition Current Condition Evaluation Date 10/07/21 Treatment Diagnosis C-diff colitis; MS; generalized weakness Onset Date 10/03/21 M3 PT-IP Subjective Start: 10/04/21 12:26 Freq: NEEDED Status: Active Protocol: Document 10/07/21 13:01 AMB (Rec: 10/07/21 13:34 AMB [id number]) Subjective Physical Therapy Visit Type Type Re-Evaluation Visit Start Time 11:30 Visit Stop Time 12:05 Total Visit Minutes 35 Physical Therapy Visit Comments Patient Comments Spoke with pt and son, pt is hesitant to go to SNF, but agrees with family that she is not strong enough to go home yet and is therefore willing to reconsider. M4 PT-IP Mobility and Gait Start: 10/04/21 12:26 Freq: NEEDED Status: Active Protocol: Document 10/07/21 13:01 AMB (Rec: 10/07/21 13:34 AMB [id number]) PT-Transfer Assessment Sit to and From Stand Sit to and from Stand Moderate Assistance,2 Person Assistance,Use of Upper Extremities Equipment Transfer Assistive Device Gait Belt Comments Mobility Comments Pt was in her manual w/c after OT assessment. CEO NA was hoping to perform sponge bath. PT assisted pt from sit to stand at sink, as pt had previously been able to perform this transfer herself. Pt needed 2 person assist ModA from both to move from sit to stand. Held on to faucet with right hand, and leaning over sink with her torso for support she was able to maintain stance for 5 minutes while CEO NA cleaned yoly area. L LE was quite weak and PT held gait belt and provided counter pressure at L knee to prevent L knee collapse. PT-Balance Assessment Sitting Balance and Reactions Static Sitting Balance Ability Poor Dynamic Sitting Balance Ability Poor Standing Balance and Reactions Static Standing Balance Ability Poor Dynamic Standing Balance Ability Poor M5 PT-IP Objective Assessments Start: 10/04/21 12:26 Freq: NEEDED Status: Active Protocol: Document 10/07/21 13:01 AMB (Rec: 10/07/21 13:34 AMB [id number]) Orientation Orientation/Cognition Level of Alertness Alert Orientation Name,Place,Situation Language Function Ability No Deficits Noted Safety Awareness Decreased Safety Awareness Strength Comments Strength Comments unable to assess MMT due to extensor tone on BLE, worse L> R Muscle Tone Muscle Tone Location Bilateral Lower Extremity Type of Tone Rigidity,Extensor M6 PT-IP Treatment Start: 10/04/21 12:26 Freq: NEEDED Status: Active Protocol: Document 10/04/21 11:35 AB (Rec: 10/04/21 12:50 AB [id number]) Physical Therapy Treatment Education Education Provided Safety M7 PT-IP Assessment and Plan Start: 10/04/21 12:26 Freq: NEEDED Status: Active Protocol: Document 10/07/21 13:01 AMB (Rec: 10/07/21 13:34 AMB [id number]) PT Summary Assessment and Plan Potential Rehabilitation Potential Good Status of Condition at Evaluation Evolving Summary Impairments Pain,ROM,Strength,Balance, Coordination,Sensation,Tone, Cognition,Bed Mobility, Transfers,Gait,Activity Tolerance Assessment Summary After Olivia's family discussed her care with her, she has agreed that she is not yet strong enough to discharge home. Previously she had been able to stand up at the sink and stand pivot transfer, but is unable to do either transfer at this point without physical assistance. She therefore agrees to discharge to SNF when she is medically stable, and would benefit from physical therapy while admitted to work on strengthening and improving her transfers. She does have L>R weakness and tone that limit her ability to transfer safely, but is at the point where she knows she will need to strengthen before going home. Goals Bed Mobility Goal Moderate Assistance Transfer Goal Moderate Assistance Days to Meet Goals 5 Frequency of Treatment Frequency Of Treatment Once a Day Treatment Plan Physical Therapy Treatment Plan Bed Mobility Training,Transfer Training,Therapeutic Exercise ,Balance Retraining,Discharge Planning,Neuromuscular Re-ed Recommendations To Nursing Amount of Assist Needed Mechanical Lift Discharge Recommendations PT Discharge Recommendations SNF Rehab
--- NOTE | 2021-10-07 15:19 | PM.PN.1 ---
Subjective Subjective Interval history: Followup daily visit. Patient has discharge arranged but then on further evaluation mobility was too decreased for going home. Needs SNF for further rehabilitation per physical therapy assessment today. Exam Vital Signs (past 8 hours): - 10/07/21 07:32 10/07/21 07:45 10/07/21 11:30 Temperature 97.8 F 97.0 F L Pulse Rate 85 94 H Respiratory Rate 18 20 Blood Pressure 144/73 H 114/70 Pulse Oximetry 96 97 99 10/07/21 14:55 Temperature 98.2 F Pulse Rate 97 H Respiratory Rate 17 Blood Pressure 135/69 Pulse Oximetry 100 Oxygen Delivery Method Room Air Oxygen Flow Rate 0 Const General: cooperative, healthy appearing, comfortable and well groomed Orientation: oriented x3 HENMT Head: normal to inspection Eyes General: appearance normal, both eyes and all related structures Pupils: PERRL EOM: EOM intact bilaterally Resp Auscultation: clear to auscultation bilaterally Cardio Rate: regular rate Heart Sounds: S1 normal and S2 normal GI Palpation: soft Auscultation: normal bowel sounds Other: Shukla in place. Objective ECG Impression: Post treatment for C. difficile with decreased mobility needed further rehabilitation. Labs Result Diagrams: 10/07/21 05:43 10/07/21 05:43 Labs: Laboratory Results - last 24 hr 10/07/21 10/07/21 05:43 05:43 WBC 6.3 RBC 3.66 L Hgb 9.3 L Hct 28.9 L MCV 79.0 L MCH 25.5 L MCHC 32.2 RDW 16.3 H Plt Count 287 Neut % (Auto) 39.6 L Lymph % (Auto) 38.6 [place] % (Auto) 15.4 H Eos % (Auto) 5.6 H Baso % (Auto) 0.8 Neut # (Auto) 2500 Lymph # (Auto) 2400 [place] # (Auto) 1000 H Eos # (Auto) 300 Baso # (Auto) 0 Sodium 137 Potassium 4.0 Chloride 105 Carbon Dioxide 29 BUN 27 H Creatinine 0.96 Estimated GFR 59 L BUN/Creatinine Ratio 28.1 H Glucose 102 Calcium 8.5 Magnesium 1.8 PFSH Medical History (Updated 10/03/21 @ 18:35 by Monika Mosley DO) Acute UTI Hypertension Multiple sclerosis Recurrent Clostridium difficile diarrhea Ureterolithiasis Surgical History (Updated 10/03/21 @ 22:53 by Princess Wright MD) H/O: hysterectomy History of tonsillectomy Hx of appendectomy Family History (Updated 10/03/21 @ 22:54 by Princess Wright MD) Father Hypertension Myocardial infarct Mother Cancer Social History household members: none occupational status: previously employed Smoking Status: Former smoker alcohol intake: current Assessment & Plan Assessment & Plan narrative: 1.? Acute Clostridium difficile colitis. Treatment done. 2. Chronic indwelling Shukla 3. Multiple sclerosis 4. Decreased mobility needing SNF for further rehabilitation. Time Spent With Patient Critical Care time: I spent a total of [] minutes of critical care time on this patient's care today; this time is exclusive of procedural time. Quality VTE Deep Vein Thrombosis/Pulmonary Embolism Present on Admission: No
--- NOTE | 2021-10-07 17:57 | PC.NURSE ---
Pt is AxOx4, calm and cooperative. Pt is w/c bound at baseline; denies pain and continue contact precaution. No loose BM today. Pt is eating well and resting. Pt is now waiting to be placed in SNF. POLST form is signed and copied today. Continue monitor. No other changes.
[2021-10-08 03:00] VITALS: BP 137/70; PULSE 86; RESP 17; TEMP 36.5; O2SAT 97
[2021-10-08 07:00] VITALS: BP 124/66; PULSE 92; RESP 17; TEMP 36.9; O2SAT 96
[2021-10-08] MEDS: ENOXAPARIN 40 MG/0.4 ML SYRINGE SUBCUT (09:06)
[2021-10-08] MEDS: CITALOPRAM 10 MG TABLET 20 MG PO (09:06)
[2021-10-08] MEDS: FIDAXOMICIN 200 MG TABLET PO (09:07)
--- NOTE | 2021-10-08 10:32 | PT.IPTN ---
Current Diagnoses Enterocolitis due to Clostridium difficile, not specified as recurrent (10/03/21) Physical Therapy Treatment Note M2 PT-IP Current Condition Start: 10/04/21 12:26 Freq: NEEDED Status: Active Protocol: Document 10/07/21 13:01 AMB (Rec: 10/07/21 13:34 AMB [id number]) Physical Therapy Current Condition Current Condition Evaluation Date 10/07/21 Treatment Diagnosis C-diff colitis; MS; generalized weakness Onset Date 10/03/21 M3 PT-IP Subjective Start: 10/04/21 12:26 Freq: NEEDED Status: Active Protocol: Document 10/08/21 10:32 AB (Rec: 10/08/21 12:38 AB [id number]) Subjective Physical Therapy Visit Type Type Treatment Note Visit Start Time 10:32 Visit Stop Time 11:03 Total Visit Minutes 31 Number of COOLER MAN Visits 0 Physical Therapy Visit Comments Patient Comments agreed to get out of the bed M4 PT-IP Mobility and Gait Start: 10/04/21 12:26 Freq: NEEDED Status: Active Protocol: Document 10/08/21 10:32 AB (Rec: 10/08/21 12:38 AB [id number]) PT-Bed Mobility Assessment Supine to Sit Supine to Sit Total Assistance,2 Person Assistance Scooting Scooting to Edge of Bed Dependent PT-Transfer Assessment Sit to and From Stand Sit to and from Stand Total Assistance,2 Person Assistance,Use of Upper Extremities Equipment Transfer Assistive Device Gait Belt Orthotic/Prosthetic Devices or Brace: No Transfers Transfer Destination Wheelchair Transfer Technique Squat Pivot Transfer Ability Level of Assist Total Assistance,2 Person Assistance Comments Mobility Comments pt completed supine to sit total A x 2 and max cues. (+) BLE extensor rigidity and posterior trunk lean requiring max A for sitting balance. completed squat pivot transfer total A x 2 and max cues to w /c. total A for positioning on w/c. call light and table placed within reach. M5 PT-IP Objective Assessments Start: 10/04/21 12:26 Freq: NEEDED Status: Active Protocol: Document 10/07/21 13:01 AMB (Rec: 10/07/21 13:34 AMB [id number]) Orientation Orientation/Cognition Level of Alertness Alert Orientation Name,Place,Situation Language Function Ability No Deficits Noted Safety Awareness Decreased Safety Awareness Strength Comments Strength Comments unable to assess MMT due to extensor tone on BLE, worse L> R Muscle Tone Muscle Tone Location Bilateral Lower Extremity Type of Tone Rigidity,Extensor M6 PT-IP Treatment Start: 10/04/21 12:26 Freq: NEEDED Status: Active Protocol: Document 10/08/21 10:32 AB (Rec: 10/08/21 12:38 AB [id number]) Physical Therapy Treatment Education Education Provided Safety M7 PT-IP Assessment and Plan Start: 10/04/21 12:26 Freq: NEEDED Status: Active Protocol: Document 10/08/21 10:32 AB (Rec: 10/08/21 12:38 AB [id number]) PT Summary Assessment and Plan Potential Rehabilitation Potential Fair Summary Impairments Pain,ROM,Strength,Balance, Coordination,Sensation,Tone, Cognition,Bed Mobility, Transfers,Gait,Activity Tolerance Progress Towards Goals Slow Progress - Other Assessment Summary Pt requiring total A x 2 with squat pivot transfer and recommending use of jackson lift for transfers. pt has dx of MS and has increase BLE extensor tone with P- trunk control. Pt needs 24/7 assist / LTC placement. Currently, does not have 24/7 assist at home and plans to go to SNF. Goals Bed Mobility Goal Moderate Assistance Transfer Goal Moderate Assistance Days to Meet Goals 10 Frequency of Treatment Frequency Of Treatment Once a Day Treatment Plan Physical Therapy Treatment Plan Bed Mobility Training,Transfer Training,Therapeutic Exercise ,Balance Retraining,Discharge Planning,Neuromuscular Re-ed Recommendations To Nursing Amount of Assist Needed Mechanical Lift Discharge Recommendations PT Discharge Recommendations Home with 24/7 Assist Available,Home Health,SNF Rehab
[2021-10-08 11:00] VITALS: BP 130/78; PULSE 96; RESP 18; TEMP 36.6; O2SAT 96
--- NOTE | 2021-10-08 13:17 | OT.IP.TRT ---
Current Diagnoses Enterocolitis due to Clostridium difficile, not specified as recurrent (10/03/21) Occupational Therapy Treatment Note M2 OT-IP Current Condition Start: 10/07/21 11:12 Freq: Status: Active Protocol: Document 10/07/21 11:12 CGR (Rec: 10/07/21 11:48 CGR [id number]) Occupational Therapy Current Condition Current Condition Evaluation Date 10/07/21 Treatment Diagnosis recurrent c-diff Diagnosis Onset Date 10/03/21 M3 OT- IP Subjective and Pain Start: 10/07/21 11:12 Freq: Status: Active Protocol: Document 10/08/21 13:21 [facility] (Rec: 10/08/21 13:28 [facility] [id number]) OT- Subjective Occupational Therapy Visit Type Type Treatment Note Visit Start Time 13:07 Visit Stop Time 13:17 Total Visit Minutes 10 Occupational Therapy Visit Comments Patient Comments Pt wanting to go back to bed as nursing aid to assist with sponge bath. Patient/Caregiver Goals To go home. M5 OT- IP IADL's Start: 10/07/21 11:12 Freq: Status: Active Protocol: Document 10/07/21 11:12 CGR (Rec: 10/07/21 11:48 R [id number]) OT-Instrumental Activities of Daily Living Deficits IADL Deficits Identified No Deficits Home Safety Awareness Awareness of Need for Assistance at Home Good Awareness Ability to Problem Solve Emergency Able to Problem Solve Situations Medication Management Medication Management No Deficits Identified Money Management Money Management No Deficits Identified Meal Preparation Meal Preparation No Deficits Identified Manager Online Manager Online No Deficits Identified Driving Driving Caregiver Provides Assist M6 OT- IP Functional Cognition Start: 10/07/21 11:12 Freq: Status: Active Protocol: Document 10/08/21 13:21 [facility] (Rec: 10/08/21 13:28 [facility] [id number]) Cognitive Factors Limiting Selfcare Function Cognitive Comments Cognitive Assessment Comments Increased time to process M7 OT- IP Mobility and Balance Start: 10/07/21 11:12 Freq: Status: Active Protocol: Document 10/08/21 13:21 [facility] (Rec: 10/08/21 13:28 [facility] [id number]) OT- Bed Mobility Assessment Sit to Supine Sit to Supine Assist Total Assistance,2 Person Assistance OT-Transfer Assessment Transfers Transfer Ability Maximum Assistance,Total Assistance,2 Person Assistance Comments Mobility Comments MAX A/Total A x[facility] and needing to block her feet from sliding forwards. OT- Gait Assessment Comments Gait Ability Comments Not performed. Pt is non ambulatory at baseline. OT- Balance Assessment Sitting Balance and Reactions Static Sitting Balance Ability Fair Comments Other Balance Tests/Deviations/Treatment Pt able to sit at the edge of : the bed better today and able to sit without assist initially after transfer back to bed. M8 OT- IP Objective Assessments Start: 10/07/21 11:12 Freq: Status: Active Protocol: Document 10/07/21 11:12 CGR (Rec: 10/07/21 11:48 CGR [id number]) OT Gross Range of Motion Upper Extremity Range of Motion Assessment Within Functional Limits OT Strength Upper Extremity Strength Assessment Bilaterally Impaired Shoulder 3+ Elbow 4- Hand 4- OT- Coordination Assessment Upper Extremity Finger to Nose Test Within Functional Limits Finger Tapping Test Within Functional Limits Comments Coordination Comments Pt's coordination is WFL but slower than typical. It does not appear to impact her ability to perform simple self care. OT-Muscle Tone Assessment Muscle Tone WNL No Muscle Tone Location Bilateral Lower Extremity Type of Tone Rigidity,Extensor Comments Muscle Tone Comments L>R, noted extensor tone to the core as well. OT Sensation Assessment Comments Summary Comments Pt states numbness to B hands and indicates that this is her baseline. Edema Edema Absent M9 OT- IP Assessment and Plan Start: 10/07/21 11:12 Freq: Status: Active Protocol: Document 10/08/21 13:21 [facility] (Rec: 10/08/21 13:28 [facility] [id number]) OT Summary Assessment and Plan Potential Rehabilitation Potential Good Analytic Complexity at Evaluation High Summary OT Impairments Pain,Strength,Balance, Sensation,Tone,Functional Mobility,Grooming,Dressing, Toileting,Bathing,Toilet Transfers,Shower Transfers, Activity Tolerance Progress Towards Goals Slow Progress due to Medical Issues,Slow Progress due to Activity Tolerance Assessment Summary Pt still needing max/Total assist for transfer back to bed and far from her baseline of MOD I with squat pivot transfer on her own to the [facility] from . Pt will benefit from skilled rehab to work on getting back to her baseline for needs. Goals Grooming Goal Independent Dressing Goal Independent Toileting Goal Independent Bathing Goal Independent Toilet Transfer Goal Independent Days to Meet Goals 30 Frequency of Treatment Frequency Of Treatment Once a Day Treatment Plan OT Treatment Plan ADL Training,Functional Mobility,Therapeutic Exercises ,Patient/Family Education, Discharge Planning Other Treatment Recommendations and Next dressing Treatment Focus Discharge Recommendations OT Discharge Recommendations SNF Rehab Transportation Needs at Discharge Wheelchair/Cabulance
--- NOTE | 2021-10-08 14:01 | PM.PN.1 ---
Subjective Subjective Interval history: Hospitalist daily visit. Feeling good. No loose stools. Just needs to get stronger. no other complaints. Exam Vital Signs (past 8 hours): - 10/08/21 07:00 10/08/21 11:00 Temperature 98.5 F 97.8 F Pulse Rate 92 H 96 H Respiratory Rate 17 18 Blood Pressure 124/66 130/78 Pulse Oximetry 96 96 Oxygen Delivery Method Room Air Oxygen Flow Rate 0 Const General: cooperative and comfortable Orientation: alert and oriented x3 HENMT Head: normal to inspection Eyes Pupils: PERRL EOM: EOM intact bilaterally Resp Auscultation: clear to auscultation bilaterally Cardio Rhythm: regular rhythm Heart Sounds: S1 normal and S2 normal GI Palpation: soft Objective Labs Result Diagrams: 10/07/21 05:43 10/07/21 05:43 [facility] Medical History (Updated 10/03/21 @ 18:35 by Monika Mosley DO) Acute UTI Hypertension Multiple sclerosis Recurrent Clostridium difficile diarrhea Ureterolithiasis Surgical History (Updated 10/03/21 @ 22:53 by Princess Wright MD) H/O: hysterectomy History of tonsillectomy Hx of appendectomy Family History (Updated 10/03/21 @ 22:54 by Princess Wright MD) Father Hypertension Myocardial infarct Mother Cancer Social History household members: none occupational status: previously employed Smoking Status: Former smoker alcohol intake: current Assessment & Plan Assessment & Plan narrative: 1.? Acute Clostridium difficile colitis. Treatment finishing, transition to Vancomycin for discharge to SNF. 2. Chronic indwelling Shukla 3. Multiple sclerosis, Has decreased mobility on chronic dysmobility from MS. Needs to improve to baseline. Plan is for SNF short stay. 4. Decreased mobility needing SNF for further rehabilitation. Time Spent With Patient Critical Care time: I spent a total of [] minutes of critical care time on this patient's care today; this time is exclusive of procedural time. Quality VTE Deep Vein Thrombosis/Pulmonary Embolism Present on Admission: No
[2021-10-08] MEDS: VANCOMYCIN 125 MG CAPSULE PO ×3 (14:34→21:05)
[2021-10-08 14:57] VITALS: BP 118/71; PULSE 90; RESP 17; TEMP 35.9; O2SAT 100
--- NOTE | 2021-10-08 15:56 | DIET.CONS2 ---
Dietary Inpatient Consultation Note Admission Date: 10/03/2021 20:02 81y F c MS admitted for c. diff colitis after 4d watery diarrhea c associated weakness screened by RD for LOS day 5. Pt doing well, consuming 100% POs c no further liquid BM. Pt will d/c when strengthened home c HH agency in place. Pt attends wound care twice monthly for chronic wounds on feet. Diet: 10/04/21 Breakfast General (Regular) Diet Diet Modifications: Nutrition Percent Meal Consumed 100% 10/08/21 09:02 Percent Meal Consumed 100% 10/07/21 18:00 Percent Meal Consumed 100% 10/07/21 14:10 Percent Meal Consumed 75% 10/06/21 18:48 Electronically Signed by: Rajwinder Lopez 10/08/21 15:56 Clinical Dietitian [address] [address]
--- NOTE | 2021-10-08 17:09 | CM.DPC ---
DCP/continued: Reviewed chart. [facility] call to [facility] re: acceptance and authorization. Kaylen reports that she will submit request from [facility] [employer]. At this time they anticipate that they can accept tomorrow 10-09-21. BAIL AGENT met with patient and son re: d/c plan. All in agreement to short stay at [facility]. Patient reports that she plans to go home once she is stronger. Son aware that patient most likely will need additional caregiving support. Son hopeful that patient would consider moving into assisted living. However, BAIL AGENT met with her privately and she reports that she wants to stay home. Patient and son report patient has funds to pay for private caregivers. sandblasting supervisor scheduled for 10-09-21 at 2:30pm. Kaylen made aware that patient has her own w/c in room. BAIL AGENT requested COVID test prior to d/c. In addition, to the above BAIL AGENT discussed and went over DPOA paperwork with patient and son today. RN instructed to call notary if needed. P: Shannon Osman on 10-09-21. Provider made aware that we need orders in AM. ELADIO
[2021-10-08] MEDS: CALCIUM CARBONATE 500 MG TAB 1000 MG PO (17:19)
[2021-10-08 18:25] LABS: COVID19 -Nasal RAPID Negative (Negative)
[2021-10-08 20:50] VITALS: BP 124/62; PULSE 89; RESP 18; TEMP 36.7; O2SAT 98
[2021-10-08] MEDS: PANTOPRAZOLE DR 40 MG TABLET PO (21:05)
[2021-10-09] VITALS: BP 134/68; PULSE 89; RESP 18; TEMP 36.6; O2SAT 98
[2021-10-09 04:45] VITALS: BP 121/64; PULSE 82; RESP 18; TEMP 36.1; O2SAT 96
[2021-10-09] MEDS: PANTOPRAZOLE DR 40 MG TABLET PO (06:54)
[2021-10-09 08:00] VITALS: BP 125/70; PULSE 81; RESP 17; TEMP 36.3; O2SAT 96
[2021-10-09] MEDS: CITALOPRAM 10 MG TABLET 20 MG PO (10:10)
[2021-10-09] MEDS: VANCOMYCIN 125 MG CAPSULE PO ×2 (10:10→13:44)
[2021-10-09] MEDS: ENOXAPARIN 40 MG/0.4 ML SYRINGE SUBCUT (10:10)
--- NOTE | 2021-10-09 11:12 | PM.DS.1 ---
History of Present Illness History of Present Illness Date Patient Seen: 10/09/21 Chief complaint: c diff Narrative: This is an 81-year-old female with multiple sclerosis, chronic weakness, hypertension and GERD who presented with recurrent C diff colitis.? She has had at least 1 prior episode of C diff colitis about a year ago.? ? For the last 4 days prior to presentation, she had watery diarrhea without any visible blood and has become progressively weaker.? She had a neighbor and visiting nurses who helped her up on the day prior to presentation but on day of presentation she was unable to stand, help herself, and the caregivers were not present.? On initial evaluation in the ED she is found to be C diff positive and plans were in place for home outpatient Fidoxamicin treatment but she was unable to stand up or wipe herself and so was being admitted for inpatient treatment of her progressively severe weakness related to C diff colitis.? At baseline she has caregivers and visiting nurses due to a right foot ulcer and multiple sclerosis weakness.? She has had no abdominal pain, nausea, vomiting, bleeding or fevers. Weakness continued in hospital and further rehabilitation is need on discharge. Discharge Providers Provider Date of admission: 10/03/21 20:02 Discharge Date: 10/09/21 Primary care physician: Titus Carcamo DO Consults: 10/03/21 20:51 Consult to Physical Therapy Evaluate & Treat Comment: Physician Instructions: Evaluate and Treat 10/06/21 15:33 Consult to Physical Therapy Evaluate & Treat Comment: re-eveal for SNF Physician Instructions: Evaluate and Treat 10/06/21 15:34 Consult to Occupational Therapy Evaluate & Treat Comment: re-eval for SNF Physician Instructions: Evaluate and treat Discharge provider: Kanwal Thompson MD Summary Hospital Course Discharge Diagnosis: C. difficile with associated general increased weakness. Hospital Course: This is an 81-year-old female with multiple sclerosis, chronic weakness, hypertension and GERD who presented with recurrent C diff colitis. She was initiated on Fidoxamicin for recurrent C. difficile and then traistioned to vancomycin to complete her treatment such that she would have medication provided by facility being transferred to. Patient has improved C. difficile symptoms with no current diarrhea. However, weakness progress with the C. difficile diagnosis and patient requires further rehabilitation to reurn home. At baseline she has caregivers and visiting nurses due to a right foot ulcer and multiple sclerosis weakness. These services should be continued when patient eventually returns home. Status at Discharge Cognitive/behavioral status at discharge: oriented and at baseline, oriented Overall status at discharge: patient is not back to baseline Exam Vital Signs (past 8 hours): - 10/09/21 04:45 10/09/21 08:00 Temperature 97.0 F L 97.3 F L Pulse Rate 82 81 Respiratory Rate 18 17 Blood Pressure 121/64 125/70 Pulse Oximetry 96 96 Oxygen Delivery Method Room Air Oxygen Flow Rate 0 Const General: cooperative and comfortable HENMT Head: normal to inspection Eyes Pupils: PERRL EOM: EOM intact bilaterally Neck Other: No lymph nodes palpable or tender. Resp Auscultation: clear to auscultation bilaterally Cardio Rate: regular rate Rhythm: regular rhythm Heart Sounds: S1 normal and S2 normal GI Inspection: normal to inspection Palpation: soft Auscultation: normal bowel sounds Other: Not done. Objective Labs Result Diagrams: 10/07/21 05:43 10/07/21 05:43 Labs: Laboratory Results - last 24 hr 10/08/21 18:02 SARS-CoV-2 (PCR) Negative [facility] Medical History (Updated 10/03/21 @ 18:35 by Monika Mosley DO) Acute UTI Hypertension Multiple sclerosis Recurrent Clostridium difficile diarrhea Ureterolithiasis Surgical History (Updated 10/03/21 @ 22:53 by Princess Wright MD) H/O: hysterectomy History of tonsillectomy Hx of appendectomy Family History (Updated 10/03/21 @ 22:54 by Princess Wright MD) Father Hypertension Myocardial infarct Mother Cancer Social History household members: none occupational status: previously employed Smoking Status: Former smoker alcohol intake: current Discharge Assessment & Plan Assessment and Plan Assessment: 1.? Acute Clostridium difficile colitis. Treatment finishing, transition to Vancomycin for discharge to SNF. 2. Chronic indwelling Shukla 3. Multiple sclerosis, Has decreased mobility on chronic dysmobility from MS. Needs to improve to baseline. Plan is for SNF short stay. 4. Decreased mobility needing SNF for further rehabilitation. Plan of Treatment: Discharge to [facility] for further rehabilitation prior to going home. Discharge Plan Discharge Plan Patient Disposition: SNF Transfer to: [facility] Discharge orders & Medications Prescriptions: New fidaxomicin 200 mg tablet 200 mg PO BID 10 Days Qty: 20 0RF acetaminophen 325 mg Tablet 975 mg PO Q8H MDD 4 g PRN (Reason: Pain, Mild (1-3)) Qty: 30 0RF citalopram 10 mg Tablet 20 mg PO DAILY Qty: 20 0RF vancomycin 125 mg Capsule 125 mg PO QID MDD 500 mg Qty: 30 0RF Rx Instructions: Complete course of treatment pantoprazole 40 mg Tablet,Delayed Release (Dr/Ec) 40 mg PO 0700,2100 Qty: 20 0RF calcium carbonate 200 mg calcium (500 mg) Tablet,Chewable 1,000 mg PO Q4HR PRN (Reason: Dyspepsia) Qty: 60 0RF Continued cholecalciferol (vitamin D3) 1,000 unit capsule 1,000 unit PO DAILY 0RF lisinopril 20 mg tablet 20 mg PO DAILY 0RF Label Comments: Take 1 tablet by mouth once a day citalopram 20 mg tablet 20 mg PO DAILY 0RF acetaminophen 325 mg Tablet 650 mg PO Q6HR PRN (Reason: Fever) Qty: 30 0RF omeprazole 20 mg capsule,delayed release(DR/EC) 20 mg PO DAILY 0RF Follow up/Referrals: Eddie Saenz DO [Non-Staff] - Titus Carcamo DO [Primary Care Provider] - Diet/Activity/Treatments Diet: Diet as Tolerated Catheter: 2-way Shukla Catheter comment: chronic catheter Visit Report/Discharge Packet Instructions: Antibiotic-associated Colitis -- C difficile Discharge Data Primary Care Provider: Titus Carcamo Quality VTE Deep Vein Thrombosis/Pulmonary Embolism Present on Admission: No
[2021-10-09 12:00] VITALS: BP 122/63; PULSE 85; RESP 16; TEMP 36.3; O2SAT 96
--- NOTE | 2021-10-09 15:38 | CM.DPNOTE ---
DC Note DC to [facility] today; auth in place as of this morning. Patient and son Oscar agreeable to this plan All DC ppk faxed to Kaylen at [facility], including completed PASRR, signed med list, DC Summary and diet order RN CJ updated and agrees to call report. Patient will be picked up at approx 1430 by [facility], RN will supply jackson sling. Patient has her own wheelchair in room Plan: DC to [facility] via w/c today JW
== END 2021-10-09 14:45 ==
LOC: ED 19:55 → AC 21:14
PROVIDERS: Emergency Medicine; Neuromusculoskeletal Medicine, Sports Medicine; Student in an Organized Health Care Education/Training Program; Admitting Provider Family Medicine; Emergency Provider Emergency Medicine; PCP Family Medicine; Referring Provider Emergency Medicine; Visit Provider Family Medicine
DX: A04.72 Enterocolitis due to Clostridium difficile, not specified as recurrent (principal); R53.1 Weakness; G35 Multiple sclerosis; I10 Essential (primary) hypertension; D64.9 Anemia, unspecified; K21.9 Gastro-esophageal reflux disease without esophagitis; F32.A Depression, unspecified; Z99.3 Dependence on wheelchair; Z20.822 Contact with and (suspected) exposure to COVID-19
CPT/HCPCS: 36415; 80048; 80053; 81001; 83690; 83735; 85025; 87086; 87324; 87507; 87635; 94762; 96360; 96361; 96372; 97162; 97164; 97167; 97530; 97535; 99284; C9803; G0378; J1650

== ENCOUNTER 2021-11-09 13:28 | Emergency (ER) | payer OTHER, SELFPAY ==
[2021-10-07 09:38] VITALS: BMI 25.6
[2021-11-09] VITALS (7 sets, daily range): BP systolic 134–158; BP diastolic 70–81; PULSE 75–90; RESP 18; TEMP 36.2; O2SAT 98–99; BMI 24.3
--- NOTE | 2021-11-09 15:41 | ED_ITS ---
HPI - Skin/Abscess/Foreign Bdy <George Crawford THERAPEUTIC RECREATION SPECIALIST - Last Filed: 11/09/21 17:04> General Chief complaint: Skin/Abscess/Foreign Body Stated complaint: Pain in rectum, maybe have bedsores, wound foot Source: family Mode of arrival: Wheelchair Limitations: no limitations History of Present Illness HPI narrative: 81-year-old female brought into the emergency department by her son with compla ints buttock pain that she thought was related to hemorrhoids and a chronic nonhealing right foot wound. Patient has a chronic indwelling catheter due to immobility and incontinence. Son is concerned that she can not take care of herself at home even though she has a home health nurse helping out twice a week. Patient gets around in a wheelchair needs assistance moving from the wheelchair to her chair, where she sleeps at night. Patient states that she felt something break loose last night and thought it was a hemorrhoid bursting. Patient denies any blood in her stool. Son would like the Shukla catheter be changed out as the last time the catheter was changed was in September 2021. Patient has an appointment with a new PCP in 2 weeks. Related Data Home Medications Medication Instructions Recorded Confirmed cholecalciferol (vitamin D3) 25 1,000 unit PO DAILY 10/25/18 10/03/21 mcg (1,000 unit) capsule citalopram 20 mg tablet 20 mg PO DAILY depression 06/04/19 10/03/21 omeprazole 20 mg capsule,delayed 20 mg PO DAILY 08/29/20 10/03/21 release lisinopril 20 mg tablet 20 mg PO DAILY 10/03/21 10/03/21 Previous Rx's Medication Instructions Recorded acetaminophen 325 mg tablet 650 mg PO Q6HR PRN Fever #30 tabs 06/08/19 citalopram 10 mg tablet 20 mg PO DAILY #20 tabs 10/09/21 pantoprazole 40 mg tablet,delayed 40 mg PO 0700,2100 #20 tabs 10/09/21 release mupirocin 2 % topical ointment 1 applic topical BID Buttock 11/09/21 abrasion #22 grams zinc oxide 10 % topical cream 1 applic topical BID-QID PRN skin 11/09/21 irritation #78 grams Allergies Allergy/AdvReac Type Severity Reaction Status Date / Time azithromycin Allergy Mild RASH Verified 11/09/21 13:37 levofloxacin Allergy Mild RASH Verified 11/09/21 13:37 Sulfa (Sulfonamide Allergy Mild RASH Verified 11/09/21 13:37 Antibiotics) ceftriaxone AdvReac Intermediate Swelling Verified 11/09/21 13:37 of Lip/Tongue/Throat adhesive AdvReac Mild RASH FROM Verified 11/09/21 13:37 CLOTH TAPE Review of Systems <LEROY Elder - Last Filed: 11/09/21 17:04> Review of Systems Narrative: Patient denies current fever, chills, blurry or double vision, earache, nasal congestion, sore throat, new loss of smell or taste, chest discomfort, SOB, N&V, diarrhea, constipation, abdominal pain, dysuria, frequency, urgency, muscle or body aches, skin changes, numbness & tingling or limb weakness. Patient History <LEROY Elder - Last Filed: 11/09/21 17:04> Medical History Acute UTI Hypertension Multiple sclerosis Recurrent Clostridium difficile diarrhea Ureterolithiasis Surgical History H/O: hysterectomy History of tonsillectomy Hx of appendectomy Family History Father Hypertension Myocardial infarct Mother Cancer Social History household members: none occupational status: previously employed Smoking Status: Former smoker alcohol intake: current Smoking Status: Former smoker alcohol intake frequency: holidays/special occasions only Substance Use Type: does not use Exam <LEROY Elder - Last Filed: 11/09/21 17:04> Initial Vital Signs Initial Vital Signs: Vital Signs Temperature 97.2 F L 11/09/21 13:37 Pulse Rate 86 11/09/21 13:37 Respiratory Rate 18 11/09/21 13:37 Blood Pressure 134/70 11/09/21 13:37 Pulse Oximetry 99 11/09/21 13:37 Oxygen Delivery Method 11/09/21 13:37 Verified Const General: cooperative and healthy appearing [facility] Head: normocephalic Resp Effort & Inspection: normal respiratory effort Auscultation: clear to auscultation bilaterally Cardio Heart Sounds: S1 normal and S2 normal GI Inspection: normal to inspection Palpation: soft and No tender Auscultation: normal bowel sounds Skin Rashes: rashes noted (mild skin irritation to medial superior right buttock) Wounds: wounds noted (ball of right foot) Neuro General: patient alert and patient oriented x3 <Cesilia Diana DO - Last Filed: 11/11/21 08:44> Initial Vital Signs Initial Vital Signs: Vital Signs Temperature 97.2 F L 11/09/21 13:37 Pulse Rate 86 11/09/21 13:37 Respiratory Rate 18 11/09/21 13:37 Blood Pressure 134/70 11/09/21 13:37 Pulse Oximetry 99 11/09/21 13:37 Oxygen Delivery Method 11/09/21 13:37 Course <LEROY Elder - Last Filed: 11/09/21 17:04> Vital Signs Vital signs: Vital Signs - 8 hr 11/09/21 13:37 Temperature 97.2 F L Pulse Rate 86 Respiratory Rate 18 Blood Pressure 134/70 Pulse Oximetry 99 Oxygen Delivery Method Room Air <Cesilia Diana DO - Last Filed: 11/11/21 08:44> Vital Signs Vital signs: Vital Signs - 8 hr 11/09/21 13:37 Temperature 97.2 F L Pulse Rate 86 Respiratory Rate 18 Blood Pressure 134/70 Pulse Oximetry 99 Oxygen Delivery Method Room Air MDM - Skin/Abscess/Foreign Bdy <LEROY Elder - Last Filed: 11/09/21 17:04> Differential Diagnosis Differential diagnosis: Likely abscess of skin or subcutaneous tissue; Unlikely cellulitis, eczema or impetigo [facility] Narrative Medical decision making narrative: 81-year-old female with right buttock skin abrasion and decubitus skin ulcer at the ball of the right foot. Nursing staff assisted in the rollover of patient to observe her buttock and perineal area, noting a 3 cm abrasion on medial superior right buttock. Right foot and wound was dressed with a sponge and Band-Aid. No signs active infection and dressing was replaced. Referral to wound clinic. We will treat the skin abrasion with mupirocin ointment and a barrier cream. Shukla catheter was changed by nursing staff without difficulty. Patient will follow-up with her new PCP in 2 weeks. Return precautions provided. Discussed plan of care with patient and son who were agreeable with course of action. Discharge Plan Departure Patient Disposition: Home Clinical Impression: Abrasion of skin, Decubitus skin ulcer Instructions: DI for Wound Infection Activity Restrictions/Additional Instructions: *You have been diagnosed with right foot infection and abrasion on left buttock. I am prescribing mupirocin ointment to be applied to your left buttock twice a day until symptoms resolve. Additionally I am prescribing barrier cream that she can use for the irritation in between her buttocks and groin. I am putting in a referral for wound care to deal with the foot and the buttock. Please follow-up with your PCP as previously scheduled. For worsening symptoms that include chest pain, shortness of breath, intolerable pain, etc. please return to the emergency department or see your PCP immediately. *What to do: *Please continue to take your regular medications as directed. [X ] New medication prescriptions sent to your pharmacy: [ ] [ ] New medication written as a paper prescription [ ] No new medications given *Please follow up with your primary care provider at your scheduled appointment. Let them know you were seen in the Emergency Department and that we ask that you be seen in follow up. We will electronically transmit a record of today's note if your PCP is in our system. *Return to Emergency Department if you should have any new, worsening or concerning symptoms, such as [fever greater than 101 F, shaking chills, worsening pain, persistent vomiting or other bothersome symptoms] Prescriptions: New mupirocin 2 % ointment 1 applic topical BID Qty: 22 0RF zinc oxide 10 % cream 1 applic topical BID-QID PRN (Reason: skin irritation) Qty: 78 0RF No Action cholecalciferol (vitamin D3) 1,000 unit capsule 1,000 unit PO DAILY lisinopril 20 mg tablet 20 mg PO DAILY Label Comments: Take 1 tablet by mouth once a day citalopram 10 mg Tablet 20 mg PO DAILY Qty: 20 0RF pantoprazole 40 mg Tablet,Delayed Release (Dr/Ec) 40 mg PO 0700,2100 Qty: 20 0RF citalopram 20 mg tablet 20 mg PO DAILY acetaminophen 325 mg Tablet 650 mg PO Q6HR PRN (Reason: Fever) Qty: 30 0RF omeprazole 20 mg capsule,delayed release(DR/EC) 20 mg PO DAILY Referrals: Sachi Stark, [employer] [Primary Care Provider] - Visit Report Forms: Patient Portal/API <Cesilia Diana DO - Last Filed: 11/11/21 08:44> Cosign ED Attending Rodrigoature Attestation: I was immediately available in the department for consultation. Documentation has been reviewed. I agree with assessment and plan.
--- NOTE | 2021-11-09 15:52 | PC.NURSE ---
Pt presents with son, pt reports that she is a wheelchair user and lives at home alone with limited care. Pt reports that wound care is visiting to care for an ulcer on the bottom of her left foot. Son reports concern for pressure wounds to buttock and hemmorhoid. Pt cleansed of large soft formed bowel movement. Healing red wound without open areas noted to right buttock adjacent to gluteal cleft. Left buttock noted with blanchable purple discoloration. Pt reports pain to gluteal cleft-- no breakdown visible. No external hemorrhoids noted.
--- NOTE | 2021-11-09 16:02 | PC.NURSE ---
Pt noted to have pink discoloration to right buttocks, blanchable. [place] discoloration to left hip under skin fold. Ulcer on bottom of left foot.
--- NOTE | 2021-11-09 17:10 | PC.NURSE ---
Pt previous catheter removed and new one inserted, pt tolerated well. Assisted pt to change into new brief and clothing, x2 assist to stand and pivot to wheelchair. Pt verbalizes understanding of discharge instructions, son at bedside and states he will be able to transport pt to appointments including wound clinic.
== END 2021-11-09 17:15 | disposition home or self-care (01) ==
PROVIDERS: Emergency Provider Registered Nurse; PCP Nurse Practitioner Family
DX: S30.810A Abrasion of lower back and pelvis, initial encounter (principal); L97.419 Non-pressure chronic ulcer of right heel and midfoot with unspecified severity
CPT/HCPCS: 99282; 99283

== ENCOUNTER 2021-11-13 11:26 | Emergency (ER) | payer OTHER, SELFPAY ==
[2021-10-07 09:38] VITALS: BMI 25.6
[2021-11-13 11:31] VITALS: BP 165/65; PULSE 63; RESP 16; TEMP 36.4; O2SAT 97
--- NOTE | 2021-11-13 11:33 | DI.RAD.S_ITS ---
PROCEDURE: XR SHOULDER RT MIN 2V INDICATIONS: fall, pain R shoulder TECHNIQUE: The views of the shoulder were acquired. COMPARISON: [facility], , SHOULDER MINIMUM 2 VIEW LEFT, 11/26/2007, 18:04. FINDINGS: Bones: No fractures or dislocations. No suspicious bony lesions. Moderate acromioclavicular joint degeneration. Visualized ribs appear intact. Soft tissues: No suspicious soft tissue calcifications. IMPRESSION: No acute osseous abnormalities. If clinical symptoms persist or clinical suspicion for pathology is high, advanced imaging such as CT or MRI is suggested for further evaluation. Dictated by: Gonzales Simpson M.D. on 11/13/2021 at 14:15 Approved by: Gonzales Simpson M.D. on 11/13/2021 at 14:20
--- NOTE | 2021-11-13 12:43 | ED_ITS ---
HPI - Fall <Claudia Venegas, [facility] - Last Filed: 11/13/21 14:34> General Chief Complaint: Fall Stated Complaint: R shoulder pain/slid out of bed Time Seen by Provider: 11/13/21 12:03 History of Present Illness HPI Narrative: This is an 81-year-old female presents to the emergency department complaining of right shoulder pain after she slid from her wheelchair onto the ground while trying to get into her recliner to go to bed last night. Patient states that gracie sanchez did not fall or hit the ground but she slept on her right shoulder and this has caused right shoulder pain. She states that she has an emergency button and it was on the kitchen table, she said that her phone was in the back of her wheelchair but she did notice at that time. She still has intact range of motion of her right shoulder, elbow and wrist, has bruises on her right forearm. Patient endorses that she is right-handed, denies any numbness or tingling in her hand or fingers. She states that she does not ambulate at home and uses her wheelchair rn oncology research. She states that she transfers in the bathroom. She came in by ambulance today but a family member named Hitesh is available to take her home today. Patient denies any head injury, denies being on any anticoagulants, denies any incontinence, denies hitting the ground on her bottom or anywhere, she states that she slid down. Related Data Home Medications Medication Instructions Recorded Confirmed cholecalciferol (vitamin D3) 25 1,000 unit PO DAILY 10/25/18 10/03/21 mcg (1,000 unit) capsule citalopram 20 mg tablet 20 mg PO DAILY depression 06/04/19 10/03/21 omeprazole 20 mg capsule,delayed 20 mg PO DAILY 08/29/20 10/03/21 release lisinopril 20 mg tablet 20 mg PO DAILY 10/03/21 10/03/21 Previous Rx's Medication Instructions Recorded acetaminophen 325 mg tablet 650 mg PO Q6HR PRN Fever #30 tabs 06/08/19 citalopram 10 mg tablet 20 mg PO DAILY #20 tabs 10/09/21 pantoprazole 40 mg tablet,delayed 40 mg PO 0700,2100 #20 tabs 10/09/21 release mupirocin 2 % topical ointment 1 applic topical BID Buttock 11/09/21 abrasion #22 grams zinc oxide 10 % topical cream 1 applic topical BID-QID PRN skin 11/09/21 irritation #78 grams diclofenac sodium 1 % topical gel 2 g topical QID PRN shoulder pain 11/13/21 (Arthritis Pain (diclofenac)) #100 grams Allergies Allergy/AdvReac Type Severity Reaction Status Date / Time azithromycin Allergy Mild RASH Verified 11/09/21 13:37 levofloxacin Allergy Mild RASH Verified 11/09/21 13:37 Sulfa (Sulfonamide Allergy Mild RASH Verified 11/09/21 13:37 Antibiotics) ceftriaxone AdvReac Intermediate Swelling Verified 11/09/21 13:37 of Lip/Tongue/Throat adhesive AdvReac Mild RASH FROM Verified 11/09/21 13:37 CLOTH TAPE Review of Systems <LEROY Watson - Last Filed: 11/13/21 14:34> Review of Systems Narrative: General: denies fever, chills, fatigue, or other illness Head/Neck: denies headache, neck pain Eyes: denies visual changes, eye pain Cardio: denies chest pain, palpitations Respiratory: denies shortness of breath, cough GI: denies abdominal pain, nausea, vomiting, or diarrhea : denies dysuria, hematuria or flank pain MSK: Endorses right shoulder soreness and pain with movement but denies any open wound. Denies any, muscle weakness or swelling Skin: denies rash, itching or wound, states that she has couple bruises on her forearm Neuro: denies numbness, tingling, dizziness Patient History <LEROY Watson - Last Filed: 11/13/21 14:34> Medical History Acute UTI Hypertension Multiple sclerosis Recurrent Clostridium difficile diarrhea Ureterolithiasis Surgical History H/O: hysterectomy History of tonsillectomy Hx of appendectomy Family History Father Hypertension Myocardial infarct Mother Cancer Social History household members: none occupational status: previously employed Smoking Status: Former smoker alcohol intake: current Smoking Status: Former smoker alcohol intake frequency: holidays/special occasions only Substance Use Type: does not use Exam <LEROY Watson - Last Filed: 11/13/21 14:34> Narrative Exam Narrative: Independently reviewed vitals signs and nursing notes. General: Awake, alert, nontoxic, no cardiorespiratory distress, elderly, frail, not ambulatory, interactive with clear speech Head/Neck: Atraumatic, neck supple with full range of motion Eyes: EOMI, conjunctiva normal Nose: nares patent, no rhinorrhea Mouth/Throat: moist mucus membranes Cardio: Regular rate and rhythm, no peripheral edema Respiratory: respirations unlabored without wheezing, stridor, or rales. No retractions, hypoxia or tachypnea GI: Abdomen soft, nontender to palpation x4 quadrants, no guarding or rebound tenderness MSK: Moves all extremities, neurovascularly intact, right shoulder with normal range of motion without deficit, two small bruises without hematomas on her right forearm, no open wound or skin tear Skin: Normal capillary refill, no rash Neuro: Normal speech and cognition, normal gait Initial Vital Signs Initial Vital Signs: Vital Signs Temperature 97.5 F L 11/13/21 11:31 Pulse Rate 63 11/13/21 11:31 Respiratory Rate 16 11/13/21 11:31 Blood Pressure 165/65 H 11/13/21 11:31 Pulse Oximetry 97 11/13/21 11:31 Oxygen Delivery Method 11/13/21 11:31 <Rajendra Becker MD - Last Filed: 11/21/21 03:40> Initial Vital Signs Initial Vital Signs: Vital Signs Temperature 97.5 F L 11/13/21 11:31 Pulse Rate 63 11/13/21 11:31 Respiratory Rate 16 11/13/21 11:31 Blood Pressure 165/65 H 11/13/21 11:31 Pulse Oximetry 97 11/13/21 11:31 Oxygen Delivery Method 11/13/21 11:31 Course <LEROY Watson - Last Filed: 11/13/21 14:34> Orders Ordered: Discontinued Medications Acetaminophen (Acetaminophen 325 Mg Tablet) 650 mg PO NOW ONE Stop: 11/13/21 12:43 Last Admin: 11/13/21 12:55 Dose: 650 mg Documented By: [facility] Vital Signs Vital signs: Vital Signs - 8 hr 11/13/21 11:31 Temperature 97.5 F L Pulse Rate 63 Respiratory Rate 16 Blood Pressure 165/65 H Pulse Oximetry 97 Oxygen Delivery Method Room Air <Rajendra Becker MD - Last Filed: 11/21/21 03:40> Orders Ordered: Discontinued Medications Acetaminophen (Acetaminophen 325 Mg Tablet) 650 mg PO NOW ONE Stop: 11/13/21 12:43 Last Admin: 11/13/21 12:55 Dose: 650 mg Documented By: [facility] Vital Signs Vital signs: Vital Signs - 8 hr 11/13/21 11:31 Temperature 97.5 F L Pulse Rate 63 Respiratory Rate 16 Blood Pressure 165/65 H Pulse Oximetry 97 Oxygen Delivery Method Room Air MDM - Fall <LEROY Watson - Last Filed: 11/13/21 14:34> Imaging Data Extremity x-ray #1: Radiologist's Impression: PROCEDURE:? XR SHOULDER RT MIN 2V ? INDICATIONS:? fall, pain R shoulder ? TECHNIQUE:? The views of the shoulder were acquired.? ? COMPARISON:? [facility], , SHOULDER MINIMUM 2 VIEW LEFT, 11/26/2007, 18:04. ? FINDINGS:? ? Bones:? No fractures or dislocations.? No suspicious bony lesions.? Moderate acromioclavicular joint degeneration.? Visualized ribs appear intact.? ? Soft tissues:? No suspicious soft tissue calcifications.? ? IMPRESSION:? No acute osseous abnormalities.? If clinical symptoms persist or clinical suspicion for pathology is high, advanced imaging such as CT or MRI is suggested for further evaluation. ? ? Dictated by: Gonzales Simpson M.D. on 11/13/2021 at 14:15 ? ? Approved by: Gonzales Simpson M.D. on 11/13/2021 at 14:20 ? [facility] Narrative Medical decision making narrative: This is a pleasant 81-year-old female who presents to the emergency department via ambulance because she is nonambulatory and does not drive who states that she slid down onto the ground in between her wheelchair and her recliner last night and slept on the floor on her right side using the pillow from her recliner. She is not ambulatory at baseline, lives in her wheelchair rn oncology research and usually transfers to the bathroom and her recliner without incident at baseline. She denies any recent illness, fatigue, weakness, sensation changes, she denies hitting her head. She is not on anticoagulants, she complains of right shoulder pain from sleeping on it but does not have any wounds, has full range of motion, radial pulses 2+ and she has a brisk cap refill. She has not had any medication prior to arrival, she was given 650 mg of Tylenol. Discussed adjunct for pain like a sling but this would pose too much of a safety risk for her at home. She has a 911 button and it was on the table and she has a cellphone and this was in the back her wheelchair but she forgot about this last night. Right shoulder x-ray shows no acute osseous abnormaliies. She has moderate AC joint degeneration. She was given Tylenol in the emergency department, this was helpful for her pain, she slept for much of the weight and was neurologically intact, interactive pleasant has full range of motion of right shoulder but painful after rest. Her neighbor Hitesh is able to pick her up. Patient is appropriate and amenable to discharge home. Vital signs are stable on repeat examination is unremarkable. Patient has been informed of results. Patient has been given strict return to ER precautions for any new or worsening symptoms. Patient understands to follow up closely with outpatient providers as instructed. Patient understands plan and agrees to discharge home. All questions and concerns answered at this time. Discharge Plan Departure Patient Disposition: Home Clinical Impression: Acute shoulder pain Qualifiers: Laterality: right Qualified Code(s): M25.511 - Pain in right shoulder Instructions: DI for Shoulder Sprain, DI for Shoulder Pain Activity Restrictions/Additional Instructions: *You have been diagnosed with right shoulder pain. Your x-ray does not show any fracture, which is good news. I am sorry that you will probably feel sore for the next few days if not a week. Please use the topical diclofenac gel and or your CBD cream in addition to Tylenol every 6 hours to help treat your pain. Please remember to move your joint frequently throughout the day so that you do not get stiff. Stay hydrated, remember to eat food with medications, and keep your emergency button with you at all times. Try to be as safe as possible knowing that you will be painful on the right side. Call for help if you need it. *What to do: *Please continue to take your regular medications as directed. [x ] New medication prescriptions sent to your pharmacy: [[facility] ] [ ] New medication written as a paper prescription [ ] No new medications given *Please follow up with your primary care provider in 2-3 days, call for an appointment. Let them know you were seen in the Emergency Department and that we asked that you be seen for follow-up. We will electronically transmit a record of today's note if your PCP is in our system *If you do not have a primary care provider please contact [phone] to establish care with one of the [facility] primary care providers. *Return to Emergency Department if you should have any new, worsening or concerning symptoms, such as [fever greater than 101F, chills, worsening pain, persistent vomiting or other bothersome symptoms] Prescriptions: New diclofenac sodium [Arthritis Pain (diclofenac)] 1 % gel 2 g topical QID PRN (Reason: shoulder pain) Qty: 100 0RF No Action cholecalciferol (vitamin D3) 1,000 unit capsule 1,000 unit PO DAILY lisinopril 20 mg tablet 20 mg PO DAILY Label Comments: Take 1 tablet by mouth once a day citalopram 10 mg Tablet 20 mg PO DAILY Qty: 20 0RF pantoprazole 40 mg Tablet,Delayed Release (Dr/Ec) 40 mg PO 0700,2100 Qty: 20 0RF mupirocin 2 % ointment 1 applic topical BID Qty: 22 0RF zinc oxide 10 % cream 1 applic topical BID-QID PRN (Reason: skin irritation) Qty: 78 0RF citalopram 20 mg tablet 20 mg PO DAILY acetaminophen 325 mg Tablet 650 mg PO Q6HR PRN (Reason: Fever) Qty: 30 0RF omeprazole 20 mg capsule,delayed release(DR/EC) 20 mg PO DAILY Referrals: Sachi Stark, [employer] [Primary Care Provider] - Visit Report Forms: Patient Portal/API <Rajendra Becker MD - Last Filed: 11/21/21 03:40> Cosign ED Attending Rodrigoature Attestation: I was immediately available in the department for consultation. This documentation has been reviewed and I agree with assessment and plan. Supervised by Rajendra Becker MD
[2021-11-13] MEDS: ACETAMINOPHEN 325 MG TABLET 650 MG PO (12:55)
[2021-11-13 16:08] VITALS: BP 132/76; PULSE 77; RESP 17; O2SAT 98
== END 2021-11-13 16:09 | disposition home or self-care (01) ==
PROVIDERS: Emergency Provider Nurse Practitioner Critical Care Medicine; PCP Nurse Practitioner Family
DX: M25.511 Pain in right shoulder (principal); W07.XXXA Fall from chair, initial encounter
CPT/HCPCS: 73030; 99283

== ENCOUNTER → 2021-11-18 14:46 | Outpatient (CLI) | payer OTHER, SELFPAY ==
[2021-10-07 09:38] VITALS: BMI 25.6
== END ==
PROVIDERS: PCP Nurse Practitioner Family; Referring Provider Nurse Practitioner Critical Care Medicine; Visit Provider Family Medicine
DX: L89.893 Pressure ulcer of other site, stage 3 (principal); L84 Corns and callosities; G35 Multiple sclerosis; Z74.09 Other reduced mobility; Z99.3 Dependence on wheelchair; Z91.19 Patient's noncompliance with other medical treatment and regimen
CPT/HCPCS: 11042; 99213

== ENCOUNTER → 2021-11-25 12:55 | Outpatient (CLI) | payer OTHER, SELFPAY ==
[2021-10-07 09:38] VITALS: BMI 25.6
== END ==
PROVIDERS: PCP Family Medicine; Referring Provider Nurse Practitioner Critical Care Medicine; Visit Provider Family Medicine
DX: L89.893 Pressure ulcer of other site, stage 3 (principal)
CPT/HCPCS: 99213

== ENCOUNTER → 2021-12-02 14:24 | Outpatient (CLI) | payer OTHER, SELFPAY ==
[2021-10-07 09:38] VITALS: BMI 25.6
== END ==
PROVIDERS: PCP Family Medicine; Referring Provider Family Medicine; Visit Provider Family Medicine
DX: L89.893 Pressure ulcer of other site, stage 3 (principal); L08.9 Local infection of the skin and subcutaneous tissue, unspecified; G35 Multiple sclerosis; Z74.09 Other reduced mobility; Z99.3 Dependence on wheelchair
CPT/HCPCS: 11042; 73630; 87070; 87075; 87077; 87147; 87186; 87205; 99214

== ENCOUNTER → 2021-12-02 15:53 | Outpatient (CLI) | payer OTHER, SELFPAY ==
[2021-10-07 09:38] VITALS: BMI 25.6
--- NOTE | 2021-12-02 15:54 | DI.RAD.S_ITS ---
PROCEDURE: XR FOOT RT MIN 3V INDICATIONS: Eval for Osteo, Right 5th met head TECHNIQUE: 3 views of the foot were acquired. COMPARISON: None. FINDINGS: Bones: No fractures or dislocations. No suspicious bony lesions. Multiple hammertoe deformities present which limits evaluation of the digits. Moderate hallux valgus metatarsus prima varus alignment and medial bunion. 1st MTP and diffuse interphalangeal joint space narrowing with periarticular osteophyte formation. Postsurgical changes of the ankle incompletely visualized. Bones are osteopenic. Soft tissues: No tibiotalar joint effusion. Achilles tendon appears normal. IMPRESSION: 1. Although no bony erosions are identified, plain film radiography is relatively insensitive in the acute phases of osteomyelitis and may not demonstrate radiographic changes for 15 days. If acute osteomyelitis is of clinical concern, nuclear medicine regional bone scan or MRI is recommended. Dictated by: Reyes Newton [facility] Interpreted: Jay Pennington MD on 12/02/2021 at 16:20 Transcribed by: TEJAS on 12/02/2021 at 16:21 Approved by: Jay Pennington M.D. on 12/02/2021 at 16:56
== END ==
PROVIDERS: PCP Physician Assistant; Referring Provider Family Medicine; Visit Provider Family Medicine
DX: L89.893 Pressure ulcer of other site, stage 3 (principal)
CPT/HCPCS: 73630

== ENCOUNTER → 2021-12-09 12:59 | Outpatient (CLI) | payer OTHER, SELFPAY ==
[2021-10-07 09:38] VITALS: BMI 25.6
== END ==
PROVIDERS: PCP Physician Assistant; Referring Provider Nurse Practitioner Critical Care Medicine; Visit Provider Family Medicine
DX: L89.893 Pressure ulcer of other site, stage 3 (principal); S91.301A Unspecified open wound, right foot, initial encounter; G35 Multiple sclerosis; L08.89 Other specified local infections of the skin and subcutaneous tissue; S71.001A Unspecified open wound, right hip, initial encounter; B95.7 Other staphylococcus as the cause of diseases classified elsewhere; B96.5 Pseudomonas (aeruginosa) (mallei) (pseudomallei) as the cause of diseases classified elsewhere; M20.40 Other hammer toe(s) (acquired), unspecified foot; L60.2 Onychogryphosis; M21.619 Bunion of unspecified foot
CPT/HCPCS: 87070; 87075; 87077; 87186; 87205; 97597; 99214

== ENCOUNTER → 2021-12-16 11:45 | Outpatient (CLI) | payer OTHER, SELFPAY ==
[2021-10-07 09:38] VITALS: BMI 25.6
== END ==
PROVIDERS: PCP Physician Assistant; Referring Provider Nurse Practitioner Family; Visit Provider Family Medicine
DX: L89.893 Pressure ulcer of other site, stage 3 (principal); S91.301A Unspecified open wound, right foot, initial encounter; G35 Multiple sclerosis; L08.89 Other specified local infections of the skin and subcutaneous tissue; S71.001A Unspecified open wound, right hip, initial encounter; B95.7 Other staphylococcus as the cause of diseases classified elsewhere; Z86.19 Personal history of other infectious and parasitic diseases; R21 Rash and other nonspecific skin eruption
CPT/HCPCS: 11042; 87070; 87075; 87077; 87186; 87205; 99213; 99214

== ENCOUNTER → 2021-12-23 14:10 | Outpatient (CLI) | payer OTHER, SELFPAY ==
[2021-10-07 09:38] VITALS: BMI 25.6
== END ==
PROVIDERS: PCP Physician Assistant; Referring Provider Nurse Practitioner Family; Visit Provider Family Medicine
DX: L89.893 Pressure ulcer of other site, stage 3 (principal); S71.001A Unspecified open wound, right hip, initial encounter; L08.89 Other specified local infections of the skin and subcutaneous tissue; R21 Rash and other nonspecific skin eruption; G35 Multiple sclerosis; B95.7 Other staphylococcus as the cause of diseases classified elsewhere; B95.62 Methicillin resistant Staphylococcus aureus infection as the cause of diseases classified elsewhere
CPT/HCPCS: 97597; 99214

== ENCOUNTER → 2022-01-14 13:30 | Outpatient (CLI) | payer OTHER, SELFPAY ==
[2021-10-07 09:38] VITALS: BMI 25.6
== END ==
PROVIDERS: PCP Physician Assistant; Referring Provider Nurse Practitioner Family; Visit Provider Family Medicine
DX: L89.893 Pressure ulcer of other site, stage 3 (principal); L08.89 Other specified local infections of the skin and subcutaneous tissue; S70.211A Abrasion, right hip, initial encounter; G35 Multiple sclerosis; R21 Rash and other nonspecific skin eruption; Z86.19 Personal history of other infectious and parasitic diseases
CPT/HCPCS: 11042; 87070; 87075; 87077; 87186; 87205; 99213

== ENCOUNTER → 2022-01-20 14:03 | Outpatient (CLI) | payer OTHER, SELFPAY ==
[2021-10-07 09:38] VITALS: BMI 25.6
== END ==
PROVIDERS: PCP Physician Assistant; Referring Provider Physician Assistant; Visit Provider Family Medicine
DX: L89.893 Pressure ulcer of other site, stage 3 (principal); S70.211A Abrasion, right hip, initial encounter; G35 Multiple sclerosis; Z86.19 Personal history of other infectious and parasitic diseases; B95.7 Other staphylococcus as the cause of diseases classified elsewhere; R21 Rash and other nonspecific skin eruption
CPT/HCPCS: 99213

== ENCOUNTER 2022-01-28 17:22 | Emergency (ER) | payer OTHER, SELFPAY ==
[2021-10-07 09:38] VITALS: BMI 25.6
[2022-01-28 17:48] VITALS: BP 149/94; PULSE 79; RESP 18; TEMP 36.6; O2SAT 100; BMI 25.4
--- NOTE | 2022-01-28 18:19 | ED_ITS ---
HPI - Head Injury <Claudia Venegas, [facility] - Last Filed: 01/28/22 18:24> General Chief complaint: Head Injury Stated complaint: head injury, tipped over in wheelchair Time Seen by Provider: 01/28/22 17:52 Source: patient Mode of arrival: Wheelchair History of Present Illness HPI Narrative: This is a 81-year-old female who is wheelchair-bound at baseline and presents to the emergency department at the request of her son with concern for a head injury when her wheelchair tipped in the van that she was riding in and she bumped her head on the wall of the van. She denies any LOC, denies any headache, nausea vomiting, neck pain, weakness, denies any difficulty concentrating, is alert and oriented x3. She states that it is little bit tender if she pushes on this area but there is no significant bump or concern for worsening injury. Patient states that she has a ball game she would like to go home and finish watching. She denies any nausea, vomiting. Discussed the mechanism of this injury with patient and her son and it sounds very low. Related Data Home Medications Medication Instructions Recorded Confirmed cholecalciferol (vitamin D3) 25 1,000 unit PO DAILY 10/25/18 10/03/21 mcg (1,000 unit) capsule citalopram 20 mg tablet 20 mg PO DAILY depression 06/04/19 01/22/22 omeprazole 20 mg capsule,delayed 20 mg PO DAILY 08/29/20 01/22/22 release lisinopril 20 mg tablet 20 mg PO DAILY 10/03/21 10/03/21 Previous Rx's Medication Instructions Recorded acetaminophen 325 mg tablet 650 mg PO Q6HR PRN Fever #30 tabs 06/08/19 citalopram 10 mg tablet 20 mg PO DAILY #20 tabs 10/09/21 pantoprazole 40 mg tablet,delayed 40 mg PO 0700,2100 #20 tabs 10/09/21 release mupirocin 2 % topical ointment 1 applic topical BID Buttock 11/09/21 abrasion #22 grams zinc oxide 10 % topical cream 1 applic topical BID-QID PRN skin 11/09/21 irritation #78 grams diclofenac sodium 1 % topical gel 2 g topical QID PRN shoulder pain 11/13/21 (Arthritis Pain (diclofenac)) #100 grams estradiol 2 mg (7.5 mcg/24 hour) 1 vag ring vaginal [id number] #1 ea 01/22/22 vaginal ring (Estring) Allergies Allergy/AdvReac Type Severity Reaction Status Date / Time azithromycin Allergy Mild RASH Verified 01/28/22 17:51 levofloxacin Allergy Mild RASH Verified 01/28/22 17:51 Sulfa (Sulfonamide Allergy Mild RASH Verified 01/28/22 17:51 Antibiotics) ceftriaxone AdvReac Intermediate Swelling Verified 01/28/22 17:51 of Lip/Tongue/Throat adhesive AdvReac Mild RASH FROM Verified 01/28/22 17:51 CLOTH TAPE Review of Systems <LEROY Watson - Last Filed: 01/28/22 18:24> Review of Systems Narrative: Review of systems is negative for acute abnormalities unless otherwise noted in HPI Patient History <LEROY Watson - Last Filed: 01/28/22 18:24> Medical History Acute UTI Hypertension Multiple sclerosis Recurrent Clostridium difficile diarrhea Ureterolithiasis Surgical History H/O: hysterectomy History of tonsillectomy Hx of appendectomy Family History Father Hypertension Myocardial infarct Mother Cancer Social History household members: none occupational status: previously employed Smoking Status: Former smoker alcohol intake: current Smoking Status: Former smoker alcohol intake frequency: holidays/special occasions only Substance Use Type: does not use Exam <LEROY Watson - Last Filed: 01/28/22 18:24> Narrative Exam Narrative: Reviewed vitals signs and nursing notes. General: cooperative, comfortable, in no acute distress, well groomed, alert and oriented, pleasant, without headache HEENT: symmetrical facial expressions, moist mucous membranes, head is visibly atraumatic, she has mild tenderness on the right parietal side of her head without any erythema, ecchymosis, bump, hematoma or skull depression. EOMI Cardiovascular: regular rate and rhythm, no peripheral edema, warm extremities Respiratory: normal effort, able to speak in complete sentences, without wheezing, stridor, or abnormal breath sounds. No retractions or tachypnea. GI: abdomen soft, nontender to palpation, nondistended, without masses, rebound tenderness or exquisite tenderness with exam. MSK: moves all extremities, neurovascularly intact, no weakness, normal tone Skin: brisk capillary refill, without pallor or erythema Neuro: normal speech and cognition, A&O x3, ambulatory, clear speech Psych: mental status is grossly normal, congruent mood, normal affect, pleasant and cooperative Initial Vital Signs Initial Vital Signs: Vital Signs Temperature 98 F 01/28/22 17:48 Pulse Rate 79 01/28/22 17:48 Respiratory Rate 18 01/28/22 17:48 Blood Pressure 149/94 H 01/28/22 17:48 Pulse Oximetry 100 01/28/22 17:48 Oxygen Delivery Method 01/28/22 17:48 <Cesilia Diana DO - Last Filed: 01/29/22 22:00> Initial Vital Signs Initial Vital Signs: Vital Signs Temperature 98 F 01/28/22 17:48 Pulse Rate 79 01/28/22 17:48 Respiratory Rate 18 01/28/22 17:48 Blood Pressure 149/94 H 01/28/22 17:48 Pulse Oximetry 100 01/28/22 17:48 Oxygen Delivery Method 01/28/22 17:48 Course <LEROY Watson - Last Filed: 01/28/22 18:24> Vital Signs Vital signs: Vital Signs - 8 hr 01/28/22 17:48 Temperature 98 F Pulse Rate 79 Respiratory Rate 18 Blood Pressure 149/94 H Pulse Oximetry 100 Oxygen Delivery Method Room Air <Cesilia Diana DO - Last Filed: 01/29/22 22:00> Vital Signs Vital signs: Vital Signs - 8 hr 01/28/22 17:48 Temperature 98 F Pulse Rate 79 Respiratory Rate 18 Blood Pressure 149/94 H Pulse Oximetry 100 Oxygen Delivery Method Room Air MDM - Head Injury <LEROY Watson - Last Filed: 01/28/22 18:24> MDM Narrative Medical decision making narrative: This is a pleasant 81-year-old female who is brought into the emergency department by her son with concern for a head injury when her wheelchair tipped in the van and she bumped the right side of her head on the side of the van. In discussion with patient about this incident the mechanism was very low, she had mild tenderness with palpation to this parietal aspect of her head without ecchymosis, a bump, erythema or hematoma. She did not want to stay for a CT as she states she wanted to go home and watch a ball game. She denies neck pain with cervical spine palpation, has full range of motion, is not ambulatory at baseline and denies any new weakness, neck pain, dizziness, difficulty concentrating, nausea vomiting. She is not on any anticoagulants. Discussed symptoms of concussion, patient does not have any symptoms of this at this time, it neurologically intact without any focal neuro deficit. Recommend strict return precautions for any worsening of her symptoms, nausea, vomiting, weakness, headache. Patient understands to call 911 or press her emergency button later tonight if she has any of these symptoms because she lives alone at home. She has a catheter at baseline and will not need to get up in the middle of night to void. 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 Patient and her son understand her strict return precautions and to call 911 if she has any changes. Patient is appropriate and amenable to discharge home. Vital signs are stable on repeat examination is unremarkable. Patient has been informed of results. Patient has been given strict return to ER precautions for any new or worsening symptoms. Patient understands to follow up closely with outpatient providers as instructed. Patient understands plan and agrees to discharge home. All questions and concerns answered at this time. Discharge Plan Departure Patient Disposition: Home Clinical Impression: Head injury Qualifiers: Encounter type: initial encounter Qualified Code(s): S09.90XA - Unspecified injury of head, initial encounter Instructions: Closed Head Injury Activity Restrictions/Additional Instructions: *You have been diagnosed with a head injury without any signs of significant injury. If you develop a headache, difficulty concentrating, dizziness, lightheadedness, feel faint or nauseated, please come back to the emergency department for more evaluation. This is most likely not a significant injury and should not cause ongoing symptoms. Please use Tylenol as needed for tenderness of your head, stay hydrated, and follow up with your primary care provider as needed. *What to do: *Please continue to take your regular medications as directed. [ ] New medication prescriptions sent to your pharmacy: [ ] [ ] New medication written as a paper prescription [x ] No new medications given *Please follow up with your primary care provider in 2-3 days, call for an appointment. Let them know you were seen in the Emergency Department and that we asked that you be seen for follow-up. We will electronically transmit a record of today's note if your PCP is in our system *If you do not have a primary care provider please contact [phone] to establish care with one of the [facility] primary care providers. *Return to Emergency Department if you should have any new, worsening, or concerning symptoms, such as [fever greater than 101F, chills, worsening pain, persistent vomiting or other bothersome symptoms]. Prescriptions: No Action Estring 2 mg (7.5 mcg /24 hour) ring 1 vag ring vaginal [id number] Qty: 1 5RF cholecalciferol (vitamin D3) 1,000 unit capsule 1,000 unit PO DAILY lisinopril 20 mg tablet 20 mg PO DAILY Label Comments: Take 1 tablet by mouth once a day citalopram 10 mg Tablet 20 mg PO DAILY Qty: 20 0RF pantoprazole 40 mg Tablet,Delayed Release (Dr/Ec) 40 mg PO 0700,2100 Qty: 20 0RF mupirocin 2 % ointment 1 applic topical BID Qty: 22 0RF zinc oxide 10 % cream 1 applic topical BID-QID PRN (Reason: skin irritation) Qty: 78 0RF citalopram 20 mg tablet 20 mg PO DAILY acetaminophen 325 mg Tablet 650 mg PO Q6HR PRN (Reason: Fever) Qty: 30 0RF omeprazole 20 mg capsule,delayed release(DR/EC) 20 mg PO DAILY diclofenac sodium [Arthritis Pain (diclofenac)] 1 % gel 2 g topical QID PRN (Reason: shoulder pain) Qty: 100 0RF Referrals: Sachi Stark PA-C [Primary Care Provider] - Visit Report Forms: Patient Portal/API <Cesilia Diana DO - Last Filed: 01/29/22 22:00> Cosign ED Attending Nitza Attestation: I was immediately available in the department for consultation. Documentation has been reviewed. I agree with assessment and plan.
== END 2022-01-28 18:01 | disposition home or self-care (01) ==
PROVIDERS: Emergency Provider Nurse Practitioner Critical Care Medicine; PCP Physician Assistant
DX: S09.90XA Unspecified injury of head, initial encounter (principal); W22.8XXA Striking against or struck by other objects, initial encounter
CPT/HCPCS: 99281

== ENCOUNTER → 2022-02-03 13:56 | Outpatient (CLI) | payer OTHER, SELFPAY ==
[2021-10-07 09:38] VITALS: BMI 25.6
== END ==
PROVIDERS: PCP Physician Assistant; Referring Provider Nurse Practitioner Family; Visit Provider Family Medicine
DX: L89.893 Pressure ulcer of other site, stage 3 (principal); S70.211A Abrasion, right hip, initial encounter; G35 Multiple sclerosis; Z86.19 Personal history of other infectious and parasitic diseases
CPT/HCPCS: 11042

== ENCOUNTER → 2022-02-10 15:01 | Outpatient (CLI) | payer OTHER, SELFPAY ==
[2021-10-07 09:38] VITALS: BMI 25.6
== END ==
PROVIDERS: PCP Physician Assistant; Referring Provider Nurse Practitioner Family; Visit Provider Family Medicine
DX: E11.621 Type 2 diabetes mellitus with foot ulcer (principal); L97.522 Non-pressure chronic ulcer of other part of left foot with fat layer exposed; M86.172 Other acute osteomyelitis, left ankle and foot; E11.42 Type 2 diabetes mellitus with diabetic polyneuropathy; M20.42 Other hammer toe(s) (acquired), left foot; Z89.422 Acquired absence of other left toe(s); Z79.2 Long term (current) use of antibiotics
CPT/HCPCS: 11042

== ENCOUNTER 2022-02-18 17:53 | Emergency (ER) | payer OTHER, SELFPAY ==
[2021-10-07 09:38] VITALS: BMI 25.6
[2022-02-18 18:06] VITALS: BP 135/72; PULSE 105; RESP 20; TEMP 37; O2SAT 100
--- NOTE | 2022-02-18 18:10 | DI.RAD.S_ITS ---
PROCEDURE: XR ACUTE ABDOMEN SERIES INDICATIONS: constipation TECHNIQUE: One view chest and two views of the abdomen were acquired. COMPARISON: [facility], , ABDOMEN ACUTE SERIES, 02/28/2017, 9:38. FINDINGS: Surgical changes and devices: Surgical clips project over the left mid abdomen. Chest: Lungs are clear. Heart size is normal. No pleural effusions. No pneumoperitoneum. Abdomen: Bowel gas pattern is normal. No suspicious calcifications. There is an 8 mm oval calcification projecting over the left renal shadow possibly representing a renal stone. Multiple pelvic calcifications are stable. Visualized solid organ contours appear normal. Bones: No suspicious bony lesions. IMPRESSION: Nonobstructive bowel gas pattern. Possible 8 mm left renal stone Chest without acute cardiopulmonary abnormalities. Dictated by: Trevor Alvarez M.D. on 02/18/2022 at 20:07 Approved by: Trevor Alvarez M.D. on 02/18/2022 at 20:09
--- NOTE | 2022-02-19 02:58 | ED.NAVMDI ---
HPI - Nausea/Vomiting/Diarrhea General Chief complaint: Nausea/Vomiting/Diarrhea Stated complaint: Diarrhea/open bed sores Time Seen by Provider: 02/19/22 02:57 Source: patient and family Mode of arrival: Wheelchair History of Present Illness HPI Narrative: Patient is an 81-year-old female who has a history of depression presents today with ongoing diarrhea. She actually said that she was constipated for about 10 days with the last 3 days she has had ongoing diarrhea and today it has been the worst. His she is unable to get to the bathroom. She actually lives alone and is wheelchair bound she has a chronic indwelling Shukla catheter. She states she did not take anything to help her constipation. She actually is supposed to move in 4 days to an assisted living a of. She denies any fever or chills. She actually overall some break good historian. She has some ongoing wounds between the folds of her skin in her abdomen which she is followed for at wound care. Biggest problem today is diarrhea. Nursing staff is actually already been in multiple times to help patient. She also has a history of multiple recurrent infection of C diff Related Data Home Medications Medication Instructions Recorded Confirmed cholecalciferol (vitamin D3) 25 1,000 unit PO DAILY 10/25/18 02/03/22 mcg (1,000 unit) capsule citalopram 20 mg tablet 20 mg PO DAILY depression 06/04/19 02/03/22 omeprazole 20 mg capsule,delayed 20 mg PO DAILY 08/29/20 02/03/22 release lisinopril 20 mg tablet 20 mg PO DAILY 10/03/21 02/03/22 Previous Rx's Medication Instructions Recorded acetaminophen 325 mg tablet 650 mg PO Q6HR PRN Fever #30 tabs 06/08/19 citalopram 10 mg tablet 20 mg PO DAILY #20 tabs 10/09/21 pantoprazole 40 mg tablet,delayed 40 mg PO 0700,2100 #20 tabs 10/09/21 release mupirocin 2 % topical ointment 1 applic topical BID Buttock 11/09/21 abrasion #22 grams zinc oxide 10 % topical cream 1 applic topical BID-QID PRN skin 11/09/21 irritation #78 grams diclofenac sodium 1 % topical gel 2 g topical QID PRN shoulder pain 11/13/21 (Arthritis Pain (diclofenac)) #100 grams estradiol 2 mg (7.5 mcg/24 hour) 1 vag ring vaginal [id number] #1 ea 01/22/22 vaginal ring (Estring) Allergies Allergy/AdvReac Type Severity Reaction Status Date / Time azithromycin Allergy Mild RASH Verified 02/03/22 15:55 levofloxacin Allergy Mild RASH Verified 02/03/22 15:55 Sulfa (Sulfonamide Allergy Mild RASH Verified 02/03/22 15:55 Antibiotics) ceftriaxone AdvReac Intermediate Swelling Verified 02/03/22 15:55 of Lip/Tongue/Throat adhesive AdvReac Mild RASH FROM Verified 02/03/22 15:55 CLOTH TAPE Review of Systems Review of Systems Narrative: GENERAL: Denies chills, fatigue, malaise, fever, sweats, travel HEENT: Denies sinus pain, ear pain, sore throat, difficulty swallowing, neck pain RESPIRATORY: Denies dyspnea, cough, wheezing, hemoptysis, sputum. CARDIOVASCULAR: Denies chest pain, palpitations, orthopnea, edema GASTROINTESTINAL: See HPI : Chronic Shukla MUSCULOSKELETAL: Denies weakness, joint pain, or bony pain SKIN: Chronic wounds NEUROLOGIC: Denies weakness, dizziness, headache, numbness, change in speech, confusion PSYCHIATRIC: No concerning psychosocial issues. 12 point review of systems is negative except for those stated above and HPI Patient History Medical History Acute UTI Hypertension Multiple sclerosis Recurrent Clostridium difficile diarrhea Ureterolithiasis Surgical History H/O: hysterectomy History of tonsillectomy Hx of appendectomy Family History Father Hypertension Myocardial infarct Mother Cancer Social History household members: none occupational status: previously employed Smoking Status: Former smoker alcohol intake: current Smoking Status: Former smoker alcohol intake frequency: holidays/special occasions only Substance Use Type: does not use Exam Initial Vital Signs Initial Vital Signs: Vital Signs Temperature 98.6 F 02/18/22 18:06 Pulse Rate 105 H 02/18/22 18:06 Respiratory Rate 20 02/18/22 18:06 Blood Pressure 135/72 02/18/22 18:06 Pulse Oximetry 100 02/18/22 18:06 Oxygen Delivery Method 02/18/22 18:06 GENERAL: Alert pleasant 81-year-old female and in no acute distress. HEENT: Head atraumatic,EOMI, pupils reactive, face symmetric, moist mucous membranes CARDIOVASCULAR: Regular rate and rhythm without murmurs, rubs or gallops. RESPIRATORY: Breath sounds equal bilaterally, no wheezes rales or rhonchi. ABDOMEN: Soft, nontender. Normoactive bowel sounds all 4 quadrants. No guarding or rebound. EXTREMITIES: Normal range of motion, no clubbing or edema. Neurovascularly intact NEUROLOGICAL: Alert and oriented x4. SKIN: Warm, dry, no laceration, no petechiae, no rashes or lesions. Course Orders Ordered: ED Orders 02/19/22 03:15 CBC Auto Diff [Complete Blood Count AUTO DIFF] Stat CMP [Comprehensive Metabolic Panel] Stat Discontinued Medications Sodium Chloride (Normal Saline 0.9%) 1,000 mls @ 1,000 mls/hr IV BOLUS ONE Stop: 02/19/22 04:11 Last Infusion: 02/19/22 05:36 Dose: 0 mls/hr Documented By: Admin: 02/19/22 03:23 Dose: 1,000 mls/hr Documented By: JOSEPH Loperamide HCl (Loperamide 2 Mg Capsule) 4 mg PO NOW ONE Stop: 02/19/22 05:29 Last Admin: 02/19/22 06:06 Dose: Not Given Documented By: JOSEPH Vital Signs Vital signs: Vital Signs - 8 hr 02/19/22 03:30 02/19/22 06:01 Pulse Rate 79 84 Respiratory Rate 16 18 Blood Pressure 163/75 H 152/70 H Pulse Oximetry 98 99 Oxygen Delivery Method Room Air MDM - Nausea/Vomiting/Diarrhea Lab Data Result diagrams: 02/19/22 03:15 02/19/22 03:15 Labs: Lab Results 02/19/22 02/19/22 Range/Units 03:15 03:15 WBC 7.4 (4.5-11.0) X10^3/uL RBC 4.49 (4.0-5.2) X10^6/uL Hgb 9.6 L (12.0-16.0) g/dL Hct 30.9 L (36-46) % MCV 68.7 L (80-100) fL MCH 21.4 L (26-34) PG MCHC 31.2 (30-36) % RDW 18.7 H (11.6-14.8) % Plt Count 319 (150-400) X10^3/uL Neut % (Auto) 53.3 (50-75) % Lymph % (Auto) 33.3 (25-40) % [place] % (Auto) 11.8 (3-14) % Eos % (Auto) 1.0 L (2-4) % Baso % (Auto) 0.6 (0-2) % Neut # (Auto) 3900 (2940-9805) /uL Lymph # (Auto) 2500 (6601-3884) /uL [place] # (Auto) 900 (0-900) /uL Eos # (Auto) 100 (0-450) /uL Baso # (Auto) 0 (0-100) /uL RBC Morphology Not Reportable Ovalocytes 1+ H Sodium 139 (137-145) mmol/L Potassium 3.6 (3.4-5.1) mmol/L Chloride 103 (98-107) mmol/L Carbon Dioxide 28 (22-32) mmol/L BUN 24 H (7-17) mg/dL Creatinine 0.86 (0.52-1.04) mg/dL Estimated GFR > 60 (>60) mL/min BUN/Creatinine Ratio 27.9 H (6-22) Glucose 84 (80-110) mg/dL Calcium 9.0 (8.4-10.2) mg/dL Total Bilirubin 0.4 (0.2-1.3) mg/dL AST 19 (14-36) IU/L ALT 10 (<35) IU/L Alkaline Phosphatase 81 (38-126) U/L Total Protein 7.8 (6.3-8.2) g/dL Albumin 3.9 (3.5-5.0) g/dL Globulin 3.9 (1.7-4.1) g/dL Albumin/Globulin Ratio 1.0 (1.0-2.8) Imaging Data Abdominal x-ray: Radiologist's Impression: Patient: Olivia Castillo MR#: [id number] : 1940 Acct:[id number] Age/Sex: 81 / F Date of Service: 02/18/22 Loc: ED Accession Number: [id number] ?? Procedure: XR acute abdomen series Ordering Provider: Monika Mosley D.O. PROCEDURE:? XR ACUTE ABDOMEN SERIES ? INDICATIONS:? constipation ? TECHNIQUE:? One view chest and two views of the abdomen were acquired.? ? COMPARISON:? [facility], , ABDOMEN ACUTE SERIES, 02/28/2017, 9:38. ? FINDINGS:? ? Surgical changes and devices:? Surgical clips project over the left mid abdomen. ? Chest:? Lungs are clear.? Heart size is normal.? No pleural effusions.? No pneumoperitoneum.? ? Abdomen:? Bowel gas pattern is normal.? No suspicious calcifications.? There is an 8 mm oval calcification projecting over the left renal shadow possibly representing a renal stone.? Multiple pelvic calcifications are stable.? Visualized solid organ contours appear normal.? ? Bones:? No suspicious bony lesions.? ? IMPRESSION:? ? Nonobstructive bowel gas pattern. ? Possible 8 mm left renal stone ? Chest without acute cardiopulmonary abnormalities.? ? Dictated by: Trevor Alvarez M.D. on 02/18/2022 at 20:07 ? ? MDM Narrative Medical decision making narrative: Patient has had multiple bowel movements in the ED however they have been extremely small. Sometimes it is only gas. She has a plan of going to at least an assisted living down and stand would but isn't moving for the next 4-5 days. Her home health care team has been stopped his this weekend her son is staying with her. She has no leukocytosis she is anemic but stable no significant sign of dehydration normal creatinine electrolytes. At this time unable to get a GI panel as there was not enough stool. Unlikely to be C diff at this time is without more diarrhea or leukocytosis or fever. However she is certainly at risk. Heart out through so she was complaining of some left-sided tenderness but is in did go away. At this time I do not think she needs any further imaging. He is given a dose of Imodium here in the ED and then discharged. Discharge Plan Departure Patient Disposition: Home Clinical Impression: Diarrhea Instructions: Diarrhea Activity Restrictions/Additional Instructions: *You have been diagnosed with diarrhea *What to do: At this time no evidence of severe diarrhea or dehydration. Please continue to monitor. You may take Imodium however it may cause severe constipation at this time I do not actually recommended. *Continue to take medications as directed *Follow up with your primary care provider in 2-3 days or call [phone] *Return to ER if you should have increased confusion, abdominal pain distension of vomiting fever or any new, worsening or concerning symptoms Prescriptions: No Action Estring 2 mg (7.5 mcg /24 hour) ring 1 vag ring vaginal [id number] Qty: 1 5RF cholecalciferol (vitamin D3) 1,000 unit capsule 1,000 unit PO DAILY lisinopril 20 mg tablet 20 mg PO DAILY Label Comments: Take 1 tablet by mouth once a day citalopram 10 mg Tablet 20 mg PO DAILY Qty: 20 0RF pantoprazole 40 mg Tablet,Delayed Release (Dr/Ec) 40 mg PO 0700,2100 Qty: 20 0RF mupirocin 2 % ointment 1 applic topical BID Qty: 22 0RF zinc oxide 10 % cream 1 applic topical BID-QID PRN (Reason: skin irritation) Qty: 78 0RF citalopram 20 mg tablet 20 mg PO DAILY acetaminophen 325 mg Tablet 650 mg PO Q6HR PRN (Reason: Fever) Qty: 30 0RF omeprazole 20 mg capsule,delayed release(DR/EC) 20 mg PO DAILY diclofenac sodium [Arthritis Pain (diclofenac)] 1 % gel 2 g topical QID PRN (Reason: shoulder pain) Qty: 100 0RF Referrals: Sachi Stark PA-C [Primary Care Provider] - Visit Report Forms: Patient Portal/API
[2022-02-19] MEDS: SODIUM CHLORIDE 0.9% 1,000 ML 1000 ML IV (03:23)
[2022-02-19 03:29] LABS: Basophils Absolute Auto 0 /uL (0-100); Basophils Percent Auto 0.6 % (0-2); Eosinophils Absolute Auto 100 /uL (0-450); Hematocrit 30.9 % (36-46); Hemoglobin 9.6 g/dL (12.0-16.0); Lymphocytes Absolute Auto 2500 /uL (1100-4500); Lymphocytes Percent Auto 33.3 % (25-40); Mean Corpuscular HGB Conc 31.2 % (30-36); Mean Corpuscular Hemoglobin 21.4 PG (26-34); Mean Corpuscular Volume 68.7 fL (80-100); Monocytes Absolute Auto 900 /uL (0-900); Monocytes Percent Auto 11.8 % (3-14); Neutrophils Absolute Auto 3900 /uL (1500-7000); Neutrophils Percent Auto 53.3 % (50-75); Platelet Count 319 X10^3/uL (150-400); Red Blood Cell Count 4.49 X10^6/uL (4.0-5.2); Red Cell Distribution Width 18.7 % (11.6-14.8); White Blood Cell Count 7.4 X10^3/uL (4.5-11.0)
[2022-02-19 03:30] VITALS: BP 163/75; PULSE 79; RESP 16; O2SAT 98
[2022-02-19 03:30] LABS: Add Manual Diff / Slide Review SLIDE REVIEW
[2022-02-19 03:39] LABS: Alanine Aminotransferase 10 IU/L (<35); Albumin 3.9 g/dL (3.5-5.0); Alkaline Phosphatase 81 U/L (38-126); Aspartate Aminotransferase 19 IU/L (14-36); BUN Creatinine Ratio 27.9 (6-22); Bilirubin Total 0.4 mg/dL (0.2-1.3); Blood Urea Nitrogen 24 mg/dL (7-17); Carbon Dioxide 28 mmol/L (22-32); Chloride 103 mmol/L (98-107); Estimated Glomerular Filt Rate > 60 mL/min (>60); Globulin 3.9 g/dL (1.7-4.1); Glucose 84 mg/dL (80-110); HEMOLYSIS < 15 (0-50); Potassium 3.6 mmol/L (3.4-5.1); Sodium 139 mmol/L (137-145); Total Protein 7.8 g/dL (6.3-8.2)
[2022-02-19 06:01] VITALS: BP 152/70; PULSE 84; RESP 18; O2SAT 99
[2022-02-19 06:59] LABS: Ovalocytes 1+
== END 2022-02-19 06:06 | disposition home or self-care (01) ==
PROVIDERS: Emergency Provider Emergency Medicine; PCP Physician Assistant
DX: R19.7 Diarrhea, unspecified (principal); D64.9 Anemia, unspecified
CPT/HCPCS: 36415; 74022; 80053; 85025; 96360; 96361; 99284

== ENCOUNTER → 2022-02-24 14:12 | Outpatient (CLI) | payer OTHER, SELFPAY ==
[2021-10-07 09:38] VITALS: BMI 25.6
== END ==
PROVIDERS: PCP Physician Assistant; Referring Provider Nurse Practitioner Family; Visit Provider Family Medicine
DX: I87.2 Venous insufficiency (chronic) (peripheral) (principal); L89.893 Pressure ulcer of other site, stage 3; S71.001A Unspecified open wound, right hip, initial encounter; R21 Rash and other nonspecific skin eruption; G35 Multiple sclerosis; Z99.3 Dependence on wheelchair
CPT/HCPCS: 11042; 99213

== ENCOUNTER → 2022-03-17 14:08 | Outpatient (CLI) | payer OTHER, SELFPAY ==
[2021-10-07 09:38] VITALS: BMI 25.6
== END ==
PROVIDERS: PCP Physician Assistant; Referring Provider Nurse Practitioner Family; Visit Provider Surgery
DX: L89.893 Pressure ulcer of other site, stage 3 (principal); S71.001A Unspecified open wound, right hip, initial encounter; R21 Rash and other nonspecific skin eruption; G35 Multiple sclerosis; Z86.19 Personal history of other infectious and parasitic diseases
CPT/HCPCS: 11042

== ENCOUNTER → 2022-04-14 15:11 | Outpatient (CLI) | payer OTHER, SELFPAY ==
[2021-10-07 09:38] VITALS: BMI 25.6
== END ==
PROVIDERS: PCP Physician Assistant; Referring Provider Nurse Practitioner Critical Care Medicine; Visit Provider Surgery
DX: S70.211A Abrasion, right hip, initial encounter (principal); R21 Rash and other nonspecific skin eruption; L89.893 Pressure ulcer of other site, stage 3; G35 Multiple sclerosis; Z99.3 Dependence on wheelchair; Z86.19 Personal history of other infectious and parasitic diseases
CPT/HCPCS: 99213; 99214

== ENCOUNTER → 2022-05-26 14:30 | Outpatient (CLI) | payer OTHER, SELFPAY ==
[2021-10-07 09:38] VITALS: BMI 25.6
== END ==
PROVIDERS: PCP Physician Assistant; Referring Provider Nurse Practitioner Critical Care Medicine; Visit Provider Surgery
DX: L89.313 Pressure ulcer of right buttock, stage 3 (principal); G35 Multiple sclerosis
CPT/HCPCS: 97597; 99213

== ENCOUNTER → 2022-06-23 14:58 | Outpatient (CLI) | payer OTHER, SELFPAY ==
[2021-10-07 09:38] VITALS: BMI 25.6
== END ==
PROVIDERS: PCP Physician Assistant; Referring Provider Nurse Practitioner Family; Visit Provider Surgery
DX: L89.313 Pressure ulcer of right buttock, stage 3 (principal); S71.001A Unspecified open wound, right hip, initial encounter; L84 Corns and callosities; R21 Rash and other nonspecific skin eruption; G35 Multiple sclerosis
CPT/HCPCS: 11042; 99212; 99213

== ENCOUNTER → 2022-07-07 15:18 | Outpatient (CLI) | payer OTHER, SELFPAY ==
[2021-10-07 09:38] VITALS: BMI 25.6
== END ==
PROVIDERS: PCP Physician Assistant; Referring Provider Nurse Practitioner Family; Visit Provider Surgery
DX: L89.893 Pressure ulcer of other site, stage 3 (principal); S71.001A Unspecified open wound, right hip, initial encounter; L84 Corns and callosities; R21 Rash and other nonspecific skin eruption; G35 Multiple sclerosis
CPT/HCPCS: 11042

== ENCOUNTER → 2022-08-18 14:48 | Outpatient (CLI) | payer OTHER, SELFPAY ==
[2021-10-07 09:38] VITALS: BMI 25.6
== END ==
PROVIDERS: PCP Physician Assistant; Referring Provider Nurse Practitioner Family; Visit Provider Surgery
DX: L89.213 Pressure ulcer of right hip, stage 3 (principal); L89.893 Pressure ulcer of other site, stage 3; L84 Corns and callosities; G35 Multiple sclerosis; Z99.3 Dependence on wheelchair
CPT/HCPCS: 11042; 99212; 99213

== ENCOUNTER → 2022-09-01 15:07 | Outpatient (CLI) | payer OTHER, SELFPAY ==
[2021-10-07 09:38] VITALS: BMI 25.6
== END ==
PROVIDERS: PCP Physician Assistant; Referring Provider Nurse Practitioner Family; Visit Provider Surgery
DX: L89.893 Pressure ulcer of other site, stage 3 (principal); S31.819A Unspecified open wound of right buttock, initial encounter; G35 Multiple sclerosis
CPT/HCPCS: 11042

== ENCOUNTER → 2022-09-15 15:02 | Outpatient (CLI) | payer OTHER, SELFPAY ==
[2021-10-07 09:38] VITALS: BMI 25.6
== END ==
PROVIDERS: PCP Physician Assistant; Referring Provider Nurse Practitioner Family; Visit Provider Surgery
DX: L97.519 Non-pressure chronic ulcer of other part of right foot with unspecified severity (principal); L89.202 Pressure ulcer of unspecified hip, stage 2; G35 Multiple sclerosis
CPT/HCPCS: 11042; 73630; 87070; 87075; 87205; 99213

== ENCOUNTER → 2022-09-15 16:05 | Outpatient (CLI) | payer OTHER, SELFPAY ==
[2021-10-07 09:38] VITALS: BMI 25.6
--- NOTE | 2022-09-15 16:10 | DI.RAD.S_ITS ---
PROCEDURE: XR FOOT RT MIN 3V INDICATIONS: ulcer on right foot, plantar 5th met head TECHNIQUE: Three views of the foot were acquired. COMPARISON: [facility], CR, XR FOOT RT MIN 3V, 12/02/2021, 16:43. FINDINGS: Bones: Hallux valgus and hammertoe deformity of 1st through 5th digits. The medial cortex of the 5th metatarsal head is minimally indistinct, similar compared to the prior study. Several subcortical cystic changes in the metatarsal heads are noted. There is no suspicious periostitis. There is intact fixation hardware partially seen at the ankle. Soft tissues: No tibiotalar joint effusion. Achilles tendon appears normal. No subcutaneous emphysema or foreign body. IMPRESSION: 1. Questionable rarefaction of the medial 5th metatarsal head without other new signs of osteomyelitis. No radiographic evidence of osteomyelitis, however radiographs are insensitive and if there is further concern for osteomyelitis, MR imaging is recommended. 2. No visible soft tissue these. Dictated by: Rosemary Munoz M.D. on 09/15/2022 at 17:57 Approved by: Rosemary Munoz M.D. on 09/15/2022 at 18:00
== END ==
PROVIDERS: PCP Physician Assistant; Referring Provider Surgery; Visit Provider Surgery
DX: L97.519 Non-pressure chronic ulcer of other part of right foot with unspecified severity (principal)
CPT/HCPCS: 73630

== ENCOUNTER → 2022-10-08 14:47 | Outpatient (CLI) | payer OTHER, SELFPAY ==
[2021-10-07 09:38] VITALS: BMI 25.6
== END ==
PROVIDERS: PCP Physician Assistant; Referring Provider Nurse Practitioner Family; Visit Provider Surgery
DX: L89.213 Pressure ulcer of right hip, stage 3 (principal); L89.893 Pressure ulcer of other site, stage 3; G35 Multiple sclerosis; L84 Corns and callosities
CPT/HCPCS: 11042

== ENCOUNTER → 2022-11-17 15:01 | Outpatient (CLI) | payer OTHER, SELFPAY ==
[2021-10-07 09:38] VITALS: BMI 25.6
== END ==
PROVIDERS: PCP Physician Assistant; Referring Provider Nurse Practitioner Critical Care Medicine; Visit Provider Surgery
DX: L08.9 Local infection of the skin and subcutaneous tissue, unspecified (principal); L89.213 Pressure ulcer of right hip, stage 3; L89.893 Pressure ulcer of other site, stage 3; L84 Corns and callosities; G35 Multiple sclerosis
CPT/HCPCS: 11042; 80053; 85025; 85651; 86140; 87070; 87075; 87147; 87205; 99213

== ENCOUNTER → 2022-11-17 16:12 | Outpatient (CLI) | payer OTHER, SELFPAY ==
[2021-10-07 09:38] VITALS: BMI 25.6
[2022-11-17 18:06] LABS: Add Manual Diff / Slide Review NO; Basophils Absolute Auto 100 /uL (0-100); Basophils Percent Auto 0.8 % (0-2); Eosinophils Absolute Auto 200 /uL (0-450); Eosinophils Percent Auto 2.2 % (2-4); Hematocrit 31.1 % (36-46); Hemoglobin 9.6 g/dL (12.0-16.0); Lymphocytes Absolute Auto 2100 /uL (1100-4500); Lymphocytes Percent Auto 30.6 % (25-40); Mean Corpuscular HGB Conc 30.9 % (30-36); Mean Corpuscular Hemoglobin 21.4 PG (26-34); Mean Corpuscular Volume 69.2 fL (80-100); Monocytes Absolute Auto 700 /uL (0-900); Monocytes Percent Auto 10.4 % (3-14); Neutrophils Absolute Auto 3800 /uL (1500-7000); Platelet Count 404 X10^3/uL (150-400); Red Blood Cell Count 4.49 X10^6/uL (4.0-5.2); Red Cell Distribution Width 18.3 % (11.6-14.8); White Blood Cell Count 6.8 X10^3/uL (4.5-11.0)
[2022-11-17 18:19] LABS: Alanine Aminotransferase 10 IU/L (<35); Albumin Globulin Ratio 1.1 (1.0-2.8); Alkaline Phosphatase 75 U/L (38-126); Aspartate Aminotransferase 20 IU/L (14-36); BUN Creatinine Ratio 23.1 (6-22); Bilirubin Total 0.2 mg/dL (0.2-1.3); Blood Urea Nitrogen 24 mg/dL (7-17); C-Reactive Protein Quant 0.7 mg/dL (<1.0); Calcium 9.1 mg/dL (8.4-10.2); Carbon Dioxide 29 mmol/L (22-32); Chloride 101 mmol/L (98-107); Estimated Glomerular Filt Rate 53 mL/min (>60); Globulin 3.5 g/dL (1.7-4.1); Glucose 85 mg/dL (80-110); HEMOLYSIS < 15 (0-50); Sodium 138 mmol/L (137-145); Total Protein 7.5 g/dL (6.3-8.2)
[2022-11-17 20:10] LABS: Platelet Estimate Increased on smear
[2022-11-17 20:11] LABS: Microcytosis 1+
[2022-11-17 20:13] LABS: Hypochromasia 1+
[2022-11-17 21:19] LABS: Erythrocyte Sedimentation Rate 33 MM/HR (0-20)
== END ==
PROVIDERS: PCP Physician Assistant; Referring Provider Surgery; Visit Provider Surgery
DX: L08.9 Local infection of the skin and subcutaneous tissue, unspecified (principal); L89.893 Pressure ulcer of other site, stage 3
CPT/HCPCS: 80053; 85025; 85651; 86140

== ENCOUNTER 2022-11-24 13:35 | Emergency (ER) | payer OTHER, SELFPAY ==
[2021-10-07 09:38] VITALS: BMI 25.6
[2022-11-24 13:44] VITALS: BP 138/73; PULSE 80; RESP 18; TEMP 36.1; O2SAT 98; BMI 24.9
--- NOTE | 2022-11-24 17:08 | ED.FEMALEGU ---
HPI - Female Genitourinary <Dawson Trejo PA-C - Last Filed: 11/24/22 17:12> General Chief complaint: Urogenital-Female Stated complaint: cathader change Time Seen by Provider: 11/24/22 16:30 Source: patient and family Mode of arrival: Wheelchair History of Present Illness HPI Narrative: 82-year-old female presents to the ED since her indwelling urinary catheter fell out accidentally. [facility] was unable to come in and have the catheter replaced, so patient is requesting to have a new catheter inserted. Patient denies any urinary symptoms including fever, chills, nausea, vomiting, abdominal pain. Related Data Home Medications Medication Instructions Recorded Confirmed cholecalciferol (vitamin D3) 25 1,000 unit PO DAILY 10/25/18 10/29/22 mcg (1,000 unit) capsule citalopram 20 mg tablet 20 mg PO DAILY depression 06/04/19 10/29/22 omeprazole 20 mg capsule,delayed 20 mg PO DAILY 08/29/20 10/29/22 release Previous Rx's Medication Instructions Recorded acetaminophen 325 mg tablet 650 mg PO Q6HR PRN Fever #30 tabs 06/08/19 citalopram 10 mg tablet 20 mg PO DAILY #20 tabs 10/09/21 pantoprazole 40 mg tablet,delayed 40 mg PO 0700,2100 #20 tabs 10/09/21 release zinc oxide 10 % topical cream 1 applic topical BID-QID PRN skin 11/09/21 irritation #78 grams Wheelchair Evaluation #1 ea 03/20/22 estradiol 2 mg (7.5 mcg/24 hour) 1 vag ring vaginal [id number] #1 ea 05/06/22 vaginal ring (Estring) Allergies Allergy/AdvReac Type Severity Reaction Status Date / Time azithromycin Allergy Mild RASH Verified 10/29/22 15:01 levofloxacin Allergy Mild RASH Verified 10/29/22 15:01 Sulfa (Sulfonamide Allergy Mild RASH Verified 10/29/22 15:01 Antibiotics) ceftriaxone AdvReac Intermediate Swelling Verified 10/29/22 15:01 of Lip/Tongue/Throat adhesive AdvReac Mild RASH FROM Verified 10/29/22 15:01 CLOTH TAPE Review of Systems <Dawson Trejo PA-C - Last Filed: 11/24/22 17:12> Review of Systems Narrative: Patient's indwelling urinary catheter fell out accidentally. Patient would like to have a new catheter placed in the ED. ROS Unobtainable: All systems reviewed & are unremarkable except as noted in HPI and below Constitutional Constitutional: Denies chills, Denies fatigue, Denies fever(s), Denies frequent falls, Denies lethargy and Denies weakness Eyes Eyes: Denies change in vision, Denies eye discharge, Denies irritation and Denies loss of vision ENT Ears, Nose, Mouth, and Throat: Denies change in voice, Denies dizziness, Denies neck pain, Denies sore throat and Denies throat swelling Cardiovascular Cardiovascular: Denies chest pain, Denies irregular heart rhythm, Denies lightheadedness, Denies palpitations, Denies dyspnea, Denies dyspnea on exertion and Denies orthopnea Respiratory Respiratory: Denies cough, Denies dyspnea, Denies dyspnea on exertion and Denies wheezing Gastrointestinal Gastrointestinal: Denies abdominal pain, Denies change in bowel habits, Denies diarrhea, Denies nausea and Denies vomiting Genitourinary Genitourinary: Denies hematuria, Denies flank pain, Denies urinary incontinence and Denies urinary urgency Musculoskeletal Musculoskeletal: Denies back pain, Denies muscle weakness, Denies neck pain, Denies numbness and Denies tingling Integumentary/Breasts Skin/Breast: Denies pruritus, Denies erythema, Denies rash and Denies wounds Neurologic Neurologic: Denies behavioral changes, Denies confusion, Denies dizziness, Denies frequent falls, Denies loss of vision, Denies numbness, Denies tingling and Denies weakness Psychiatric Psychiatric: Denies anxiety, Denies behavioral changes, Denies confusion, Denies depression, Denies homicidal ideation and Denies suicidal ideation Endocrine Endocrine: Denies fatigue, Denies flushing and Denies palpitations Hematologic/Lymphatic Hematologic/Lymphatic: Denies easy bruising Allergic/Immunologic Allergic/Immunologic: Denies urticaria, Denies throat swelling and Denies wheezing Patient History <Dawson Trejo PA-C - Last Filed: 11/24/22 17:12> Medical History Acute UTI Hypertension Multiple sclerosis Recurrent Clostridium difficile diarrhea Ureterolithiasis Surgical History H/O: hysterectomy History of tonsillectomy Hx of appendectomy Family History Father Hypertension Myocardial infarct Mother Cancer alcohol intake frequency: holidays/special occasions only Substance Use Type: does not use Exam <Dawson Trejo PA-C - Last Filed: 11/24/22 17:12> Narrative Exam Narrative: Const General:?cooperative, healthy appearing and comfortable HENMT Head:?normal to inspection Ears:?hearing grossly normal bilaterally Nose:?external nose normal Face and sinus:?normal facial exam and sinuses nontender Mouth:?oral mucosae normal Throat:?posterior oropharynx normal Eyes General:?appearance normal, both eyes and all related structures Neck Neck:?normal visual inspection and no lymphadenopathy noted Resp Effort & Inspection:?normal respiratory effort Auscultation:?clear to auscultation bilaterally Cardio Rate:?regular rate Rhythm:?regular rhythm GI Abdomen is soft, nondistended, nontender to palpation. No CVA TTP. Neuro General:?patient alert, patient awake and patient oriented x3 Initial Vital Signs Initial Vital Signs: Vital Signs Temperature 96.9 F L 11/24/22 13:44 Pulse Rate 80 11/24/22 13:44 Respiratory Rate 18 11/24/22 13:44 Blood Pressure 138/73 11/24/22 13:44 Pulse Oximetry 98 11/24/22 13:44 Oxygen Delivery Method Room Air 11/24/22 13:44 <Cesilia Diana DO - Last Filed: 11/25/22 09:02> Initial Vital Signs Initial Vital Signs: Vital Signs Temperature 96.9 F L 11/24/22 13:44 Pulse Rate 80 11/24/22 13:44 Respiratory Rate 18 11/24/22 13:44 Blood Pressure 138/73 11/24/22 13:44 Pulse Oximetry 98 11/24/22 13:44 Oxygen Delivery Method Room Air 11/24/22 13:44 Course <Dawson Trejo PA-C - Last Filed: 11/24/22 17:12> Orders Ordered: ED Orders 11/24/22 14:26 Urinalysis and Microscopic Stat Vital Signs Vital signs: Vital Signs - 8 hr 11/24/22 13:44 Temperature 96.9 F L Pulse Rate 80 Respiratory Rate 18 Blood Pressure 138/73 Pulse Oximetry 98 Oxygen Delivery Method Room Air <Cesilia LeenasaminaDO - Last Filed: 11/25/22 09:02> Orders Ordered: ED Orders 11/24/22 14:26 Urinalysis and Microscopic Stat Vital Signs Vital signs: Vital Signs - 8 hr 11/24/22 13:44 Temperature 96.9 F L Pulse Rate 80 Respiratory Rate 18 Blood Pressure 138/73 Pulse Oximetry 98 Oxygen Delivery Method Room Air MDM - Female Genitourinary <Dawson Trejo PA-C - Last Filed: 11/24/22 17:12> MDM Narrative Medical decision making narrative: 82-year-old female presents to the ED since her indwelling urinary catheter fell out accidentally. Patient appears well, physical exam is reassuring. Patient's catheter was replaced. Patient discharged home. ED return precautions were discussed with patient. Patient verbalized understanding. Medical records reviewed: Yes Discharge Plan Departure Patient Disposition: Home Clinical Impression: Indwelling urinary catheter fell out Instructions: How to Care for Your Shukla Catheter -- Female Activity Restrictions/Additional Instructions: You were seen in the ED today since your urinary catheter fell out accidentally. A new catheter was put in place and is draining well. Please return to the ED is you have any urinary symptoms including painful urination, urinary frequency, urinary urgency, nausea, vomiting, fever, chills. Please follow-up with your PCP as soon as possible. Prescriptions: No Action (DME) Wheelchair Evaluation See Rx Instructions .Route .MEDSUPPLY Qty: 1 0RF Rx Instructions: A wheelchair evaluation to improve community mobility, increase safety during transfers and reduce the risk of pressure injuries. Estring 2 mg (7.5 mcg /24 hour) ring 1 vag ring vaginal [id number] Qty: 1 5RF cholecalciferol (vitamin D3) 1,000 unit capsule 1,000 unit PO DAILY citalopram 10 mg Tablet 20 mg PO DAILY Qty: 20 0RF pantoprazole 40 mg Tablet,Delayed Release (Dr/Ec) 40 mg PO 0700,2100 Qty: 20 0RF zinc oxide 10 % cream 1 applic topical BID-QID PRN (Reason: skin irritation) Qty: 78 0RF citalopram 20 mg tablet 20 mg PO DAILY acetaminophen 325 mg Tablet 650 mg PO Q6HR PRN (Reason: Fever) Qty: 30 0RF omeprazole 20 mg capsule,delayed release(DR/EC) 20 mg PO DAILY Referrals: Sachi Stark, TODC [Primary Care Provider] - Stand Alone Forms: Patient Portal/API <Cesilia Diana DO - Last Filed: 11/25/22 09:02> Cosign ED Attending Cosignature Attestation: I was immediately available in the department for consultation. Documentation has been reviewed.
--- NOTE | 2022-11-24 17:10 | PC.NURSE ---
pt reports that there was a scheduling error and [facility] was unable to change her cath today. here for a scheduled cath change. pt is 2 person assist and cath changed without complications and pt discharged home.
== END 2022-11-24 17:13 | disposition home or self-care (01) ==
PROVIDERS: Emergency Provider Student in an Organized Health Care Education/Training Program; PCP Physician Assistant
DX: T83.021A Displacement of indwelling urethral catheter, initial encounter (principal); L89.893 Pressure ulcer of other site, stage 3; L89.223 Pressure ulcer of left hip, stage 3; L84 Corns and callosities; G35 Multiple sclerosis; R26.9 Unspecified abnormalities of gait and mobility
CPT/HCPCS: 11042; 99283

== ENCOUNTER → 2022-11-24 14:27 | Outpatient (CLI) | payer OTHER, SELFPAY ==
[2021-10-07 09:38] VITALS: BMI 25.6
== END ==
PROVIDERS: PCP Physician Assistant; Referring Provider Nurse Practitioner Family; Visit Provider Surgery
DX: L89.893 Pressure ulcer of other site, stage 3 (principal); L89.223 Pressure ulcer of left hip, stage 3; L84 Corns and callosities; G35 Multiple sclerosis; R26.9 Unspecified abnormalities of gait and mobility
CPT/HCPCS: 11042

== ENCOUNTER → 2022-12-15 14:03 | Outpatient (CLI) | payer OTHER, SELFPAY ==
[2021-10-07 09:38] VITALS: BMI 25.6
== END ==
PROVIDERS: PCP Physician Assistant; Referring Provider Nurse Practitioner Critical Care Medicine; Visit Provider Surgery
DX: L89.893 Pressure ulcer of other site, stage 3 (principal); L08.9 Local infection of the skin and subcutaneous tissue, unspecified; L89.202 Pressure ulcer of unspecified hip, stage 2; M19.071 Primary osteoarthritis, right ankle and foot; L03.115 Cellulitis of right lower limb; M60.871 Other myositis, right ankle and foot; L89.213 Pressure ulcer of right hip, stage 3; G35 Multiple sclerosis; L84 Corns and callosities
CPT/HCPCS: 11042; 73502; 73720; 87070; 87075; 87205; 99213; A9579

== ENCOUNTER → 2022-12-15 14:55 | Outpatient (CLI) | payer OTHER, SELFPAY ==
[2021-10-07 09:38] VITALS: BMI 25.6
--- NOTE | 2022-12-15 14:57 | DI.RAD.S_ITS ---
PROCEDURE: XR HIP W PEL IF DONE RT 2V INDICATIONS: non-healing ulcer on hip, eval for osteo TECHNIQUE: AP pelvis with lateral view(s) of the right hip(s). COMPARISON: None. FINDINGS: Bones: No fractures or dislocations. Pelvic ring appears intact. No suspicious bony lesions. Mild osteoarthritic changes. No bony erosions. Osteopenia. Soft tissues: The visualized bowel gas pattern is normal atherosclerotic calcifications. IMPRESSION: No bony erosion. If there is high clinical suspicion for osteomyelitis, consider MRI with and without contrast for further evaluation. Dictated by: Gonzales Simpson M.D. on 12/15/2022 at 16:41 Approved by: Gonzales Simpson M.D. on 12/15/2022 at 16:42
--- NOTE | 2022-12-15 14:57 | DI.MRI.S_ITS ---
PROCEDURE: MR FOOT RT WO/W CON INDICATIONS: Non-healing pressure ulcer on right plantar 5th met head TECHNIQUE: Noncontrast coronal T1 spin echo and STIR, sagittal T1 spin echo with fat saturation and STIR, axial T1 spin echo and T2 fast spin echo with fat saturation. After the administration of contrast, axial/sagittal/coronal T1 spin echo with fat saturation through the right foot . COMPARISON: None. FINDINGS: Image quality: Excellent. Bones: There is marrow edema involving 5th metatarsal head and neck with subtle cortical thinning involving plantar cortex of 5th metatarsal head. No other area of abnormal marrow signal is seen. No fracture or dislocation. Osteoarthritic changes are noted in midfoot and forefoot joints. Soft tissues: There is significant soft tissue swelling and edema over dorsal and lateral aspect of forefoot particularly adjacent to 5th MTP joint. Ulceration involving plantar aspect of 5th metatarsal head is seen with surrounding soft tissue edema and enhancement. No peripherally enhancing drainable fluid collection is noted. Significant edema within visualized plantar foot muscles is seen suggestive of myositis. No drainable intramuscular fluid collection. Extensor and flexor tendons are intact. Lisfranc ligament is intact. IMPRESSION: 1. Full-thickness ulceration involving plantar aspect of 5th MTP joint with suggestion of osteomyelitis involving adjacent 5th metatarsal head and neck. Significant cellulitis in plantar, lateral and dorsal aspect of forefoot. No discrete drainable abscess collection. 2. Forefoot joint osteoarthritis. No fracture or dislocation. No other area of abnormal marrow signal. 3. Significant myositis involving visualized plantar foot muscles. No intramuscular abscess collection. No enhancing soft tissue mass. Dictated by: Goyo Matute M.D. on 12/16/2022 at 8:11 Approved by: Goyo Matute M.D. on 12/16/2022 at 8:14
== END ==
PROVIDERS: PCP Physician Assistant Medical; Referring Provider Surgery; Visit Provider Surgery
DX: L08.9 Local infection of the skin and subcutaneous tissue, unspecified (principal); L89.893 Pressure ulcer of other site, stage 3; L89.202 Pressure ulcer of unspecified hip, stage 2; M19.071 Primary osteoarthritis, right ankle and foot; L03.115 Cellulitis of right lower limb; M60.871 Other myositis, right ankle and foot
CPT/HCPCS: 73502; 73720; A9579

== ENCOUNTER → 2022-12-22 14:21 | Outpatient (CLI) | payer OTHER, SELFPAY ==
[2021-10-07 09:38] VITALS: BMI 25.6
== END ==
PROVIDERS: PCP Physician Assistant Medical; Referring Provider Physician Assistant Medical; Visit Provider Surgery
DX: S00.03XA Contusion of scalp, initial encounter (principal); W18.11XA Fall from or off toilet without subsequent striking against object, initial encounter; L89.893 Pressure ulcer of other site, stage 3; L89.213 Pressure ulcer of right hip, stage 3; G35 Multiple sclerosis; L84 Corns and callosities
CPT/HCPCS: 11042; 70450; 87070; 87075; 87077; 87147; 87186; 87205; 99283

== ENCOUNTER 2022-12-22 15:16 | Emergency (ER) | payer OTHER, SELFPAY ==
[2021-10-07 09:38] VITALS: BMI 25.6
[2022-12-22 15:34] VITALS: BP 153/83; PULSE 84; RESP 18; TEMP 36.6; O2SAT 99; BMI 23.3
--- NOTE | 2022-12-22 15:59 | DI.CT.S_ITS ---
PROCEDURE: CT HEAD/BRAIN WO CON INDICATIONS: fall, hit head TECHNIQUE: Noncontrast 4.5 mm thick angled axial sections acquired from the foramen magnum to the vertex, with coronal and sagittal reformats. For radiation dose reduction, the following was used: automated exposure control, adjustment of mA and/or kV according to patient size. COMPARISON: [facility], CT, HEAD WITHOUT CONTRAST, 02/28/2017, 12:17. FINDINGS: Image quality: Excellent. CSF spaces: Basal cisterns are patent. No extra-axial fluid collections. The ventricles are symmetric in size and shape. Brain: No intracranial bleeds or masses. There is cerebral volume loss for age, with resultant ventricular and sulcal prominence. There are moderate, age-appropriate periventricular and deep white matter chronic small vessel ischemic changes. There is intracranial internal carotid artery atherosclerosis. Skull and face: Calvarium and visualized facial bones appear intact, without suspicious lesions. Sinuses: Visualized sinuses and mastoids are clear. IMPRESSION: 1. No acute intracranial process. 2. Age-related volume loss and moderate, age-appropriate small-vessel ischemic change. Dictated by: Jay Pennington M.D. on 12/22/2022 at 16:14 Approved by: Jay Pennington M.D. on 12/22/2022 at 16:15
--- NOTE | 2022-12-22 18:11 | ED_ITS ---
HPI - Fall General Chief Complaint: Fall Stated Complaint: head trauma back trauma due to fall Time Seen by Provider: 12/22/22 18:09 Source: patient Mode of arrival: Wheelchair History of Present Illness HPI Narrative: 82-year-old female former smoker with MS is wheelchair-bound and was trying to transfer to the toilet and fell backwards striking the back of her head. She denies loss of consciousness, nausea or vomiting. She takes no blood thinners. She denies any blurred vision or trouble with speech and denies other injury. She does have a superficial abrasion in the mid upper thoracic region that causes her some pain. She denies chest pain or shortness of breath Related Data Home Medications Medication Instructions Recorded Confirmed cholecalciferol (vitamin D3) 25 1,000 unit PO DAILY 10/25/18 10/29/22 mcg (1,000 unit) capsule citalopram 20 mg tablet 20 mg PO DAILY depression 06/04/19 10/29/22 omeprazole 20 mg capsule,delayed 20 mg PO DAILY 08/29/20 10/29/22 release Previous Rx's Medication Instructions Recorded acetaminophen 325 mg tablet 650 mg PO Q6HR PRN Fever #30 tabs 06/08/19 citalopram 10 mg tablet 20 mg PO DAILY #20 tabs 10/09/21 pantoprazole 40 mg tablet,delayed 40 mg PO 0700,2100 #20 tabs 10/09/21 release zinc oxide 10 % topical cream 1 applic topical BID-QID PRN skin 11/09/21 irritation #78 grams Wheelchair Evaluation #1 ea 03/20/22 estradiol 2 mg (7.5 mcg/24 hour) 1 vag ring vaginal [id number] #1 ea 05/06/22 vaginal ring (Estring) Allergies Allergy/AdvReac Type Severity Reaction Status Date / Time azithromycin Allergy Mild RASH Verified 12/22/22 15:34 levofloxacin Allergy Mild RASH Verified 12/22/22 15:34 Sulfa (Sulfonamide Allergy Mild RASH Verified 12/22/22 15:34 Antibiotics) ceftriaxone AdvReac Intermediate Swelling Verified 12/22/22 15:34 of Lip/Tongue/Throat adhesive AdvReac Mild RASH FROM Verified 12/22/22 15:34 CLOTH TAPE Review of Systems Review of Systems Narrative: GENERAL: Denies chills, fatigue, malaise, fever, sweats. HEENT: Denies sinus pain, ear pain, sore throat, difficulty swallowing, dizziness. RESPIRATORY: Denies dyspnea, cough, wheezing, hemoptysis, sputum. CARDIOVASCULAR: Denies chest pain, palpitations, orthopnea, edema, GASTROINTESTINAL: Denies nausea, vomiting, abdominal pain, diarrhea, constipation, melena. : Denies dysuria, frequency, incontinence, hematuria, urinary retention. MUSCULOSKELETAL: denies weakness, joint pain, or bony pain SKIN: Denies rash, skin lesions, or other NEUROLOGIC: Denies weakness, headache, numbness, change in speech, confusion, seizures, incoordination. PSYCHIATRIC: No concerning psychosocial issues. 12 point review of systems is negative except for those stated above Patient History Medical History Acute UTI Hypertension Multiple sclerosis Recurrent Clostridium difficile diarrhea Ureterolithiasis Surgical History H/O: hysterectomy History of tonsillectomy Hx of appendectomy Family History Father Hypertension Myocardial infarct Mother Cancer Social History household members: none occupational status: previously employed Smoking Status: Former smoker alcohol intake: current Smoking Status: Former smoker alcohol intake frequency: holidays/special occasions only Substance Use Type: does not use Exam Narrative Exam Narrative: GENERAL: [82] year old patient appears stated age. Well-developed patient, in mild distress. HEAD: Atraumatic. Normocephalic. No hematoma, abrasion or laceration no evidence of depressed skull fracture EYES: Pupils equal round and reactive. Extraocular motions intact. No scleral icterus. No injection or drainage. ENT: Nose without bleeding, purulent drainage. Throat without erythema, tonsillar hypertrophy or exudate. Airway patent. NECK: Trachea midline. Non tender CARDIOVASCULAR: Regular rate and rhythm without murmurs, gallops, or rubs. RESPIRATORY: Clear to auscultation. Breath sounds equal bilaterally. No wheezes, rales, or rhonchi. GASTROINTESTINAL: Abdomen soft, non-tender, nondistended. EXTREMITIES: No edema or joint tenderness. BACK: Superficial abrasion in the midline of the mid to upper Thoracics, no deep bony tenderness, step-offs or crepitance, otherwise Nontender without deformity or crepitance. No flank tenderness. NEURO: AOx3. SKIN: No rash or erythema of visible areas Initial Vital Signs Initial Vital Signs: Vital Signs Temperature 98 F 12/22/22 15:34 Pulse Rate 84 12/22/22 15:34 Respiratory Rate 18 12/22/22 15:34 Blood Pressure 153/83 H 12/22/22 15:34 Pulse Oximetry 99 12/22/22 15:34 Oxygen Delivery Method Room Air 12/22/22 15:34 Course Orders Ordered: ED Orders 12/22/22 15:59 CT head/brain wo con Stat Vital Signs Vital signs: Vital Signs - 8 hr 12/22/22 15:34 Temperature 98 F Pulse Rate 84 Respiratory Rate 18 Blood Pressure 153/83 H Pulse Oximetry 99 Oxygen Delivery Method Room Air MDM - Fall MDM Narrative Medical decision making narrative: [82] year old patient presents with fall with head injury Multiple etiologies for patient's symptoms considered including, but not limited to: [Contusion versus fracture versus intracranial hemorrhage versus other] Prior Charts reviewed in our EMR Primary Historian: patient Imaging reviewed: Head CT without intracranial hemorrhage or fracture Patient's symptoms improved over duration of stay with above-stated therapies. Findings and discharge diagnosis discussed with patient/family followed by verbalization of understanding Return precautions discussed with patient/family whom verbalize understanding of diagnosis and plan Discharge Plan Departure Patient Disposition: Home Clinical Impression: Contusion of scalp Instructions: How to Prevent Falls Activity Restrictions/Additional Instructions: *You have been diagnosed with [fall with minor injuries including scalp contusion. As we discussed your history and physical exam are reassuring and the CT scan shows no fractures or bleeding in your brain.] *What to do: *Please continue to take your regular medications as directed. [ ] New medication prescriptions sent to your pharmacy: [ ] [ ] New medication written as a paper prescription [ ] No new medications given *Please follow up with your primary care provider in 2-3 days, call for an appointment. Let them know you were seen in the Emergency Department and that we ask that you be seen in follow up. We will electronically transmit a record of today's note if your PCP is in our system *If you do not have a primary care provider please contact the [facility] Resource line at [phone]. They will ask some questions about your medical history and help get you set up with a doctor in the community. *Return to Emergency Department if you should have any new, worsening or concerning symptoms, such as [fever greater than 101 F, shaking chills, worsening pain, persistent vomiting or other bothersome symptoms] Prescriptions: No Action (DME) Wheelchair Evaluation See Rx Instructions .Route .MEDSUPPLY Qty: 1 0RF Rx Instructions: A wheelchair evaluation to improve community mobility, increase safety during transfers and reduce the risk of pressure injuries. Estring 2 mg (7.5 mcg /24 hour) ring 1 vag ring vaginal [id number] Qty: 1 5RF cholecalciferol (vitamin D3) 1,000 unit capsule 1,000 unit PO DAILY citalopram 10 mg Tablet 20 mg PO DAILY Qty: 20 0RF pantoprazole 40 mg Tablet,Delayed Release (Dr/Ec) 40 mg PO 0700,2100 Qty: 20 0RF zinc oxide 10 % cream 1 applic topical BID-QID PRN (Reason: skin irritation) Qty: 78 0RF citalopram 20 mg tablet 20 mg PO DAILY acetaminophen 325 mg Tablet 650 mg PO Q6HR PRN (Reason: Fever) Qty: 30 0RF omeprazole 20 mg capsule,delayed release(DR/EC) 20 mg PO DAILY Referrals: Elliott Siu PA-C [Primary Care Provider] - Stand Alone Forms: Patient Portal/API
[2022-12-22 19:02] VITALS: BP 148/76; PULSE 77; RESP 18; O2SAT 97
== END 2022-12-22 19:00 | disposition home or self-care (01) ==
PROVIDERS: Emergency Provider Emergency Medicine; PCP Physician Assistant Medical
DX: S00.03XA Contusion of scalp, initial encounter (principal); W18.11XA Fall from or off toilet without subsequent striking against object, initial encounter
CPT/HCPCS: 70450

== ENCOUNTER → 2022-12-29 14:38 | Outpatient (CLI) | payer OTHER, SELFPAY ==
[2021-10-07 09:38] VITALS: BMI 25.6
== END ==
PROVIDERS: PCP Physician Assistant Medical; Referring Provider Nurse Practitioner Critical Care Medicine; Visit Provider Surgery
DX: L89.893 Pressure ulcer of other site, stage 3 (principal); L89.213 Pressure ulcer of right hip, stage 3; G35 Multiple sclerosis
CPT/HCPCS: 11042

== ENCOUNTER → 2023-01-19 14:03 | Outpatient (CLI) | payer OTHER, SELFPAY ==
[2021-10-07 09:38] VITALS: BMI 25.6
== END ==
PROVIDERS: PCP Physician Assistant Medical; Referring Provider Nurse Practitioner Critical Care Medicine; Visit Provider Surgery
DX: L89.893 Pressure ulcer of other site, stage 3 (principal); L89.213 Pressure ulcer of right hip, stage 3; G35 Multiple sclerosis; L84 Corns and callosities
CPT/HCPCS: 11042; 87070; 87075; 87077; 87147; 87186; 87205; 99213

== ENCOUNTER → 2023-02-02 15:00 | Outpatient (CLI) | payer OTHER, SELFPAY ==
[2021-10-07 09:38] VITALS: BMI 25.6
== END ==
PROVIDERS: PCP Physician Assistant Medical; Referring Provider Nurse Practitioner Critical Care Medicine; Visit Provider Surgery
DX: L89.893 Pressure ulcer of other site, stage 3 (principal); L89.213 Pressure ulcer of right hip, stage 3; G35 Multiple sclerosis
CPT/HCPCS: 11042; 99213

== ENCOUNTER → 2023-03-02 15:18 | Outpatient (CLI) | payer OTHER, SELFPAY ==
[2021-10-07 09:38] VITALS: BMI 25.6
== END ==
PROVIDERS: PCP Physician Assistant Medical; Referring Provider Nurse Practitioner Critical Care Medicine; Visit Provider Surgery
DX: L89.213 Pressure ulcer of right hip, stage 3 (principal); L89.893 Pressure ulcer of other site, stage 3; G35 Multiple sclerosis
CPT/HCPCS: 99213